=== PATIENT | male | born 1985 | race Caucasian/White ===

== ENCOUNTER 2018-06-12 11:34 | Inpatient (IN) | payer OTHER ==
[2018-06-12] MEDS ORDERED: CEFTRIAXONE 2 GM-D5W BAG 2 GM/50 ML BAG IVPB ONE (11:59)
[2018-06-12] MEDS ORDERED: VANCOMYCIN 1,000 MG in DEXTROSE 5%-WATER - 250 ML IVPB ONE (12:00)
[2018-06-12] MEDS ORDERED: DEXAMETHASONE SOD PHOSPHATE 4 MG/1 ML VIAL IVPUSH ONE (12:00)
[2018-06-12] MEDS ORDERED: VANCOMYCIN 1 GRAM (PRE-DOCKED) 1,000 MG/250 ML BAG IVPB ONE (12:03)
[2018-06-12] MEDS ORDERED: CEFTRIAXONE 2 GM/100 ML BAG IVPB ONE (12:03)
[2018-06-12] MEDS ORDERED: DEXAMETHASONE SOD PHOSPHATE 4 MG/1 ML VIAL ONE (12:03)
[2018-06-12] MEDS ORDERED: ACETAMINOPHEN 1000 MG/100 ML VIAL (NON FORMULARY) IVPB ONE ×2 (12:21→13:59)
[2018-06-12] MEDS ORDERED: SODIUM CHLORIDE 0.9% 1000 ML INFUS.BAG IV ONE (12:21)
--- NOTE | 2018-06-12 12:21 | PDOC ---
Attending Attestation - Resident Resident Name: Jeremías Swanson - ED Attending Attestation I have performed the following: I have examined & evaluated the patient, The case was reviewed & discussed with the resident, I agree w/resident's findings & plan, Exceptions are as noted - HPI HPI: 06/12/18 15:11 Agree with residents HPI - Physicial Exam PE: 06/12/18 15:13 Vitals: Triage Vital signs reviewed General Appearance: no acute distress, well nourished well developed, Head: Atraumatic, Neck: Supple;No Nucal rigidity, but C/O of pain with movement Chest Wall: Nontender Cardiac: Regular rate and rhythym, no murmurs, no rubs, no gallops, Lungs: Clear to auscultation bilateral, good air movement bilaterally, Abdomen: Soft, non distended, normal bowel sounds, non tender to palpation Extremities: Full range of motion to all extremities, no cyanosis, clubbing, or edema Skin: Warm and dry, + petechiae on left digits Neuro: AOX3; Cranial Nerves 2-12 grossly intact, Strength intact to all extremities, Sensation intact to all extremities,gait normal Psych: normal mood, normal affect - Critical Care Time Total Critical Care Time: 45 Critical Care Statement: The care of this patient involved high complexity decision making to prevent further life threatening deterioration of the patient 's condition and/or to evaluate & treat vital organ system(s) failure or risk of failure. - Medical Decision Making 06/12/18 15:13 33 years old history of Hep C, IV drug within last 24 hours presents to the ED with gram-positive cocci on outpatient blood cultures fever 3 days chills malaise headache and subjective neck stiffness Questionable petechial lesions to the digits of left hand Differential diagnosis includes bacteremia versus endocarditis versus meningitis Patient empirically covered with ceftriaxone and vancomycin head CT labs ordered Patient consented for lumbar puncture performed without any, occasions CSF with no WBC. Pt. given nicotine patch and methadone for mild withdrawal sx. Behavioral health consulted We'll admit to medicine for follow-up on cultures and further management. Heart Score/ECG Review - ECG Impressions Comment:: 06/12/18 16:32 EKG performed at 1617. Demonstrates normal sinus rhythm T-wave injured inversions in leads V1 through V3. No ST elevations. Interpreted by me.
[2018-06-12] MEDS ORDERED: ACETAMINOPHEN INJECTION 100 ML IVPB ONE ×2 (12:22→14:03)
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
[2018-06-12 12:54] LABS: BASO % 0.4 % (0-2.0); EOS % 0.4 % (0-4.5); HEMATOCRIT 31.9 % (35.4-49); HEMOGLOBIN 10.5 GM/dL (11.7-16.9); LYMPH % 4.5 % (8-40); MCH 27.3 pg (25.7-33.7); MEAN CELL VOLUME 82.9 fl (80-96); MONO % 5.4 % (3.8-10.2); NEUT % 89.3 % (42.8-82.8); PLATELET COUNT 131 K/MM3 (134-434); RBC 3.84 M/mm3 (4.00-5.60); RDW 14.9 % (11.9-15.9); WHITE BLOOD COUNT 7.3 K/mm3 (4.0-10.0)
[2018-06-12] MEDS ORDERED: ACETAMINOPHEN 325 MG TABLET (FP) PO ONE (13:02)
[2018-06-12 13:12] LABS: INR 1.29 (0.83-1.09); PROTHROMBIN TIME (PATIENT) 14.6 SEC (9.7-13.0)
[2018-06-12 13:15] LABS: ACTIVATED PTT 28.2 SECONDS (25.2-36.5)
[2018-06-12 13:21] LABS: ALBUMIN 3.2 g/dl (3.4-5.0); ALK PHOS 59 U/L (45-117); ANION GAP 4 (8-16); BILIRUBIN,TOTAL 0.6 mg/dL (0.2-1.0); BLOOD UREA NITROGEN 13 mg/dL (7-18); CALCIUM 8.7 mg/dL (8.5-10.1); CHLORIDE 101 mmol/L (98-107); CO2 28 mmol/L (21-32); CREATININE 1.2 mg/dL (0.7-1.3); GLUCOSE,RANDOM 94 mg/dL (74-106); POTASSIUM 4.9 mmol/L (3.5-5.1); SGOT/AST 17 U/L (15-37); SGPT/ALT 18 U/L (12-78); SODIUM 133 mmol/L (136-145); TOT PROT 7.8 g/dl (6.4-8.2)
[2018-06-12] MEDS ORDERED: ACETAMINOPHEN 650 MG/20.3 ML ORAL SOLUTION (CUPS) ONE (13:51)
[2018-06-12] MEDS ORDERED: MIDAZOLAM HCL 2 MG/2 ML SINGLE DOSE VIAL IVPUSH ONE (13:59)
[2018-06-12] MEDS ORDERED: MIDAZOLAM HCL 2 MG/2 ML SINGLE DOSE VIAL ONE (14:03)
[2018-06-12 14:11] LABS: URINE APPEARANCE CLEAR; URINE BILIRUBIN NEGATIVE (<2.0 mg/dL); URINE COLOR AMBER; URINE GLUCOSE (UA) NEGATIVE (NEGATIVE); URINE KETONE NEGATIVE (NEGATIVE); URINE LEUK ESTERASE TRACE (NEGATIVE); URINE NITRITE NEGATIVE (NEGATIVE); URINE UROBILINOGEN 4.0 E.U/dl mg/dL (0.2-1.0)
[2018-06-12 14:13] LABS: URINE PROTEIN 1+ (NEGATIVE)
[2018-06-12] MEDS ORDERED: LIDOCAINE HCL 2% (20ML MULTI-DOSE VIAL) NR ONE (14:34)
[2018-06-12 15:01] LABS: EPI CELLS RARE /HPF (FEW); URINE MUCUS RARE
[2018-06-12 15:16] LABS: GLUCOSE,CSF 57 mg/dL (50-80)
[2018-06-12 15:45] LABS: CSF APPEARANCE CLEAR; CSF COLOR COLORLESS; CSF WBC 2
[2018-06-12] MEDS ORDERED: SODIUM CHLORIDE 1,000 ML IV STA ×3 (16:05→23:10)
[2018-06-12] MEDS ORDERED: METHADONE HCL 10 MG TABLET PO ONE (16:08)
[2018-06-12] MEDS ORDERED: METHADONE HCL 10 MG TABLET ONE (16:26)
[2018-06-12] MEDS: NICOTINE 14 MG/24 HOURS TOPICAL PATCH TD SCH (17:05)
--- NOTE | 2018-06-12 17:42 | PN ---
Progress Note (short form) - Note Progress Note: ID consult dictated imp/reccd fever bacteremia r/o endocarditis 33 year old active injection user /hep c went to [facility] this weekend had blood cultures drawn mother contacted on Monday- he refused to go to ED today he came to [facility]inic and agreed to come to the hospital +fever +lesions on his hands +headache and neck discomfort LP done in Ed with 2 WBC,normal protein and glucose he is alert with normal mental status given steroids vancomycin and ceftriaxone +murmur ?emboli to hands bilateral groin lesions (sites of injections) no purulence, no drainage feet and eyes OK blood cultures from [facility] with Strep ID and Sensitivity pending ECHO Cardiology to see tonight f/u EKG blood cultures have been repeated vancomycin 1250 bid ceftriaxone 2 g Q24h gentamicin until blood culture results are back
--- NOTE | 2018-06-12 17:48 | PN ---
Teaching Attending Note Name of Resident: Noelle Willett ATTENDING PHYSICIAN STATEMENT I saw and evaluated the patient. I reviewed the resident's note and discussed the case with the resident. I agree with the resident's findings and plan as documented with exceptions below SUBJECTIVE: 33 yom with PMhx of IVDU (heroine and cocaine), (uses almost daily for 4 years) , H/o crack cocaine use prior for almost 15 years now, opioid dependence on methadone (gets at [facility]), anxiety, depression, recent diagnosed Hep C, was having fevers reportedly upto 103 5 days ago,with reported hallucination, not feeling right/AMS, went to [facility] ER, left ED (?d/meenakshi), was called the next day with positive blood cx. today patient came to [facility] clinic with ongoign symptoms of headache, malaise, neck pain, fevers and was sent to the Ed. patient had LP in the ED, prelim results are negative for meningitis. Currently drowsy from recent medications but answering appropriately. Headache/ neck pain better. 12 point ROs done, neg for nausea, vomiting, diarrhea, abdominal pain, chest pain, cough, sputum or urinary symptoms. Also reports red urine. Mother at bedside per patient's request. OBJECTIVE: Vital Signs Period Temp Pulse Resp BP Sys/Manning Pulse Ox Last 24 Hr 100.5 F-102.2 F 75-78 18 97-102/54-69 97-98 Intake & Output 06/09/18 06/10/18 06/11/18 06/12/18 23:59 23:59 23:59 23:59 Weight 165 lb GENERAL: Awake, alert, and fully oriented, in no acute distress. HEAD: Normal with no signs of trauma. EYES: Pupils equal, round and reactive to light, extraocular movements intact, sclera anicteric, conjunctiva clear. No lid lag. EARS, NOSE, THROAT: Ears normal, nares patent, oropharynx clear without exudates. Dry mucous membranes NECK: soft, supple, no JVD, no lymphadenopathy appreciated LUNGS: Breath sounds equal, clear to auscultation bilaterally. No wheezes, and no crackles. No accessory muscle use. HEART: S1S2 regular, systolic murmur left parasternal area, limited by tachycardia, ABDOMEN: Soft, nontender, not distended, normoactive bowel sounds, no guarding, no rebound, no masses. MUSCULOSKELETAL: Normal range of motion at all joints. No bony deformities or tenderness. No CVA tenderness. No spinal tenderness UPPER EXTREMITIES: 2+ pulses, warm, well-perfused. small petechial lesions tip of fingertips bilateral hands LOWER EXTREMITIES: 2+ pulses, warm, well-perfused. No calf tenderness. No peripheral edema. Bilateral groin needle gonzalez NEUROLOGICAL: Cranial nerves II-XII intact. Normal speech. facial symmetry, Tongue midline, EOMI, power 5/5, sensation intact to light touch PSYCHIATRIC: Cooperative. Good eye contact. Appropriate mood and affect. SKIN: Warm, dry, normal turgor, no rashes or lesions noted, normal capillary refill. Home Medications Medication Instructions Recorded Methadone [Dolophine -] 110 mg PO DAILY 06/12/18 Active Medications Heparin Sodium (Porcine) (Heparin -) 5,000 unit SQ Q8H-IV ELYSIA Vancomycin HCl 1,250 mg/ (Dextrose) 250 mls @ 166.667 mls/hr IVPB Q12H ELYSIA; Protocol Piperacillin Sod/Tazobactam (Sod 4.5 gm/ Dextrose) 100 mls @ 200 mls/hr IVPB Q8H-IV ELYSIA; Protocol Sodium Chloride (Normal Saline -) 1,000 mls @ 125 mls/hr IV ASDIR ELYSIA Nicotine (Nicoderm Patch -) 14 mg TD DAILY ELYSIA Last Admin: 06/12/18 17:05 Dose: 14 mg Laboratory Results - last 24 hr 06/12/18 06/12/18 06/12/18 12:44 12:44 12:44 WBC 7.3 RBC 3.84 L Hgb 10.5 L Hct 31.9 L MCV 82.9 MCH 27.3 MCHC 33.0 RDW 14.9 Plt Count 131 L D MPV 8.0 Absolute Neuts (auto) 6.5 Neutrophils % 89.3 H Lymphocytes % 4.5 L D Monocytes % 5.4 Eosinophils % 0.4 Basophils % 0.4 Nucleated RBC % 0 PT with INR 14.60 H INR 1.29 H PTT (Actin FS) 28.2 VBG pH POC VBG pCO2 POC VBG pO2 Mixed VBG HCO3 Sodium 133 L Potassium 4.9 Chloride 101 Carbon Dioxide 28 Anion Gap 4 L BUN 13 Creatinine 1.2 Creat Clearance w eGFR > 60 Random Glucose 94 Lactic Acid Calcium 8.7 Total Bilirubin 0.6 AST 17 ALT 18 D Alkaline Phosphatase 59 Troponin I Total Protein 7.8 Albumin 3.2 L Urine Color Urine Appearance Urine pH Ur Specific [place] Urine Protein Urine Glucose (UA) Urine Ketones Urine Blood Urine Nitrite Urine Bilirubin Urine Urobilinogen Ur Leukocyte Esterase Urine WBC (Auto) Urine RBC (Auto) Ur Epithelial Cells Urine Mucus CSF Appearance CSF Color CSF WBC CSF RBC CSF Neutrophils CSF Lymphocytes CSF Eosinophils CSF Basophils CSF Macrophages CSF Plasma Cells CSF Diff Comment CSF Comment CSF Glucose CSF Total Protein HIV 1&2 Antibody Screen HIV P24 Antigen 06/12/18 06/12/18 06/12/18 12:44 12:44 12:45 WBC RBC Hgb Hct MCV MCH MCHC RDW Plt Count MPV Absolute Neuts (auto) Neutrophils % Lymphocytes % Monocytes % Eosinophils % Basophils % Nucleated RBC % PT with INR INR PTT (Actin FS) VBG pH Cancelled POC VBG pCO2 Cancelled POC VBG pO2 Cancelled Mixed VBG HCO3 Cancelled Sodium Potassium Chloride Carbon Dioxide Anion Gap BUN Creatinine Creat Clearance w eGFR Random Glucose Lactic Acid 2.1 H Calcium Total Bilirubin AST ALT Alkaline Phosphatase Troponin I < 0.02 Total Protein Albumin Urine Color Urine Appearance Urine pH Ur Specific [place] Urine Protein Urine Glucose (UA) Urine Ketones Urine Blood Urine Nitrite Urine Bilirubin Urine Urobilinogen Ur Leukocyte Esterase Urine WBC (Auto) Urine RBC (Auto) Ur Epithelial Cells Urine Mucus CSF Appearance CSF Color CSF WBC CSF RBC CSF Neutrophils CSF Lymphocytes CSF Eosinophils CSF Basophils CSF Macrophages CSF Plasma Cells CSF Diff Comment CSF Comment CSF Glucose CSF Total Protein HIV 1&2 Antibody Screen HIV P24 Antigen 06/12/18 06/12/18 06/12/18 13:55 14:40 14:40 WBC RBC Hgb Hct MCV MCH MCHC RDW Plt Count MPV Absolute Neuts (auto) Neutrophils % Lymphocytes % Monocytes % Eosinophils % Basophils % Nucleated RBC % PT with INR INR PTT (Actin FS) VBG pH POC VBG pCO2 POC VBG pO2 Mixed VBG HCO3 Sodium Potassium Chloride Carbon Dioxide Anion Gap BUN Creatinine Creat Clearance w eGFR Random Glucose Lactic Acid Calcium Total Bilirubin AST ALT Alkaline Phosphatase Troponin I Total Protein Albumin Urine Color [place] Urine Appearance Clear Urine pH 7.0 D Ur Specific [place] 1.023 Urine Protein 1+ H Urine Glucose (UA) Negative Urine Ketones Negative Urine Blood Negative Urine Nitrite Negative Urine Bilirubin Negative Urine Urobilinogen 4.0 e.u/dl Ur Leukocyte Esterase Trace Urine WBC (Auto) 1 Urine RBC (Auto) 4 Ur Epithelial Cells Rare Urine Mucus Rare CSF Appearance Clear CSF Color Colorless CSF WBC 2 CSF RBC 0 CSF Neutrophils No Result Required. CSF Lymphocytes No Result Required. CSF Eosinophils No Result Required. CSF Basophils No Result Required. CSF Macrophages No Result Required. CSF Plasma Cells No Result Required. CSF Diff Comment No Result Required. CSF Comment No Result Required. CSF Glucose No Result Required. 57 CSF Total Protein No Result Required. 31 HIV 1&2 Antibody Screen HIV P24 Antigen 06/12/18 06/12/18 15:25 15:25 WBC RBC Hgb Hct MCV MCH MCHC RDW Plt Count MPV Absolute Neuts (auto) Neutrophils % Lymphocytes % Monocytes % Eosinophils % Basophils % Nucleated RBC % PT with INR INR PTT (Actin FS) VBG pH POC VBG pCO2 POC VBG pO2 Mixed VBG HCO3 Sodium Potassium Chloride Carbon Dioxide Anion Gap BUN Creatinine Creat Clearance w eGFR Random Glucose Lactic Acid 2.3 H* Calcium Total Bilirubin AST ALT Alkaline Phosphatase Troponin I Total Protein Albumin Urine Color Urine Appearance Urine pH Ur Specific [place] Urine Protein Urine Glucose (UA) Urine Ketones Urine Blood Urine Nitrite Urine Bilirubin Urine Urobilinogen Ur Leukocyte Esterase Urine WBC (Auto) Urine RBC (Auto) Ur Epithelial Cells Urine Mucus CSF Appearance CSF Color CSF WBC CSF RBC CSF Neutrophils CSF Lymphocytes CSF Eosinophils CSF Basophils CSF Macrophages CSF Plasma Cells CSF Diff Comment CSF Comment CSF Glucose CSF Total Protein HIV 1&2 Antibody Screen Negative HIV P24 Antigen Negative EKG NSR, biphasic T waves in V1-V2, QTc 521 CXR - no acute process CT brain - neg for acute process ASSESSMENT AND PLAN: 33 yom with PMhx of IVDU (heroine and cocaine), (uses almost daily for 4 years) , H/o crack cocaine use prior for almost 15 years now, opioid dependence on methadone (gets at [facility]), anxiety, depression, recent diagnosed Hep C, admitted with fevers, headache, malaise and recent positive blood cultures. -Strep bacteremia with sepsis, high suspicion for infective endocarditis -IVDU -Opioid dependence on methadone -Prolonged QTC -Red urine, suspect rhabdomyolysis -Anxiety -Depression Plan: BLood cx from [facility] with strep. ID consulted, case discussed with Dr. Magaña Ceftriaxone/vancomcyin and gentamycin x1 per ID. Aggressive IV hydration. Check CPK/Mg/Phos. Interval monitoring of EKG to monitor QTc. Cardiology consulted with Dr. Carranza, case discussed. Cycle troponin but low suspicion. Confirm Methadone from [facility]. Patient reports not compliant with his prior outpatient medications. ( is supposed to be on ambien 10 mg hs, Xanax 1 mg daily prn, buproprion, depakote, olanzapine), resume as tolerated. DVTPPX with lovenox Dispo pending work up above and clinical improvement. Plan discussed with patient and mother at bedside (with patient's consent) in detail and all questions answered. They express understanding and in agreement with the plan. Total admit time 65 min.
[2018-06-12] MEDS ORDERED: PIPERACILLIN/TAZOB 4.5 GM 4.5 GM in DEXTROSE 5%-WATER 100 ML IVPB SCH (18:00)
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
[2018-06-12] MEDS ORDERED: GENTAMICIN INJECTION 70 MG in SODIUM CHLORIDE 100 ML IVPB ONE (18:30)
[2018-06-12 18:35] LABS: PHOSPHOROUS 2.7 mg/dL (2.5-4.9)
[2018-06-12 18:52] LABS: MAGNESIUM 2.1 mg/dL (1.8-2.4)
[2018-06-12] MEDS: ALPRAZolam 0.25 MG TABLET PO PRN (19:15)
[2018-06-12] MEDS ORDERED: ALPRAZolam 0.25 MG TABLET ONE (19:17)
[2018-06-12] MEDS ORDERED: POLYETHYLENE GLYCOL 3350 119 GM BTL PO ONE (19:18)
[2018-06-12] MEDS: SODIUM CHLORIDE 1,000 ML IV SCH (19:20)
[2018-06-12] MEDS ORDERED: HEPARIN NA (PORCINE) 5,000 UNITS/ML 1ML VIAL SQ SCH (22:00)
[2018-06-12] MEDS ORDERED: LORazepam 1 MG TABLET PO ONE (23:00)
[2018-06-13] MEDS ORDERED: VANCOMYCIN 1,250 MG in DEXTROSE 5%-WATER - 250 ML IVPB SCH
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
[2018-06-13] MEDS: VANCOMYCIN 1,250 MG in DEXTROSE 5%-WATER - 250 ML IVPB SCH ×2 (02:34→15:07)
[2018-06-13] MEDS: GENTAMICIN INJECTION 70 MG in SODIUM CHLORIDE 100 ML IVPB SCH ×2 (05:06→11:17)
[2018-06-13] MEDS ORDERED: SODIUM CHLORIDE 1,000 ML IV STA ×2 (05:08→08:39)
[2018-06-13 06:50] LABS: BASO % 0.1 % (0-2.0); HEMATOCRIT 26.2 % (35.4-49); HEMOGLOBIN 8.7 GM/dL (11.7-16.9); LYMPH % 8.5 % (8-40); MCH 27.7 pg (25.7-33.7); MEAN PLT VOLUME 8.5 fl (7.5-11.1); MONO % 6.2 % (3.8-10.2); NEUT % 85.2 % (42.8-82.8); PLATELET COUNT 78 K/MM3 (134-434); RBC 3.12 M/mm3 (4.00-5.60); RDW 14.8 % (11.9-15.9); WHITE BLOOD COUNT 4.5 K/mm3 (4.0-10.0)
[2018-06-13] MEDS ORDERED: METHADONE HCL 10 MG TABLET ONE (07:29)
[2018-06-13] MEDS ORDERED: METHADONE HCL 40 MG DISPERSABLE TABLET ONE (07:30)
[2018-06-13 07:49] LABS: ALBUMIN 2.5 g/dl (3.4-5.0); ALK PHOS 51 U/L (45-117); ANION GAP 7 (8-16); BILIRUBIN,TOTAL 0.2 mg/dL (0.2-1.0); BLOOD UREA NITROGEN 11 mg/dL (7-18); CHLORIDE 113 mmol/L (98-107); CO2 24 mmol/L (21-32); CREATININE 0.8 mg/dL (0.7-1.3); GLUCOSE,RANDOM 122 mg/dL (74-106); POTASSIUM 4.4 mmol/L (3.5-5.1); SGOT/AST 8 U/L (15-37); SGPT/ALT 15 U/L (12-78); SODIUM 144 mmol/L (136-145); TOT PROT 6.2 g/dl (6.4-8.2)
[2018-06-13] MEDS: METHADONE 80 MG, METHADONE 30 MG PO SCH (07:52)
--- NOTE | 2018-06-13 08:04 | PN ---
Teaching Attending Note Name of Resident: Ashleigh Vinson ATTENDING PHYSICIAN STATEMENT I saw and evaluated the patient. I reviewed the resident's note and discussed the case with the resident. I agree with the resident's findings and plan as documented with exceptions below. SUBJECTIVE: Patient seen and examined. Trying to take his meds, anxious, feels overwhelmed by testing. Not further co-operating with interview OBJECTIVE: Vital Signs Period Temp Pulse Resp BP Sys/Manning Pulse Ox Last 24 Hr 95 F-102.2 F 40-78 16-20 87-121/46-74 97-100 Intake & Output 06/10/18 06/11/18 06/12/18 06/13/18 23:59 23:59 23:59 23:59 Intake Total 1450 3890 Output Total 660 750 Balance 790 3140 Weight 165 lb General: AAOx3, no acute distress, anxious and agitated, feels overwhelmed by tests and 'can you leave me alone please'. Refuses further exam. Active Medications Alprazolam (Xanax -) 1 mg PO Q24H PRN PRN Reason: ANXIETY Last Admin: 06/12/18 19:15 Dose: 1 mg Enoxaparin Sodium (Lovenox -) 40 mg SQ DAILY ELYSIA Sodium Chloride (Normal Saline -) 1,000 mls @ 125 mls/hr IV ASDIR ELYSIA Last Admin: 06/12/18 19:20 Dose: 125 mls/hr Vancomycin HCl 1,250 mg/ (Dextrose) 250 mls @ 166.667 mls/hr IVPB BID@0300, 1500 ELYSIA; Protocol Last Admin: 06/13/18 02:34 Dose: 166.667 mls/hr Ceftriaxone Sodium 2 gm/ (Dextrose) 100 mls @ 200 mls/hr IVPB DAILY ELYSIA; Protocol Gentamicin Sulfate 70 mg/ (Sodium Chloride) 101.75 mls @ 100 mls/hr IVPB Q8H- IV ELYSIA; Protocol Last Admin: 06/13/18 05:06 Dose: 100 mls/hr Methadone HCl 80 mg/ Methadone (HCl 30 mg) 110 mg PO DAILY@0600 ELYSIA Last Admin: 06/13/18 07:52 Dose: 110 mg Nicotine (Nicoderm Patch -) 14 mg TD DAILY [facility] Last Admin: 06/12/18 17:05 Dose: 14 mg Pneumococcal Polyvalent Vaccine (Pneumovax -) 0.5 ml IM .ONCE ONE Stop: 06/13/18 10:01 Microbiology 06/12/18 14:40 Cerebral Spinal Fluid - Lumbar Puncture Gram Stain - Final 06/12/18 14:40 Cerebral Spinal Fluid - Lumbar Puncture CSF Culture - Preliminary 06/12/18 12:15 Blood - Peripheral Venous Blood Culture - Preliminary Alpha Hemolytic Streptococcus 06/12/18 12:15 Blood - Peripheral Venous Blood Culture - Preliminary Alpha Hemolytic Streptococcus 06/12/18 13:55 Urine - Urine Clean Catch Urine Culture - Final NO GROWTH OBTAINED ASSESSMENT AND PLAN: 33 yom with PMhx of IVDU (heroine and cocaine), (uses almost daily for 4 years) , H/o crack cocaine use prior for almost 15 years now, opioid dependence on methadone (gets at [facility]), anxiety, depression, recent diagnosed Hep C, admitted with fevers, headache, malaise and recent positive blood cultures. -Alpha hemolytic Strep bacteremia with sepsis, high suspicion for infective endocarditis -Thrombocytopenia, suspect from sepsis -Anemia, likely dilutional+/- sepsis, no gross evidence of bleed. -Lactic acidosis, from sepsis -IVDU -Opioid dependence on methadone -Prolonged QTC, repeat 480 -Red urine, CPK normal -Anxiety -Depression Plan: BLood cx from [facility] with strep. Retrieve final report. Blood cx here noted. Follow up with ID. Ceftriaxone/vancomcyin and gentamycin per ID. Aggressive IV hydration. Monitor renal function. Repeat EKG non concerning. Follow up cardiology consult and 2D echo. ACS ruled out. Methadone confirmed with [facility]. Detox Consult with Dr. Hancock. Patient reports not compliant with his prior outpatient medications. ( is supposed to be on ambien 10 mg hs, Xanax 1 mg daily prn, buproprion, depakote, olanzapine), resume as tolerated. DVTPPX d/c Lovenox. Start SCDs. Dispo pending work up above and clinical improvement. Discussed with patient on multiple occasions about life threatening infection, need for antibiotics and close monitoring and further intervention pending work up and clinical course. patient relays full understanding of the current condition, risks of leaving including sepsis, and . Will continue to encourage compliance and follow up detox recs to address ongoing polysubstance abuse.
[2018-06-13] MEDS ORDERED: SODIUM CHLORIDE 500 ML IV STA (08:42)
[2018-06-13] MEDS ORDERED: PNEUMOCOCCAL 23 VACCINE 0.5 ML VIAL IM ONE (10:00)
[2018-06-13] MEDS ORDERED: METHADONE HCL 40 MG DISPERSABLE TABLET PO SCH (10:00)
[2018-06-13] MEDS ORDERED: ENOXAPARIN NA (PORCINE) 40 MG/0.4 ML DISP.SYRIN SQ SCH (10:00)
[2018-06-13] MEDS ORDERED: PNEUMOC 13-VAL CONJ-DIP CRM/PF 0.5 ML DISP.SYRIN IM ONE (10:00)
[2018-06-13] MEDS: ALPRAZolam 0.25 MG TABLET PO PRN (10:40)
[2018-06-13] MEDS ORDERED: ALPRAZolam 0.25 MG TABLET PO PRN ×2 (10:55)
[2018-06-13] MEDS: NICOTINE 14 MG/24 HOURS TOPICAL PATCH TD SCH (11:12)
[2018-06-13] MEDS: CEFTRIAXONE 2 GM in DEXTROSE 5%-WATER 100 ML IVPB SCH ×2 (11:23→12:51)
[2018-06-13] MEDS ORDERED: ACETAMINOPHEN 325 MG TABLET (FP) ONE (12:04)
[2018-06-13] MEDS: ACETAMINOPHEN 325 MG TABLET (FP) PO PRN (12:20)
--- NOTE | 2018-06-13 13:00 | PN ---
Progress Note (short form) - Note Progress Note: continues to have body pains requesting morphine got methadone this am awaiting echo alert +hiccups uncooperative with exam Vital Signs Period Temp Pulse Resp BP Sys/Manning Pulse Ox Last 24 Hr 95 F-104 F 40-96 16-20 87-121/45-74 98-100 no conjunctival hemorrhages cor-rrr +murmur lungs clear abd soft,nt ext left hand lesions unchanged no lesions on right hand or feet CBC, BMP 06/13/18 05:30 06/13/18 05:30 Microbiology 06/12/18 14:40 Cerebral Spinal Fluid - Lumbar Puncture Gram Stain - Final 06/12/18 14:40 Cerebral Spinal Fluid - Lumbar Puncture CSF Culture - Preliminary 06/12/18 12:15 Blood - Peripheral Venous Blood Culture - Preliminary Alpha Hemolytic Streptococcus 06/12/18 12:15 Blood - Peripheral Venous Blood Culture - Preliminary Alpha Hemolytic Streptococcus 06/12/18 13:55 Urine - Urine Clean Catch Urine Culture - Final NO GROWTH OBTAINED a/p fever bacteremia r/o endocarditis active substance use awaiting cardiology evaluation and echo results awaiting further blood culture results norah Brush- results faxed to chart- strep viridans, ?staph spp-[phone]- continue vanco/rocephin/gent while awaiting final blood culture results from [facility] spoke with micro- strep ID later today
--- NOTE | 2018-06-13 13:15 | ECHO ---
Name: ZACK MOHAMUD Exam:Adult Echocardiogram Study Date: 06/13/2018 11:45 AM Age: 33 yrs Reason For Study: R/O Endocarditis Height: 71 in Weight: 160 lb BSA: 1.9 m2 MMode/2D Measurements & Calculations IVSd: 0.68 cm Ao root diam: 2.9 cm LVIDd: 5.2 cm LA dimension: 3.8 cm LVIDs: 3.4 cm LVPWd: 0.74 cm EDV(Teich): 129.5 ml TAPSE: 2.8 cm ESV(Teich): 46.5 ml RV S Murtaza: 22.4 cm/sec Doppler Measurements & Calculations MV E max murtaza: 134.7 cm/sec TR max murtaza: 230.8 cm/sec MV A max murtaza: 72.9 cm/sec TR max P.4 mmHg MV E/A: 1.8 Med Peak E' Murtaza: 9.1 cm/sec Med E/e': 14.8 Lat Peak E' Murtaza: 16.6 cm/sec Lat E/e': 8.1 Left Ventricle The left ventricular size, thickness and function are normal. Right Ventricle The right ventricular systolic function is normal. Atria Normal left and right atrial size and function. Mitral Valve There is trivial mitral valve thickening. There is no vegetation seen on the mitral valve. There is t race mitral regurgitation. Tricuspid Valve There is no tricuspid valve vegetation. There is mild tricuspid regurgitation. Right ventricular syst olic pressure is 21.4 mmhg. Aortic Valve There is no aortic valvular vegetation. Pulmonic Valve There is no vegetation on the pulmonic valve. Great Vessels The aortic root is normal size. Pericardium/Pleura There is no pericardial effusion. Interpretation Summary Normal left and right atrial size and function. There is mild tricuspid regurgitation. Right ventricular systolic pressure is 21.4 mmhg. There is no vegetation seen on the mitral valve. There is no tricuspid valve vegetation. There is no vegetation on the pulmonic valve. There is no aortic valvular vegetation. The aortic root is normal size. There is no pericardial effusion. Raúl Carranza MD 06/13/2018 01:14 PM
[2018-06-13] MEDS ORDERED: ACETAMINOPHEN 1000 MG/100 ML VIAL (NON FORMULARY) IVPB PRN (13:31)
--- NOTE | 2018-06-13 14:03 | EKG ---
Test Reason : Blood Pressure : / mmHG Vent. Rate : 061 BPM Atrial Rate : 061 BPM P-R Int : 150 ms QRS Dur : 098 ms QT Int : 518 ms P-R-T Axes : 065 078 062 degrees QTc Int : 521 ms NORMAL SINUS RHYTHM POSSIBLE LEFT ATRIAL ENLARGEMENT T WAVE ABNORMALITY, CONSIDER ANTERIOR ISCHEMIA PROLONGED QT ABNORMAL ECG NO PREVIOUS ECGS AVAILABLE Confirmed by VICKI DE LA CRUZ MD ([id number]) on 06/13/2018 2:03:38 PM Referred By: Confirmed By:VICKI DE LA CRUZ MD
[2018-06-13] MEDS ORDERED: METHADONE HCL 10 MG TABLET PO ONE (14:11)
--- NOTE | 2018-06-13 14:16 | EKG ---
Test Reason : Blood Pressure : / mmHG Vent. Rate : 084 BPM Atrial Rate : 084 BPM P-R Int : 148 ms QRS Dur : 092 ms QT Int : 408 ms P-R-T Axes : 067 069 053 degrees QTc Int : 482 ms NORMAL SINUS RHYTHM PROLONGED QT ABNORMAL ECG WHEN COMPARED WITH ECG OF 12-JUN-2018 16:17, NO SIGNIFICANT CHANGE WAS FOUND Confirmed by VICKI DE LA CRUZ MD ([id number]) on 06/13/2018 2:16:21 PM Referred By: Zahra VILLAVICENCIO Confirmed By:VICKI DE LA CRUZ MD
[2018-06-13] MEDS: ASCORBIC ACID 250 MG TABLET (FP) PO SCH (17:07)
[2018-06-13] MEDS: SODIUM CHLORIDE 1,000 ML IV SCH (17:08)
--- NOTE | 2018-06-13 18:04 | PN ---
Physical Exam: SUBJECTIVE: Patient seen and examined this morning at bedside. Patient was very agitated and anxious, threatening to leave AMA multiple times. He then refused to be further interviewed or examined and [facility]. OBJECTIVE: Vital Signs Period Temp Pulse Resp BP Sys/Manning Pulse Ox Last 24 Hr 95 F-104 F 40-96 16-20 87-121/45-74 100-100 GENERAL: The patient is awake, alert, and fully oriented, in no acute distress. NECK: Supple, No JVD LUNGS: Breath sounds equal, clear to auscultation bilaterally, no wheezes HEART: Regular rate and rhythm, S1, S2 ABDOMEN: Soft, nontender, nondistended, normoactive bowel sounds, no guarding EXTREMITIES: No edema Refused to be further examined as it was causing him agitation and anxiety Laboratory Results - last 24 hr 06/12/18 06/12/18 06/13/18 12:44 19:51 05:30 WBC 4.5 RBC 3.12 L Hgb 8.7 L Hct 26.2 L D MCV 84.0 MCH 27.7 MCHC 33.0 RDW 14.8 Plt Count 78 L D MPV 8.5 Absolute Neuts (auto) 3.8 Neutrophils % 85.2 H Lymphocytes % 8.5 D Monocytes % 6.2 Eosinophils % 0.0 D Basophils % 0.1 Nucleated RBC % 0 Sodium Potassium Chloride Carbon Dioxide Anion Gap BUN Creatinine Creat Clearance w eGFR Random Glucose Lactic Acid Calcium Phosphorus 2.7 Magnesium 2.1 Total Bilirubin AST ALT Alkaline Phosphatase Creatine Kinase 148 Troponin I < 0.02 Total Protein Albumin 06/13/18 06/13/18 05:30 05:30 WBC RBC Hgb Hct MCV MCH MCHC RDW Plt Count MPV Absolute Neuts (auto) Neutrophils % Lymphocytes % Monocytes % Eosinophils % Basophils % Nucleated RBC % Sodium 144 Potassium 4.4 Chloride 113 H D Carbon Dioxide 24 Anion Gap 7 L BUN 11 Creatinine 0.8 Creat Clearance w eGFR > 60 Random Glucose 122 H D Lactic Acid 3.3 H* Calcium 8.0 L Phosphorus Magnesium Total Bilirubin 0.2 AST 8 L D ALT 15 Alkaline Phosphatase 51 Creatine Kinase Troponin I Total Protein 6.2 L Albumin 2.5 L Microbiology 06/12/18 12:15 Blood - Peripheral Venous Blood Culture - Preliminary Streptococcus Sanguinis 06/12/18 14:40 Cerebral Spinal Fluid - Lumbar Puncture Gram Stain - Final 06/12/18 14:40 Cerebral Spinal Fluid - Lumbar Puncture CSF Culture - Preliminary 06/12/18 12:15 Blood - Peripheral Venous Blood Culture - Preliminary Alpha Hemolytic Streptococcus 06/12/18 13:55 Urine - Urine Clean Catch Urine Culture - Final NO GROWTH OBTAINED Active Medications Acetaminophen (Tylenol -) 650 mg PO Q6H PRN PRN Reason: FEVER Last Admin: 06/13/18 12:20 Dose: 650 mg Acetaminophen (Ofirmev Injection -) 1,000 mg IVPB Q6H PRN PRN Reason: FEVER Alprazolam (Xanax -) 0.5 mg PO Q24H PRN PRN Reason: ANXIETY Ascorbic Acid (Vitamin C -) 250 mg PO DAILY [facility] Last Admin: 06/13/18 17:07 Dose: Not Given Sodium Chloride (Normal Saline -) 1,000 mls @ 125 mls/hr IV ASDIR [facility] Last Admin: 06/13/18 17:08 Dose: 125 mls/hr Vancomycin HCl 1,250 mg/ (Dextrose) 250 mls @ 166.667 mls/hr IVPB BID@0300, 1500 [facility]; Protocol Last Admin: 06/13/18 15:07 Dose: 166.667 mls/hr Ceftriaxone Sodium 2 gm/ (Dextrose) 100 mls @ 200 mls/hr IVPB DAILY [facility]; Protocol Last Admin: 06/13/18 12:51 Dose: 200 mls/hr Methadone HCl 80 mg/ Methadone (HCl 30 mg) 110 mg PO DAILY@0600 [facility] Last Admin: 06/13/18 07:52 Dose: 110 mg Nicotine (Nicoderm Patch -) 14 mg TD DAILY [facility] Last Admin: 06/13/18 11:12 Dose: 14 mg IMAGING: - CXR: No evidence of active pulmonary disease. - Head CT: No evidence of a focal intracranial lesion or hemorrhage seen. - EKG (06/12): NORMAL SINUS RHYTHM, POSSIBLE LEFT ATRIAL ENLARGEMENT, T WAVE ABNORMALITY, CONSIDER ANTERIOR ISCHEMIA, PROLONGED QT - EKG (06/13): NORMAL SINUS RHYTHM, PROLONGED QT - ECHO: No vegetation seen on Mitral Valve, Pulmonic valve, Aortic valve, Tricuspid valve. Mild TR, No Pericardial effusion. ASSESSMENT/PLAN: 33 yr old male with Polysubstance use and hep C presents with fever and +blood cx is admitted for bacteremia and r/o endocarditis. 1. Sepsis - TMax 104, HR 40-96, No WBC count - Likely due to Alpha hemolytic Strep Bacteremia - R/O ACS: Trop's <0.02 x2 - R/O Endocarditis - Lactic acid 2.3 --> 3.3 - Blood cx Preliminary: Alpha Hemolytic Streptococcus - CXR: No evidence of active pulmonary disease. - EKG (06/13): NORMAL SINUS RHYTHM, PROLONGED QT - ECHO: No vegetation seen on Mitral Valve, Pulmonic valve, Aortic valve, Tricuspid valve. - Telemetry monitoring - monitor and replete electrolytes - Cardiology (Dr. Carranza) consulted - ID (Dr. Magaña) consulted, appreciate rec's, continue vanco/rocephin/gent while awaiting final blood culture results from [facility] - Pending Blood cx report from [facility], prelim with strep - Continue Normal Saline @ 125 mls/hr IV - Continue Vancomycin 1,250 mg IVPB BID@0300,1500 - Continue Ceftriaxone 2 gm IVPB DAILY - Continue Gentamicin 70mg 2. IV PolySubstance use - last heroin use (06/11) as per Dr. Willett's note - Continue Methadone HCl 110 mg PO DAILY@0600 (Dosing confirmed by nursing) - Continue Nicoderm Patch 14 mg TD DAILY - Detox (Dr. Hancock) consulted, spoke with her over the phone who suggested Methadone 10mg one time dose for pain 3. PPx: - DVT: Encourage early ambulation 4. FEN - Normal Saline @ 125 mls/hr IV - Lytes WNL, replete as needed - Vegetrarian Diet Visit type - Emergency Visit Emergency Visit: Yes ED Registration Date: 06/12/18 Care time: The patient presented to the Emergency Department on the above date and was hospitalized for further evaluation of their emergent condition. - New Patient This patient is new to me today: Yes Date on this admission: 06/13/18 - Critical Care Critical Care patient: No
--- NOTE | 2018-06-13 18:06 | CON.CARD ---
Consult Consult Specialty:: cardiology Reason for Consultation:: IV drug abuse; + blood cultures - History of Present Illness Chief Complaint: Presently feels shaky and nauseous. History of Present Illness: 33 yr old white man with PMHx many years of "7 days a week shooting up cocaine or herion" (per mother), Hepatitis C, (HIV reportedly negative as of 04/2018), was recently noted to have postive blood cultures at [facility]; he left before treatment was started. He entered the ER now with nausea and fever. - History Source History Provided By: Patient, Family Member, Medical Record Limitations to Obtaining History: No Limitations - Past Medical History Gastrointestinal: Yes: Other (hep C) Hepatobiliary: Yes: Hepatitis C Infectious Disease: No: HIV Psych: Yes: Addictions - Alcohol/Substance Use Hx Alcohol Use: No - Smoking History Smoking history: Current some day smoker Have you smoked in the past 12 months: Yes Aproximately how many cigarettes per day: 10 - Social History Usual Living Arrangement: With Significant Other Home Medications - Allergies Allergies/Adverse Reactions: Allergies Allergy/AdvReac Type Severity Reaction Status Date / Time haloperidol [From Haldol] AdvReac Low Blood Verified 06/12/18 15:08 Pressure tramadol AdvReac Low Blood Verified 06/12/18 15:08 Pressure - Home Medications Home Medications: Ambulatory Orders Methadone [Dolophine -] 110 mg PO DAILY 06/12/18 Bupropion HCl [Bupropion HCl Sr] 150 mg PO DAILY 06/13/18 Cholecalciferol (Vitamin D3) [D3-50] 50,000 unit PO WEEKLY 06/13/18 Divalproex [Depakote -] 500 mg PO DAILY 06/13/18 Olanzapine [Olanzapine Odt] 10 mg PO HS 06/13/18 Family Disease History - Family Disease History Family Disease History: Diabetes: Father, CA: Grandparent (pat gparents dec'd older age; mat gpa dec'd esophageal ca, gma a&w), Other: Grandparent, Father, Mother (thyroid), Brother (0), Sister (2 sisters a&w), Son (0), Daughter (0) Review of Systems - Review of Systems Constitutional: reports: Chills, Diaphoresis, Fever, Weakness Eyes: reports: No Symptoms HENT: reports: No Symptoms Neck: reports: No Symptoms Respiratory: reports: Exercise Intolerance Gastrointestinal: reports: Nausea Musculoskeletal: reports: Muscle Pain, Muscle Weakness Integumentary: reports: Lesions Neurological: reports: Weakness Psychiatric: reports: Other - Risk Factors Known Risk Factors: Yes: Age, Smoking, Other (cacaine abuse) Vital Signs: Vital Signs Temperature 98.6 F 06/13/18 18:02 Pulse Rate 82 06/13/18 18:02 Respiratory Rate 20 06/13/18 18:02 Blood Pressure 100/70 06/13/18 18:02 O2 Sat by Pulse Oximetry (%) 100 06/12/18 22:00 Constitutional: Yes: Anxious Eyes: Yes: WNL HENT: Yes: WNL Neck: Yes: WNL Respiratory: Yes: Regular Gastrointestinal: Yes: Soft Renal/: No: Anuria JVD: No PMI: Non-Displaced Heart Sounds: Yes: S1, S2 Murmur: Yes: Systolic Murmur, Grade 2 Musculoskeletal: Yes: Muscle Pain, Muscle Weakness Extremities: Yes: Cool Edema: No Peripheral Pulses WNL: Yes Integumentary: Yes: Rash Psychiatric: Yes: Other - Other Data Labs, Other Data: CBC, BMP 06/13/18 05:30 06/13/18 05:30 INR, PTT INR 1.29 (0.83-1.09) H 06/12/18 12:44 Troponin, BNP 06/12/18 19:51 Troponin I < 0.02 Troponin, BNP 06/12/18 19:51 Troponin I < 0.02 Imaging - Results EKG: Image Reviewed (NSR: LAE; T wave inversions anteriorly; QT prolongation) Problem List - Problems (1) Febrile illness, acute Code(s): R50.9 - FEVER, UNSPECIFIED (2) Hepatitis C virus infection Code(s): B19.20 - UNSPECIFIED VIRAL HEPATITIS C WITHOUT HEPATIC COMA (3) Opiate dependence Code(s): F11.20 - OPIOID DEPENDENCE, UNCOMPLICATED (4) Drug-induced mood disorder Code(s): F19.94 - OTH PSYCHOACTIVE SUBSTANCE USE, UNSP W MOOD DISORDER (5) Cocaine dependence Code(s): F14.20 - COCAINE DEPENDENCE, UNCOMPLICATED (6) Blood bacterial culture positive Assessment/Plan: + blood cultures at [facility]; await identification. On empiric antibiotics per ID. ECHO for LVEF, r/o vegetations. Code(s): R78.81 - BACTEREMIA (7) Cigarette nicotine dependence Code(s): F17.210 - NICOTINE DEPENDENCE, CIGARETTES, UNCOMPLICATED
--- NOTE | 2018-06-13 19:18 | CONSULT ---
Consult Detox [facility] Reason for Current Admission/Consult: pt on methadone and is in pain - History History of Present Illness: 33 yo old male admitted for sepsis. Pt is an active IVDU and is getting methadone (OTP) from [facility]. Pt is known to me from the OTP. Pt states received 110mg of methadone- usual dose. Pt requesting additional methadone for pain: rec'd 10mg this afternoon. pt also recieved zanax this morning - Alcohol/Substance Use Hx Alcohol Use: No Hx Substance Use: Yes (heroin and cocaine and methadone 110mg/day) Hx Substance Use Treatment: Yes (OTP at [facility]- pt recently started methado) - Past Medical History Gastrointestinal: Yes: Other (hep C) Hepatobiliary: Yes: Hepatitis C Infectious Disease: Yes: Other. No: HIV Psych: Yes: Addictions COWS - Scale Resting Pulse: 1= IN 81-100 (on methadone) Sweatin= No chills or Flushing Restless Observation: 0= Sits Still Pupil Size: 1= Pupils >than Normal Bone or Joint Aches: 1= Mild Discomfort Runny Nose/ Eye Tearin= None GI Upset > 30mins: 0= None Tremor Observation: 0= None Yawning Observation: 0= None Anxiety or Irritability: 0= None Goose Flesh Skin: 0=Smooth Skin COWS Score: 3 Assessment Plan - Diagnosis (1) Opiate dependence Status: Chronic Comment: attended mmtp today. states he did use iv drugs recently. - Plan Plan: pt to continue on methadone 110mg/AM dose and 10mg at 6pm for pain control. d/w pharmacy and nursing staff. d/w pt that the combination of methadone and benzo's have respiratory side effects and that it is preferable if he does not take it- pt agreeable to d/c zanax and for valium prn pt requesting vitamins: C, D, B12- will order - Medication Detox Regimen/Protocol: Methadone
[2018-06-13] MEDS ORDERED: INSULIN (NOVOLOG) ASPART 100 UNITS/ML 10ML VIAL ONE (21:29)
[2018-06-13] MEDS ORDERED: LORazepam 2 MG/ML SDV VIAL IVPUSH ONE (21:46)
[2018-06-13] MEDS ORDERED: LORazepam 2 MG/ML SDV VIAL ONE (21:48)
[2018-06-14] MEDS: VANCOMYCIN 1,250 MG in DEXTROSE 5%-WATER - 250 ML IVPB SCH (02:53)
[2018-06-14] MEDS: diazePAM 5 MG TABLET PO PRN ×2 (04:21→16:48)
[2018-06-14] MEDS: ACETAMINOPHEN 325 MG TABLET (FP) PO PRN ×2 (04:21→18:28)
[2018-06-14] MEDS ORDERED: chlorproMAZINE HCL 25 MG/1 ML AMP IM PRN (05:13)
--- NOTE | 2018-06-14 05:14 | RAPID ---
Physical Examination Vital Signs: Vital Signs Temperature 103.1 F H 06/14/18 04:29 Pulse Rate 97 H 06/14/18 04:29 Respiratory Rate 24 06/14/18 04:29 Blood Pressure 121/62 06/14/18 04:29 O2 Sat by Pulse Oximetry (%) 100 06/12/18 22:00 Rapid response called at 5:10am. Patient had O2 saturation of 85% BP 121/62, oral temp 103. Patient was having chills and severe hiccups. Patient was placed on 2L NC, O2 sat improved to 95%. CXR, abdominal xray and EKG stat. Thorazine 25mg IM ordered. Labs: CBC, BMP 06/13/18 05:30 06/13/18 05:30
[2018-06-14] MEDS ORDERED: METHADONE HCL 10 MG TABLET ONE (05:22)
[2018-06-14] MEDS ORDERED: METHADONE HCL 40 MG DISPERSABLE TABLET ONE (05:22)
[2018-06-14] MEDS: METHADONE 80 MG, METHADONE 30 MG PO SCH (05:27)
[2018-06-14 07:14] LABS: BASO % 0.4 % (0-2.0); EOS % 1.2 % (0-4.5); HEMATOCRIT 23.7 % (35.4-49); HEMOGLOBIN 8.1 GM/dL (11.7-16.9); LYMPH % 5.2 % (8-40); MCH 27.6 pg (25.7-33.7); MEAN CELL VOLUME 81.3 fl (80-96); NEUT % 88.2 % (42.8-82.8); PLATELET COUNT 91 K/MM3 (134-434); RBC 2.92 M/mm3 (4.00-5.60); WHITE BLOOD COUNT 4.6 K/mm3 (4.0-10.0)
[2018-06-14 07:31] LABS: ALBUMIN 2.1 g/dl (3.4-5.0); ANION GAP 7 (8-16); BILIRUBIN,TOTAL 0.2 mg/dL (0.2-1.0); BLOOD UREA NITROGEN 10 mg/dL (7-18); CALCIUM 7.8 mg/dL (8.5-10.1); CHLORIDE 105 mmol/L (98-107); CO2 27 mmol/L (21-32); GLUCOSE,RANDOM 82 mg/dL (74-106); MAGNESIUM 1.3 mg/dL (1.8-2.4); POTASSIUM 3.7 mmol/L (3.5-5.1); SGOT/AST 14 U/L (15-37); SGPT/ALT 16 U/L (12-78); SODIUM 139 mmol/L (136-145); TOT PROT 5.5 g/dl (6.4-8.2)
[2018-06-14 07:37] LABS: ALK PHOS 66 U/L (45-117)
[2018-06-14 08:24] LABS: PHOSPHOROUS 0.8 mg/dL (2.5-4.9)
--- NOTE | 2018-06-14 08:25 | PN ---
Teaching Attending Note Name of Resident: Ashleigh Vinson ATTENDING PHYSICIAN STATEMENT I saw and evaluated the patient. I reviewed the resident's note and discussed the case with the resident. I agree with the resident's findings and plan as documented with exceptions below. SUBJECTIVE: Patient seen and examined. sleeping, no pain, or complaints. OBJECTIVE: Vital Signs Period Temp Pulse Resp BP Sys/Manning Pulse Ox Last 24 Hr 98.1 F-104 F 82-97 18-24 100-121/45-70 Intake & Output 06/11/18 06/12/18 06/13/18 06/14/18 23:59 23:59 23:59 23:59 Intake Total 1450 4540 1980 Output Total 660 750 Balance 790 3790 1980 Weight 165 lb 160 lb 165 lb General:lying in bed in no acute distress Chest: refuses to sit up, examined in left lateral position, few/Dependent rales , overall clear to exam CVS: S1S2 regular Abdomen: soft, NT Extremities:minimal improved finger lesions, no new worsening or edema noted Active Medications Acetaminophen (Tylenol -) 650 mg PO Q6H PRN PRN Reason: FEVER Last Admin: 06/14/18 04:21 Dose: 650 mg Acetaminophen (Ofirmev Injection -) 1,000 mg IVPB Q6H PRN PRN Reason: FEVER Ascorbic Acid (Vitamin C -) 250 mg PO DAILY [facility] Last Admin: 06/13/18 17:07 Dose: Not Given Chlorpromazine HCl (Thorazine Injection -) 25 mg IM Q6H PRN PRN Reason: NAUSEA AND/OR VOMITING Last Admin: 06/14/18 05:28 Dose: 25 mg Cholecalciferol (Vitamin D3 -) 5,000 unit PO DAILY [facility] Stop: 06/19/18 23:59 Cyanocobalamin (Vitamin B12 -) 1,000 mcg PO DAILY [facility] Diazepam (Valium -) 5 mg PO Q12H PRN PRN Reason: ANXIETY Last Admin: 06/14/18 04:21 Dose: 5 mg Sodium Chloride (Normal Saline -) 1,000 mls @ 125 mls/hr IV ASDIR [facility] Last Admin: 06/13/18 17:08 Dose: 125 mls/hr Vancomycin HCl 1,250 mg/ (Dextrose) 250 mls @ 166.667 mls/hr IVPB BID@0300, 1500 [facility]; Protocol Last Admin: 06/14/18 02:53 Dose: 166.667 mls/hr Ceftriaxone Sodium 2 gm/ (Dextrose) 100 mls @ 200 mls/hr IVPB DAILY [facility]; Protocol Last Admin: 06/13/18 12:51 Dose: 200 mls/hr Methadone HCl 80 mg/ Methadone (HCl 30 mg) 110 mg PO DAILY@0600 [facility] Last Admin: 06/14/18 05:27 Dose: 110 mg Methadone HCl (Dolophine -) 10 mg PO DAILY@1800 [facility] Nicotine (Nicoderm Patch -) 14 mg TD DAILY [facility] Last Admin: 06/13/18 11:12 Dose: 14 mg ASSESSMENT AND PLAN: 33 yom with PMhx of IVDU (heroine and cocaine), (uses almost daily for 4 years) , H/o crack cocaine use prior for almost 15 years now, opioid dependence on methadone (gets at [facility]), anxiety, depression, recent diagnosed Hep C, admitted with fevers, headache, malaise and recent positive blood cultures. -?Hypoxia this AM, repeat 95-98% on RA, r/o CHF vs ARDS -Strep bacteremia with sepsis, r/o infective endocarditis -Thrombocytopenia, suspect from sepsis -Anemia, likely dilutional+/- sepsis, no gross evidence of bleed. -Lactic acidosis, from sepsis -IVDU -Opioid dependence on methadone -Severe hypophosphatemia -Hypomagnesemia -Prolonged QTC, repeat 480 -Red urine, CPK normal -Anxiety -Depression Plan: CXR noted. Decreased IVF. Oxygenating well. BNP noted. Lasix prn. Cardiology input noted. CT Chest/A/P to address for infectious seeding/congestive changes. BLood cx from [facility] with strep. Retrieve final report. ID input appreciated. Ceftriaxone/vancomcyin per ID. OFf gentamicin. Aggressively replete Phos, Mg Refused EKG this AM, agreable to have it at '1 pm'. Will re-attempt. Monitor on telemetry. 2D echo neg for vegetation, Repeat blood cultures sent, follow up for now. Detox input appreciated, Methadone 110 mg AM, and 10 mg QPM and valium prn with cautious monitoring of hemodynamics and mental status. Patient reports not compliance with his prior outpatient medications. ( is supposed to be on ambien 10 mg hs, Xanax 1 mg daily prn, buproprion, depakote, olanzapine), resume as tolerated. DVTPPX SCDs for now given thrombocytopenia. Resume in 24 hours if platelets stable. Dispo pending work up above and clinical improvement. Discussed with patient on multiple occasions about life threatening infection, need for antibiotics and close monitoring and further intervention pending work up and clinical course. patient relays full understanding of the current condition, risks of leaving including sepsis, and . Will continue to encourage compliance and monitor for now.
[2018-06-14] MEDS ORDERED: SODIUM CHLORIDE 1,000 ML IV SCH (09:29)
[2018-06-14] MEDS ORDERED: MAGNESIUM 2GM/50ML STERILE WATER IVPB IVPB ONE (09:30)
[2018-06-14] MEDS ORDERED: SODIUM PHOSPHATE - 30 MM in DEXTROSE 5%-WATER - 500 ML IVPB ONE (09:45)
--- NOTE | 2018-06-14 09:58 | EKG ---
Test Reason : Blood Pressure : / mmHG Vent. Rate : 113 BPM Atrial Rate : 113 BPM P-R Int : 128 ms QRS Dur : 086 ms QT Int : 358 ms P-R-T Axes : 050 063 014 degrees QTc Int : 491 ms SINUS TACHYCARDIA POSSIBLE LEFT ATRIAL ENLARGEMENT BORDERLINE ECG WHEN COMPARED WITH ECG OF 13-JUN-2018 11:20, NO SIGNIFICANT CHANGE WAS FOUND Confirmed by NAHED PAT MD ([id number]) on 06/14/2018 9:58:17 AM Referred By: Confirmed By:NAHED PAT MD
[2018-06-14] MEDS: ASCORBIC ACID 250 MG TABLET (FP) PO SCH (10:00)
[2018-06-14] MEDS: NICOTINE 14 MG/24 HOURS TOPICAL PATCH TD SCH (10:00)
[2018-06-14] MEDS: CEFTRIAXONE 2 GM in DEXTROSE 5%-WATER 100 ML IVPB SCH (10:00)
[2018-06-14] MEDS: CYANOCOBALAMIN 1,000 MCG TABLET (FP) PO SCH (10:00)
[2018-06-14] MEDS: SODIUM CHLORIDE 1,000 ML IV SCH ×2 (10:00→20:45)
[2018-06-14] MEDS: CHOLECALCIFEROL (VITAMIN D3) 1,000 UNIT TABLET (FP) PO SCH (10:00)
[2018-06-14] MEDS ORDERED: PT OWN MED DRAWER 7, Y5N ONE (10:05)
[2018-06-14] MEDS ORDERED: DEXTROSE 5%-WATER 100 ML IVPB ONE (10:06)
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
--- NOTE | 2018-06-14 15:15 | PN ---
Progress Note (short form) - Note Progress Note: continues to have body pains no back pain trans thoracic echo no vegetations/no significant valvular lesions alert +hiccups refusing all meds today Vital Signs Period Temp Pulse Resp BP Sys/Manning Pulse Ox Last 24 Hr 98.6 F-103.1 F 82-97 20-24 100-121/62-70 no conjunctival hemorrhages cor-rrr lungs clear abd soft,nt ext unchanged left hand lesions the same no lesions on feet or right hand CBC, BMP 06/14/18 06:00 06/14/18 06:00 Microbiology 06/12/18 12:15 Blood - Peripheral Venous Blood Culture - Final Streptococcus Sanguis 06/12/18 14:40 Cerebral Spinal Fluid - Lumbar Puncture Gram Stain - Final 06/12/18 14:40 Cerebral Spinal Fluid - Lumbar Puncture CSF Culture - Preliminary 06/12/18 12:15 Blood - Peripheral Venous Blood Culture - Final Streptococcus Sanguis 06/12/18 13:55 Urine - Urine Clean Catch Urine Culture - Final NO GROWTH OBTAINED Current Medications Acetaminophen (Tylenol -) 650 mg PO Q6H PRN PRN Reason: FEVER Last Admin: 06/14/18 04:21 Dose: 650 mg Acetaminophen (Ofirmev Injection -) 1,000 mg IVPB Q6H PRN PRN Reason: FEVER Ascorbic Acid (Vitamin C -) 250 mg PO DAILY [facility] Last Admin: 06/13/18 17:07 Dose: Not Given Cholecalciferol (Vitamin D3 -) 5,000 unit PO DAILY [facility] Stop: 06/19/18 23:59 Cyanocobalamin (Vitamin B12 -) 1,000 mcg PO DAILY [facility] Diazepam (Valium -) 5 mg PO Q12H PRN PRN Reason: ANXIETY Last Admin: 06/14/18 04:21 Dose: 5 mg Ceftriaxone Sodium 2 gm/ (Dextrose) 100 mls @ 200 mls/hr IVPB DAILY [facility]; Protocol Last Admin: 06/13/18 12:51 Dose: 200 mls/hr Sodium Phosphate 30 mm/ (Dextrose) 510 mls @ 62.5 mls/hr IVPB ONCE ONE Stop: 06/14/18 17:54 Sodium Chloride (Normal Saline -) 1,000 mls @ 75 mls/hr IV ASDIR [facility] Methadone HCl 80 mg/ Methadone (HCl 30 mg) 110 mg PO DAILY@0600 [facility] Last Admin: 06/14/18 05:27 Dose: 110 mg Methadone HCl (Dolophine -) 10 mg PO DAILY@1800 [facility] Nicotine (Nicoderm Patch -) 14 mg TD DAILY [facility] Last Admin: 06/13/18 11:12 Dose: 14 mg a/p fever strep bacteremia r/o endocarditis active substance use repeat blood cultures pending clinically c/w endocarditis will d/w cardiology- dr rodrigez should have ct scan abd/pelvis/chest- ?abscess, ?splenic infarct with hiccups and OMA pen/gent but he is refusing everything for simplicity of care will continue ceftriaxone and add gentamicin d/c vancomycin should have psychiatry evaluation as well long conversation with patient - now agreeing to meds- nurse informed case reviewed with resident case reviewed with Dr Rodrigez
[2018-06-14] MEDS ORDERED: GENTAMICIN INJECTION 70 MG in SODIUM CHLORIDE 100 ML IVPB ONE (15:16)
--- NOTE | 2018-06-14 15:49 | EKG ---
Test Reason : Blood Pressure : / mmHG Vent. Rate : 058 BPM Atrial Rate : 058 BPM P-R Int : 156 ms QRS Dur : 102 ms QT Int : 510 ms P-R-T Axes : 057 064 032 degrees QTc Int : 500 ms SINUS BRADYCARDIA WITH MARKED SINUS ARRHYTHMIA PROLONGED QT ABNORMAL ECG WHEN COMPARED WITH ECG OF 14-JUN-2018 05:48, VENT. RATE HAS DECREASED BY 55 BPM T WAVE INVERSION NOW EVIDENT IN ANTERIOR LEADS Confirmed by NAHED PAT MD ([id number]) on 06/14/2018 3:48:49 PM Referred By: Confirmed By:NAHED PAT MD
[2018-06-14 17:29] LABS: ANION GAP 10 (8-16); BLOOD UREA NITROGEN 13 mg/dL (7-18); CALCIUM 8.2 mg/dL (8.5-10.1); CHLORIDE 105 mmol/L (98-107); CO2 27 mmol/L (21-32); GLUCOSE,RANDOM 118 mg/dL (74-106); MAGNESIUM 1.8 mg/dL (1.8-2.4); PHOSPHOROUS 3.3 mg/dL (2.5-4.9); SODIUM 142 mmol/L (136-145)
--- NOTE | 2018-06-14 17:40 | PROC ---
Central Line Insertion - Procedure Note TIME OUT performed prior to this procedure with verbal confirmation of correct patient identity, correct side, agreement of the procedure, correct patient position, availability of necessary equipment. The consent form is complete and accurate. Risk of possible infection, bleeding and pneumothorax have been discussed with the patient. Safety precautions based on patient history or medication use has been addressed. Indication: Poor Venous Access Consent on Chart: Yes Central Line: Triple Lumen Catheter Position: Trendelenburg Area prepped with Chlorhexidine solution then draped using sterile barrier protection. Anesthesia: Lidocaine 1% Technique used: Seldinger Ultrasound Guided Assistance: Yes Site: Right Internal Jugular Dark venous non-pulsatile flow noted from hub of needle. The catheter was introduced. Guide wire removed intact. Each port aspirated then flushed with sterile normal saline and capped. Line secured to skin with silk suture. Biopatch placed around base of line. Sterile occlusive dressing applied. No complications. Patient tolerated the procedure well. STAT chest xray ordered to confirm position and rule out pneumothorax Ye WELLER was present for the entire procedure
[2018-06-14] MEDS: GENTAMICIN INJECTION 70 MG in SODIUM CHLORIDE 100 ML IVPB SCH ×2 (17:53→23:45)
[2018-06-14] MEDS: METHADONE HCL 10 MG TABLET PO SCH (18:28)
[2018-06-14] MEDS ORDERED: IBUPROFEN 600 MG TABLET (FP) PO ONE (20:15)
--- NOTE | 2018-06-14 23:29 | PN ---
Progress Note, Physician Chief Complaint: Pt ambulating in hallway; says he tries to do exercise to "stay strong". Denies chest pain. History of Present Illness: 33 yr old white man with PMHx many years of "7 days a week shooting up cocaine or heroin for years" (per mother), Hepatitis C, (HIV reportedly negative as of 04/2018), was recently noted to have postive blood cultures at [facility]; he left before treatment was started. He entered the ER now with nausea and fever. - Current Medication List Current Medications: Active Medications Acetaminophen (Tylenol -) 650 mg PO Q6H PRN PRN Reason: FEVER Last Admin: 06/14/18 18:28 Dose: 650 mg Ascorbic Acid (Vitamin C -) 250 mg PO DAILY [facility] Last Admin: 06/14/18 10:00 Dose: Not Given Cholecalciferol (Vitamin D3 -) 5,000 unit PO DAILY [facility] Stop: 06/19/18 23:59 Last Admin: 06/14/18 10:00 Dose: Not Given Cyanocobalamin (Vitamin B12 -) 1,000 mcg PO DAILY [facility] Last Admin: 06/14/18 10:00 Dose: Not Given Diazepam (Valium -) 5 mg PO Q12H PRN PRN Reason: ANXIETY Last Admin: 06/14/18 16:48 Dose: 5 mg Ceftriaxone Sodium 2 gm/ (Dextrose) 100 mls @ 200 mls/hr IVPB DAILY [facility]; Protocol Last Admin: 06/14/18 10:00 Dose: Not Given Sodium Chloride (Normal Saline -) 1,000 mls @ 75 mls/hr IV ASDIR [facility] Last Admin: 06/14/18 10:00 Dose: Not Given Gentamicin Sulfate 70 mg/ (Sodium Chloride) 101.75 mls @ 100 mls/hr IVPB Q8H [facility]; Protocol Last Admin: 06/14/18 17:53 Dose: 100 mls/hr Methadone HCl 80 mg/ Methadone (HCl 30 mg) 110 mg PO DAILY@0600 [facility] Last Admin: 06/14/18 05:27 Dose: 110 mg Methadone HCl (Dolophine -) 10 mg PO DAILY@1800 [facility] Last Admin: 06/14/18 18:28 Dose: 10 mg Nicotine (Nicoderm Patch -) 14 mg TD DAILY [facility] Last Admin: 06/14/18 10:00 Dose: Not Given - Objective Vital Signs: Vital Signs Temperature 102.6 F H 06/14/18 21:16 Pulse Rate 85 06/14/18 18:00 Respiratory Rate 18 06/14/18 18:00 Blood Pressure 89/65 06/14/18 18:00 O2 Sat by Pulse Oximetry (%) 98 06/14/18 09:00 Constitutional: Yes: Calm Eyes: Yes: WNL HENT: Yes: WNL Neck: Yes: WNL Cardiovascular: Yes: Regular Rate and Rhythm, S1, S2 Respiratory: Yes: Regular Gastrointestinal: Yes: Soft ...Rectal Exam: Yes: Deferred Genitourinary: No: Anuria Musculoskeletal: Yes: WNL Extremities: Yes: WNL Edema: No Peripheral Pulses WNL: Yes Integumentary: Yes: Other (lesions on hands, miguel a groin areas (injects)) Psychiatric: Yes: Alert, Other (addiction) Labs: CBC, BMP 06/14/18 06:00 06/14/18 15:05 INR, PTT INR 1.29 (0.83-1.09) H 06/12/18 12:44 Problem List - Problems (1) Febrile illness, acute Assessment/Plan: on antibiotics, antipyretics. +Blood cultures: S. sanguis Code(s): R50.9 - FEVER, UNSPECIFIED (2) Hepatitis C virus infection Code(s): B19.20 - UNSPECIFIED VIRAL HEPATITIS C WITHOUT HEPATIC COMA (3) Opiate dependence Code(s): F11.20 - OPIOID DEPENDENCE, UNCOMPLICATED (4) Drug-induced mood disorder Code(s): F19.94 - OTH PSYCHOACTIVE SUBSTANCE USE, UNSP W MOOD DISORDER (5) Cocaine dependence Code(s): F14.20 - COCAINE DEPENDENCE, UNCOMPLICATED (6) Blood bacterial culture positive Assessment/Plan: + blood cultures: Strep sanguis. Antibiotics per ID. ECHO today for LVEF, r/o vegetations. Code(s): R78.81 - BACTEREMIA (7) Cigarette nicotine dependence Code(s): F17.210 - NICOTINE DEPENDENCE, CIGARETTES, UNCOMPLICATED
--- NOTE | 2018-06-14 23:38 | PN ---
Progress Note, Physician Chief Complaint: Pt is upset at having to stay in hospital, take so much medication. History of Present Illness: 33 yr old white man with PMHx many years of "7 days a week shooting up cocaine or heroin for years" (per mother), Hepatitis C, (HIV reportedly negative as of 04/2018), was recently noted to have positive blood cultures at [facility]; he left before treatment was started. He entered the ER now with nausea and fever. - Current Medication List Current Medications: Active Medications Acetaminophen (Tylenol -) 650 mg PO Q6H PRN PRN Reason: FEVER Last Admin: 06/14/18 18:28 Dose: 650 mg Ascorbic Acid (Vitamin C -) 250 mg PO DAILY [facility] Last Admin: 06/14/18 10:00 Dose: Not Given Cholecalciferol (Vitamin D3 -) 5,000 unit PO DAILY [facility] Stop: 06/19/18 23:59 Last Admin: 06/14/18 10:00 Dose: Not Given Cyanocobalamin (Vitamin B12 -) 1,000 mcg PO DAILY [facility] Last Admin: 06/14/18 10:00 Dose: Not Given Diazepam (Valium -) 5 mg PO Q12H PRN PRN Reason: ANXIETY Last Admin: 06/14/18 16:48 Dose: 5 mg Ceftriaxone Sodium 2 gm/ (Dextrose) 100 mls @ 200 mls/hr IVPB DAILY [facility]; Protocol Last Admin: 06/14/18 10:00 Dose: Not Given Sodium Chloride (Normal Saline -) 1,000 mls @ 75 mls/hr IV ASDIR [facility] Last Admin: 06/14/18 10:00 Dose: Not Given Gentamicin Sulfate 70 mg/ (Sodium Chloride) 101.75 mls @ 100 mls/hr IVPB Q8H [facility]; Protocol Last Admin: 06/14/18 17:53 Dose: 100 mls/hr Methadone HCl 80 mg/ Methadone (HCl 30 mg) 110 mg PO DAILY@0600 [facility] Last Admin: 06/14/18 05:27 Dose: 110 mg Methadone HCl (Dolophine -) 10 mg PO DAILY@1800 [facility] Last Admin: 06/14/18 18:28 Dose: 10 mg Nicotine (Nicoderm Patch -) 14 mg TD DAILY [facility] Last Admin: 06/14/18 10:00 Dose: Not Given - Objective Vital Signs: Vital Signs Temperature 102.6 F H 06/14/18 21:16 Pulse Rate 85 06/14/18 18:00 Respiratory Rate 18 06/14/18 18:00 Blood Pressure 89/65 06/14/18 18:00 O2 Sat by Pulse Oximetry (%) 98 06/14/18 09:00 Constitutional: Yes: Anxious Eyes: Yes: WNL HENT: Yes: WNL Neck: Yes: WNL Cardiovascular: Yes: Regular Rate and Rhythm Labs: CBC, BMP 06/14/18 06:00 06/14/18 15:05 INR, PTT INR 1.29 (0.83-1.09) H 06/12/18 12:44 Problem List - Problems (1) Febrile illness, acute Assessment/Plan: on antibiotics, antipyretics. +Blood cultures: S. sanguis Code(s): R50.9 - FEVER, UNSPECIFIED (2) Hepatitis C virus infection Code(s): B19.20 - UNSPECIFIED VIRAL HEPATITIS C WITHOUT HEPATIC COMA (3) Opiate dependence Code(s): F11.20 - OPIOID DEPENDENCE, UNCOMPLICATED (4) Drug-induced mood disorder Code(s): F19.94 - OTH PSYCHOACTIVE SUBSTANCE USE, UNSP W MOOD DISORDER (5) Cocaine dependence Assessment/Plan: Pt's mother and partner say he has been using injected cocaine and other substances almost daily for years. The chances of him stopping without a comprehensive, long-term treatment facility are low. Code(s): F14.20 - COCAINE DEPENDENCE, UNCOMPLICATED (6) Blood bacterial culture positive Assessment/Plan: + blood cultures: Strep sanguis. Antibiotics per ID. Pt with clinical evidence of endocarditis (injection hx, +bld cultures, ? digital lesions, fever). ECHO (transthoracic--TTE) 06/13/2018: normal LVEF: normal chamber sizes; trivially thickened mitral valve leaflets; trace MR; mild TR; no obvious vegetations on any valve. The negative predictive value of this TTE is high, given, among other factors, the good acoustic windows, normal anatomy, lack of vegetations or effusion, absence of prosthetic valves or PPM leads. OMA has higher sensitivity in detection of lesions, e.g. veg, abscess, and may compliment transthoracic findings. The above was discussed with the patient, who refuses to consider OMA at present. Follow clinical course, and consider repeat transthoracic ECHO (TTE) in several days if refractory to treatment; pt may also be more amenable to OMA at that stage. Code(s): R78.81 - BACTEREMIA (7) Cigarette nicotine dependence Assessment/Plan: on nicotine patch. Code(s): F17.210 - NICOTINE DEPENDENCE, CIGARETTES, UNCOMPLICATED (8) Iron (Fe) deficiency anemia Code(s): D50.9 - IRON DEFICIENCY ANEMIA, UNSPECIFIED
[2018-06-15] MEDS ORDERED: DEXTROSE 5%-WATER 100 ML IVPB ONE (02:56)
[2018-06-15] MEDS: CEFTRIAXONE 2 GM in DEXTROSE 5%-WATER 100 ML IVPB SCH (02:59)
[2018-06-15] MEDS ORDERED: METHADONE HCL 10 MG TABLET ONE (06:05)
[2018-06-15] MEDS ORDERED: METHADONE HCL 40 MG DISPERSABLE TABLET ONE (06:06)
[2018-06-15] MEDS: METHADONE 80 MG, METHADONE 30 MG PO SCH (06:34)
[2018-06-15 07:55] LABS: BASO % 0.3 % (0-2.0); EOS % 4.3 % (0-4.5); HEMATOCRIT 23.9 % (35.4-49); MCH 27.4 pg (25.7-33.7); MCHC 33.3 g/dl (32.0-35.9); MEAN CELL VOLUME 82.1 fl (80-96); MEAN PLT VOLUME 9.6 fl (7.5-11.1); NEUT % 74.4 % (42.8-82.8); PLATELET COUNT 85 K/MM3 (134-434); RBC 2.91 M/mm3 (4.00-5.60); RDW 15.3 % (11.9-15.9); WHITE BLOOD COUNT 6.6 K/mm3 (4.0-10.0)
[2018-06-15 08:12] LABS: INR 1.16 (0.83-1.09); PROTHROMBIN TIME (PATIENT) 13.1 SEC (9.7-13.0)
[2018-06-15 08:28] LABS: ANION GAP 8 (8-16); BLOOD UREA NITROGEN 9 mg/dL (7-18); CHLORIDE 106 mmol/L (98-107); CO2 30 mmol/L (21-32); CREATININE 0.8 mg/dL (0.7-1.3); GLUCOSE,RANDOM 100 mg/dL (74-106); MAGNESIUM 2.3 mg/dL (1.8-2.4); PHOSPHOROUS 4.7 mg/dL (2.5-4.9); POTASSIUM 3.6 mmol/L (3.5-5.1); SGOT/AST 13 U/L (15-37); SGPT/ALT 15 U/L (12-78); SODIUM 144 mmol/L (136-145)
[2018-06-15 08:30] LABS: ALK PHOS 44 U/L (45-117); BILIRUBIN,TOTAL 0.4 mg/dL (0.2-1.0); TOT PROT 5.7 g/dl (6.4-8.2)
[2018-06-15] MEDS ORDERED: PENICILLIN G POTASSIUM 20,000,000 (20Mm) UNITS VIAL IVPB SCH (09:30)
[2018-06-15] MEDS: GENTAMICIN INJECTION 70 MG in SODIUM CHLORIDE 100 ML IVPB SCH ×2 (10:00→16:49)
[2018-06-15] MEDS: CHOLECALCIFEROL (VITAMIN D3) 1,000 UNIT TABLET (FP) PO SCH (10:23)
[2018-06-15] MEDS: ACETAMINOPHEN 325 MG TABLET (FP) PO PRN ×2 (10:24→17:25)
[2018-06-15] MEDS: diazePAM 5 MG TABLET PO PRN ×2 (10:25→20:44)
[2018-06-15] MEDS: NICOTINE 14 MG/24 HOURS TOPICAL PATCH TD SCH (10:58)
[2018-06-15] MEDS: ASCORBIC ACID 250 MG TABLET (FP) PO SCH (10:59)
[2018-06-15] MEDS: CYANOCOBALAMIN 1,000 MCG TABLET (FP) PO SCH (10:59)
--- NOTE | 2018-06-15 12:04 | CON.PSY ---
Psychiatry Consult Chief Complaint: 33 year old male with a long history of substance abuse, on methadone admitted with Endocarditis,. Patient apparantly has been refusing care on and off. Seen for Competency to make decisons. Patient is irritable and angry. Symptoms: reports: Inability to Control Temper - Previous Psychiatric Treatment Outpatient: None Inpatient: None - Previous Substance Abuse Treatment Outpatient: More than 6 mos ago - Reason for Previous Treatment Reason for Previous Treatment: Heroin or Other Narcotics - Current Medications Current Medications: Active Medications Acetaminophen (Tylenol -) 650 mg PO Q6H PRN PRN Reason: FEVER Last Admin: 06/15/18 10:24 Dose: 650 mg Ascorbic Acid (Vitamin C -) 250 mg PO DAILY [facility] Last Admin: 06/15/18 10:59 Dose: 250 mg Cholecalciferol (Vitamin D3 -) 5,000 unit PO DAILY [facility] Stop: 06/19/18 23:59 Last Admin: 06/15/18 10:23 Dose: 5,000 unit Cyanocobalamin (Vitamin B12 -) 1,000 mcg PO DAILY [facility] Last Admin: 06/15/18 10:59 Dose: 1,000 mcg Diazepam (Valium -) 5 mg PO Q12H PRN PRN Reason: ANXIETY Last Admin: 06/15/18 10:25 Dose: 5 mg Sodium Chloride (Normal Saline -) 1,000 mls @ 75 mls/hr IV ASDIR [facility] Last Admin: 06/14/18 20:45 Dose: 75 mls/hr Gentamicin Sulfate 70 mg/ (Sodium Chloride) 101.75 mls @ 100 mls/hr IVPB Q8H [facility]; Protocol Last Admin: 06/15/18 10:00 Dose: 100 mls/hr Penicillin G Potassium 3,000, (000 unit/ Dextrose) 250 mls @ 250 mls/hr IVPB Q4H [facility] Methadone HCl 80 mg/ Methadone (HCl 30 mg) 110 mg PO DAILY@0600 [facility] Last Admin: 06/15/18 06:34 Dose: 110 mg Methadone HCl (Dolophine -) 10 mg PO DAILY@1800 [facility] Last Admin: 06/14/18 18:28 Dose: 10 mg Nicotine (Nicoderm Patch -) 14 mg TD DAILY [facility] Last Admin: 06/15/18 10:58 Dose: Not Given - Allergies Allergies: Allergies Allergy/AdvReac Type Severity Reaction Status Date / Time haloperidol [From Haldol] AdvReac Low Blood Verified 06/12/18 15:08 Pressure tramadol AdvReac Low Blood Verified 06/12/18 15:08 Pressure - Current Living Status Usual Living Arrangement: Alone - Current Mental Status Evaluation Appearance: Disheveled Attitude: Belligerent - Affect Affect: Full Range Appropriateness: Appropriate to Content - Mood Mood: Angry - Speech/Language Expressive: Coherent - Psychomotor Activity Psychomotor Activity: Hyperactive - Thought Process Thought Process: Intact - Thought Content Hallucinations: Absent Delusions: Absent - Self Perception Self Perception: No Impairment - Cognition Attention: Alert Orientation: Time Memory, Immediate Recall: Intact Memory, Short Term: 3/3 Memory, Remote with Promptin/3 - Concentration Serial Sevens Intact: Yes Simple Calculations Intact: Yes - Abstraction Proverb Interpretation: Intact Judgement: Minimally Impaired - Insight Insight: Intact - Impulse Control Impulse Control: Minimally Impaired - Suicidal Ideation Suicidal Ideation: No - Homicidal Ideation Homicidal Ideation: No Assessment/Plan 1) Patient has the mental capacity to make decisions at this time.
[2018-06-15] MEDS: PENICILLIN POTASSIUM IVPB SCH ×3 (12:09→20:24)
[2018-06-15] MEDS: WATER IVPB SCH ×3 (12:09→20:24)
[2018-06-15] MEDS: DEXTROSE 5% IVPB SCH ×3 (12:09→20:24)
[2018-06-15] MEDS: SODIUM CHLORIDE 1,000 ML IV SCH (13:01)
--- NOTE | 2018-06-15 13:52 | PN ---
Teaching Attending Note Name of Resident: Ashleigh Vinson ATTENDING PHYSICIAN STATEMENT I saw and evaluated the patient. I reviewed the resident's note and discussed the case with the resident. I agree with the resident's findings and plan as documented with exceptions below. SUBJECTIVE: Patient seen and examined. denies any pain or dyspnea. Upset but answering most questions appropriately. OBJECTIVE: Vital Signs Period Temp Pulse Resp BP Sys/Manning Pulse Ox Last 24 Hr 97.5 F-103.4 F 54-88 18-18 89-112/46-72 98 Intake & Output 06/12/18 06/13/18 06/14/18 06/15/18 23:59 23:59 23:59 23:59 Intake Total 1450 4540 2820 1200 Output Total 660 750 Balance 790 3790 2820 1200 Weight 165 lb 160 lb 165 lb General: sitting in bed in no acute distress Extremities: petechial lesions with minimal fading Active Medications Acetaminophen (Tylenol -) 650 mg PO Q6H PRN PRN Reason: FEVER Last Admin: 06/15/18 10:24 Dose: 650 mg Ascorbic Acid (Vitamin C -) 250 mg PO DAILY [facility] Last Admin: 06/15/18 10:59 Dose: 250 mg Cholecalciferol (Vitamin D3 -) 5,000 unit PO DAILY [facility] Stop: 06/19/18 23:59 Last Admin: 06/15/18 10:23 Dose: 5,000 unit Cyanocobalamin (Vitamin B12 -) 1,000 mcg PO DAILY [facility] Last Admin: 06/15/18 10:59 Dose: 1,000 mcg Diazepam (Valium -) 5 mg PO Q12H PRN PRN Reason: ANXIETY Last Admin: 06/15/18 10:25 Dose: 5 mg Sodium Chloride (Normal Saline -) 1,000 mls @ 75 mls/hr IV ASDIR [facility] Last Admin: 06/15/18 13:01 Dose: 75 mls/hr Gentamicin Sulfate 70 mg/ (Sodium Chloride) 101.75 mls @ 100 mls/hr IVPB Q8H [facility]; Protocol Last Admin: 06/15/18 10:00 Dose: 100 mls/hr Penicillin G Potassium 3,000, (000 unit/ Dextrose) 250 mls @ 250 mls/hr IVPB Q4H [facility] Last Admin: 06/15/18 12:09 Dose: 250 mls/hr Methadone HCl 80 mg/ Methadone (HCl 30 mg) 110 mg PO DAILY@0600 [facility] Last Admin: 06/15/18 06:34 Dose: 110 mg Methadone HCl (Dolophine -) 10 mg PO DAILY@1800 [facility] Last Admin: 06/14/18 18:28 Dose: 10 mg Nicotine (Nicoderm Patch -) 14 mg TD DAILY [facility] Last Admin: 06/15/18 10:58 Dose: Not Given ASSESSMENT AND PLAN: 33 yom with PMhx of IVDU (heroine and cocaine), (uses almost daily for 4 years) , H/o crack cocaine use prior for almost 15 years now, opioid dependence on methadone (gets at [facility]), anxiety, depression, recent diagnosed Hep C, admitted with fevers, headache, malaise and recent positive blood cultures. -Strep viridans bacteremia with sepsis, high suspicion for infective endocarditis -Pulmonary nodules/cavitary lesion, likely septic emboli -Thrombocytopenia, suspect from sepsis -Anemia, likely dilutional+/- sepsis, no gross evidence of bleed. -Lactic acidosis, from sepsis -IVDU -Opioid dependence on methadone -Severe hypophosphatemia -Hypomagnesemia -Prolonged QTC -Red urine, CPK normal -Anxiety -Depression Plan: Intermittent refusal of treatment, Risks have been explained on multiple occasions. psychiatry input appreciated. CT chest/A/P noted. Discussed with patient. Blood cultures from [facility] retrieved. ID input appreciated. Penicillin G/Gentamycin. OFf vancomycin. (to consider ceftriaxone for improved compliance if continues to refuse antibiotics) Replete Phos, Mg prn. 2D echo neg for vegetation, Cardiology input appreciated. Declined OMA. Defer to ID/cardiology but unlikely will oil changer unless new concerns noted. Follow up repeat blood cx. Detox input appreciated, Methadone 110 mg AM, and 10 mg QPM and valium prn with cautious monitoring of hemodynamics and mental status. Patient reports non compliance with his prior outpatient medications. ( is supposed to be on ambien 10 mg hs, Xanax 1 mg daily prn, buproprion, depakote, olanzapine), resume as tolerated. DVTPPX SCDs for now given thrombocytopenia. Resume once platelets improved. Dispo pending work up above and clinical improvement. Discussed with patient on multiple occasions about life threatening infection, need for antibiotics and close monitoring and further intervention pending work up and clinical course. patient relays full understanding of the current condition, risks of leaving including sepsis, and . Will continue to encourage compliance and monitor for now.
--- NOTE | 2018-06-15 13:59 | PN ---
Physical Exam: SUBJECTIVE: Patient seen and examined this morning at bedside. Initally he had no new complaints. Patient was not belligerent or angry as he returned from a walk. During follow up interview, patient was very angry and refused to answer questions and refused examination. He was very agitated and felt annoyed. I was called by nursing staff because he had refused all care and did not want further treatment. We have explained the risks of refusal of treatment multiple times and patient is able to comprehend and repeat them. Denies fevers, chills, chest pain, SOB, nausea, vomiting, diarrhea, constipation during our initial interview today. OBJECTIVE: Vital Signs Period Temp Pulse Resp BP Sys/Manning Pulse Ox Last 24 Hr 97.5 F-103.4 F 54-88 18-18 89-112/46-72 98 GENERAL: The patient is awake, alert, and fully oriented, in no acute distress. NECK: Supple, No JVD LUNGS: Breath sounds equal, clear to auscultation bilaterally, no wheezes HEART: Regular rate and rhythm, S1, S2 ABDOMEN: Soft, nontender, nondistended, normoactive bowel sounds, no guarding EXTREMITIES: No edema, Normal ROM of all 4 extremities, able to ambulate without difficulty Laboratory Results - last 24 hr 06/14/18 06/15/18 06/15/18 15:05 07:15 07:15 WBC 6.6 RBC 2.91 L Hgb 8.0 L Hct 23.9 L MCV 82.1 MCH 27.4 MCHC 33.3 RDW 15.3 Plt Count 85 L MPV 9.6 Absolute Neuts (auto) 4.9 Neutrophils % 74.4 Lymphocytes % 10.0 D Monocytes % 11.0 H D Eosinophils % 4.3 D Basophils % 0.3 Nucleated RBC % 0 PT with INR 13.10 H INR 1.16 H Sodium 142 Potassium 4.0 Chloride 105 Carbon Dioxide 27 Anion Gap 10 BUN 13 Creatinine 1.0 Creat Clearance w eGFR > 60 Random Glucose 118 H D Calcium 8.2 L Phosphorus 3.3 D Magnesium 1.8 D Total Bilirubin AST ALT Alkaline Phosphatase Total Protein Albumin 06/15/18 07:15 WBC RBC Hgb Hct MCV MCH MCHC RDW Plt Count MPV Absolute Neuts (auto) Neutrophils % Lymphocytes % Monocytes % Eosinophils % Basophils % Nucleated RBC % PT with INR INR Sodium 144 Potassium 3.6 Chloride 106 Carbon Dioxide 30 Anion Gap 8 BUN 9 Creatinine 0.8 Creat Clearance w eGFR > 60 Random Glucose 100 Calcium 8.0 L Phosphorus 4.7 D Magnesium 2.3 D Total Bilirubin 0.4 AST 13 L ALT 15 Alkaline Phosphatase 44 L D Total Protein 5.7 L Albumin 2.0 L Active Medications Acetaminophen (Tylenol -) 650 mg PO Q6H PRN PRN Reason: FEVER Last Admin: 06/15/18 17:25 Dose: 650 mg Ascorbic Acid (Vitamin C -) 250 mg PO DAILY [facility] Last Admin: 06/15/18 10:59 Dose: 250 mg Cholecalciferol (Vitamin D3 -) 5,000 unit PO DAILY [facility] Stop: 06/19/18 23:59 Last Admin: 06/15/18 10:23 Dose: 5,000 unit Cyanocobalamin (Vitamin B12 -) 1,000 mcg PO DAILY [facility] Last Admin: 06/15/18 10:59 Dose: 1,000 mcg Diazepam (Valium -) 5 mg PO Q12H PRN PRN Reason: ANXIETY Last Admin: 06/15/18 10:25 Dose: 5 mg Sodium Chloride (Normal Saline -) 1,000 mls @ 75 mls/hr IV ASDIR [facility] Last Admin: 06/15/18 13:01 Dose: 75 mls/hr Gentamicin Sulfate 70 mg/ (Sodium Chloride) 101.75 mls @ 100 mls/hr IVPB Q8H [facility]; Protocol Last Admin: 06/15/18 16:49 Dose: 100 mls/hr Penicillin G Potassium 3,000, (000 unit/ Dextrose) 250 mls @ 250 mls/hr IVPB Q4H [facility] Last Admin: 06/15/18 16:50 Dose: 250 mls/hr Methadone HCl 80 mg/ Methadone (HCl 30 mg) 110 mg PO DAILY@0600 [facility] Last Admin: 06/15/18 06:34 Dose: 110 mg Methadone HCl (Dolophine -) 10 mg PO DAILY@1800 [facility] Last Admin: 06/15/18 17:14 Dose: 10 mg Nicotine (Nicoderm Patch -) 14 mg TD DAILY [facility] Last Admin: 06/15/18 10:58 Dose: Not Given IMAGING: - CXR (06/12): No evidence of active pulmonary disease. - CXR (06/14): Imaging reveals a normal mediastinum with some minimal central congestive changes and some scarring with atelectasis at the left base with opaque densities which could represent foreign bodies or aspirated barium. This left base finding is unchanged from 06/12/2018. - Head CT: No evidence of a focal intracranial lesion or hemorrhage seen. - EKG (06/12): NORMAL SINUS RHYTHM, POSSIBLE LEFT ATRIAL ENLARGEMENT, T WAVE ABNORMALITY, CONSIDER ANTERIOR ISCHEMIA, PROLONGED QT - EKG (06/13): NORMAL SINUS RHYTHM, PROLONGED QT - EKG (06/14): SINUS TACHYCARDIA, POSSIBLE LEFT ATRIAL ENLARGEMENT, BORDERLINE ECG, WHEN COMPARED WITH ECG OF 13-JUN-2018 11:20, NO SIGNIFICANT CHANGE WAS FOUND - ECHO: No vegetation seen on Mitral Valve, Pulmonic valve, Aortic valve, Tricuspid valve. Mild TR, No Pericardial effusion. - CT Chest: A cavitary right lower lobe pulmonary nodule is seen. Note is also made of several bilateral noncavitary pulmonary nodules. Given the provided history these nodules may be on the basis of septic emboli. Very small right- sided and trace left-sided pleural effusions are noted. Mild nonspecific mediastinal and bilateral hilar lymphadenopathy. Several slightly prominent nonspecific right axillary lymph nodes are seen. - CT A/P: Hepatosplenomegaly. Nonspecific upper abdominal lymphadenopathy. A small amount of pericholecystic fluid accumulation is noted possibly secondary to hepatic disease. Small amount of pelvic free fluid. horseshoe kidney. ASSESSMENT/PLAN: 33 yr old male with Polysubstance use and hep C presents with fever and +blood cx is admitted for bacteremia and r/o endocarditis. 1. Sepsis - TMax 104, Afebrile this AM, HR 54-88, No WBC count - Likely due to Alpha hemolytic Strep Bacteremia - Lactic acid 2.3 --> 3.3 --> 2.1 - BNP 5627 - Blood cx Preliminary: Alpha Hemolytic Streptococcus - Repeat CXR (06/14): Minimal central congestive changes and some scarring with atelectasis at the left base with opaque densities which could represent foreign bodies or aspirated barium. This left base finding is unchanged from . - R/O Endocarditis - ECHO: No vegetation seen on Mitral Valve, Pulmonic valve, Aortic valve, Tricuspid valve. - Telemetry monitoring - Monitor and replete electrolytes - ID (Dr. Magaña) consulted, appreciate rec's, continue vanco/rocephin/gent while awaiting final blood culture results from [facility] - Blood cx report from [facility] placed in paper chart - Continue Normal Saline @ 100 mls/hr IV - Started on Gentamicin IVPB Q8H [facility] (Day 1) - Started on Penicillin G IVPB Q4H [facility] (Day 1) - Compelted 3 day course of Vancomycin 1,250 mg IVPB BID - Compelted 3 day course of Ceftriaxone 2 gm IVPB DAILY - Received 1 day of Gentamicin 70mg - CT Chest/Abdomen/Pelvis however patient initially refused "I do not want anymore radiation" - CT Chest: Cavitary RLL pulmonary nodule, Several bilateral noncavitary nodules , these nodules may be on the basis of septic emboli. 2. R/O ACS - Denies chest pain, pressure, tightness - Troponins < 0.02, < 0.02, 0.02 - EKG (06/12): NORMAL SINUS RHYTHM, POSSIBLE LEFT ATRIAL ENLARGEMENT, T WAVE ABNORMALITY, PROLONGED QT - EKG (06/13): NORMAL SINUS RHYTHM, PROLONGED QT - EKG (06/14): SINUS TACHYCARDIA, POSSIBLE LEFT ATRIAL ENLARGEMENT - Cardiology (Dr. Carranza) consulted - Refused repeat EKG on 06/14, says he would be available for it at 1pm 3. IV PolySubstance use - last heroin use (06/11) as per Dr. Willett's note - Continue Methadone HCl 110 mg PO DAILY@0600 (Dosing confirmed by nursing) - Continue Nicoderm Patch 14 mg TD DAILY - Detox (Dr. Hancock) consulted, spoke with her over the phone who suggested Methadone 10mg one time dose for pain; continue methadone 110mg/AM and 10mg at 6pm for pain control. d/c zanax and for valium prn - Psychiatry (Dr. Lomeli) Consulted, appreciate rec's, Patient has the mental capacity to make decisions at this time 4. PPx: - DVT: SCD's, Encourage early ambulation, Consider Heparin once platelet count stops dropping 5. FEN - Normal Saline @ 100 mls/hr IV - HypoMagnesamia, HypoPhosphatemia, replete as needed - Vegetrarian Diet Visit type - Emergency Visit Emergency Visit: Yes ED Registration Date: 06/12/18 Care time: The patient presented to the Emergency Department on the above date and was hospitalized for further evaluation of their emergent condition. - New Patient This patient is new to me today: No - Critical Care Critical Care patient: No
[2018-06-15] MEDS ORDERED: METOPROLOL TARTRATE 25 MG TABLET (FP) PO ONE (14:31)
--- NOTE | 2018-06-15 16:15 | PN ---
Progress Note (short form) - Note Progress Note: feels better today no fevers today trans thoracic echo no vegetations/no significant valvular lesions alert hiccups resolved Vital Signs Period Temp Pulse Resp BP Sys/Manning Pulse Ox Last 24 Hr 97.5 F-103.4 F 54-88 18-18 89-112/46-72 98 no conjunctival hemorrhage cor-rrr lungs clear abd soft,nt ext no edema left hand unchanged CBC, BMP 06/15/18 07:15 06/15/18 07:15 Microbiology 06/12/18 14:40 Cerebral Spinal Fluid - Lumbar Puncture Gram Stain - Final 06/12/18 14:40 Cerebral Spinal Fluid - Lumbar Puncture CSF Culture - Final 06/14/18 06:30 Blood - Peripheral Venous Blood Culture - Preliminary NO GROWTH OBTAINED AFTER 24 HOURS, INCUBATION TO CONTINUE FOR 4 DAYS. 06/14/18 06:00 Blood - Peripheral Venous Blood Culture - Preliminary NO GROWTH OBTAINED AFTER 24 HOURS, INCUBATION TO CONTINUE FOR 4 DAYS. 06/12/18 12:15 Blood - Peripheral Venous Blood Culture - Final Streptococcus Sanguis 06/12/18 12:15 Blood - Peripheral Venous Blood Culture - Final Streptococcus Sanguis 06/12/18 13:55 Urine - Urine Clean Catch Urine Culture - Final NO GROWTH OBTAINED Active Medications Acetaminophen (Tylenol -) 650 mg PO Q6H PRN PRN Reason: FEVER Last Admin: 06/15/18 10:24 Dose: 650 mg Ascorbic Acid (Vitamin C -) 250 mg PO DAILY [facility] Last Admin: 06/15/18 10:59 Dose: 250 mg Cholecalciferol (Vitamin D3 -) 5,000 unit PO DAILY [facility] Stop: 06/19/18 23:59 Last Admin: 06/15/18 10:23 Dose: 5,000 unit Cyanocobalamin (Vitamin B12 -) 1,000 mcg PO DAILY [facility] Last Admin: 06/15/18 10:59 Dose: 1,000 mcg Diazepam (Valium -) 5 mg PO Q12H PRN PRN Reason: ANXIETY Last Admin: 06/15/18 10:25 Dose: 5 mg Sodium Chloride (Normal Saline -) 1,000 mls @ 75 mls/hr IV ASDIR [facility] Last Admin: 06/15/18 13:01 Dose: 75 mls/hr Gentamicin Sulfate 70 mg/ (Sodium Chloride) 101.75 mls @ 100 mls/hr IVPB Q8H [facility]; Protocol Last Admin: 06/15/18 10:00 Dose: 100 mls/hr Penicillin G Potassium 3,000, (000 unit/ Dextrose) 250 mls @ 250 mls/hr IVPB Q4H [facility] Last Admin: 06/15/18 12:09 Dose: 250 mls/hr Methadone HCl 80 mg/ Methadone (HCl 30 mg) 110 mg PO DAILY@0600 [facility] Last Admin: 06/15/18 06:34 Dose: 110 mg Methadone HCl (Dolophine -) 10 mg PO DAILY@1800 [facility] Last Admin: 06/14/18 18:28 Dose: 10 mg Nicotine (Nicoderm Patch -) 14 mg TD DAILY [facility] Last Admin: 06/15/18 10:58 Dose: Not Given ct scan with multiple pulmonary nodules c/w septic emboli a/p strep endocarditis active substance use repeat blood cultures negative now with central line and iv antibiotics resumed continue pen and gent refused OMA continue antiibotics gent trough before fourth dose repeat labs and blood cultures in am
[2018-06-15] MEDS: METHADONE HCL 10 MG TABLET PO SCH ×2 (16:49→17:14)
--- NOTE | 2018-06-15 17:12 | PN ---
Progress Note, Physician Chief Complaint: Pt &Ox3; no chest pain; episodes of fatigue. History of Present Illness: 33 yr old white man with PMHx many years of "7 days a week shooting up cocaine or heroin for years" (per mother), Hepatitis C, (HIV reportedly negative as of 04/2018), was recently noted to have positive blood cultures at [facility]; he left before treatment was started. He entered the ER now with nausea and fever. - Current Medication List Current Medications: Active Medications Acetaminophen (Tylenol -) 650 mg PO Q6H PRN PRN Reason: FEVER Last Admin: 06/15/18 10:24 Dose: 650 mg Ascorbic Acid (Vitamin C -) 250 mg PO DAILY [facility] Last Admin: 06/15/18 10:59 Dose: 250 mg Cholecalciferol (Vitamin D3 -) 5,000 unit PO DAILY [facility] Stop: 06/19/18 23:59 Last Admin: 06/15/18 10:23 Dose: 5,000 unit Cyanocobalamin (Vitamin B12 -) 1,000 mcg PO DAILY [facility] Last Admin: 06/15/18 10:59 Dose: 1,000 mcg Diazepam (Valium -) 5 mg PO Q12H PRN PRN Reason: ANXIETY Last Admin: 06/15/18 10:25 Dose: 5 mg Sodium Chloride (Normal Saline -) 1,000 mls @ 75 mls/hr IV ASDIR [facility] Last Admin: 06/15/18 13:01 Dose: 75 mls/hr Gentamicin Sulfate 70 mg/ (Sodium Chloride) 101.75 mls @ 100 mls/hr IVPB Q8H [facility]; Protocol Last Admin: 06/15/18 16:49 Dose: 100 mls/hr Penicillin G Potassium 3,000, (000 unit/ Dextrose) 250 mls @ 250 mls/hr IVPB Q4H [facility] Last Admin: 06/15/18 16:50 Dose: 250 mls/hr Methadone HCl 80 mg/ Methadone (HCl 30 mg) 110 mg PO DAILY@0600 [facility] Last Admin: 06/15/18 06:34 Dose: 110 mg Methadone HCl (Dolophine -) 10 mg PO DAILY@1800 [facility] Last Admin: 06/15/18 16:49 Dose: 10 mg Nicotine (Nicoderm Patch -) 14 mg TD DAILY [facility] Last Admin: 06/15/18 10:58 Dose: Not Given - Objective Vital Signs: Vital Signs Temperature 97.5 F L 06/15/18 05:00 Pulse Rate 88 06/15/18 09:00 Respiratory Rate 18 06/15/18 09:00 Blood Pressure 112/72 06/15/18 09:00 O2 Sat by Pulse Oximetry (%) 98 06/14/18 21:00 Constitutional: Yes: Anxious Eyes: Yes: WNL HENT: Yes: WNL Neck: Yes: Other (right IJ catheter) Cardiovascular: Yes: S1, S2 Respiratory: Yes: WNL Gastrointestinal: Yes: Soft ...Rectal Exam: Yes: Deferred Genitourinary: No: Anuria Musculoskeletal: Yes: Joint Stiffness Extremities: Yes: Other (purpuric lesions on fingertips and nails) Edema: No Peripheral Pulses WNL: Yes Integumentary: Yes: Petechiae Neurological: Yes: Alert, Oriented Psychiatric: Yes: Alert, Oriented, Other (addictive personality) Labs: CBC, BMP 06/15/18 07:15 06/15/18 07:15 INR, PTT INR 1.16 (0.83-1.09) H 06/15/18 07:15 Problem List - Problems (1) Febrile illness, acute Assessment/Plan: on antibiotics per ID, antipyretics. +Blood cultures: S. sanguis Code(s): R50.9 - FEVER, UNSPECIFIED (2) Hepatitis C virus infection Code(s): B19.20 - UNSPECIFIED VIRAL HEPATITIS C WITHOUT HEPATIC COMA (3) Opiate dependence Code(s): F11.20 - OPIOID DEPENDENCE, UNCOMPLICATED (4) Drug-induced mood disorder Code(s): F19.94 - OTH PSYCHOACTIVE SUBSTANCE USE, UNSP W MOOD DISORDER (5) Cocaine dependence Assessment/Plan: Pt's mother and partner say he has been using injected cocaine and other substances almost daily for years. (He ivelisse say that he has also been drug-free at times, once for 24 months). The chances of him stopping without a comprehensive, long-term treatment facility are low. Code(s): F14.20 - COCAINE DEPENDENCE, UNCOMPLICATED (6) Blood bacterial culture positive Assessment/Plan: + blood cultures: Strep sanguis. Antibiotics per ID. Pt with clinical evidence of endocarditis (injection hx, +bld cultures, digital lesions, fever). ECHO (transthoracic--TTE) 06/13/2018: normal LVEF: normal chamber sizes; trivially thickened mitral valve leaflets; trace MR; mild TR; no obvious vegetations on any valve. The negative predictive value of this TTE is high, given, among other factors, the good acoustic windows, normal anatomy, lack of vegetations or effusion, absence of prosthetic valves or PPM leads. OMA has higher sensitivity in detection of lesions, e.g. veg, abscess, and may compliment transthoracic findings. The above was discussed with the patient, who refuses to consider OMA at present, though he says "I want to be conservative, but if I start to feel really bad I might change my mind". Follow clinical course, and consider repeat transthoracic ECHO (TTE) in several days if refractory to treatment; pt may also be more amenable to OMA at that stage. Code(s): R78.81 - BACTEREMIA (7) Cigarette nicotine dependence Assessment/Plan: on nicotine patch. Pt thinks nicotine was the cause of his hiccups in the past, and is thinking of refusing the patch now to see if it stops the present episodes of hiccups. Code(s): F17.210 - NICOTINE DEPENDENCE, CIGARETTES, UNCOMPLICATED (8) Iron (Fe) deficiency anemia Assessment/Plan: f/u Hb, stool quaiac. Code(s): D50.9 - IRON DEFICIENCY ANEMIA, UNSPECIFIED (9) Thrombocytopenia Assessment/Plan: level lowered this admission; f/u etiology (e.g. medications, systemic state). Code(s): D69.6 - THROMBOCYTOPENIA, UNSPECIFIED
[2018-06-15] MEDS ORDERED: IBUPROFEN 600 MG TABLET (FP) PO ONE (20:39)
[2018-06-16] MEDS: DEXTROSE 5% IVPB SCH ×6 (04:00→20:21)
[2018-06-16] MEDS: PENICILLIN POTASSIUM IVPB SCH ×6 (04:00→20:21)
[2018-06-16] MEDS: WATER IVPB SCH ×6 (04:00→20:21)
[2018-06-16] MEDS ORDERED: METHADONE HCL 10 MG TABLET ONE (04:11)
[2018-06-16] MEDS ORDERED: METHADONE HCL 40 MG DISPERSABLE TABLET ONE (04:11)
[2018-06-16] MEDS: METHADONE 80 MG, METHADONE 30 MG PO SCH (05:53)
[2018-06-16 07:22] LABS: HEMOGLOBIN 7.7 GM/dL (11.7-16.9); MCH 27.4 pg (25.7-33.7); MCHC 33.6 g/dl (32.0-35.9); MEAN CELL VOLUME 81.7 fl (80-96); MEAN PLT VOLUME 8.8 fl (7.5-11.1); PLATELET COUNT 80 K/MM3 (134-434); RBC 2.82 M/mm3 (4.00-5.60); RDW 15.4 % (11.9-15.9); WHITE BLOOD COUNT 7.2 K/mm3 (4.0-10.0)
[2018-06-16 07:51] LABS: ALBUMIN 2.1 g/dl (3.4-5.0); ANION GAP 7 (8-16); BLOOD UREA NITROGEN 11 mg/dL (7-18); CALCIUM 8.3 mg/dL (8.5-10.1); CHLORIDE 105 mmol/L (98-107); CO2 31 mmol/L (21-32); CREATININE 0.8 mg/dL (0.7-1.3); GLUCOSE,RANDOM 99 mg/dL (74-106); MAGNESIUM 2.3 mg/dL (1.8-2.4); PHOSPHOROUS 4.9 mg/dL (2.5-4.9); POTASSIUM 4.2 mmol/L (3.5-5.1); SGOT/AST 16 U/L (15-37); SGPT/ALT 19 U/L (12-78); SODIUM 143 mmol/L (136-145)
[2018-06-16 07:52] LABS: ALK PHOS 91 U/L (45-117); BILIRUBIN,TOTAL 0.2 mg/dL (0.2-1.0); TOT PROT 5.6 g/dl (6.4-8.2)
--- NOTE | 2018-06-16 09:26 | PN ---
Physical Exam: SUBJECTIVE: Patient seen and examined this morning at bedside. No new complaints. Having normal bowel movements. Just finished eating breakfast this morning, tolerated diet overnight. Was not visibly angry or agitated as he has been on previous encounters. He was very concerned regarding blood count and possibility of blood transfusion. Denies fevers, chills, chest pain, SOB, nausea, vomiting, diarrhea, constipation. OBJECTIVE: Vital Signs Period Temp Pulse Resp BP Sys/Manning Pulse Ox Last 24 Hr 97.0 F-103.2 F 52-220 20-22 90-116/40-84 GENERAL: The patient is awake, alert, and fully oriented, in no acute distress, comfortably lying in bed under covers. NECK: Supple, No JVD, Triple lumen catheter with overlying dressing in tact on the right, no surrounding erythema THROAT: Oropharynx clear without exudates, moist mucous membranes. LUNGS: Breath sounds equal, clear to auscultation bilaterally, no wheezes, no crackles HEART: Regular rate and rhythm, S1, S2 ABDOMEN: Soft, nontender, nondistended, normoactive bowel sounds, no guarding EXTREMITIES: 2+ pulses, No edema, Normal ROM of all 4 extremities, able to ambulate without difficulty SKIN: Petechiae noted on b/l hands, more prominent on the left hand finger tips Laboratory Results - last 24 hr 06/15/18 06/16/18 06/16/18 15:05 05:50 05:50 WBC 7.2 RBC 2.82 L Hgb 7.7 L Hct 23.0 L MCV 81.7 MCH 27.4 MCHC 33.6 RDW 15.4 Plt Count 80 L MPV 8.8 Sodium 143 Potassium 4.2 Chloride 105 Carbon Dioxide 31 Anion Gap 7 L BUN 11 Creatinine 0.8 Creat Clearance w eGFR > 60 POC Glucometer 116 Random Glucose 99 Calcium 8.3 L Phosphorus Magnesium Total Bilirubin 0.2 AST 16 D ALT 19 D Alkaline Phosphatase 91 D C-Reactive Protein Total Protein 5.6 L Albumin 2.1 L 06/16/18 05:50 WBC RBC Hgb Hct MCV MCH MCHC RDW Plt Count MPV Sodium Potassium Chloride Carbon Dioxide Anion Gap BUN Creatinine Creat Clearance w eGFR POC Glucometer Random Glucose Calcium Phosphorus 4.9 Magnesium 2.3 Total Bilirubin AST ALT Alkaline Phosphatase C-Reactive Protein 20.5 H Total Protein Albumin Microbiology 06/14/18 06:30 Blood - Peripheral Venous Blood Culture - Preliminary NO GROWTH OBTAINED AFTER 48 HOURS, INCUBATION TO CONTINUE FOR 3 DAYS. 06/14/18 06:00 Blood - Peripheral Venous Blood Culture - Preliminary NO GROWTH OBTAINED AFTER 48 HOURS, INCUBATION TO CONTINUE FOR 3 DAYS. 06/12/18 14:40 Cerebral Spinal Fluid - Lumbar Puncture Gram Stain - Final 06/12/18 14:40 Cerebral Spinal Fluid - Lumbar Puncture CSF Culture - Final 06/12/18 12:15 Blood - Peripheral Venous Blood Culture - Final Streptococcus Sanguis 06/12/18 12:15 Blood - Peripheral Venous Blood Culture - Final Streptococcus Sanguis 06/12/18 13:55 Urine - Urine Clean Catch Urine Culture - Final NO GROWTH OBTAINED Active Medications Acetaminophen (Tylenol -) 650 mg PO Q6H PRN PRN Reason: FEVER Last Admin: 06/15/18 17:25 Dose: 650 mg Ascorbic Acid (Vitamin C -) 250 mg PO DAILY [facility] Last Admin: 06/15/18 10:59 Dose: 250 mg Cholecalciferol (Vitamin D3 -) 5,000 unit PO DAILY [facility] Stop: 06/19/18 23:59 Last Admin: 06/15/18 10:23 Dose: 5,000 unit Cyanocobalamin (Vitamin B12 -) 1,000 mcg PO DAILY [facility] Last Admin: 06/15/18 10:59 Dose: 1,000 mcg Diazepam (Valium -) 5 mg PO Q12H PRN PRN Reason: ANXIETY Last Admin: 06/15/18 20:44 Dose: 5 mg Sodium Chloride (Normal Saline -) 1,000 mls @ 75 mls/hr IV ASDIR [facility] Last Admin: 06/15/18 13:01 Dose: 75 mls/hr Gentamicin Sulfate 70 mg/ (Sodium Chloride) 101.75 mls @ 100 mls/hr IVPB Q8H [facility]; Protocol Last Admin: 06/16/18 00:00 Dose: 100 mls/hr Penicillin G Potassium 3,000, (000 unit/ Dextrose) 250 mls @ 250 mls/hr IVPB Q4H [facility] Last Admin: 06/16/18 04:00 Dose: 250 mls/hr Methadone HCl 80 mg/ Methadone (HCl 30 mg) 110 mg PO DAILY@0600 [facility] Last Admin: 06/16/18 05:53 Dose: 110 mg Methadone HCl (Dolophine -) 10 mg PO DAILY@1800 [facility] Last Admin: 06/15/18 17:14 Dose: 10 mg Nicotine (Nicoderm Patch -) 14 mg TD DAILY [facility] Last Admin: 06/15/18 10:58 Dose: Not Given IMAGING: - CXR (06/12): No evidence of active pulmonary disease. - CXR (06/14): Imaging reveals a normal mediastinum with some minimal central congestive changes and some scarring with atelectasis at the left base with opaque densities which could represent foreign bodies or aspirated barium. This left base finding is unchanged from 06/12/2018. - Head CT: No evidence of a focal intracranial lesion or hemorrhage seen. - EKG (06/12): NORMAL SINUS RHYTHM, POSSIBLE LEFT ATRIAL ENLARGEMENT, T WAVE ABNORMALITY, CONSIDER ANTERIOR ISCHEMIA, PROLONGED QT - EKG (06/13): NORMAL SINUS RHYTHM, PROLONGED QT - EKG (06/14): SINUS TACHYCARDIA, POSSIBLE LEFT ATRIAL ENLARGEMENT, BORDERLINE ECG, WHEN COMPARED WITH ECG OF 13-JUN-2018 11:20, NO SIGNIFICANT CHANGE WAS FOUND - ECHO: No vegetation seen on Mitral Valve, Pulmonic valve, Aortic valve, Tricuspid valve. Mild TR, No Pericardial effusion. - CT Chest: A cavitary right lower lobe pulmonary nodule is seen. Note is also made of several bilateral noncavitary pulmonary nodules. Given the provided history these nodules may be on the basis of septic emboli. Very small right- sided and trace left-sided pleural effusions are noted. Mild nonspecific mediastinal and bilateral hilar lymphadenopathy. Several slightly prominent nonspecific right axillary lymph nodes are seen. - CT A/P: Hepatosplenomegaly. Nonspecific upper abdominal lymphadenopathy. A small amount of pericholecystic fluid accumulation is noted possibly secondary to hepatic disease. Small amount of pelvic free fluid. horseshoe kidney. ASSESSMENT/PLAN: 33 yr old male with Polysubstance use and hep C presents with fever and +blood cx is admitted for bacteremia and r/o endocarditis. 1. Sepsis - TMax 104, Afebrile this AM, HR 54-88, No WBC count - Likely due to Alpha hemolytic Strep Bacteremia - Lactic acid 2.3 --> 3.3 --> 2.1 - BNP 5627 - Blood cx Preliminary: Alpha Hemolytic Streptococcus - Repeat CXR (06/14): Minimal central congestive changes and some scarring with atelectasis at the left base with opaque densities which could represent foreign bodies or aspirated barium. This left base finding is unchanged from . - R/O Endocarditis - ECHO: No vegetation seen on Mitral Valve, Pulmonic valve, Aortic valve, Tricuspid valve. - Telemetry monitoring - Monitor and replete electrolytes - ID (Dr. Magaña) consulted, appreciate rec's, continue vanco/rocephin/gent while awaiting final blood culture results from [facility] - Blood cx report from [facility] placed in paper chart - Continue Normal Saline @ 100 mls/hr IV - Started on Gentamicin IVPB Q8H [facility] (Day 2) - Started on Penicillin G IVPB Q4H [facility] (Day 2) - Compelted 3 day course of Vancomycin 1,250 mg IVPB BID - Compelted 3 day course of Ceftriaxone 2 gm IVPB DAILY - Received 1 day of Gentamicin 70mg - CT Chest/Abdomen/Pelvis however patient initially refused "I do not want anymore radiation" - CT Chest: Cavitary RLL pulmonary nodule, Several bilateral noncavitary nodules , these nodules may be on the basis of septic emboli. 2. R/O ACS - Denies chest pain, pressure, tightness - Troponins < 0.02, < 0.02, 0.02 - EKG (06/12): NORMAL SINUS RHYTHM, POSSIBLE LEFT ATRIAL ENLARGEMENT, T WAVE ABNORMALITY, PROLONGED QT - EKG (06/13): NORMAL SINUS RHYTHM, PROLONGED QT - EKG (06/14): SINUS TACHYCARDIA, POSSIBLE LEFT ATRIAL ENLARGEMENT - Cardiology (Dr. Carranza) consulted - Refused repeat EKG on 06/14, says he would be available for it at 1pm 3. IV PolySubstance use - last heroin use (06/11) as per Dr. Willett's note - Continue Methadone HCl 110 mg PO DAILY@0600 (Dosing confirmed by nursing) - Continue Nicoderm Patch 14 mg TD DAILY - Detox (Dr. Hancock) consulted, spoke with her over the phone who suggested Methadone 10mg one time dose for pain; continue methadone 110mg/AM and 10mg at 6pm for pain control. d/c zanax and for valium prn - Psychiatry (Dr. Lomeli) Consulted, appreciate rec's, Patient has the mental capacity to make decisions at this time 4. Anemia - Hgb 7.7, Hct 23.0 - Likely multifactorial, dilutional, sepsis and multiple blood draws - Denies hemoptysis, hematemesis, hematochezia, hematuria - Iron studies pending - Discussed possibility of transfusion, patient hesitant 5. PPx: - DVT: SCD's, Encourage early ambulation, Consider Heparin once platelet count stops dropping 6. FEN - Normal Saline @ 100 mls/hr IV - HypoMagnesamia, HypoPhosphatemia, replete as needed - Vegetrarian Diet Visit type - Emergency Visit Emergency Visit: Yes ED Registration Date: 06/12/18 Care time: The patient presented to the Emergency Department on the above date and was hospitalized for further evaluation of their emergent condition. - New Patient This patient is new to me today: No - Critical Care Critical Care patient: No
[2018-06-16] MEDS ORDERED: PT OWN MED DRAWER 7, Y5N ONE (09:29)
[2018-06-16] MEDS: CYANOCOBALAMIN 1,000 MCG TABLET (FP) PO SCH ×2 (09:34→14:44)
[2018-06-16] MEDS: ASCORBIC ACID 250 MG TABLET (FP) PO SCH ×2 (09:34→14:44)
[2018-06-16] MEDS: GENTAMICIN INJECTION 70 MG in SODIUM CHLORIDE 100 ML IVPB SCH ×3 (09:34→17:03)
[2018-06-16] MEDS: NICOTINE 14 MG/24 HOURS TOPICAL PATCH TD SCH ×2 (09:34→14:44)
[2018-06-16] MEDS: CHOLECALCIFEROL (VITAMIN D3) 1,000 UNIT TABLET (FP) PO SCH ×2 (09:35→14:43)
[2018-06-16] MEDS: diazePAM 5 MG TABLET PO PRN ×2 (09:42→20:22)
[2018-06-16] MEDS: ACETAMINOPHEN 325 MG TABLET (FP) PO PRN (11:16)
[2018-06-16] MEDS ORDERED: MAG HYDROX/AL HYDROX/SIMETH 30 ML UNIT-DOSE CUP PO PRN (11:50)
--- NOTE | 2018-06-16 12:07 | PN ---
Progress Note, Physician Chief Complaint: Cardiology f/u with Dr. Carranza History of Present Illness: Febrile, previously declined OMA, but now willing, repeat cultures drawn. - Current Medication List Current Medications: Active Medications Acetaminophen (Tylenol -) 650 mg PO Q6H PRN PRN Reason: FEVER Last Admin: 06/16/18 11:16 Dose: 650 mg Al Hydroxide/Mg Hydroxide (Mylanta Oral Suspension -) 30 ml PO Q6H PRN PRN Reason: DYSPEPSIA Ascorbic Acid (Vitamin C -) 250 mg PO DAILY [facility] Last Admin: 06/15/18 10:59 Dose: 250 mg Cholecalciferol (Vitamin D3 -) 5,000 unit PO DAILY [facility] Stop: 06/19/18 23:59 Last Admin: 06/15/18 10:23 Dose: 5,000 unit Cyanocobalamin (Vitamin B12 -) 1,000 mcg PO DAILY [facility] Last Admin: 06/15/18 10:59 Dose: 1,000 mcg Diazepam (Valium -) 5 mg PO Q12H PRN PRN Reason: ANXIETY Last Admin: 06/16/18 09:42 Dose: 5 mg Sodium Chloride (Normal Saline -) 1,000 mls @ 75 mls/hr IV ASDIR [facility] Last Admin: 06/15/18 13:01 Dose: 75 mls/hr Gentamicin Sulfate 70 mg/ (Sodium Chloride) 101.75 mls @ 100 mls/hr IVPB Q8H [facility]; Protocol Last Admin: 06/16/18 09:34 Dose: 100 mls/hr Penicillin G Potassium 3,000, (000 unit/ Dextrose) 250 mls @ 250 mls/hr IVPB Q4H [facility] Last Admin: 06/16/18 09:16 Dose: 250 mls/hr Methadone HCl 80 mg/ Methadone (HCl 30 mg) 110 mg PO DAILY@0600 [facility] Last Admin: 06/16/18 05:53 Dose: 110 mg Methadone HCl (Dolophine -) 10 mg PO DAILY@1800 [facility] Last Admin: 06/15/18 17:14 Dose: 10 mg Nicotine (Nicoderm Patch -) 14 mg TD DAILY [facility] Last Admin: 06/15/18 10:58 Dose: Not Given - Objective Vital Signs: Vital Signs Temperature 102.7 F H 06/16/18 11:17 Pulse Rate 101 H 06/16/18 11:17 Respiratory Rate 20 06/16/18 11:17 Blood Pressure 114/60 06/16/18 11:17 O2 Sat by Pulse Oximetry (%) 98 06/16/18 09:00 Constitutional: Yes: No Distress, Calm Neck: Yes: Supple Cardiovascular: Yes: Regular Rate and Rhythm Respiratory: Yes: Regular, Diminished Gastrointestinal: Yes: Normal Bowel Sounds, Soft Edema: No Labs: CBC, BMP 06/16/18 05:50 06/16/18 05:50 INR, PTT INR 1.16 (0.83-1.09) H 06/15/18 07:15 Assessment/Plan - Problems (1) Febrile illness, acute Assessment/Plan: on antibiotics per ID, antipyretics. +Blood cultures: S. sanguis Code(s): R50.9 - FEVER, UNSPECIFIED (2) Hepatitis C virus infection Code(s): B19.20 - UNSPECIFIED VIRAL HEPATITIS C WITHOUT HEPATIC COMA (3) Opiate dependence Code(s): F11.20 - OPIOID DEPENDENCE, UNCOMPLICATED (4) Drug-induced mood disorder Code(s): F19.94 - OTH PSYCHOACTIVE SUBSTANCE USE, UNSP W MOOD DISORDER (5) Cocaine dependence Assessment/Plan: Pt's mother and partner say he has been using injected cocaine and other substances almost daily for years. (He ivelisse say that he has also been drug-free at times, once for 24 months). The chances of him stopping without a comprehensive, long-term treatment facility are low. Code(s): F14.20 - COCAINE DEPENDENCE, UNCOMPLICATED (6) Blood bacterial culture positive Assessment/Plan: + blood cultures: Strep sanguis. Penicillin and gentamicin per ID. Pt with clinical evidence of endocarditis (injection hx, +bld cultures, digital lesions, fever, septic emboli). ECHO (transthoracic--TTE) 06/13/2018: normal LVEF: normal chamber sizes; trivially thickened mitral valve leaflets; trace MR; mild TR; no obvious vegetations on any valve. The negative predictive value of this TTE is high, given, among other factors, the good acoustic windows, normal anatomy, lack of vegetations or effusion, absence of prosthetic valves or PPM leads. OMA has higher sensitivity in detection of lesions, e.g. veg, abscess, and may compliment transthoracic findings. Patient now agreeable to OMA consideration Follow clinical course, and consider repeat transthoracic ECHO (TTE) in several days if refractory to treatment; pt may also be more amenable to OMA at that stage. Code(s): R78.81 - BACTEREMIA (7) Cigarette nicotine dependence Assessment/Plan: on nicotine patch. Pt thinks nicotine was the cause of his hiccups in the past, and is thinking of refusing the patch now to see if it stops the present episodes of hiccups. Code(s): F17.210 - NICOTINE DEPENDENCE, CIGARETTES, UNCOMPLICATED (8) Iron (Fe) deficiency anemia Assessment/Plan: f/u Hb, stool quaiac. Code(s): D50.9 - IRON DEFICIENCY ANEMIA, UNSPECIFIED (9) Thrombocytopenia Assessment/Plan: level lowered this admission; f/u etiology (e.g. medications, systemic state). Code(s): D69.6 - THROMBOCYTOPENIA, UNSPECIFIED
--- NOTE | 2018-06-16 12:08 | PN ---
Teaching Attending Note Name of Resident: Ashleigh Vinson ATTENDING PHYSICIAN STATEMENT I saw and evaluated the patient. I reviewed the resident's note and discussed the case with the resident. I agree with the resident's findings and plan as documented with exceptions below. SUBJECTIVE: Patient seen and examined, no chest pain,dyspnea or abdominal pain. Wondering if "dying". no SI/HI currently. NO dark or bloody stools. OBJECTIVE: Vital Signs Period Temp Pulse Resp BP Sys/Manning Pulse Ox Last 24 Hr 97.0 F-103.2 F 52-220 20-22 90-116/40-84 98 Intake & Output 06/13/18 06/14/18 06/15/18 06/16/18 23:59 23:59 23:59 23:59 Intake Total 4540 2820 1510 1475 Output Total 750 Balance 3790 2820 1510 1475 Weight 160 lb 165 lb General lying in bed in no acute distress Chest; CTAB, no rales or wheezing Abdomen:Soft, nT, nD Extremities; petechial lesions at tip of fingertips, no edema Active Medications Acetaminophen (Tylenol -) 650 mg PO Q6H PRN PRN Reason: FEVER Last Admin: 06/16/18 11:16 Dose: 650 mg Al Hydroxide/Mg Hydroxide (Mylanta Oral Suspension -) 30 ml PO Q6H PRN PRN Reason: DYSPEPSIA Ascorbic Acid (Vitamin C -) 250 mg PO DAILY [facility] Last Admin: 06/15/18 10:59 Dose: 250 mg Cholecalciferol (Vitamin D3 -) 5,000 unit PO DAILY [facility] Stop: 06/19/18 23:59 Last Admin: 06/15/18 10:23 Dose: 5,000 unit Cyanocobalamin (Vitamin B12 -) 1,000 mcg PO DAILY [facility] Last Admin: 06/15/18 10:59 Dose: 1,000 mcg Diazepam (Valium -) 5 mg PO Q12H PRN PRN Reason: ANXIETY Last Admin: 06/16/18 09:42 Dose: 5 mg Sodium Chloride (Normal Saline -) 1,000 mls @ 75 mls/hr IV ASDIR [facility] Last Admin: 06/15/18 13:01 Dose: 75 mls/hr Gentamicin Sulfate 70 mg/ (Sodium Chloride) 101.75 mls @ 100 mls/hr IVPB Q8H [facility]; Protocol Last Admin: 06/16/18 09:34 Dose: 100 mls/hr Penicillin G Potassium 3,000, (000 unit/ Dextrose) 250 mls @ 250 mls/hr IVPB Q4H [facility] Last Admin: 06/16/18 09:16 Dose: 250 mls/hr Methadone HCl 80 mg/ Methadone (HCl 30 mg) 110 mg PO DAILY@0600 [facility] Last Admin: 06/16/18 05:53 Dose: 110 mg Methadone HCl (Dolophine -) 10 mg PO DAILY@1800 [facility] Last Admin: 06/15/18 17:14 Dose: 10 mg Nicotine (Nicoderm Patch -) 14 mg TD DAILY [facility] Last Admin: 06/15/18 10:58 Dose: Not Given Laboratory Results - last 24 hr 06/15/18 06/16/18 06/16/18 15:05 05:50 05:50 WBC 7.2 RBC 2.82 L Hgb 7.7 L Hct 23.0 L MCV 81.7 MCH 27.4 MCHC 33.6 RDW 15.4 Plt Count 80 L MPV 8.8 ESR Sodium 143 Potassium 4.2 Chloride 105 Carbon Dioxide 31 Anion Gap 7 L BUN 11 Creatinine 0.8 Creat Clearance w eGFR > 60 POC Glucometer 116 Random Glucose 99 Calcium 8.3 L Phosphorus Magnesium Total Bilirubin 0.2 AST 16 D ALT 19 D Alkaline Phosphatase 91 D C-Reactive Protein Total Protein 5.6 L Albumin 2.1 L 06/16/18 06/16/18 05:50 05:50 WBC RBC Hgb Hct MCV MCH MCHC RDW Plt Count MPV ESR 114 H Sodium Potassium Chloride Carbon Dioxide Anion Gap BUN Creatinine Creat Clearance w eGFR POC Glucometer Random Glucose Calcium Phosphorus 4.9 Magnesium 2.3 Total Bilirubin AST ALT Alkaline Phosphatase C-Reactive Protein 20.5 H Total Protein Albumin Microbiology 06/14/18 06:30 Blood - Peripheral Venous Blood Culture - Preliminary NO GROWTH OBTAINED AFTER 48 HOURS, INCUBATION TO CONTINUE FOR 3 DAYS. 06/14/18 06:00 Blood - Peripheral Venous Blood Culture - Preliminary NO GROWTH OBTAINED AFTER 48 HOURS, INCUBATION TO CONTINUE FOR 3 DAYS. 06/12/18 14:40 Cerebral Spinal Fluid - Lumbar Puncture Gram Stain - Final 06/12/18 14:40 Cerebral Spinal Fluid - Lumbar Puncture CSF Culture - Final 06/12/18 12:15 Blood - Peripheral Venous Blood Culture - Final Streptococcus Sanguis 06/12/18 12:15 Blood - Peripheral Venous Blood Culture - Final Streptococcus Sanguis 06/12/18 13:55 Urine - Urine Clean Catch Urine Culture - Final NO GROWTH OBTAINED ASSESSMENT AND PLAN: 33 yom with PMhx of IVDU (heroine and cocaine), (uses almost daily for 4 years) , H/o crack cocaine use prior for almost 15 years now, opioid dependence on methadone (gets at [facility]), anxiety, depression, recent diagnosed Hep C, admitted with fevers, headache, malaise and recent positive blood cultures. -Strep viridans bacteremia with sepsis, high suspicion for infective endocarditis -Pulmonary nodules/cavitary lesion, likely septic emboli -Thrombocytopenia, suspect from sepsis -Anemia, likely dilutional+/- sepsis and multiple blood draws, no gross evidence of bleed. -Lactic acidosis, from sepsis -IVDU -Opioid dependence on methadone -Severe hypophosphatemia -Hypomagnesemia -Prolonged QTC -Red urine, CPK normal -Anxiety -Depression Plan: Intermittent refusal of treatment, Risks have been explained on multiple occasions. psychiatry input appreciated. CT chest/A/P noted. Discussed with patient. Blood cultures from [facility] retrieved. ID input appreciated. Penicillin G/Gentamycin. OFf vancomycin. (to consider ceftriaxone for improved compliance if continues to refuse antibiotics) Replete Phos, Mg prn. 2D echo neg for vegetation, Cardiology input appreciated. Declined OMA. Defer to ID/cardiology but unlikely will exchange teller unless new concerns noted. Follow up repeat blood cx. Detox input appreciated, Methadone 110 mg AM, and 10 mg QPM and valium prn with cautious monitoring of hemodynamics and mental status. Patient reports non compliance with his prior outpatient medications. ( is supposed to be on ambien 10 mg hs, Xanax 1 mg daily prn, buproprion, depakote, olanzapine), resume as tolerated. Check iron panel/FOBT. Patient hesitant to transfusion, monitor h/h for now and readdress based on clinical course. DVTPPX SCDs for now given thrombocytopenia. Resume once platelets improved. Dispo pending work up above and clinical improvement. Discussed with patient on multiple occasions about life threatening infection, need for antibiotics and close monitoring and further intervention pending work up and clinical course. patient relays full understanding of the current condition, risks of leaving including sepsis, and . Will continue to encourage compliance and monitor for now.
[2018-06-16] MEDS ORDERED: IBUPROFEN 400 MG TABLET (FP) PO ONE (16:50)
[2018-06-16] MEDS: METHADONE HCL 10 MG TABLET PO SCH (17:25)
[2018-06-17] MEDS ORDERED: METHADONE HCL 40 MG DISPERSABLE TABLET ONE (05:15)
[2018-06-17] MEDS ORDERED: METHADONE HCL 10 MG TABLET ONE (05:15)
[2018-06-17] MEDS: DEXTROSE 5% IVPB SCH ×6 (05:23→20:54)
[2018-06-17] MEDS: WATER IVPB SCH ×6 (05:23→20:54)
[2018-06-17] MEDS: PENICILLIN POTASSIUM IVPB SCH ×6 (05:23→20:54)
[2018-06-17] MEDS ORDERED: IBUPROFEN 400 MG TABLET (FP) PO ONE (05:32)
[2018-06-17] MEDS: METHADONE 80 MG, METHADONE 30 MG PO SCH (05:44)
--- NOTE | 2018-06-17 06:17 | HOSP ---
Subjective - Review of Symptoms Events since last encounter: Was paged by nurse vickey patient had a temp of 103. Nursing requested motrin 400mg as this has worked previously. A few minutes after giving Motrin and his morning dose Methadone, I was paged again as the patient had been panicking and having hiccups. As I began to evaluate the patient, He became agitated and annoyed. He refused to answer questions, started to shout and yell, used profanity, became verbally abusive, and refused examination and treatment. Patient shouted I get out and leave him alone. Physical Examination Vital Signs: Vital Signs Temperature 103.0 F H 06/17/18 05:23 Pulse Rate 92 H 06/17/18 05:23 Respiratory Rate 20 06/17/18 05:23 Blood Pressure 111/60 06/17/18 05:23 O2 Sat by Pulse Oximetry (%) 96 06/16/18 20:35 Labs: CBC, BMP 06/16/18 05:50 06/16/18 05:50 Visit type - Emergency Visit Emergency Visit: Yes ED Registration Date: 06/12/18 Care time: The patient presented to the Emergency Department on the above date and was hospitalized for further evaluation of their emergent condition. - New Patient This patient is new to me today: No - Critical Care Critical Care patient: No
--- NOTE | 2018-06-17 08:15 | PN ---
Physical Exam: SUBJECTIVE: Patient seen and examined, hiccups. Still with fevers, reports dyspnea from hiccups, asking for 'steroids'. no nausea, vomiting, abdominal pain , dark or blood stools. OBJECTIVE: Vital Signs Period Temp Pulse Resp BP Sys/Manning Pulse Ox Last 24 Hr 99.1 F-103.0 F 75-101 20-22 96-114/42-67 96-98 GENERAL: sitting in bed in no acute distress, noted with hiccups Chest: good air entry bilaterally, no rales or wheezing Abdomen:Soft, NT, ND, positive bowel sounds Extremities: no edema, petechial lesions noted CVS;S1S2 regular, tachycardic Laboratory Results - last 24 hr 06/16/18 06/16/18 05:50 12:25 ESR 114 H Gentamicin Trough 2.0 Active Medications Generic Name Dose Route Start Last Admin Trade Name Freq PRN Reason Stop Dose Admin Acetaminophen 650 mg 06/13/18 12:36 06/16/18 11:16 Tylenol - PO 650 mg Q6H PRN Administration FEVER Al Hydroxide/Mg Hydroxide 30 ml 06/16/18 11:50 06/16/18 12:18 Mylanta Oral Suspension - PO 30 ml Q6H PRN Administration DYSPEPSIA Ascorbic Acid 250 mg 06/13/18 14:15 06/16/18 14:44 Vitamin C - PO 250 mg DAILY ELYSIA Administration Cholecalciferol 5,000 unit 06/14/18 10:00 06/16/18 14:43 Vitamin D3 - PO 06/19/18 23:59 5,000 unit DAILY ELYSIA Administration Cyanocobalamin 1,000 mcg 06/14/18 10:00 06/16/18 14:44 Vitamin B12 - PO 1,000 mcg DAILY ELYSIA Administration Diazepam 5 mg 06/13/18 19:26 06/16/18 20:22 Valium - PO 5 mg Q12H PRN Administration ANXIETY Sodium Chloride 1,000 mls @ 75 mls/hr 06/14/18 12:34 06/15/18 13:01 Normal Saline - IV 75 mls/hr ASDIR ELYSIA Administration Gentamicin Sulfate 70 mg/ 101.75 mls @ 100 mls/hr 06/14/18 16:00 06/17/18 00: 00 Sodium Chloride IVPB 100 mls/hr Q8H ELYSIA Administration Protocol Penicillin G Potassium 3,000, 250 mls @ 250 mls/hr 06/15/18 12:00 06/17/18 05 :23 000 unit/ Dextrose IVPB 250 mls/hr Q4H ELYSIA Administration Methadone HCl 80 mg/ Methadone 110 mg 06/13/18 07:30 06/17/18 05:44 HCl 30 mg PO 110 mg DAILY@0600 ELYSIA Administration Methadone HCl 10 mg 06/14/18 18:00 06/16/18 17:25 Dolophine - PO 10 mg DAILY@1800 ELYSIA Administration Nicotine 14 mg 06/12/18 16:15 06/16/18 14:44 Nicoderm Patch - TD Not Given DAILY [facility] Laboratory Results - last 24 hr 06/17/18 06/17/18 07:00 07:00 WBC 8.8 RBC 2.75 L Hgb 7.4 L Hct 22.4 L MCV 81.4 MCH 27.1 MCHC 33.3 RDW 15.9 Plt Count 112 L D MPV 9.0 Absolute Neuts (auto) 7.7 Neutrophils % 86.7 H Lymphocytes % 4.7 L D Monocytes % 7.6 Eosinophils % 0.8 D Basophils % 0.2 Nucleated RBC % 0 Ferritin 75.6 ASSESSMENT/PLAN: 33 yom with PMhx of IVDU (heroine and cocaine), (uses almost daily for 4 years) , H/o crack cocaine use prior for almost 15 years now, opioid dependence on methadone (gets at [facility]), anxiety, depression, recent diagnosed Hep C, admitted with fevers, headache, malaise and recent positive blood cultures. -Strep viridans bacteremia with sepsis, high suspicion for infective endocarditis -Pulmonary nodules/cavitary lesion, likely septic emboli -Thrombocytopenia, suspect from sepsis -Anemia, likely dilutional+/- sepsis and multiple blood draws, no gross evidence of bleed. -Lactic acidosis, from sepsis -IVDU -Opioid dependence on methadone -Severe hypophosphatemia -Hypomagnesemia -Prolonged QTC -Red urine, CPK normal -Anxiety -Depression -Hiccups Plan: Intermittent refusal of treatment, Risks have been explained on multiple occasions. psychiatry input appreciated. Persistent fevers with repeat blood cx from 06/14 positive from [facility]. Discussed with Dr. Acosta, follow up recs. Penicillin G/Gentamycin. OFf vancomycin. CT chest/A/P noted. Discussed with patient. Start nebs prn. Monitor respiratory status. Blood cultures from [facility] retrieved. Replete Phos, Mg prn. Monitor QTc (intermittently refuses EKG) 2D echo neg for vegetation, Cardiology input appreciated. Patient and mother agree to OMA, discuss with cardiology. Start baclofen for ongoing hiccups. Taper valium, to avoid increased sedation. Detox input appreciated, Methadone 110 mg AM, and 10 mg QPM and valium prn with cautious monitoring of hemodynamics and mental status. Patient reports non compliance with his prior outpatient medications. ( is supposed to be on ambien 10 mg hs, Xanax 1 mg daily prn, buproprion, depakote, olanzapine), resume as tolerated. Follow up iron panel/FOBT. Patient still hesitant to transfusion, monitor h/h for now and readdress based on clinical course. DVTPPX SCDs for now given thrombocytopenia. Resume in 24 hours if platelets continue to improve. Dispo pending work up above and clinical improvement. Discussed with patient on multiple occasions about life threatening infection, need for antibiotics and close monitoring and further intervention pending work up and clinical course. patient relays full understanding of the current condition, risks of leaving including sepsis, and . Will continue to encourage compliance and monitor for now Plan discussed with patient and mother at bedside in detail, all questions answered. Patient and mother relay understanding and in agreement with the plan. Visit type - Emergency Visit Emergency Visit: Yes ED Registration Date: 06/12/18 Care time: The patient presented to the Emergency Department on the above date and was hospitalized for further evaluation of their emergent condition. - New Patient This patient is new to me today: No - Critical Care Critical Care patient: No - Discharge Referral Referred to [facility] No
[2018-06-17] MEDS ORDERED: PT OWN MED DRAWER 7, Y5N ONE (08:42)
[2018-06-17] MEDS: GENTAMICIN INJECTION 70 MG in SODIUM CHLORIDE 100 ML IVPB SCH ×4 (08:51→23:13)
[2018-06-17] MEDS: NICOTINE 14 MG/24 HOURS TOPICAL PATCH TD SCH (09:30)
[2018-06-17] MEDS: CYANOCOBALAMIN 1,000 MCG TABLET (FP) PO SCH (09:30)
[2018-06-17] MEDS: ASCORBIC ACID 250 MG TABLET (FP) PO SCH (09:30)
[2018-06-17] MEDS: CHOLECALCIFEROL (VITAMIN D3) 1,000 UNIT TABLET (FP) PO SCH (09:30)
[2018-06-17 09:33] LABS: BASO % 0.2 % (0-2.0); EOS % 0.8 % (0-4.5); HEMATOCRIT 22.4 % (35.4-49); HEMOGLOBIN 7.4 GM/dL (11.7-16.9); LYMPH % 4.7 % (8-40); MCH 27.1 pg (25.7-33.7); MCHC 33.3 g/dl (32.0-35.9); MEAN CELL VOLUME 81.4 fl (80-96); MONO % 7.6 % (3.8-10.2); NEUT % 86.7 % (42.8-82.8); PLATELET COUNT 112 K/MM3 (134-434); RBC 2.75 M/mm3 (4.00-5.60); RDW 15.9 % (11.9-15.9); WHITE BLOOD COUNT 8.8 K/mm3 (4.0-10.0)
[2018-06-17] MEDS ORDERED: diazePAM 5 MG TABLET PO PRN (14:06)
--- NOTE | 2018-06-17 14:07 | PN ---
Progress Note, Physician Chief Complaint: Cardiology f/u with Dr. Carranza History of Present Illness: Febrile earlier this AM, previously declined OMA, but now willing, repeat cultures drawn and pending. Persistent hiccups. - Current Medication List Current Medications: Active Medications Acetaminophen (Tylenol -) 650 mg PO Q6H PRN PRN Reason: FEVER Last Admin: 06/16/18 11:16 Dose: 650 mg Al Hydroxide/Mg Hydroxide (Mylanta Oral Suspension -) 30 ml PO Q6H PRN PRN Reason: DYSPEPSIA Last Admin: 06/16/18 12:18 Dose: 30 ml Albuterol Sulfate (Ventolin 0.083% Nebulizer Soln -) 1 amp NEB Q4H PRN PRN Reason: SHORT OF BREATH/WHEEZING Ascorbic Acid (Vitamin C -) 250 mg PO DAILY [facility] Last Admin: 06/17/18 09:30 Dose: 250 mg Baclofen (Lioresal -) 5 mg PO TID ELYSIA Cholecalciferol (Vitamin D3 -) 5,000 unit PO DAILY [facility] Stop: 06/19/18 23:59 Last Admin: 06/17/18 09:30 Dose: 5,000 unit Cyanocobalamin (Vitamin B12 -) 1,000 mcg PO DAILY [facility] Last Admin: 06/17/18 09:30 Dose: 1,000 mcg Diazepam (Valium -) 2 mg PO Q12H PRN PRN Reason: ANXIETY Sodium Chloride (Normal Saline -) 1,000 mls @ 75 mls/hr IV ASDIR [facility] Last Admin: 06/15/18 13:01 Dose: 75 mls/hr Gentamicin Sulfate 70 mg/ (Sodium Chloride) 101.75 mls @ 100 mls/hr IVPB Q8H [facility]; Protocol Last Admin: 06/17/18 08:51 Dose: 100 mls/hr Penicillin G Potassium 3,000, (000 unit/ Dextrose) 250 mls @ 250 mls/hr IVPB Q4H [facility] Last Admin: 06/17/18 12:11 Dose: 250 mls/hr Methadone HCl 80 mg/ Methadone (HCl 30 mg) 110 mg PO DAILY@0600 [facility] Last Admin: 06/17/18 05:44 Dose: 110 mg Methadone HCl (Dolophine -) 10 mg PO DAILY@1800 [facility] Last Admin: 06/16/18 17:25 Dose: 10 mg Nicotine (Nicoderm Patch -) 14 mg TD DAILY ELYSIA Last Admin: 06/17/18 09:30 Dose: Not Given - Objective Vital Signs: Vital Signs Temperature 100.1 F H 06/17/18 07:52 Pulse Rate 92 H 06/17/18 07:52 Respiratory Rate 22 06/17/18 07:57 Blood Pressure 109/58 06/17/18 07:52 O2 Sat by Pulse Oximetry (%) 96 06/17/18 07:57 Constitutional: Yes: No Distress, Calm, Thin HENT: Yes: Other (RIJ catheter) Neck: Yes: Supple Cardiovascular: Yes: Regular Rate and Rhythm Respiratory: Yes: Regular, Diminished Gastrointestinal: Yes: Normal Bowel Sounds, Soft Edema: No Labs: CBC, BMP 06/17/18 07:00 06/16/18 05:50 INR, PTT INR 1.16 (0.83-1.09) H 06/15/18 07:15 Assessment/Plan - Problems (1) Febrile illness, acute Assessment/Plan: on antibiotics per ID, antipyretics. +Blood cultures: S. sanguis Code(s): R50.9 - FEVER, UNSPECIFIED (2) Hepatitis C virus infection Code(s): B19.20 - UNSPECIFIED VIRAL HEPATITIS C WITHOUT HEPATIC COMA (3) Opiate dependence Code(s): F11.20 - OPIOID DEPENDENCE, UNCOMPLICATED on methadone (4) Drug-induced mood disorder Code(s): F19.94 - OTH PSYCHOACTIVE SUBSTANCE USE, UNSP W MOOD DISORDER (5) Cocaine dependence Assessment/Plan: Pt's mother and partner say he has been using injected cocaine and other substances almost daily for years. (He ivelisse say that he has also been drug-free at times, once for 24 months). The chances of him stopping without a comprehensive, long-term treatment facility are low. Code(s): F14.20 - COCAINE DEPENDENCE, UNCOMPLICATED (6) Blood bacterial culture positive Assessment/Plan: + blood cultures: Strep sanguis. Penicillin and gentamicin per ID. Pt with clinical evidence of endocarditis (injection hx, +bld cultures, digital lesions, fever, septic emboli). ECHO (transthoracic--TTE) 06/13/2018: normal LVEF: normal chamber sizes; trivially thickened mitral valve leaflets; trace MR; mild TR; no obvious vegetations on any valve. The negative predictive value of this TTE is high, given, among other factors, the good acoustic windows, normal anatomy, lack of vegetations or effusion, absence of prosthetic valves or PPM leads. OMA has higher sensitivity in detection of lesions, e.g. veg, abscess, and may compliment transthoracic findings. Patient now agreeable to OMA to be scheduled during weekday Follow clinical course, and consider repeat transthoracic ECHO (TTE) in several days if refractory to treatment; pt may also be more amenable to OMA at that stage. Code(s): R78.81 - BACTEREMIA (7) Cigarette nicotine dependence Assessment/Plan: on nicotine patch. Pt thinks nicotine was the cause of his hiccups in the past, and is thinking of refusing the patch now to see if it stops the present episodes of hiccups. Code(s): F17.210 - NICOTINE DEPENDENCE, CIGARETTES, UNCOMPLICATED (8) Iron (Fe) deficiency anemia Assessment/Plan: f/u Hb, stool quaiac. Code(s): D50.9 - IRON DEFICIENCY ANEMIA, UNSPECIFIED (9) Thrombocytopenia Assessment/Plan: level lowered this admission; f/u etiology (e.g. medications, systemic state). Code(s): D69.6 - THROMBOCYTOPENIA, UNSPECIFIED
[2018-06-17] MEDS: BACLOFEN 10 MG TABLET (FP) PO SCH ×2 (14:19→22:24)
[2018-06-17] MEDS: SODIUM CHLORIDE 1,000 ML IV SCH (14:24)
[2018-06-17] MEDS: ALBUTEROL SO4 0.083% IH SOL 2.5 MG/3 ML VIAL.NEB. NEB PRN (14:36)
--- NOTE | 2018-06-17 14:42 | PN ---
Progress Note, Physician History of Present Illness: Pt awake but somnolent in bed Requesting nebulizer treatment Remains febrile BC (06/14) + - Current Medication List Current Medications: Active Medications Acetaminophen (Tylenol -) 650 mg PO Q6H PRN PRN Reason: FEVER Last Admin: 06/16/18 11:16 Dose: 650 mg Al Hydroxide/Mg Hydroxide (Mylanta Oral Suspension -) 30 ml PO Q6H PRN PRN Reason: DYSPEPSIA Last Admin: 06/16/18 12:18 Dose: 30 ml Albuterol Sulfate (Ventolin 0.083% Nebulizer Soln -) 1 amp NEB Q4H PRN PRN Reason: SHORT OF BREATH/WHEEZING Last Admin: 06/17/18 14:36 Dose: 1 amp Ascorbic Acid (Vitamin C -) 250 mg PO DAILY [facility] Last Admin: 06/17/18 09:30 Dose: 250 mg Baclofen (Lioresal -) 5 mg PO TID [facility] Last Admin: 06/17/18 14:19 Dose: 5 mg Cholecalciferol (Vitamin D3 -) 5,000 unit PO DAILY [facility] Stop: 06/19/18 23:59 Last Admin: 06/17/18 09:30 Dose: 5,000 unit Cyanocobalamin (Vitamin B12 -) 1,000 mcg PO DAILY [facility] Last Admin: 06/17/18 09:30 Dose: 1,000 mcg Diazepam (Valium -) 2 mg PO Q12H PRN PRN Reason: ANXIETY Sodium Chloride (Normal Saline -) 1,000 mls @ 75 mls/hr IV ASDIR [facility] Last Admin: 06/17/18 14:24 Dose: 75 mls/hr Gentamicin Sulfate 70 mg/ (Sodium Chloride) 101.75 mls @ 100 mls/hr IVPB Q8H [facility]; Protocol Last Admin: 06/17/18 08:51 Dose: 100 mls/hr Penicillin G Potassium 3,000, (000 unit/ Dextrose) 250 mls @ 250 mls/hr IVPB Q4H [facility] Last Admin: 06/17/18 12:11 Dose: 250 mls/hr Methadone HCl 80 mg/ Methadone (HCl 30 mg) 110 mg PO DAILY@0600 [facility] Last Admin: 06/17/18 05:44 Dose: 110 mg Methadone HCl (Dolophine -) 10 mg PO DAILY@1800 [facility] Last Admin: 06/16/18 17:25 Dose: 10 mg Nicotine (Nicoderm Patch -) 14 mg TD DAILY ELYSIA Last Admin: 06/17/18 09:30 Dose: Not Given - Objective Vital Signs: Vital Signs Temperature 100.1 F H 06/17/18 07:52 Pulse Rate 92 H 06/17/18 07:52 Respiratory Rate 22 06/17/18 07:57 Blood Pressure 109/58 06/17/18 07:52 O2 Sat by Pulse Oximetry (%) 96 06/17/18 07:57 Constitutional: Yes: No Distress Cardiovascular: Yes: Regular Rate and Rhythm, S1, S2 Respiratory: Yes: Rhonchi Gastrointestinal: Yes: Normal Bowel Sounds, Soft Edema: No Labs: CBC, BMP 06/17/18 07:00 06/16/18 05:50 INR, PTT INR 1.16 (0.83-1.09) H 06/15/18 07:15 Assessment/Plan Endocarditis Remains febrile with + repeat BC Agree with OMA to R/O vegetation, myocardial abscess Continue PCN/ gentamicin
[2018-06-17] MEDS: ACETAMINOPHEN 325 MG TABLET (FP) PO PRN (16:06)
[2018-06-17] MEDS ORDERED: KETOROLAC TROMETHAMINE 15 MG/ML VIAL IVPUSH ONE (17:15)
[2018-06-17] MEDS: METHADONE HCL 10 MG TABLET PO SCH (17:49)
[2018-06-18] MEDS: WATER IVPB SCH ×6 (00:35→20:30)
[2018-06-18] MEDS: PENICILLIN POTASSIUM IVPB SCH ×6 (00:35→20:30)
[2018-06-18] MEDS: DEXTROSE 5% IVPB SCH ×6 (00:35→20:30)
[2018-06-18] MEDS: BACLOFEN 10 MG TABLET (FP) PO SCH ×4 (05:49→22:33)
[2018-06-18 06:06] LABS: SERUM IRON SATURATION 2 % (15-55); TOTAL IRON BINDING CAPACITY 243 ug/dL (250-450); UIBC 238 ug/dL (111-343)
--- NOTE | 2018-06-18 07:48 | PN ---
Teaching Attending Note Name of Resident: Ashleigh Vinson ATTENDING PHYSICIAN STATEMENT I saw and evaluated the patient. I reviewed the resident's note and discussed the case with the resident. I agree with the resident's findings and plan as documented with exceptions below. SUBJECTIVE: Patient seen and examined. dark green vomitus, intermittent hiccups but better. Still with fevers. Mother wondering about spine imaging. When asked the patient, states has some lower back pain on the sides for 'while'. no recent worsening or leg weakness/tingling/numbness noted. Breathing better. OBJECTIVE: Vital Signs Period Temp Pulse Resp BP Sys/Manning Pulse Ox Last 24 Hr 97.8 F-103.1 F 64-98 18-22 93-109/40-58 96-96 Genera; sitting in bed in no acute distress Neck: Right TLC in place Chest: CTAB, no rales or wheezing Abdomen:Soft, non tender, non distended, positive bowel sounds Extremities: improved petechial lesions, no pedal edema Musculoskeletal: no spinal point tenderness, lumbar paraspinal areas of ? minimal tenderness (chronic per patient), LE power 5/5 Active Medications Acetaminophen (Tylenol -) 650 mg PO Q6H PRN PRN Reason: FEVER Last Admin: 06/17/18 16:06 Dose: 650 mg Al Hydroxide/Mg Hydroxide (Mylanta Oral Suspension -) 30 ml PO Q6H PRN PRN Reason: DYSPEPSIA Last Admin: 06/16/18 12:18 Dose: 30 ml Albuterol Sulfate (Ventolin 0.083% Nebulizer Soln -) 1 amp NEB Q4H PRN PRN Reason: SHORT OF BREATH/WHEEZING Last Admin: 06/17/18 14:36 Dose: 1 amp Ascorbic Acid (Vitamin C -) 250 mg PO DAILY [facility]IA Last Admin: 06/17/18 09:30 Dose: 250 mg Baclofen (Lioresal -) 5 mg PO TID ELYSIA Last Admin: 06/18/18 05:49 Dose: Not Given Cholecalciferol (Vitamin D3 -) 5,000 unit PO DAILY [facility] Stop: 06/19/18 23:59 Last Admin: 06/17/18 09:30 Dose: 5,000 unit Cyanocobalamin (Vitamin B12 -) 1,000 mcg PO DAILY [facility] Last Admin: 06/17/18 09:30 Dose: 1,000 mcg Diazepam (Valium -) 2 mg PO Q12H PRN PRN Reason: ANXIETY Last Admin: 06/17/18 17:49 Dose: 2 mg Sodium Chloride (Normal Saline -) 1,000 mls @ 75 mls/hr IV ASDIR [facility] Last Admin: 06/17/18 14:24 Dose: 75 mls/hr Gentamicin Sulfate 70 mg/ (Sodium Chloride) 101.75 mls @ 100 mls/hr IVPB Q8H [facility]; Protocol Last Admin: 06/17/18 23:13 Dose: 100 mls/hr Penicillin G Potassium 3,000, (000 unit/ Dextrose) 250 mls @ 250 mls/hr IVPB Q4H [facility] Last Admin: 06/18/18 04:57 Dose: 250 mls/hr Methadone HCl 80 mg/ Methadone (HCl 30 mg) 110 mg PO DAILY@0600 [facility] Last Admin: 06/17/18 05:44 Dose: 110 mg Methadone HCl (Dolophine -) 10 mg PO DAILY@1800 [facility] Last Admin: 06/17/18 17:49 Dose: 10 mg Nicotine (Nicoderm Patch -) 14 mg TD DAILY [facility] Last Admin: 06/17/18 09:30 Dose: Not Given ASSESSMENT AND PLAN: 33 yom with PMhx of IVDU (heroine and cocaine), (uses almost daily for 4 years) , H/o crack cocaine use prior for almost 15 years now, opioid dependence on methadone (gets at [facility]), anxiety, depression, recent diagnosed Hep C, admitted with fevers, headache, malaise and recent positive blood cultures. -Strep viridans bacteremia with sepsis, high suspicion for infective endocarditis -Pulmonary nodules/cavitary lesion, likely septic emboli -Thrombocytopenia, suspect from sepsis -Anemia, from acute blood loss from katia doyle tear and associated sepsis/ hemodilution/blood draws -Hiccups, ?heroine withdrawal, CT a/p neg for splenic abscess/infarct -Lactic acidosis, from sepsis -IVDU -Opioid dependence on methadone -Severe hypophosphatemia -Hypomagnesemia -Prolonged QTC -Red urine, CPK normal -Anxiety -Depression -Hiccups Plan: s/p 1 unit PRBC with inappropriate response. Transfuse 1 more unit PRBC. GI consulted with MARQUITA Lam today noted. Start protonix BID and sucralfate QID. Hold thiorazine given QTC 500, repeat EKG. Continue baclofen for hiccups for now. Fever control. Persistent fevers with repeat blood cx from 06/14 positive from [facility]. Discussed with Dr. Magaña. Penicillin G/Gentamycin. Off vancomycin. 2D echo technically good study, neg for vegetation. Plan for OMA in AM, NPO after midnight. Cardiology Dr. Carranza input noted. CT chest/A/P noted. Blood cultures from [facility] retrieved (10/31 staph epidermidis as discussed with ID , no indication to treat), Current blood cx with Strep viridans. Replete Phos, Mg prn. Monitor QTc (intermittently refuses EKG) Baclofen for ongoing hiccups. Tapered valium, to avoid increased sedation. Hiccups seems to be related to fevers. Detox input appreciated, Methadone 110 mg AM, and 10 mg QPM and valium prn with cautious monitoring of hemodynamics and mental status. Patient and mother interested in methadone taper, will address with detox. Patient reports non compliance with his prior outpatient medications. ( is supposed to be on ambien 10 mg hs, Xanax 1 mg daily prn, buproprion, depakote, olanzapine), resume as tolerated. Intermittent refusal of treatment, Risks have been explained on multiple occasions. Psychiatry input appreciated. DVTPPX SCDs for now given thrombocytopenia. Resume once platelets stabilize and acute bleed concerns resolved. Dispo pending work up above and clinical improvement. Discussed with patient on multiple occasions about life threatening infection, need for antibiotics and close monitoring and further intervention pending work up and clinical course. patient relays full understanding of the current condition, risks of leaving including sepsis, and . Will continue to encourage compliance and monitor for now Plan discussed with patient and mother at bedside in detail, all questions answered. Patient and mother relay understanding and in agreement with the plan.
[2018-06-18] MEDS ORDERED: DOCUSATE SODIUM 100 MG CAPSULE (FP) PO PRN (07:49)
[2018-06-18 07:53] LABS: BASO % 0.3 % (0-2.0); HEMATOCRIT 22.7 % (35.4-49); HEMOGLOBIN 7.7 GM/dL (11.7-16.9); LYMPH % 11.4 % (8-40); MCH 27.7 pg (25.7-33.7); MCHC 33.9 g/dl (32.0-35.9); MEAN CELL VOLUME 81.5 fl (80-96); MEAN PLT VOLUME 8.5 fl (7.5-11.1); MONO % 12.5 % (3.8-10.2); NEUT % 72.8 % (42.8-82.8); PLATELET COUNT 95 K/MM3 (134-434); RBC 2.78 M/mm3 (4.00-5.60); RDW 15.6 % (11.9-15.9)
[2018-06-18] MEDS: GENTAMICIN INJECTION 70 MG in SODIUM CHLORIDE 100 ML IVPB SCH ×3 (07:56→23:10)
[2018-06-18 08:05] LABS: ALBUMIN 1.9 g/dl (3.4-5.0); ALK PHOS 138 U/L (45-117); ANION GAP 4 (8-16); BILIRUBIN,TOTAL 0.3 mg/dL (0.2-1.0); BLOOD UREA NITROGEN 13 mg/dL (7-18); CALCIUM 7.8 mg/dL (8.5-10.1); CHLORIDE 106 mmol/L (98-107); CO2 29 mmol/L (21-32); CREATININE 0.9 mg/dL (0.7-1.3); GLUCOSE,RANDOM 108 mg/dL (74-106); MAGNESIUM 2.3 mg/dL (1.8-2.4); PHOSPHOROUS 4.2 mg/dL (2.5-4.9); POTASSIUM 4.2 mmol/L (3.5-5.1); SGOT/AST 14 U/L (15-37); SGPT/ALT 20 U/L (12-78); SODIUM 139 mmol/L (136-145); TOT PROT 5.7 g/dl (6.4-8.2)
[2018-06-18] MEDS ORDERED: METHADONE HCL 10 MG TABLET ONE (08:05)
[2018-06-18] MEDS ORDERED: METHADONE HCL 40 MG DISPERSABLE TABLET ONE (08:06)
[2018-06-18 08:08] LABS: INR 1.17 (0.83-1.09); PROTHROMBIN TIME (PATIENT) 13.2 SEC (9.7-13.0)
--- NOTE | 2018-06-18 08:30 | PN ---
Progress Note, Physician Chief Complaint: Pt &Ox3; has shaking chills; scared that the fever has come back. History of Present Illness: 33 yr old white man with PMHx many years of "7 days a week shooting up cocaine or heroin for years" (per mother), Hepatitis C, (HIV reportedly negative as of 04/2018), was recently noted to have positive blood cultures at [facility]; he left before treatment was started. He entered the ER now with nausea and fever. - Current Medication List Current Medications: Active Medications Acetaminophen (Tylenol -) 650 mg PO Q6H PRN PRN Reason: FEVER Last Admin: 06/17/18 16:06 Dose: 650 mg Al Hydroxide/Mg Hydroxide (Mylanta Oral Suspension -) 30 ml PO Q6H PRN PRN Reason: DYSPEPSIA Last Admin: 06/16/18 12:18 Dose: 30 ml Albuterol Sulfate (Ventolin 0.083% Nebulizer Soln -) 1 amp NEB Q4H PRN PRN Reason: SHORT OF BREATH/WHEEZING Last Admin: 06/17/18 14:36 Dose: 1 amp Ascorbic Acid (Vitamin C -) 250 mg PO DAILY [facility] Last Admin: 06/17/18 09:30 Dose: 250 mg Baclofen (Lioresal -) 5 mg PO TID [facility] Last Admin: 06/18/18 05:49 Dose: Not Given Cholecalciferol (Vitamin D3 -) 5,000 unit PO DAILY [facility] Stop: 06/19/18 23:59 Last Admin: 06/17/18 09:30 Dose: 5,000 unit Cyanocobalamin (Vitamin B12 -) 1,000 mcg PO DAILY [facility] Last Admin: 06/17/18 09:30 Dose: 1,000 mcg Diazepam (Valium -) 2 mg PO Q12H PRN PRN Reason: ANXIETY Last Admin: 06/17/18 17:49 Dose: 2 mg Docusate Sodium (Colace -) 100 mg PO BID PRN PRN Reason: CONSTIPATION Ferrous Sulfate (Feosol -) 325 mg PO DAILY [facility] Sodium Chloride (Normal Saline -) 1,000 mls @ 75 mls/hr IV ASDIR [facility] Last Admin: 06/17/18 14:24 Dose: 75 mls/hr Gentamicin Sulfate 70 mg/ (Sodium Chloride) 101.75 mls @ 100 mls/hr IVPB Q8H [facility]; Protocol Last Admin: 06/18/18 07:56 Dose: 100 mls/hr Penicillin G Potassium 3,000, (000 unit/ Dextrose) 250 mls @ 250 mls/hr IVPB Q4H [facility] Last Admin: 06/18/18 07:56 Dose: 250 mls/hr Methadone HCl 80 mg/ Methadone (HCl 30 mg) 110 mg PO DAILY@0600 [facility] Last Admin: 06/17/18 05:44 Dose: 110 mg Methadone HCl (Dolophine -) 10 mg PO DAILY@1800 [facility] Last Admin: 06/17/18 17:49 Dose: 10 mg Nicotine (Nicoderm Patch -) 14 mg TD DAILY [facility] Last Admin: 06/17/18 09:30 Dose: Not Given - Objective Vital Signs: Vital Signs Temperature 98.1 F 06/18/18 07:38 Pulse Rate 87 06/18/18 07:38 Respiratory Rate 18 06/18/18 07:40 Blood Pressure 100/54 06/18/18 07:38 O2 Sat by Pulse Oximetry (%) 96 06/18/18 07:40 Constitutional: Yes: Anxious, Mild Distress Eyes: Yes: WNL HENT: Yes: WNL Neck: Yes: WNL Cardiovascular: Yes: Murmur (2/6 systolic murmum, RSB-->axilla), S1, S2 Respiratory: Yes: Regular Gastrointestinal: Yes: Soft ...Rectal Exam: Yes: Deferred Genitourinary: No: Anuria Musculoskeletal: Yes: WNL Extremities: Yes: Cool Edema: No Peripheral Pulses WNL: No Integumentary: Yes: Petechiae, Other Neurological: Yes: WNL Psychiatric: Yes: Other Labs: CBC, BMP 06/18/18 05:45 06/18/18 05:45 INR, PTT INR 1.17 (0.83-1.09) H 06/18/18 05:45 Abnormal Lab Results 06/17/18 06/17/18 06/17/18 07:00 07:00 23:10 RBC 2.75 L Hgb 7.4 L Hct 22.4 L Plt Count 112 L D Neutrophils % 86.7 H Lymphocytes % 4.7 L D Monocytes % PT with INR INR Anion Gap Random Glucose Calcium Iron 5 L TIBC 243 L Iron Saturation 2 L AST Alkaline Phosphatase Total Protein Albumin Crossmatch See Detail 06/18/18 06/18/18 06/18/18 05:45 05:45 05:45 RBC 2.78 L Hgb 7.7 L Hct 22.7 L Plt Count 95 L Neutrophils % Lymphocytes % Monocytes % 12.5 H PT with INR 13.20 H INR 1.17 H Anion Gap 4 L Random Glucose 108 H Calcium 7.8 L Iron TIBC Iron Saturation AST 14 L Alkaline Phosphatase 138 H D Total Protein 5.7 L Albumin 1.9 L Crossmatch Problem List - Problems (1) Febrile illness, acute Assessment/Plan: on antibiotics per ID, antipyretics. +Blood cultures: S. sanguis Remains intemittently febrile. Pt agrees to undergo OMA; scheduled for tomorrow (Dr. Jackson will do the procedure). Code(s): R50.9 - FEVER, UNSPECIFIED (2) Hepatitis C virus infection Code(s): B19.20 - UNSPECIFIED VIRAL HEPATITIS C WITHOUT HEPATIC COMA (3) Opiate dependence Code(s): F11.20 - OPIOID DEPENDENCE, UNCOMPLICATED (4) Drug-induced mood disorder Code(s): F19.94 - OTH PSYCHOACTIVE SUBSTANCE USE, UNSP W MOOD DISORDER (5) Cocaine dependence Assessment/Plan: Pt's mother and partner say he has been using injected cocaine and other substances almost daily for years. (He ivelisse say that he has also been drug-free at times, once for 24 months). The chances of him stopping without a comprehensive, long-term treatment facility are low. Code(s): F14.20 - COCAINE DEPENDENCE, UNCOMPLICATED (6) Blood bacterial culture positive Assessment/Plan: + blood cultures: Strep sanguis. Antibiotics per ID. Pt with clinical evidence of endocarditis (injection hx, +bld cultures, digital lesions, fever). ECHO (transthoracic--TTE) 06/13/2018: normal LVEF: normal chamber sizes; trivially thickened mitral valve leaflets; trace MR; mild TR; no obvious vegetations on any valve. Pt for OMA in am. Code(s): R78.81 - BACTEREMIA (7) Cigarette nicotine dependence Assessment/Plan: on nicotine patch. Pt thinks nicotine was the cause of his hiccups in the past, and is thinking of refusing the patch now to see if it stops the present episodes of hiccups. Code(s): F17.210 - NICOTINE DEPENDENCE, CIGARETTES, UNCOMPLICATED (8) Iron (Fe) deficiency anemia Assessment/Plan: f/u Hb, stool quaiac. Code(s): D50.9 - IRON DEFICIENCY ANEMIA, UNSPECIFIED (9) Thrombocytopenia Assessment/Plan: level lowered this admission; f/u etiology (e.g. medications, systemic state). Code(s): D69.6 - THROMBOCYTOPENIA, UNSPECIFIED (10) Hypoalbuminemia Code(s): E88.09 - OTH DISORDERS OF PLASMA-PROTEIN METABOLISM, NEC
[2018-06-18] MEDS: CHOLECALCIFEROL (VITAMIN D3) 1,000 UNIT TABLET (FP) PO SCH (09:34)
[2018-06-18] MEDS: ASCORBIC ACID 250 MG TABLET (FP) PO SCH (09:35)
[2018-06-18] MEDS: METHADONE 80 MG, METHADONE 30 MG PO SCH ×2 (09:35→11:40)
[2018-06-18] MEDS: CYANOCOBALAMIN 1,000 MCG TABLET (FP) PO SCH (09:35)
[2018-06-18] MEDS: NICOTINE 14 MG/24 HOURS TOPICAL PATCH TD SCH (09:36)
[2018-06-18] MEDS: FERROUS SO4 325 MG TABLET (FP) PO SCH (09:38)
[2018-06-18] MEDS: SODIUM CHLORIDE 1,000 ML IV SCH (11:58)
--- NOTE | 2018-06-18 13:36 | PN ---
Progress Note (short form) - Note Progress Note: intermittent fevers persist trans thoracic echo no vegetations/no significant valvular lesions alert hiccups resolved Vital Signs Period Temp Pulse Resp BP Sys/Manning Pulse Ox Last 24 Hr 97.8 F-103.1 F 64-98 -18 93-108/40-55 96-96 cor-rrr lungs clear abd soft,nt ext no edema left hand unchanged no conjunctival hemorrages, no other skin lesions CBC, BMP 06/18/18 05:45 06/18/18 05:45 Microbiology 06/16/18 05:45 Blood - Peripheral Venous Blood Culture - Preliminary NO GROWTH OBTAINED AFTER 48 HOURS, INCUBATION TO CONTINUE FOR 3 DAYS. 06/16/18 06:10 Blood - Peripheral Venous Blood Culture - Preliminary NO GROWTH OBTAINED AFTER 48 HOURS, INCUBATION TO CONTINUE FOR 3 DAYS. 06/14/18 06:30 Blood - Peripheral Venous Blood Culture - Preliminary NO GROWTH OBTAINED AFTER 96 HOURS, INCUBATION TO CONTINUE FOR 1 DAYS. 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
--- NOTE | 2018-06-18 13:43 | PROC ---
Endoscopy Procedure Endoscopy procedure completed. Please see scanned procedure report.
[2018-06-18] MEDS ORDERED: PROPOFOL 20 ML ONE ×2 (14:12)
--- NOTE | 2018-06-18 15:49 | PN ---
Progress Note (short form) - Note Progress Note: Superficial-appearing Sandy-Roy tears with stigmata of recent bleeding were found at the [facility]. Mild duodenitis was also found abd biopsied. Recommend: Protonic PO BID. Liquid carafate 1 gm po QID Thorazine 25 mg po qid for hiccups. Soft Diet
--- NOTE | 2018-06-18 16:02 | PROC ---
Endoscopy Procedure Endoscopy procedure completed. Please see scanned procedure report.
[2018-06-18] MEDS: SUCRALFATE 1 GM/10 ML UNIT DOSE CUPS PO SCH ×3 (17:15→22:54)
[2018-06-18] MEDS: METHADONE HCL 10 MG TABLET PO SCH (17:15)
--- NOTE | 2018-06-18 18:56 | PN ---
Physical Exam: SUBJECTIVE: Patient seen and examined this morning at bedside. Complained of chills. He became very agitated during my interview and refused to answer my questions. Refused to be evaluated. OBJECTIVE: Vital Signs Period Temp Pulse Resp BP Sys/Manning Pulse Ox Last 24 Hr 97.8 F-102.7 F 62-98 18-183 82-125/30-77 94-99 GENERAL: The patient is awake, alert, lying in bed under covers, very agitated and refused to be evaluated. Laboratory Results - last 24 hr 06/17/18 06/17/18 06/17/18 07:00 23:00 23:10 WBC RBC Hgb Hct MCV MCH MCHC RDW Plt Count MPV Absolute Neuts (auto) Neutrophils % Lymphocytes % Monocytes % Eosinophils % Basophils % Nucleated RBC % PT with INR INR Sodium Potassium Chloride Carbon Dioxide Anion Gap BUN Creatinine Creat Clearance w eGFR Random Glucose Calcium Phosphorus Magnesium Iron 5 L TIBC 243 L Iron Saturation 2 L Total Bilirubin AST ALT Alkaline Phosphatase Total Protein Albumin Gastric Occult Blood Gentamicin Trough Blood Type A POSITIVE A POSITIVE Antibody Screen Negative Crossmatch See Detail 06/18/18 06/18/18 06/18/18 05:45 05:45 05:45 WBC 8.0 RBC 2.78 L Hgb 7.7 L Hct 22.7 L MCV 81.5 MCH 27.7 MCHC 33.9 RDW 15.6 Plt Count 95 L MPV 8.5 Absolute Neuts (auto) 5.8 Neutrophils % 72.8 Lymphocytes % 11.4 D Monocytes % 12.5 H Eosinophils % 3.0 D Basophils % 0.3 Nucleated RBC % 0 PT with INR 13.20 H INR 1.17 H Sodium 139 Potassium 4.2 Chloride 106 Carbon Dioxide 29 Anion Gap 4 L BUN 13 Creatinine 0.9 Creat Clearance w eGFR > 60 Random Glucose 108 H Calcium 7.8 L Phosphorus 4.2 Magnesium 2.3 Iron TIBC Iron Saturation Total Bilirubin 0.3 AST 14 L ALT 20 Alkaline Phosphatase 138 H D Total Protein 5.7 L Albumin 1.9 L Gastric Occult Blood Gentamicin Trough Blood Type Antibody Screen Crossmatch Microbiology 06/16/18 05:45 Blood - Peripheral Venous Blood Culture - Preliminary NO GROWTH OBTAINED AFTER 48 HOURS, INCUBATION TO CONTINUE FOR 3 DAYS. 06/16/18 06:10 Blood - Peripheral Venous Blood Culture - Preliminary NO GROWTH OBTAINED AFTER 48 HOURS, INCUBATION TO CONTINUE FOR 3 DAYS. 06/14/18 06:30 Blood - Peripheral Venous Blood Culture - Preliminary NO GROWTH OBTAINED AFTER 96 HOURS, INCUBATION TO CONTINUE FOR 1 DAYS. 06/14/18 06:00 Blood - Peripheral Venous Blood Culture - Preliminary Pending Organism 06/12/18 14:40 Cerebral Spinal Fluid - Lumbar Puncture Gram Stain - Final 06/12/18 14:40 Cerebral Spinal Fluid - Lumbar Puncture CSF Culture - Final 06/12/18 12:15 Blood - Peripheral Venous Blood Culture - Final Streptococcus Sanguis 06/12/18 12:15 Blood - Peripheral Venous Blood Culture - Final Streptococcus Sanguis 06/12/18 13:55 Urine - Urine Clean Catch Urine Culture - Final NO GROWTH OBTAINED Active Medications Acetaminophen (Tylenol -) 650 mg PO Q6H PRN PRN Reason: FEVER Last Admin: 06/17/18 16:06 Dose: 650 mg Al Hydroxide/Mg Hydroxide (Mylanta Oral Suspension -) 30 ml PO Q6H PRN PRN Reason: DYSPEPSIA Last Admin: 06/16/18 12:18 Dose: 30 ml Albuterol Sulfate (Ventolin 0.083% Nebulizer Soln -) 1 amp NEB Q4H PRN PRN Reason: SHORT OF BREATH/WHEEZING Last Admin: 06/17/18 14:36 Dose: 1 amp Ascorbic Acid (Vitamin C -) 250 mg PO DAILY [facility] Last Admin: 06/18/18 09:35 Dose: 250 mg Baclofen (Lioresal -) 5 mg PO TID [facility] Last Admin: 06/18/18 17:15 Dose: 5 mg Cholecalciferol (Vitamin D3 -) 5,000 unit PO DAILY [facility] Stop: 06/19/18 23:59 Last Admin: 06/18/18 09:34 Dose: 5,000 unit Cyanocobalamin (Vitamin B12 -) 1,000 mcg PO DAILY [facility] Last Admin: 06/18/18 09:35 Dose: 1,000 mcg Diazepam (Valium -) 2 mg PO Q12H PRN PRN Reason: ANXIETY Last Admin: 06/17/18 17:49 Dose: 2 mg Docusate Sodium (Colace -) 100 mg PO BID PRN PRN Reason: CONSTIPATION Ferrous Sulfate (Feosol -) 325 mg PO DAILY [facility] Last Admin: 06/18/18 09:38 Dose: 325 mg Sodium Chloride (Normal Saline -) 1,000 mls @ 75 mls/hr IV ASDIR [facility] Last Admin: 06/18/18 11:58 Dose: 75 mls/hr Gentamicin Sulfate 70 mg/ (Sodium Chloride) 101.75 mls @ 100 mls/hr IVPB Q8H [facility]; Protocol Last Admin: 06/18/18 16:16 Dose: 100 mls/hr Penicillin G Potassium 3,000, (000 unit/ Dextrose) 250 mls @ 250 mls/hr IVPB Q4H [facility] Last Admin: 06/18/18 16:20 Dose: 250 mls/hr Methadone HCl 80 mg/ Methadone (HCl 30 mg) 110 mg PO DAILY@0600 [facility] Last Admin: 06/18/18 11:40 Dose: 110 mg Methadone HCl (Dolophine -) 10 mg PO DAILY@1800 [facility] Last Admin: 06/18/18 17:15 Dose: 10 mg Nicotine (Nicoderm Patch -) 14 mg TD DAILY [facility] Last Admin: 06/18/18 09:36 Dose: Not Given Pantoprazole Sodium (Protonix -) 40 mg PO BID [facility] Sucralfate (Carafate Oral Suspension -) 1 gm PO QID [facility] Last Admin: 06/18/18 17:15 Dose: 1 gm IMAGING: - CXR (06/12): No evidence of active pulmonary disease. - CXR (06/14): Imaging reveals a normal mediastinum with some minimal central congestive changes and some scarring with atelectasis at the left base with opaque densities which could represent foreign bodies or aspirated barium. This left base finding is unchanged from 06/12/2018. - Head CT: No evidence of a focal intracranial lesion or hemorrhage seen. - EKG (06/12): NORMAL SINUS RHYTHM, POSSIBLE LEFT ATRIAL ENLARGEMENT, T WAVE ABNORMALITY, CONSIDER ANTERIOR ISCHEMIA, PROLONGED QT - EKG (06/13): NORMAL SINUS RHYTHM, PROLONGED QT - EKG (06/14): SINUS TACHYCARDIA, POSSIBLE LEFT ATRIAL ENLARGEMENT, BORDERLINE ECG, WHEN COMPARED WITH ECG OF 13-JUN-2018 11:20, NO SIGNIFICANT CHANGE WAS FOUND - ECHO: No vegetation seen on Mitral Valve, Pulmonic valve, Aortic valve, Tricuspid valve. Mild TR, No Pericardial effusion. - CT Chest: A cavitary right lower lobe pulmonary nodule is seen. Note is also made of several bilateral noncavitary pulmonary nodules. Given the provided history these nodules may be on the basis of septic emboli. Very small right- sided and trace left-sided pleural effusions are noted. Mild nonspecific mediastinal and bilateral hilar lymphadenopathy. Several slightly prominent nonspecific right axillary lymph nodes are seen. - CT A/P: Hepatosplenomegaly. Nonspecific upper abdominal lymphadenopathy. A small amount of pericholecystic fluid accumulation is noted possibly secondary to hepatic disease. Small amount of pelvic free fluid. horseshoe kidney. ASSESSMENT/PLAN: 33 yr old male with Polysubstance use and hep C presents with fever and +blood cx is admitted for bacteremia and r/o endocarditis. 1. Sepsis - TMax 104, Afebrile this AM, HR 62-98, No WBC count - Likely due to Alpha hemolytic Strep Bacteremia - Lactic acid 2.3 --> 3.3 --> 2.1 - BNP 5627 - Blood cx Preliminary: Alpha Hemolytic Streptococcus - Repeat CXR (06/14): Minimal central congestive changes and some scarring with atelectasis at the left base with opaque densities which could represent foreign bodies or aspirated barium. This left base finding is unchanged from . - R/O Endocarditis - ECHO: No vegetation seen on Mitral Valve, Pulmonic valve, Aortic valve, Tricuspid valve. - Telemetry monitoring - Monitor and replete electrolytes - ID (Dr. Magaña) consulted, appreciate rec's, continue penicillin and gent - Blood cx report from [facility] placed in paper chart - Continue Normal Saline @ 75 mls/hr IV - Continue Gentamicin IVPB Q8H [facility] (Day 4) - Continue Penicillin G IVPB Q4H [facility] (Day 4) - Completed 3 day course of Vancomycin 1,250 mg IVPB BID - Completed 3 day course of Ceftriaxone 2 gm IVPB DAILY - Received 1 day of Gentamicin 70mg initially - CT Chest/Abdomen/Pelvis however patient initially refused "I do not want anymore radiation" - CT Chest: Cavitary RLL pulmonary nodule, Several bilateral noncavitary nodules , these nodules may be on the basis of septic emboli. 2. R/O ACS - Denies chest pain, pressure, tightness - Troponins < 0.02, < 0.02, 0.02 - EKG (06/12): NORMAL SINUS RHYTHM, POSSIBLE LEFT ATRIAL ENLARGEMENT, T WAVE ABNORMALITY, PROLONGED QT - EKG (06/13): NORMAL SINUS RHYTHM, PROLONGED QT - EKG (06/14): SINUS TACHYCARDIA, POSSIBLE LEFT ATRIAL ENLARGEMENT - Cardiology (Dr. Carranza) consulted - Refused repeat EKG on 06/14, says he would be available for it at 1pm - OMA in AM, NPO after midnight 3. IV PolySubstance use - last heroin use (06/11) as per Dr. Willett's note - Continue Methadone HCl 110 mg PO DAILY@0600 (Dosing confirmed by nursing) - Continue Nicoderm Patch 14 mg TD DAILY - Detox (Dr. Hancock) consulted, spoke with her over the phone who suggested Methadone 10mg one time dose for pain; continue methadone 110mg/AM and 10mg at 6pm for pain control. d/c zanax and for valium prn - Psychiatry (Dr. Lomeli) Consulted, appreciate rec's, Patient has the mental capacity to make decisions at this time 4. Anemia - Hgb 7.7, Hct 23.0 - Likely multifactorial, dilutional, sepsis and multiple blood draws - Denies hemoptysis, hematemesis, hematochezia, hematuria - Iron studies pending - Discussed possibility of transfusion, patient hesitant - S/P 2 Unit pRBCs transfused - GI (Dr. Hoang) Consulted, Appreciate EGD, Superficial-appearing Sandy-Roy tears found at the [facility], Mild duodenitis, abd biopsied, Protonic PO BID, Liquid carafate 1 gm po QID, Thorazine 25 mg po qid for hiccups, Soft Diet 5. PPx: - DVT: SCD's, Encourage early ambulation, Consider Heparin once platelet count stops dropping 6. FEN - Normal Saline @ 75 mls/hr IV - HypoMagnesamia, HypoPhosphatemia, replete as needed - Vegetrarian Diet Visit type - Emergency Visit Emergency Visit: Yes ED Registration Date: 06/12/18 Care time: The patient presented to the Emergency Department on the above date and was hospitalized for further evaluation of their emergent condition. - New Patient This patient is new to me today: No - Critical Care Critical Care patient: No
--- NOTE | 2018-06-18 20:17 | CON.ORTH ---
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: well apppearing male in NAD LUE - multiple healed wounds about the posterior elbow FROM elbow wrist hand and finger clawing of ulnar 2 digits decreased sensation ulnar 2 digits fds fdp ed intact weak ab/adduction NVID A/p: L ulnar nerve lesion -advised pt no need for urgent intervention -advised injury may be permanent at this point -recommend consultation with nerve reconstruction surgeon at tertiary care center when discharged - History Source History Provided By: Patient, Family Member, Medical Record - Past Medical History Gastrointestinal: Yes: Other (hep C) Hepatobiliary: Yes: Hepatitis C Infectious Disease: No: HIV Psych: Yes: Addictions - Alcohol/Substance Use Hx Alcohol Use: No - Smoking History Smoking history: Current some day smoker Have you smoked in the past 12 months: Yes Aproximately how many cigarettes per day: 10 - Social History Usual Living Arrangement: Alone Home Medications - Allergies Allergies/Adverse Reactions: Allergies Allergy/AdvReac Type Severity Reaction Status Date / Time haloperidol [From Haldol] AdvReac Low Blood Verified 06/12/18 15:08 Pressure tramadol AdvReac Low Blood Verified 06/12/18 15:08 Pressure - Home Medications Home Medications: Ambulatory Orders Methadone [Dolophine -] 110 mg PO DAILY 06/12/18 Bupropion HCl [Bupropion HCl Sr] 150 mg PO DAILY 06/13/18 Cholecalciferol (Vitamin D3) [D3-50] 50,000 unit PO WEEKLY 06/13/18 Divalproex [Depakote -] 500 mg PO DAILY 06/13/18 Olanzapine [Olanzapine Odt] 10 mg PO HS 06/13/18 Family Disease History - Family Disease History Family Disease History: Diabetes: Father, CA: Grandparent (pat gparents dec'd older age; mat gpa dec'd esophageal ca, gma a&w), Other: Grandparent, Father, Mother (thyroid), Brother (0), Sister (2 sisters a&w), Son (0), Daughter (0) Physical Exam for Ortho Vital Signs: Vital Signs Temperature 97.8 F 06/18/18 15:56 Pulse Rate 73 06/18/18 15:56 Respiratory Rate 20 06/18/18 15:56 Blood Pressure 100/43 06/18/18 15:56 O2 Sat by Pulse Oximetry (%) 94 L 06/18/18 15:56 Labs: CBC, BMP 06/18/18 05:45 06/18/18 05:45 INR, PTT INR 1.17 (0.83-1.09) H 06/18/18 05:45
[2018-06-18] MEDS: ACETAMINOPHEN 325 MG TABLET (FP) PO PRN (20:30)
[2018-06-18] MEDS: PANTOPRAZOLE 40 MG TABLET (FP) PO SCH ×2 (22:00→22:54)
[2018-06-18] MEDS ORDERED: PT OWN MED DRAWER 7, Y5N ONE (23:09)
[2018-06-18] MEDS ORDERED: ENOXAPARIN NA (PORCINE) 80 MG/0.8 ML DISP.SYRIN SQ SCH (23:45)
[2018-06-19] MEDS: PENICILLIN POTASSIUM IVPB SCH ×5 (00:42→15:21)
[2018-06-19] MEDS: WATER IVPB SCH ×5 (00:42→15:21)
[2018-06-19] MEDS: DEXTROSE 5% IVPB SCH ×5 (00:42→15:21)
[2018-06-19] MEDS: BACLOFEN 10 MG TABLET (FP) PO SCH ×3 (06:11→22:19)
[2018-06-19 06:43] LABS: BASO % 0.3 % (0-2.0); EOS % 0.9 % (0-4.5); HEMATOCRIT 25.5 % (35.4-49); HEMOGLOBIN 8.7 GM/dL (11.7-16.9); LYMPH % 7.4 % (8-40); MCH 27.3 pg (25.7-33.7); MCHC 34.1 g/dl (32.0-35.9); MEAN CELL VOLUME 80.1 fl (80-96); MEAN PLT VOLUME 8.1 fl (7.5-11.1); MONO % 6.5 % (3.8-10.2); NEUT % 84.9 % (42.8-82.8); PLATELET COUNT 107 K/MM3 (134-434); RBC 3.18 M/mm3 (4.00-5.60); RDW 15.6 % (11.9-15.9); WHITE BLOOD COUNT 10.7 K/mm3 (4.0-10.0)
[2018-06-19 07:24] LABS: ALBUMIN 1.9 g/dl (3.4-5.0); ANION GAP 10 (8-16); BLOOD UREA NITROGEN 10 mg/dL (7-18); CALCIUM 7.7 mg/dL (8.5-10.1); CHLORIDE 104 mmol/L (98-107); CO2 24 mmol/L (21-32); CREATININE 0.9 mg/dL (0.7-1.3); GLUCOSE,RANDOM 72 mg/dL (74-106); MAGNESIUM 2.2 mg/dL (1.8-2.4); PHOSPHOROUS 3.2 mg/dL (2.5-4.9); POTASSIUM 4.1 mmol/L (3.5-5.1); SGOT/AST 17 U/L (15-37); SGPT/ALT 17 U/L (12-78); SODIUM 138 mmol/L (136-145)
[2018-06-19 07:26] LABS: ALK PHOS 152 U/L (45-117); BILIRUBIN,TOTAL 0.7 mg/dL (0.2-1.0); TOT PROT 5.9 g/dl (6.4-8.2)
[2018-06-19] MEDS ORDERED: PT OWN MED DRAWER 7, Y5N ONE ×2 (08:26→13:29)
[2018-06-19 08:27] LABS: INR 1.36 (0.83-1.09); PROTHROMBIN TIME (PATIENT) 15.4 SEC (9.7-13.0)
[2018-06-19] MEDS: GENTAMICIN INJECTION 70 MG in SODIUM CHLORIDE 100 ML IVPB SCH ×2 (09:33→15:21)
[2018-06-19] MEDS: SUCRALFATE 1 GM/10 ML UNIT DOSE CUPS PO SCH ×5 (10:55→22:19)
[2018-06-19] MEDS: FERROUS SO4 325 MG TABLET (FP) PO SCH (10:55)
[2018-06-19] MEDS: NICOTINE 14 MG/24 HOURS TOPICAL PATCH TD SCH (10:55)
[2018-06-19] MEDS: PANTOPRAZOLE 40 MG TABLET (FP) PO SCH ×2 (10:55→22:19)
[2018-06-19] MEDS: ASCORBIC ACID 250 MG TABLET (FP) PO SCH (10:56)
[2018-06-19] MEDS: CYANOCOBALAMIN 1,000 MCG TABLET (FP) PO SCH (10:56)
[2018-06-19] MEDS: CHOLECALCIFEROL (VITAMIN D3) 1,000 UNIT TABLET (FP) PO SCH (10:56)
[2018-06-19] MEDS: SODIUM CHLORIDE 1,000 ML IV SCH (13:33)
[2018-06-19] MEDS: METHADONE 80 MG, METHADONE 30 MG PO SCH (13:43)
[2018-06-19] MEDS: diazePAM 2 MG TABLET PO PRN (16:07)
--- NOTE | 2018-06-19 17:09 | PN ---
Progress Note (short form) - Note Progress Note: intermittent fevers persist trans thoracic echo no vegetations/no significant valvular lesions alert hiccups again today egd yesterday katia doyle tear- OMA on hold duplex- LLE DVT intermittently refusing meds and care including vitals Vital Signs Period Temp Pulse Resp BP Sys/Manning Pulse Ox Last 24 Hr 99.8 F-103.1 F 85-90 17-19 105-119/52-73 96 +hiccups cor-rrr lungs decreased bs at bases abd soft,nt ext unchanged CBC, BMP 06/19/18 06:00 06/19/18 06:00 Microbiology 06/14/18 06:00 Blood - Peripheral Venous Blood Culture - Preliminary Anaerobic Cocci 06/18/18 09:05 Blood - Central Line Blood Culture - Preliminary NO GROWTH OBTAINED AFTER 24 HOURS, INCUBATION TO CONTINUE FOR 4 DAYS. 06/18/18 09:00 Blood - Central Line Blood Culture - Preliminary NO GROWTH OBTAINED AFTER 24 HOURS, INCUBATION TO CONTINUE FOR 4 DAYS. 06/16/18 05:45 Blood - Peripheral Venous Blood Culture - Preliminary NO GROWTH OBTAINED AFTER 72 HOURS, INCUBATION TO CONTINUE FOR 2 DAYS. 06/16/18 06:10 Blood - Peripheral Venous Blood Culture - Preliminary NO GROWTH OBTAINED AFTER 72 HOURS, INCUBATION TO CONTINUE FOR 2 DAYS. 06/14/18 06:30 Blood - Peripheral Venous Blood Culture - Final NO GROWTH AFTER 5 DAYS INCUBATION 06/12/18 14:40 Cerebral Spinal Fluid - Lumbar Puncture Gram Stain - Final 06/12/18 14:40 Cerebral Spinal Fluid - Lumbar Puncture CSF Culture - Final 06/12/18 12:15 Blood - Peripheral Venous Blood Culture - Final Streptococcus Sanguis 06/12/18 12:15 Blood - Peripheral Venous Blood Culture - Final Streptococcus Sanguis 06/12/18 13:55 Urine - Urine Clean Catch Urine Culture - Final NO GROWTH OBTAINED ct scan with multiple pulmonary nodules c/w septic emboli a/p strep endocarditis-blood cultures 06/16, 06/18 are negative active substance use Hep C for imaging of back- denied back pain on Monday, now with lumbar back pain yesterday, none today DVT -a/c when able to strt, may be contributing to fevers, ?infected clot OMA on hold repeat cxray today if +infiltrate broaden antibiotics to zosyn/gent d/w primary service
[2018-06-19] MEDS ORDERED: CEFTRIAXONE 2 GM in DEXTROSE 5%-WATER 100 ML IVPB SCH (17:15)
[2018-06-19] MEDS ORDERED: DEXTROSE 5%-WATER 100 ML IVPB ONE (17:23)
[2018-06-19] MEDS: ACETAMINOPHEN 1000 MG/100 ML VIAL (NON FORMULARY) IVPB PRN (17:28)
[2018-06-19] MEDS: METOCLOPRAMIDE HCL INJECTION 10 MG/2 ML VIAL IVPUSH PRN (18:00)
--- NOTE | 2018-06-19 18:04 | PN ---
Physical Exam: SUBJECTIVE: Patient seen and examined this morning at bedside. Complained of chills. He became very agitated during my interview and refused to answer my questions. Refused to be evaluated. Found to have sandy doyle tear on EGD. not a OMA candidate. Had a fever this morning 102, refused tylenol. found with LLE DVT OBJECTIVE: Vital Signs Period Temp Pulse Resp BP Sys/Manning Pulse Ox Last 24 Hr 99.8 F-103.1 F 85-90 17-19 105-119/52-73 96 GENERAL: The patient is awake, alert, lying in bed under covers, very agitated and refused to be evaluated. Laboratory Results - last 24 hr 06/17/18 06/19/18 06/19/18 07:00 06:00 06:00 WBC 10.7 H RBC 3.18 L Hgb 8.7 L Hct 25.5 L MCV 80.1 MCH 27.3 MCHC 34.1 RDW 15.6 Plt Count 107 L MPV 8.1 Absolute Neuts (auto) 9.1 H Neutrophils % 84.9 H Lymphocytes % 7.4 L D Monocytes % 6.5 Eosinophils % 0.9 Basophils % 0.3 Nucleated RBC % 0 PT with INR 15.40 H INR 1.36 H Sodium Potassium Chloride Carbon Dioxide Anion Gap BUN Creatinine Creat Clearance w eGFR Random Glucose Calcium Phosphorus Magnesium Transferrin 201 Total Bilirubin AST ALT Alkaline Phosphatase Total Protein Albumin Stool Occult Blood 06/19/18 06/19/18 06/19/18 06:00 13:25 17:00 WBC RBC Hgb Hct MCV MCH MCHC RDW Plt Count MPV Absolute Neuts (auto) Neutrophils % Lymphocytes % Monocytes % Eosinophils % Basophils % Nucleated RBC % PT with INR INR Sodium 138 Potassium 4.1 Chloride 104 Carbon Dioxide 24 Anion Gap 10 BUN 10 Creatinine 0.9 Creat Clearance w eGFR > 60 Random Glucose 72 L D Calcium 7.7 L Phosphorus 3.2 D Magnesium 2.2 Transferrin Total Bilirubin 0.7 AST 17 D ALT 17 Alkaline Phosphatase 152 H D Total Protein 5.9 L Albumin 1.9 L Stool Occult Blood Cancelled Negative Active Medications Generic Name Dose Route Start Last Admin Trade Name Freq PRN Reason Stop Dose Admin Acetaminophen 650 mg 06/13/18 12:36 06/18/18 20:30 Tylenol - PO 650 mg Q6H PRN Administration FEVER Acetaminophen 1,000 mg 06/19/18 17:05 08/21/18 17:28 Ofirmev Injection - IVPB 1,000 mg Q6H PRN Administration FEVER Al Hydroxide/Mg Hydroxide 30 ml 06/16/18 11:50 06/16/18 12:18 Mylanta Oral Suspension - PO 30 ml Q6H PRN Administration DYSPEPSIA Albuterol Sulfate 1 amp 06/17/18 13:41 06/17/18 14:36 Ventolin 0.083% Nebulizer Soln - NEB 1 amp Q4H PRN Administration SHORT OF BREATH/WHEEZING Ascorbic Acid 250 mg 06/13/18 14:15 06/19/18 10:56 Vitamin C - PO Not Given DAILY ELYSIA Baclofen 5 mg 06/17/18 14:15 06/19/18 13:43 Lioresal - PO Not Given TID ELYSIA Cholecalciferol 5,000 unit 06/14/18 10:00 06/19/18 10:56 Vitamin D3 - PO 06/19/18 23:59 Not Given DAILY [facility] Cyanocobalamin 1,000 mcg 06/14/18 10:00 06/19/18 10:56 Vitamin B12 - PO Not Given DAILY [facility] Diazepam 2 mg 06/19/18 16:04 06/19/18 16:07 Valium - PO 2 mg Q12H PRN Administration ANXIETY Docusate Sodium 100 mg 06/18/18 07:49 Colace - PO BID PRN CONSTIPATION Ferrous Sulfate 325 mg 06/18/18 10:00 06/19/18 10:55 Feosol - PO Not Given DAILY [facility] Sodium Chloride 1,000 mls @ 75 mls/hr 06/14/18 12:34 06/19/18 13:33 Normal Saline - IV 75 mls/hr ASDIR ELYSIA Administration Gentamicin Sulfate 70 mg/ 101.75 mls @ 100 mls/hr 06/14/18 16:00 06/19/18 15: 21 Sodium Chloride IVPB 100 mls/hr Q8H ELYSIA Administration Protocol Ceftriaxone Sodium 2 gm/ 100 mls @ 200 mls/hr 06/19/18 17:15 06/19/18 17:29 Dextrose IVPB 200 mls/hr DAILY ELYSIA Administration Protocol Methadone HCl 80 mg/ Methadone 110 mg 06/13/18 07:30 06/19/18 13:43 HCl 30 mg PO Not Given DAILY@0600 ELYSIA Methadone HCl 10 mg 06/14/18 18:00 06/18/18 17:15 Dolophine - PO 10 mg DAILY@1800 [facility] Administration Metoclopramide HCl 10 mg 06/19/18 17:13 Reglan Injection - IVPUSH Q6H PRN NAUSEA AND/OR VOMITING Nicotine 14 mg 06/12/18 16:15 06/19/18 10:55 Nicoderm Patch - TD Not Given DAILY [facility] Pantoprazole Sodium 40 mg 06/18/18 22:00 06/19/18 10:55 Protonix - PO Not Given BID [facility] Sucralfate 1 gm 06/18/18 18:00 06/19/18 17:28 Carafate Oral Suspension - PO 1 gm QID ELYSIA Administration Microbiology 06/14/18 06:00 Blood - Peripheral Venous Blood Culture - Preliminary Anaerobic Cocci 06/18/18 09:05 Blood - Central Line Blood Culture - Preliminary NO GROWTH OBTAINED AFTER 24 HOURS, INCUBATION TO CONTINUE FOR 4 DAYS. 06/18/18 09:00 Blood - Central Line Blood Culture - Preliminary NO GROWTH OBTAINED AFTER 24 HOURS, INCUBATION TO CONTINUE FOR 4 DAYS. 06/16/18 05:45 Blood - Peripheral Venous Blood Culture - Preliminary NO GROWTH OBTAINED AFTER 72 HOURS, INCUBATION TO CONTINUE FOR 2 DAYS. 06/16/18 06:10 Blood - Peripheral Venous Blood Culture - Preliminary NO GROWTH OBTAINED AFTER 72 HOURS, INCUBATION TO CONTINUE FOR 2 DAYS. 06/14/18 06:30 Blood - Peripheral Venous Blood Culture - Final NO GROWTH AFTER 5 DAYS INCUBATION 06/12/18 14:40 Cerebral Spinal Fluid - Lumbar Puncture Gram Stain - Final 06/12/18 14:40 Cerebral Spinal Fluid - Lumbar Puncture CSF Culture - Final 06/12/18 12:15 Blood - Peripheral Venous Blood Culture - Final Streptococcus Sanguis 06/12/18 12:15 Blood - Peripheral Venous Blood Culture - Final Streptococcus Sanguis 06/12/18 13:55 Urine - Urine Clean Catch Urine Culture - Final NO GROWTH OBTAINED IMAGING: - CXR (06/12): No evidence of active pulmonary disease. - CXR (06/14): Imaging reveals a normal mediastinum with some minimal central congestive changes and some scarring with atelectasis at the left base with opaque densities which could represent foreign bodies or aspirated barium. This left base finding is unchanged from 06/12/2018. - Head CT: No evidence of a focal intracranial lesion or hemorrhage seen. - EKG (06/12): NORMAL SINUS RHYTHM, POSSIBLE LEFT ATRIAL ENLARGEMENT, T WAVE ABNORMALITY, CONSIDER ANTERIOR ISCHEMIA, PROLONGED QT - EKG (06/13): NORMAL SINUS RHYTHM, PROLONGED QT - EKG (06/14): SINUS TACHYCARDIA, POSSIBLE LEFT ATRIAL ENLARGEMENT, BORDERLINE ECG, WHEN COMPARED WITH ECG OF 13-JUN-2018 11:20, NO SIGNIFICANT CHANGE WAS FOUND - ECHO: No vegetation seen on Mitral Valve, Pulmonic valve, Aortic valve, Tricuspid valve. Mild TR, No Pericardial effusion. - CT Chest: A cavitary right lower lobe pulmonary nodule is seen. Note is also made of several bilateral noncavitary pulmonary nodules. Given the provided history these nodules may be on the basis of septic emboli. Very small right- sided and trace left-sided pleural effusions are noted. Mild nonspecific mediastinal and bilateral hilar lymphadenopathy. Several slightly prominent nonspecific right axillary lymph nodes are seen. - CT A/P: Hepatosplenomegaly. Nonspecific upper abdominal lymphadenopathy. A small amount of pericholecystic fluid accumulation is noted possibly secondary to hepatic disease. Small amount of pelvic free fluid. horseshoe kidney. 06/18 - Findings consistent with deep venous thromboses in the left lower extremity involving the common femoral vein and greater saphenous vein as well as superficial venous thromboses in the right lower extremity involving the greater saphenous vein. 3.2 x 0.6 cm Junior's cyst in the left popliteal fossa. ASSESSMENT/PLAN: 33 yr old male with Polysubstance use and hep C presents with fever and +blood cx is admitted for bacteremia and r/o endocarditis. 1. Sepsis - TMax 104, 102 this AM, HR 62-98, WBC count 10.7 - Likely due to Alpha hemolytic Strep Bacteremia - Lactic acid 2.3 --> 3.3 --> 2.1 - BNP 5627 - Blood cx Preliminary: Alpha Hemolytic Streptococcus -strep endocarditis-blood cultures 06/16, 06/18 are negative - Repeat CXR (06/14): Minimal central congestive changes and some scarring with atelectasis at the left base with opaque densities which could represent foreign bodies or aspirated barium. This left base finding is unchanged from . -rpt CXR 06/19 - R/O Endocarditis - ECHO: No vegetation seen on Mitral Valve, Pulmonic valve, Aortic valve, Tricuspid valve. -rpt TTE 06/19 - Telemetry monitoring - Monitor and replete electrolytes - ID (Dr. Magaña) consulted, appreciate rec's, continue penicillin and gent - Blood cx report from Kareem placed in paper chart - Continue Normal Saline @ 75 mls/hr IV - Continue Gentamicin IVPB Q8H ELYSIA (Day 5) -start rocephin 2g (06/19) - d/c Penicillin G IVPB Q4H ELYSIA (Day 4) - Completed 3 day course of Vancomycin 1,250 mg IVPB BID - Completed 3 day course of Ceftriaxone 2 gm IVPB DAILY - Received 1 day of Gentamicin 70mg initially - CT Chest/Abdomen/Pelvis however patient initially refused "I do not want anymore radiation" - CT Chest: Cavitary RLL pulmonary nodule, Several bilateral noncavitary nodules , these nodules may be on the basis of septic emboli. -Duplex 06/18 - LLE DVT, s/p Lovenox 80mg SQ x1 2. R/O ACS - Denies chest pain, pressure, tightness - Troponins neg x3 - EKG (06/12): NORMAL SINUS RHYTHM, POSSIBLE LEFT ATRIAL ENLARGEMENT, T WAVE ABNORMALITY, PROLONGED QT - EKG (06/13): NORMAL SINUS RHYTHM, PROLONGED QT - EKG (06/14): SINUS TACHYCARDIA, POSSIBLE LEFT ATRIAL ENLARGEMENT - Cardiology (Dr. Carranza) consulted - Refused repeat EKG on 06/14, says he would be available for it at 1pm - Found to have sandy doyle tear on EGD 06/18. not a OMA candidate. 3. IV PolySubstance use - last heroin use (06/11) as per Dr. Willett's note - Continue Methadone HCl 110 mg PO DAILY@0600 (Dosing confirmed by nursing) - Continue Nicoderm Patch 14 mg TD DAILY - Detox (Dr. Hancock) consulted, spoke with her over the phone who suggested Methadone 10mg one time dose for pain; continue methadone 110mg/AM and 10mg at 6pm for pain control. d/c zanax and for valium prn - Psychiatry (Dr. Lomeli) Consulted, appreciate rec's, Patient has the mental capacity to make decisions at this time 4. Anemia - Hgb 8.7 - Likely multifactorial, dilutional, sepsis and multiple blood draws - Denies hemoptysis, hematemesis, hematochezia, hematuria - Iron studies pending - Discussed possibility of transfusion, patient hesitant - S/P 2 Unit pRBCs transfused - GI (Dr. 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 - New Patient This patient is new to me today: Yes Date on this admission: 06/19/18 - Critical Care Critical Care patient: No
--- NOTE | 2018-06-19 19:03 | PN ---
Teaching Attending Note Name of Resident: Porfirio Vasquez ATTENDING PHYSICIAN STATEMENT I saw and evaluated the patient. I reviewed the resident's note and discussed the case with the resident. I agree with the resident's findings and plan as documented. SUBJECTIVE:c/o persistent hiccuping that causing vomiting yellow material. no food, coffee grounds or bright red blood. states he feels like he cant breathe due to the hiccups. states nothing else is an issue at the moment and wants to focus on his hiccups states he does not have back pain OBJECTIVE: Last Vital Signs Temp Pulse Resp BP Pulse Ox 100.3 F H 85 17 105/56 96 06/19/18 13:46 06/19/18 06:00 06/19/18 13:46 06/19/18 06:00 06/18/18 21:00 general distress due to persistent hiccuping and retching CV tachycardic Lungs decreased at bases, no wheezing abdomen soft NT/ND ASSESSMENT AND PLAN: 33 yo M with PMhx of IVDU (heroine and cocaine), (uses almost daily for 4 years) , H/o crack cocaine use prior for almost 15 years now, opioid dependence on methadone (gets at [facility]), anxiety, depression, recent diagnosed Hep C, admitted with fevers, headache, malaise and recent positive blood cultures. 1. sepsis due to strep viridans bacteremia- continues to have persistent fevers. Tm 103.1. high liklihood for endocarditis with presence of septic emboli. not seen on TTE and unable to do OMA due to katia doyle tear. will request repeat TTE to further delineate for vegetations. repeat BCx are now clear. spoke with ID 2. Intractable hiccups- possible due to opiate withdrawal. no abscess seen along diaphragm. Head CT negative for lesions. likely exacerbated by EGD yesterday. check CXR. unable to give thorazine due to prolonged QTc. will give reglan to help with nausea so that patient can tolerate po. encourage baclofen or can try viscous lidocaine which has been shown to help. will d/w GI and detox specialist if there are any other alternatives. 3. LLE DVT- at site where he injects. would hold heparin ggt at this time as he is still actively vomiting and concern may cause katia doyle to bleed. will repeat CBC and monitor closely. spoke with mother about pros/cons about holding anticoagulation. may also be responsible for intermittent fevers. 4. Fever- Tm 103. can be from DVT vs developing aspiration PNA vs bacteremia. obtain CXR to evaluate. ID switched PCN to ceftriaxone. consider starting zosyn if CXR +. 5. Hemetemsis- due to katia doyle tear seen on EGD on 06/18. cont carafate, PPI. soft diet as tolerated. no more episodes of hemetemsis 6. Thrombocytpenia- due to sepsis. no more bleeding. no indication for transfusion 7. Anemia- multi-factorial. including iron def anemia and blood loss anemia. s/ p 2 units PRBC this hospital stay. repeat CBC now. would benefit from venofer. will hold at present time due to multiple issues currently being addressed. 8. Pulmonary nodules/cavitary lesion, likely septic emboli 9. prolonged Qtc- last EKG shows improvement to 500. will repeat now to see if continues to improve. close monitoring 10. IVDU- on methadone. dose confirmed. on valium. will d/w him about rehab placement and abstinence 11. spoke with mother present at bedside in detail. all questions answered.
[2018-06-19 20:04] LABS: HEMATOCRIT 27.8 % (35.4-49); HEMOGLOBIN 9.5 GM/dL (11.7-16.9); MCH 27.4 pg (25.7-33.7); MCHC 34.1 g/dl (32.0-35.9); MEAN CELL VOLUME 80.2 fl (80-96); PLATELET COUNT 86 K/MM3 (134-434); RBC 3.47 M/mm3 (4.00-5.60); RDW 15.7 % (11.9-15.9); WHITE BLOOD COUNT 11.5 K/mm3 (4.0-10.0)
[2018-06-20] MEDS: GENTAMICIN INJECTION 70 MG in SODIUM CHLORIDE 100 ML IVPB SCH ×4 (00:17→23:26)
[2018-06-20] MEDS: METHADONE 80 MG, METHADONE 30 MG PO SCH (05:26)
[2018-06-20] MEDS: BACLOFEN 10 MG TABLET (FP) PO SCH ×3 (05:26→21:25)
[2018-06-20 09:52] LABS: HEMATOCRIT 28.3 % (35.4-49); HEMOGLOBIN 9.5 GM/dL (11.7-16.9); MCH 27.5 pg (25.7-33.7); MCHC 33.7 g/dl (32.0-35.9); MEAN CELL VOLUME 81.5 fl (80-96); MEAN PLT VOLUME 8.1 fl (7.5-11.1); PLATELET COUNT 82 K/MM3 (134-434); RBC 3.47 M/mm3 (4.00-5.60); RDW 16.3 % (11.9-15.9); WHITE BLOOD COUNT 9.3 K/mm3 (4.0-10.0)
[2018-06-20] MEDS: METHADONE HCL 10 MG TABLET PO SCH ×3 (09:53→20:38)
[2018-06-20] MEDS ORDERED: PENICILLIN G POTASSIUM 20,000,000 (20Mm) UNITS VIAL IVPB SCH (10:00)
[2018-06-20] MEDS ORDERED: LORazepam 2 MG/ML SDV VIAL IVPUSH ONE (10:05)
[2018-06-20] MEDS: CYANOCOBALAMIN 1,000 MCG TABLET (FP) PO SCH (10:12)
[2018-06-20] MEDS: FERROUS SO4 325 MG TABLET (FP) PO SCH (10:12)
[2018-06-20] MEDS: PANTOPRAZOLE 40 MG TABLET (FP) PO SCH ×2 (10:12→21:25)
[2018-06-20] MEDS: ASCORBIC ACID 250 MG TABLET (FP) PO SCH (10:12)
[2018-06-20] MEDS: SUCRALFATE 1 GM/10 ML UNIT DOSE CUPS PO SCH ×4 (10:12→21:25)
[2018-06-20] MEDS: NICOTINE 14 MG/24 HOURS TOPICAL PATCH TD SCH (10:12)
[2018-06-20 10:13] LABS: INR 1.34 (0.83-1.09); PROTHROMBIN TIME (PATIENT) 15.1 SEC (9.7-13.0)
[2018-06-20 10:16] LABS: CHLORIDE 102 mmol/L (98-107); POTASSIUM 4.3 mmol/L (3.5-5.1); SODIUM 137 mmol/L (136-145)
[2018-06-20 10:25] LABS: ALBUMIN 1.9 g/dl (3.4-5.0); ALK PHOS 141 U/L (45-117); ANION GAP 9 MMOL/L (8-16); BILIRUBIN,TOTAL 0.3 mg/dL (0.2-1.0); BLOOD UREA NITROGEN 14 mg/dL (7-18); CALCIUM 7.8 mg/dL (8.5-10.1); CO2 26 mmol/L (21-32); CREATININE 0.9 mg/dL (0.7-1.3); GLUCOSE,RANDOM 71 mg/dL (74-106); MAGNESIUM 2.4 mg/dL (1.8-2.4); PHOSPHOROUS 3.6 mg/dL (2.5-4.9); SGOT/AST 11 U/L (15-37); SGPT/ALT 17 U/L (12-78); TOT PROT 6.3 g/dl (6.4-8.2)
[2018-06-20] MEDS: WATER IVPB SCH ×4 (10:28→21:38)
[2018-06-20] MEDS: DEXTROSE 5% IVPB SCH ×4 (10:28→21:38)
[2018-06-20] MEDS: PENICILLIN POTASSIUM IVPB SCH ×4 (10:28→21:38)
--- NOTE | 2018-06-20 11:06 | PN ---
Progress Note (short form) - Note Progress Note: afebrile overnight reports he got some sleep hiccupping again vomited clear blood tinged fluid this am no back pain Vital Signs Period Temp Pulse Resp BP Sys/Manning Pulse Ox Last 24 Hr 98.7 F-103.6 F 68-93 17-20 98-104/49-71 96 cor-rrr lungs clear abd soft,nt ext unchanged, no edema CBC, BMP 06/20/18 09:22 06/20/18 09:22 Microbiology 06/18/18 09:05 Blood - Central Line Blood Culture - Preliminary NO GROWTH OBTAINED AFTER 48 HOURS, INCUBATION TO CONTINUE FOR 3 DAYS. 06/18/18 09:00 Blood - Central Line Blood Culture - Preliminary NO GROWTH OBTAINED AFTER 48 HOURS, INCUBATION TO CONTINUE FOR 3 DAYS. 06/16/18 05:45 Blood - Peripheral Venous Blood Culture - Preliminary NO GROWTH OBTAINED AFTER 96 HOURS, INCUBATION TO CONTINUE FOR 1 DAYS. 06/16/18 06:10 Blood - Peripheral Venous Blood Culture - Preliminary NO GROWTH OBTAINED AFTER 96 HOURS, INCUBATION TO CONTINUE FOR 1 DAYS. 06/14/18 06:00 Blood - Peripheral Venous Blood Culture - Preliminary Anaerobic Cocci 06/14/18 06:30 Blood - Peripheral Venous Blood Culture - Final NO GROWTH AFTER 5 DAYS INCUBATION 06/12/18 14:40 Cerebral Spinal Fluid - Lumbar Puncture Gram Stain - Final 06/12/18 14:40 Cerebral Spinal Fluid - Lumbar Puncture CSF Culture - Final 06/12/18 12:15 Blood - Peripheral Venous Blood Culture - Final Streptococcus Sanguis 06/12/18 12:15 Blood - Peripheral Venous Blood Culture - Final Streptococcus Sanguis 06/12/18 13:55 Urine - Urine Clean Catch Urine Culture - Final NO GROWTH OBTAINED cxray- nodular opacity right lung base ct scan with multiple pulmonary nodules c/w septic emboli a/p strep endocarditis-blood cultures 06/16, 06/18 are negative active substance use Hep C mallorweiss tear hiccups substance use for imaging of back- denied back pain on Monday, now with lumbar back pain yesterday, none today DVT -to strt a/c when able, infected clot may be contributing to fevers OMA on hold repeat blood culture if he has fevers again pen and gent to continue
--- NOTE | 2018-06-20 13:10 | PN ---
Teaching Attending Note Name of Resident: Porfirio Vasquez ATTENDING PHYSICIAN STATEMENT I saw and evaluated the patient. I reviewed the resident's note and discussed the case with the resident. I agree with the resident's findings and plan as documented. SUBJECTIVE: just had 1 episode of vomiting wiht brown material. hiccups seem to have improved.denies fever, chills, N/V/C/D, piloerection. refusing to take oral medications because of fear he may become nauseated and vomit OBJECTIVE: Last Vital Signs Temp Pulse Resp BP Pulse Ox 98.7 F 68 18 98/49 96 06/20/18 10:32 06/19/18 22:00 06/19/18 22:00 06/19/18 22:00 06/19/18 21:00 general distress due to persistent hiccuping and retching CV tachycardia Lungs decreased at bases, no wheezing abdomen soft NT/ND ASSESSMENT AND PLAN: 33 yo M with PMhx of IVDU (heroine and cocaine), (uses almost daily for 4 years) , H/o crack cocaine use prior for almost 15 years now, opioid dependence on methadone (gets at [facility]), anxiety, depression, recent diagnosed Hep C, admitted with fevers, headache, malaise and recent positive blood cultures. 1. sepsis due to strep viridans bacteremia- continues to have persistent fevers. Tm 103.6. concern for endocarditis with septic emboli. not seen on TTE and unable to do OMA due to katia doyle tear. repeat TTE to further delineate for vegetations. repeat BCx are now clear. on PCN/gent will cassidy require custodial abx. ID on board 2. Intractable hiccups-much improved today. none noted during my assessment. did not receive any medications for hiccups (baclofen or thorazine). and self resolved. will monitor. repeat EKG showing Qtc 490. will d/w cardio if safe to give thorazine now with frequent monitoring of Qtc with daily EKG 3. LLE DVT- at site where he injects. Hgb has remained stable and vomited has improved significantly. will start hep ggt and monitor hgb closely. explained risks of being on anticoagulant to the patient with katia doyle tear. encouraged pt to notify RN every time he vomits so he can be monitored for bleeding 4. Fever- Tm 103.6. can be from DVT vs bacteremia. CXR negative for aspiration. abx switched back to PCN and gent. 5. Hemetemsis- due to katia doyle tear seen on EGD on 06/18. cont carafate, PPI. soft diet as tolerated. no more episodes of hemetemsis 6. Thrombocytpenia- due to sepsis. no more bleeding. no indication for transfusion 7. Anemia- multi-factorial. including iron def anemia and blood loss anemia. s/ p 2 units PRBC this hospital stay. will monitor CBC closely. would benefit from venofer. will hold at present time due to multiple issues currently being addressed. 8. Pulmonary nodules/cavitary lesion, likely septic emboli 9. prolonged Qtc- remains prolonged. will need close monitoring as on multiple agents to worsen. Daily EKG. tele monitoring. 10. IVDU- on methadone. dose confirmed. however refusing all oral medication. requested detox specialist to come and re-evaluate. pt is interested in tapering off methadone. furthers recs per detox 11. will likely require SNF placement for custodial abx as pt is not a candidate to go home due to IVDA in the past. explained this to patient and communicated [facility] SW about placement needs
[2018-06-20] MEDS: SODIUM CHLORIDE 1,000 ML IV SCH (13:22)
[2018-06-20] MEDS ORDERED: HEPARIN NA (PORCINE) 5,000 UNITS/ML 1ML VIAL IVPUSH PRN (14:15)
[2018-06-20] MEDS: METOCLOPRAMIDE HCL INJECTION 10 MG/2 ML VIAL IVPUSH PRN (14:19)
[2018-06-20] MEDS: ACETAMINOPHEN 1000 MG/100 ML VIAL (NON FORMULARY) IVPB PRN (15:47)
[2018-06-20] MEDS: HEPARIN - 25,000 UNIT in SODIUM CHLORIDE 495 ML IV SCH (15:47)
[2018-06-20 16:24] VITALS: BMI 22.1
--- NOTE | 2018-06-20 16:37 | PATH ---
Surgical Pathology Report Patient Name: ZACK MOHAMUD [facility]. Rec. #: [id number] /Age/Gender: 1985 (Age: 33) / M Account: [id number] Location: 4 W TELEMETRY U Taken: 06/18/2018 Received: 06/19/2018 Reported: 06/20/2018 Physicians: Darion Chisholm M.D. Specimen(s) Received A: BX 2ND PORTION DUODENUM B: BX ANTRUM Clinical History Hiccups Postoperative diagnosis: Esophagitis, Sandy Roy tear Final Diagnosis A. DUODENUM, BIOPSY: DUODENAL MUCOSA WITH NO PATHOLOGIC FINDINGS. B. ANTRUM, BIOPSY: MILD CHRONIC GASTRITIS. IMMUNOSTAIN IS NEGATIVE FOR H. PYLORI ORGANISMS. Electronically Signed Lolita Sosa M.D. Gross Description A. Received in formalin, labeled "biopsy duodenum" are 2 sampson, irregular portions of soft tissue averaging 0.3 cm. in greatest dimension. The specimens are submitted in toto in one cassette. B. Received in formalin, labeled "biopsy antrum" are 3 sampson, irregular portions of soft tissue ranging from 0.3-0.6 cm. in greatest dimension. The specimens are submitted in toto in one cassette. 06/19/2018 saudi06/19/2018
--- NOTE | 2018-06-20 17:17 | PN ---
Physical Exam: SUBJECTIVE: Patient seen and examined this morning at bedside. Complained of hiccups. He became very agitated during my interview. Refused to be evaluated. Found to have katia doyle tear on EGD. not a OMA candidate. Had a fever 103.6 last night. found with LLE DVT. refusing echo OBJECTIVE: Vital Signs Period Temp Pulse Resp BP Sys/Manning Pulse Ox Last 24 Hr 98.7 F-103.0 F 68-99 18 98-116/49-60 96 GENERAL: The patient is awake, alert, lying in bed under covers, very agitated and refused to be evaluated. Laboratory Results - last 24 hr 06/19/18 06/19/18 06/19/18 17:00 17:45 19:30 WBC 11.5 H RBC 3.47 L Hgb 9.5 L Hct 27.8 L MCV 80.2 MCH 27.4 MCHC 34.1 RDW 15.7 Plt Count 86 L MPV 8.0 PT with INR INR Sodium Potassium Chloride Carbon Dioxide Anion Gap BUN Creatinine Creat Clearance w eGFR Random Glucose Calcium Phosphorus Magnesium Total Bilirubin AST ALT Alkaline Phosphatase Total Protein Albumin Gastric Occult Blood Negative Stool Occult Blood Negative Gentamicin Trough 06/20/18 06/20/1818 09:22 09:22 09:22 WBC RBC Hgb Hct MCV MCH MCHC RDW Plt Count MPV PT with INR 15.10 H INR 1.34 H Sodium 137 Potassium 4.3 Chloride 102 Carbon Dioxide 26 Anion Gap 9 BUN 14 Creatinine 0.9 Creat Clearance w eGFR > 60 Random Glucose 71 L Calcium 7.8 L Phosphorus 3.6 Magnesium 2.4 Total Bilirubin 0.3 AST 11 L D ALT 17 Alkaline Phosphatase 141 H D Total Protein 6.3 L Albumin 1.9 L Gastric Occult Blood Stool Occult Blood Gentamicin Trough 0.7 D 06/20/18 09:22 WBC 9.3 RBC 3.47 L Hgb 9.5 L Hct 28.3 L MCV 81.5 MCH 27.5 MCHC 33.7 RDW 16.3 H Plt Count 82 L MPV 8.1 PT with INR INR Sodium Potassium Chloride Carbon Dioxide Anion Gap BUN Creatinine Creat Clearance w eGFR Random Glucose Calcium Phosphorus Magnesium Total Bilirubin AST ALT Alkaline Phosphatase Total Protein Albumin Gastric Occult Blood Stool Occult Blood Gentamicin Trough Active Medications Generic Name Dose Route Start Last Admin Trade Name Freq PRN Reason Stop Dose Admin Acetaminophen 650 mg 06/13/18 12:36 06/18/18 20:30 Tylenol - PO 650 mg Q6H PRN Administration FEVER Acetaminophen 1,000 mg 06/19/18 17:05 06/20/18 15:47 Ofirmev Injection - IVPB 1,000 mg Q6H PRN Administration FEVER Al Hydroxide/Mg Hydroxide 30 ml 06/16/18 11:50 06/16/18 12:18 Mylanta Oral Suspension - PO 30 ml Q6H PRN Administration DYSPEPSIA Albuterol Sulfate 1 amp 06/17/18 13:41 06/17/18 14:36 Ventolin 0.083% Nebulizer Soln - NEB 1 amp Q4H PRN Administration SHORT OF BREATH/WHEEZING Ascorbic Acid 250 mg 06/13/18 14:15 06/20/18 10:12 Vitamin C - PO Not Given DAILY [facility] Baclofen 5 mg 06/17/18 14:15 06/20/18 13:22 Lioresal - PO Not Given TID [facility] Cyanocobalamin 1,000 mcg 06/14/18 10:00 06/20/18 10:12 Vitamin B12 - PO Not Given DAILY [facility] Diazepam 2 mg 06/19/18 16:04 06/19/18 16:07 Valium - PO 2 mg Q12H PRN Administration ANXIETY Docusate Sodium 100 mg 06/18/18 07:49 Colace - PO BID PRN CONSTIPATION Ferrous Sulfate 325 mg 06/18/18 10:00 06/20/18 10:12 Feosol - PO Not Given DAILY [facility] Heparin Sodium (Porcine) 1,000 unit 06/20/18 14:15 Heparin - IVPUSH PRN PRN Heparin Heparin Sodium (Porcine) 5,000 unit 06/20/18 14:15 Heparin - IVPUSH PRN PRN Heparin Sodium Chloride 1,000 mls @ 75 mls/hr 06/14/18 12:34 06/20/18 13:22 Normal Saline - IV 75 mls/hr ASDIR ELYSIA Administration Gentamicin Sulfate 70 mg/ 101.75 mls @ 100 mls/hr 06/14/18 16:00 06/20/18 16: 10 Sodium Chloride IVPB 100 mls/hr Q8H ELYSIA Administration Protocol Penicillin G Potassium 3,000, 250 mls @ 125 mls/hr 06/20/18 10:00 06/20/18 14 :25 000 unit/ Dextrose IVPB 125 mls/hr Q4H-IV ELYSIA Administration Heparin Sodium (Porcine) 25, 500 mls @ 20 mls/hr 06/20/18 14:15 06/20/18 15: 47 000 unit/ Sodium Chloride IV 1,000 unit/hr TITR ELYSIA 20 mls/hr Administration Protocol 1,000 UNIT/HR Methadone HCl 80 mg/ Methadone 110 mg 06/13/18 07:30 06/20/18 05:26 HCl 30 mg PO Not Given DAILY@0600 [facility] Methadone HCl 10 mg 06/14/18 18:00 06/20/18 09:53 Dolophine - PO Not Given DAILY@1800 [facility] Metoclopramide HCl 10 mg 06/19/18 17:13 06/20/18 14:19 Reglan Injection - IVPUSH 10 mg Q6H PRN Administration NAUSEA AND/OR VOMITING Nicotine 14 mg 06/12/18 16:15 06/20/18 10:12 Nicoderm Patch - TD Not Given DAILY [facility] Pantoprazole Sodium 40 mg 06/18/18 22:00 06/20/18 10:12 Protonix - PO Not Given BID [facility] Sucralfate 1 gm 06/18/18 18:00 06/20/18 13:22 Carafate Oral Suspension - PO Not Given QID [facility] IMAGING: - CXR (06/12): No evidence of active pulmonary disease. - CXR (06/14): Imaging reveals a normal mediastinum with some minimal central congestive changes and some scarring with atelectasis at the left base with opaque densities which could represent foreign bodies or aspirated barium. This left base finding is unchanged from 06/12/2018. - Head CT: No evidence of a focal intracranial lesion or hemorrhage seen. - EKG (06/12): NORMAL SINUS RHYTHM, POSSIBLE LEFT ATRIAL ENLARGEMENT, T WAVE ABNORMALITY, CONSIDER ANTERIOR ISCHEMIA, PROLONGED QT - EKG (06/13): NORMAL SINUS RHYTHM, PROLONGED QT - EKG (06/14): SINUS TACHYCARDIA, POSSIBLE LEFT ATRIAL ENLARGEMENT, BORDERLINE ECG, WHEN COMPARED WITH ECG OF 13-JUN-2018 11:20, NO SIGNIFICANT CHANGE WAS FOUND - ECHO: No vegetation seen on Mitral Valve, Pulmonic valve, Aortic valve, Tricuspid valve. Mild TR, No Pericardial effusion. - CT Chest: A cavitary right lower lobe pulmonary nodule is seen. Note is also made of several bilateral noncavitary pulmonary nodules. Given the provided history these nodules may be on the basis of septic emboli. Very small right- sided and trace left-sided pleural effusions are noted. Mild nonspecific mediastinal and bilateral hilar lymphadenopathy. Several slightly prominent nonspecific right axillary lymph nodes are seen. - CT A/P: Hepatosplenomegaly. Nonspecific upper abdominal lymphadenopathy. A small amount of pericholecystic fluid accumulation is noted possibly secondary to hepatic disease. Small amount of pelvic free fluid. horseshoe kidney. 06/18 - Findings consistent with deep venous thromboses in the left lower extremity involving the common femoral vein and greater saphenous vein as well as superficial venous thromboses in the right lower extremity involving the greater saphenous vein. 3.2 x 0.6 cm Junior's cyst in the left popliteal fossa. ASSESSMENT/PLAN: 33 yr old male with Polysubstance use and hep C presents with fever and +blood cx is admitted for bacteremia and r/o endocarditis. 1. Sepsis - TMax 104, 102 this AM, HR 62-98, WBC count 10.7 - Likely due to Alpha hemolytic Strep Bacteremia - Lactic acid 2.3 --> 3.3 --> 2.1 - BNP 5627 - Blood cx Preliminary: Alpha Hemolytic Streptococcus -strep endocarditis-blood cultures 06/16, 06/18 are negative - Repeat CXR (06/14): Minimal central congestive changes and some scarring with atelectasis at the left base with opaque densities which could represent foreign bodies or aspirated barium. This left base finding is unchanged from . -CXR 06/19 - negative for aspiration - R/O Endocarditis - ECHO: No vegetation seen on Mitral Valve, Pulmonic valve, Aortic valve, Tricuspid valve. -pt refused TTE 06/20 - Telemetry monitoring - Monitor and replete electrolytes - ID (Dr. Magaña) consulted, appreciate rec's, continue penicillin and gent - Blood cx report from [facility] placed in paper chart - Continue Normal Saline @ 75 mls/hr IV - Continue Gentamicin IVPB Q8H ELYSIA (Day 6) -d/c rocephin 2g (06/19) -resume pen and gent- one blood culture with anaerobic strep-unable to ID - resume Penicillin G IVPB Q4H ELYSIA (Day 5/6) - Completed 3 day course of Vancomycin 1,250 mg IVPB BID - Completed 3 day course of Ceftriaxone 2 gm IVPB DAILY - Received 1 day of Gentamicin 70mg initially - CT Chest/Abdomen/Pelvis however patient initially refused "I do not want anymore radiation" - CT Chest: Cavitary RLL pulmonary nodule, Several bilateral noncavitary nodules , these nodules may be on the basis of septic emboli. -Duplex 06/18 - LLE DVT, s/p Lovenox 80mg SQ x1 2. R/O ACS - Denies chest pain, pressure, tightness - Troponins neg x3 - EKG (06/12): NORMAL SINUS RHYTHM, POSSIBLE LEFT ATRIAL ENLARGEMENT, T WAVE ABNORMALITY, PROLONGED QT - EKG (06/13): NORMAL SINUS RHYTHM, PROLONGED QT - EKG (06/14): SINUS TACHYCARDIA, POSSIBLE LEFT ATRIAL ENLARGEMENT - Cardiology (Dr. Carranza) consulted - Refused repeat EKG on 06/14, says he would be available for it at 1pm - Found to have katia doyle tear on EGD 06/18. not a OMA candidate. 3. IV PolySubstance use - refusing methadone, gave ativan x1 today to alleviate withdrawal sxs - last heroin use (06/11) as per Dr. Willett's note - Continue Methadone HCl 110 mg PO DAILY@0600 (Dosing confirmed by nursing) - Continue Nicoderm Patch 14 mg TD DAILY - Detox (Dr. Hancock) consulted, spoke with her over the phone who suggested Methadone 10mg one time dose for pain; continue methadone 110mg/AM and 10mg at 6pm for pain control. d/c zanax and for valium prn - Psychiatry (Dr. Lomeli) Consulted, appreciate rec's, Patient has the mental capacity to make decisions at this time #Intractable hiccups- much improved today -did not receive today any medications for hiccups (baclofen or thorazine). and self resolved. will monitor. -repeat EKG showing Qtc 490. -cardio recs seroquel, less side effects than thorazine -frequent monitoring of Qtc with daily EKG and tele #Anemia - Hgb 9.5 - Likely multifactorial, dilutional, sepsis and multiple blood draws - Denies hemoptysis, hematemesis, hematochezia, hematuria - Iron studies pending - Discussed possibility of transfusion, patient hesitant - S/P 2 Unit pRBCs transfused - GI (Dr. Hoang) Consulted, Appreciate EGD, Superficial-appearing Katia-Doyle tears found at the GEJ, Mild duodenitis, abd biopsied, Protonic PO BID, Liquid carafate 1 gm po QID, Soft Diet #LUE weakness/numbness -had a laceration to the L elbow last year -notes that symptoms have been static since -clawing of ulnar 2 digits -ortho consult, no need for urgent intervention, nerve reconstruction surgeon at tertiary care center when discharged # PPx: - DVT: SCD's, Encourage early ambulation -Duplex 06/18 - LLE DVT, s/p Lovenox 80mg SQ x1 06/19 -will start hep ggt and monitor hgb closely. #FEN - Normal Saline @ 75 mls/hr IV - HypoMagnesamia, HypoPhosphatemia, replete as needed - Vegetrarian Diet Visit type - Emergency Visit Emergency Visit: Yes ED Registration Date: 06/12/18 Care time: The patient presented to the Emergency Department on the above date and was hospitalized for further evaluation of their emergent condition. - New Patient This patient is new to me today: Yes Date on this admission: 06/20/18 - Critical Care Critical Care patient: No
--- NOTE | 2018-06-20 18:35 | CONSULT ---
Consult Detox [facility] Reason for Current Admission/Consult: pt not taking methadone dose - History History of Present Illness: pt states he does not want the methadone b/c he has a lot of nausea and does not want to take anything by mouth. Pt states he is not in withdrawal from heroin. Pt is being treated for sepsis with pulmonary involvement, new DVT - Alcohol/Substance Use Hx Alcohol Use: No - Past Medical History Gastrointestinal: Yes: Other (hep C) Hepatobiliary: Yes: Hepatitis C Infectious Disease: No: HIV Psych: Yes: Addictions COWS - Scale Resting Pulse: 1= IA 81-100 (on methadone) Sweatin= No chills or Flushing Restless Observation: 0= Sits Still Pupil Size: 1= Pupils >than Normal Bone or Joint Aches: 1= Mild Discomfort Runny Nose/ Eye Tearin= None GI Upset > 30mins: 0= None Tremor Observation: 0= None Yawning Observation: 0= None Anxiety or Irritability: 0= None Goose Flesh Skin: 0=Smooth Skin COWS Score: 3 Assessment Plan - Diagnosis (1) Opiate dependence Status: Chronic Comment: attended mmtp today. states he did use iv drugs recently. - Plan Plan: d/w pt at length about methadone and whether he would like to continue. Pt states he is not in withdrawal at the present moment. Considering that he has used opioids and at high doses for a long period of time- there is good chance that he may go into withdrawal. Together we decided to decrease methadone dose to 50mg- and hold if lethargic/sleeping and may pt refuse. Can titrate up to usual dose (110mg) when needed. Also discontinued evening dose of methadone for now. This lower dose will also help lower QTc interval. Please call me [phone] if I can be of further assistance.
--- NOTE | 2018-06-20 20:20 | EKG ---
Test Reason : Blood Pressure : / mmHG Vent. Rate : 078 BPM Atrial Rate : 078 BPM P-R Int : 152 ms QRS Dur : 098 ms QT Int : 434 ms P-R-T Axes : 061 061 020 degrees QTc Int : 494 ms NORMAL SINUS RHYTHM POSSIBLE LEFT ATRIAL ENLARGEMENT PROLONGED QT ABNORMAL ECG WHEN COMPARED WITH ECG OF 14-JUN-2018 12:48, NO SIGNIFICANT CHANGE WAS FOUND Confirmed by VICKI DE LA CRUZ MD ([id number]) on 06/20/2018 8:19:43 PM Referred By: Confirmed By:VICKI DE LA CRUZ MD
[2018-06-20] MEDS: ALBUTEROL SO4 0.083% IH SOL 2.5 MG/3 ML VIAL.NEB. NEB PRN (21:38)
[2018-06-21] MEDS: PENICILLIN POTASSIUM IVPB SCH ×4 (02:03→14:39)
[2018-06-21] MEDS: WATER IVPB SCH ×4 (02:03→14:39)
[2018-06-21] MEDS: DEXTROSE 5% IVPB SCH ×4 (02:03→14:39)
[2018-06-21] MEDS: BACLOFEN 10 MG TABLET (FP) PO SCH ×3 (05:56→22:00)
[2018-06-21] MEDS: METHADONE HCL 10 MG TABLET PO SCH ×2 (07:01→18:48)
--- NOTE | 2018-06-21 07:28 | PN ---
Physical Exam: SUBJECTIVE: Pt seen and examined at bedside. Complaining of hiccups. He became very agitated during my interview. Found to have katia doyle tear on EGD. not a OMA candidate. Had a fever 100.3 last night. found with LLE DVT. refusing echo. refusing methadone and PO bec afraid of vomiting. OBJECTIVE: Vital Signs Period Temp Pulse Resp BP Sys/Manning Pulse Ox Last 24 Hr 98.7 F-103.0 F 60-99 -18 94-116/48-60 99 GENERAL: The patient is awake, alert, lying in bed under covers, very agitated CV: RRR diastolic murmur S1 S2 pulm: CTAB abd: soft NTND +BS Laboratory Results - last 24 hr 06/17/18 06/20/18 06/20/18 23:10 09:22 09:22 WBC RBC Hgb Hct MCV MCH MCHC RDW Plt Count MPV PT with INR 15.10 H INR 1.34 H Sodium Potassium Chloride Carbon Dioxide Anion Gap BUN Creatinine Creat Clearance w eGFR Random Glucose Calcium Phosphorus Magnesium Total Bilirubin AST ALT Alkaline Phosphatase Total Protein Albumin Gentamicin Trough 0.7 D Blood Type A POSITIVE Antibody Screen Negative Crossmatch See Detail 06/20/18 06/20/18 09:22 09:22 WBC 9.3 RBC 3.47 L Hgb 9.5 L Hct 28.3 L MCV 81.5 MCH 27.5 MCHC 33.7 RDW 16.3 H Plt Count 82 L MPV 8.1 PT with INR INR Sodium 137 Potassium 4.3 Chloride 102 Carbon Dioxide 26 Anion Gap 9 BUN 14 Creatinine 0.9 Creat Clearance w eGFR > 60 Random Glucose 71 L Calcium 7.8 L Phosphorus 3.6 Magnesium 2.4 Total Bilirubin 0.3 AST 11 L D ALT 17 Alkaline Phosphatase 141 H D Total Protein 6.3 L Albumin 1.9 L Gentamicin Trough Blood Type Antibody Screen Crossmatch Active Medications Generic Name Dose Route Start Last Admin Trade Name Freq PRN Reason Stop Dose Admin Acetaminophen 650 mg 06/13/18 12:36 06/18/18 20:30 Tylenol - PO 650 mg Q6H PRN Administration FEVER Acetaminophen 1,000 mg 06/19/18 17:05 06/20/18 15:47 Ofirmev Injection - IVPB 1,000 mg Q6H PRN Administration FEVER Al Hydroxide/Mg Hydroxide 30 ml 06/16/18 11:50 06/16/18 12:18 Mylanta Oral Suspension - PO 30 ml Q6H PRN Administration DYSPEPSIA Albuterol Sulfate 1 amp 06/17/18 13:41 06/20/18 21:38 Ventolin 0.083% Nebulizer Soln - NEB 1 amp Q4H PRN Administration SHORT OF BREATH/WHEEZING Ascorbic Acid 250 mg 06/13/18 14:15 06/20/18 10:12 Vitamin C - PO Not Given DAILY [facility] Baclofen 5 mg 06/17/18 14:15 06/21/18 05:56 Lioresal - PO Not Given TID ELYSIA Cyanocobalamin 1,000 mcg 06/14/18 10:00 06/20/18 10:12 Vitamin B12 - PO Not Given DAILY [facility] Diazepam 2 mg 06/19/18 16:04 06/19/18 16:07 Valium - PO 2 mg Q12H PRN Administration ANXIETY Docusate Sodium 100 mg 06/18/18 07:49 Colace - PO BID PRN CONSTIPATION Ferrous Sulfate 325 mg 06/18/18 10:00 06/20/18 10:12 Feosol - PO Not Given DAILY ELYSIA Heparin Sodium (Porcine) 1,000 unit 06/20/18 14:15 Heparin - IVPUSH PRN PRN Heparin Heparin Sodium (Porcine) 5,000 unit 06/20/18 14:15 Heparin - IVPUSH PRN PRN Heparin Sodium Chloride 1,000 mls @ 75 mls/hr 06/14/18 12:34 06/20/18 13:22 Normal Saline - IV 75 mls/hr ASDIR ELYSIA Administration Gentamicin Sulfate 70 mg/ 101.75 mls @ 100 mls/hr 06/14/18 16:00 06/20/18 23: 26 Sodium Chloride IVPB 100 mls/hr Q8H ELYSIA Administration Protocol Penicillin G Potassium 3,000, 250 mls @ 125 mls/hr 06/20/18 10:00 06/21/18 05 :56 000 unit/ Dextrose IVPB 125 mls/hr Q4H-IV ELYSIA Administration Heparin Sodium (Porcine) 25, 500 mls @ 20 mls/hr 06/20/18 14:15 06/20/18 15: 47 000 unit/ Sodium Chloride IV 1,000 unit/hr TITR ELYSIA 20 mls/hr Administration Protocol 1,000 UNIT/HR Methadone HCl 50 mg 06/21/18 06:00 06/21/18 07:01 Dolophine - PO 06/26/18 23:59 Not Given DAILY@0600 [facility] Methadone HCl 10 mg 06/20/18 20:15 06/20/18 20:38 Dolophine - PO 10 mg DAILY@1800 ELYSIA Administration Metoclopramide HCl 10 mg 06/19/18 17:13 06/20/18 14:19 Reglan Injection - IVPUSH 10 mg Q6H PRN Administration NAUSEA AND/OR VOMITING Nicotine 14 mg 06/12/18 16:15 06/20/18 10:12 Nicoderm Patch - TD Not Given DAILY [facility] Pantoprazole Sodium 40 mg 06/18/18 22:00 06/20/18 21:25 Protonix - PO Not Given BID [facility] Sucralfate 1 gm 06/18/18 18:00 06/20/18 21:25 Carafate Oral Suspension - PO Not Given QID [facility] IMAGING: - CXR (06/12): No evidence of active pulmonary disease. - CXR (06/14): Imaging reveals a normal mediastinum with some minimal central congestive changes and some scarring with atelectasis at the left base with opaque densities which could represent foreign bodies or aspirated barium. This left base finding is unchanged from 06/12/2018. - Head CT: No evidence of a focal intracranial lesion or hemorrhage seen. - EKG (06/12): NORMAL SINUS RHYTHM, POSSIBLE LEFT ATRIAL ENLARGEMENT, T WAVE ABNORMALITY, CONSIDER ANTERIOR ISCHEMIA, PROLONGED QT - EKG (06/13): NORMAL SINUS RHYTHM, PROLONGED QT - EKG (06/14): SINUS TACHYCARDIA, POSSIBLE LEFT ATRIAL ENLARGEMENT, BORDERLINE ECG, WHEN COMPARED WITH ECG OF 13-JUN-2018 11:20, NO SIGNIFICANT CHANGE WAS FOUND - ECHO: No vegetation seen on Mitral Valve, Pulmonic valve, Aortic valve, Tricuspid valve. Mild TR, No Pericardial effusion. - CT Chest: A cavitary right lower lobe pulmonary nodule is seen. Note is also made of several bilateral noncavitary pulmonary nodules. Given the provided history these nodules may be on the basis of septic emboli. Very small right- sided and trace left-sided pleural effusions are noted. Mild nonspecific mediastinal and bilateral hilar lymphadenopathy. Several slightly prominent nonspecific right axillary lymph nodes are seen. - CT A/P: Hepatosplenomegaly. Nonspecific upper abdominal lymphadenopathy. A small amount of pericholecystic fluid accumulation is noted possibly secondary to hepatic disease. Small amount of pelvic free fluid. horseshoe kidney. 06/18 - Findings consistent with deep venous thromboses in the left lower extremity involving the common femoral vein and greater saphenous vein as well as superficial venous thromboses in the right lower extremity involving the greater saphenous vein. 3.2 x 0.6 cm Junior's cyst in the left popliteal fossa. ASSESSMENT/PLAN: 33 yr old male with Polysubstance use and hep C presents with fever and +blood cx is admitted for bacteremia and r/o endocarditis. 1. Sepsis 2/2 strep viridans bacteremia - treat for endocarditis with septic emboli - TMax 104, 100.3 this AM, HR 62-98, WBC count improving. fewer fevers - Lactic acid 2.3 --> 3.3 --> 2.1 - BNP 5627 - Blood cx Preliminary: Alpha Hemolytic Streptococcus -strep endocarditis-blood cultures 06/16, 06/18 are negative - Repeat CXR (06/14): Minimal central congestive changes and some scarring with atelectasis at the left base with opaque densities which could represent foreign bodies or aspirated barium. This left base finding is unchanged from . -CXR 06/19 - negative for aspiration - R/O Endocarditis - ECHO: No vegetation seen on Mitral Valve, Pulmonic valve, Aortic valve, Tricuspid valve. -pt refused TTE 06/20 - Telemetry monitoring - Monitor and replete electrolytes - ID (Dr. Magaña) consulted, appreciate rec's, continue penicillin and gent - Blood cx report from [facility] placed in paper chart - Continue Normal Saline @ 75 mls/hr IV - Continue Gentamicin IVPB Q8H ELYSIA (Day 7) -d/c rocephin 2g (06/19) -resume pen and gent- one blood culture with anaerobic strep-unable to ID - resume Penicillin G IVPB Q4H ELYSIA (Day 6/7) - Completed 3 day course of Vancomycin 1,250 mg IVPB BID - Completed 3 day course of Ceftriaxone 2 gm IVPB DAILY - Received 1 day of Gentamicin 70mg initially - CT Chest/Abdomen/Pelvis however patient initially refused "I do not want anymore radiation" - CT Chest: Cavitary RLL pulmonary nodule, Several bilateral noncavitary nodules , these nodules may be on the basis of septic emboli. -Duplex 06/18 - LLE DVT, s/p Lovenox 80mg SQ x1 -will require 4weeks of IV antibiotics and PICC 2. R/O ACS - Denies chest pain, pressure, tightness - Troponins neg x3 - EKG (06/12): NORMAL SINUS RHYTHM, POSSIBLE LEFT ATRIAL ENLARGEMENT, T WAVE ABNORMALITY, PROLONGED QT - EKG (06/13): NORMAL SINUS RHYTHM, PROLONGED QT - EKG (06/14): SINUS TACHYCARDIA, POSSIBLE LEFT ATRIAL ENLARGEMENT - Cardiology (Dr. Carranza) consulted - Refused repeat EKG on 06/14, says he would be available for it at 1pm - Found to have katia doyle tear on EGD 06/18. not a OMA candidate. 3. IV PolySubstance use - refusing methadone, gave ativan x1 today to alleviate withdrawal sxs - last heroin use (06/11) as per Dr. Willett's note - Continue Methadone HCl 110 mg PO DAILY@0600 (Dosing confirmed by nursing) - Continue Nicoderm Patch 14 mg TD DAILY - Detox (Dr. Hancock [phone]) consulted, spoke with her over the phone who suggested Methadone 10mg one time dose for pain; continue methadone 110mg/AM and 10mg at 6pm for pain control. d/c zanax and for valium prn - Psychiatry (Dr. Lomeli) Consulted, appreciate rec's, Patient has the mental capacity to make decisions at this time - 06/21/18 per Detox, decrease methadone dose to 50mg and hold if lethargic/ sleeping Can titrate up to usual dose (110mg) when needed. #Intractable hiccups- much improved today -did not receive today any medications for hiccups (baclofen or thorazine). and self resolved. will monitor. -repeat EKG showing Qtc 490. -cardio recs seroquel, less side effects than thorazine -frequent monitoring of Qtc with daily EKG and tele -pt is refusing to wear monitoring and evaluation advisor. #Anemia - Hgb 9.5 - Likely multifactorial, dilutional, sepsis and multiple blood draws, hematemesis, - Denies hemoptysis, hematochezia, hematuria - Iron studies - deficient --venofer first dose today. - Discussed possibility of transfusion, patient hesitant - S/P 2 Unit pRBCs transfused - GI (Dr. Hoang) Consulted, Appreciate EGD, Superficial-appearing Katia-Doyle tears found at the GEJ, Mild duodenitis, abd biopsied, Protonic PO BID, Liquid carafate 1 gm po QID, Soft Diet #LUE weakness/numbness -had a laceration to the L elbow last year -notes that symptoms have been static since -clawing of ulnar 2 digits -ortho consult, no need for urgent intervention, nerve reconstruction surgeon at tertiary care center when discharged # PPx: - DVT: SCD's, Encourage early ambulation -Duplex 06/18 - LLE DVT, s/p Lovenox 80mg SQ x1 06/19 -hep ggt and monitor hgb closely. -will switch to NOAC prior to discharge. 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 mother expresses understanding Visit type - Emergency Visit Emergency Visit: Yes ED Registration Date: 06/12/18 Care time: The patient presented to the Emergency Department on the above date and was hospitalized for further evaluation of their emergent condition. - New Patient This patient is new to me today: Yes Date on this admission: 06/21/18 - Critical Care Critical Care patient: No
[2018-06-21] MEDS ORDERED: PT OWN MED DRAWER 7, Y5N ONE (08:16)
[2018-06-21] MEDS: GENTAMICIN INJECTION 70 MG in SODIUM CHLORIDE 100 ML IVPB SCH ×2 (09:31→17:02)
[2018-06-21] MEDS: FERROUS SO4 325 MG TABLET (FP) PO SCH (09:32)
[2018-06-21] MEDS: SUCRALFATE 1 GM/10 ML UNIT DOSE CUPS PO SCH ×4 (09:32→23:00)
[2018-06-21] MEDS: PANTOPRAZOLE 40 MG TABLET (FP) PO SCH (09:32)
[2018-06-21] MEDS: ASCORBIC ACID 250 MG TABLET (FP) PO SCH (09:33)
[2018-06-21] MEDS: CYANOCOBALAMIN 1,000 MCG TABLET (FP) PO SCH (09:33)
[2018-06-21] MEDS: diazePAM 2 MG TABLET PO PRN (09:34)
[2018-06-21] MEDS: METOCLOPRAMIDE HCL INJECTION 10 MG/2 ML VIAL IVPUSH PRN (09:34)
[2018-06-21] MEDS: NICOTINE 14 MG/24 HOURS TOPICAL PATCH TD SCH (10:07)
[2018-06-21] MEDS: ACETAMINOPHEN 1000 MG/100 ML VIAL (NON FORMULARY) IVPB PRN ×2 (11:37→20:46)
[2018-06-21] MEDS ORDERED: PANTOPRAZOLE SODIUM 40 MG VIAL IVPUSH SCH (12:15)
[2018-06-21] MEDS ORDERED: IRON SUCROSE INJECTION 200 MG in SODIUM CHLORIDE 90 ML IVPB ONE (13:00)
[2018-06-21] MEDS: SODIUM CHLORIDE 1,000 ML IV SCH (13:04)
--- NOTE | 2018-06-21 13:32 | PN ---
Teaching Attending Note Name of Resident: Porfirio Vasquez ATTENDING PHYSICIAN STATEMENT I saw and evaluated the patient. I reviewed the resident's note and discussed the case with the resident. I agree with the resident's findings and plan as documented. SUBJECTIVE:c/o nausea, had another episode of vomiting last night with brown material (mother showed picture). does not want to drink or taking anything by mouth for fear of nausea. denies Cp, SOB, fever, chills, N/V/C/D OBJECTIVE: Last Vital Signs Temp Pulse Resp BP Pulse Ox 103.3 F H 105 H 20 100/44 99 06/21/18 11:58 06/21/18 11:58 06/21/18 11:58 06/21/18 11:58 06/21/18 07:57 general sleeping in bed. does not want to be disturbed ASSESSMENT AND PLAN: 33 yo M with PMhx of IVDU (heroine and cocaine), (uses almost daily for 4 years) , H/o crack cocaine use prior for almost 15 years now, opioid dependence on methadone (gets at [facility]), anxiety, depression, recent diagnosed Hep C, admitted with fevers, headache, malaise and recent positive blood cultures. 1. sepsis due to strep viridans bacteremia- continues to have persistent fevers. Tm 103. however less frequent fevers. will treat for endocarditis with septic emboli. not seen on TTE and unable to do OMA due to katia doyle tear. repeat BCx are now clear. on PCN/gent will require 4weeks of IV antibiotics and PICC. ID on board 2. Intractable hiccups-mother reports he is still having hiccups although improved. they are causing his emesis. will start seroquel as per cardio which will interact with Qtc less often. will start will need daily EKG to monitor. pt is refusing to wear compliance monitor. 3. LLE DVT- at site where he injects. awaiting todays labs. on heparin ggt. will switch to NOAC prior to discharge. 4. Fever- Tm 103. can be from DVT vs bacteremia. CXR negative for aspiration. cont current treatment 5. Hemetemsis- due to katia doyle tear seen on EGD on 06/18. cont carafate, PPI. soft diet as tolerated. no more episodes of hemetemsis 6. Thrombocytpenia- due to sepsis. no more bleeding. no indication for transfusion 7. Anemia- multi-factorial. including iron def anemia and blood loss anemia. s/ p 2 units PRBC this hospital stay. will monitor CBC closely. will given venofer first dose today. 8. Pulmonary nodules/cavitary lesion, likely septic emboli 9. prolonged Qtc- remains prolonged but improved. will need close monitoring as on multiple agents to worsen. Daily EKG. tele monitoring. 10. IVDU- started to detox on methadone. started on 50mg however pt is refusing to take it. had 10mg last night but has not had any for 48H prior. encourage that he should take medication as most of his symptoms could be withdrawal. make valium standing. would benefit from inpatient rehab. unclear if pt is interested or just his mother pushing fo rit. 11. will likely require SNF placement for [facility] as pt is not a candidate to go home due to IVDA in the past. mother expresses understanding
[2018-06-21 14:11] LABS: HEMATOCRIT 23.2 % (35.4-49); HEMOGLOBIN 7.9 GM/dL (11.7-16.9); MCH 27.1 pg (25.7-33.7); MCHC 33.9 g/dl (32.0-35.9); MEAN PLT VOLUME 8.1 fl (7.5-11.1); PLATELET COUNT 65 K/MM3 (134-434); RDW 16.2 % (11.9-15.9); WHITE BLOOD COUNT 11.8 K/mm3 (4.0-10.0)
--- NOTE | 2018-06-21 14:42 | PN ---
Progress Note (short form) - Note Progress Note: less hiccups ate today agreed to TTE today, refused yesterday blood cultures now with prevotella! refused labs this am done later today Vital Signs Period Temp Pulse Resp BP Sys/Manning Pulse Ox Last 24 Hr 98.9 F-103.3 F 60-105 18-20 94-116/44-60 99-99 limited exam cor-rrr llungs clear refused abdominalexam legs no edema CBC, BMP 06/21/18 13:59 06/20/18 09:22 Microbiology 06/14/18 06:00 Blood - Peripheral Venous Blood Culture - Final Prevotella (Shannen) Intermedia 06/18/18 09:05 Blood - Central Line Blood Culture - Preliminary NO GROWTH OBTAINED AFTER 72 HOURS, INCUBATION TO CONTINUE FOR 2 DAYS. 06/18/18 09:00 Blood - Central Line Blood Culture - Preliminary NO GROWTH OBTAINED AFTER 72 HOURS, INCUBATION TO CONTINUE FOR 2 DAYS. 06/16/18 06:10 Blood - Peripheral Venous Blood Culture - Preliminary Pending Organism 06/16/18 05:45 Blood - Peripheral Venous Blood Culture - Final NO GROWTH AFTER 5 DAYS INCUBATION 06/14/18 06:30 Blood - Peripheral Venous Blood Culture - Final NO GROWTH AFTER 5 DAYS INCUBATION 06/12/18 14:40 Cerebral Spinal Fluid - Lumbar Puncture Gram Stain - Final 06/12/18 14:40 Cerebral Spinal Fluid - Lumbar Puncture CSF Culture - Final 06/12/18 12:15 Blood - Peripheral Venous Blood Culture - Final Streptococcus Sanguis 06/12/18 12:15 Blood - Peripheral Venous Blood Culture - Final Streptococcus Sanguis 06/12/18 13:55 Urine - Urine Clean Catch Urine Culture - Final NO GROWTH OBTAINED cxray- nodular opacity right lung base ct scan with multiple pulmonary nodules c/w septic emboli a/p polymicrobial bacteremai endocarditis- need repeat blood cultures active substance use Hep C malloryweiss tear hiccups substance use no back pain DVT now on a/c- OMA on hold broaden to zosyn and gentamicin continue IVF refusing blood cultures today agreeable to am repeat TTE today would image femoral arteries r/o mycotic aneurysm- repeat esr/crp d/w Dr Nguyen
[2018-06-21] MEDS: diazePAM 2 MG TABLET PO SCH ×2 (14:46→22:00)
[2018-06-21] MEDS ORDERED: AMPICILLIN NA/SULBACTAM NA 3 GM in SODIUM CHLORIDE 100 ML IVPB SCH (15:00)
[2018-06-21] MEDS: HEPARIN - 25,000 UNIT in SODIUM CHLORIDE 495 ML IV SCH (15:07)
[2018-06-21] MEDS ORDERED: PIPERACILLIN/TAZOBACTAM 4.5 GM VIAL IVPB ONE (16:43)
[2018-06-21] MEDS ORDERED: DEXTROSE 5%-WATER 100 ML IVPB ONE (16:43)
[2018-06-21] MEDS: PIPERACILLIN/TAZOB 4.5 GM 4.5 GM in DEXTROSE 5%-WATER 100 ML IVPB SCH ×2 (16:44→17:02)
[2018-06-21] MEDS: METOCLOPRAMIDE HCL INJECTION 10 MG/2 ML VIAL IVPUSH SCH ×2 (17:02→22:00)
--- NOTE | 2018-06-21 17:08 | ECHO ---
Name: ZACK MOHAMUD Exam:Adult Echocardiogram Study Date: 06/21/2018 10:03 AM Age: 33 yrs Reason For Study: R/O Endocarditis Height: 71 in Weight: 159 lb BSA: 1.9 m2 MMode/2D Measurements & Calculations IVSd: 0.76 cm Ao root diam: 3.3 cm LVIDd: 5.5 cm LA dimension: 3.9 cm LVIDs: 3.3 cm ACS: 2.2 cm LVPWd: 0.76 cm IVSs: 1.2 cm LVPWs: 1.5 cm EDV(Teich): 145.8 ml ESV(Teich): 45.0 ml Doppler Measurements & Calculations MV E max murtaza: 118.0 cm/sec Ao V2 max: 177.8 cm/sec MV A max murtaza: 80.0 cm/sec Ao max P.6 mmHg MV E/A: 1.5 Ao V2 mean: 125.2 cm/sec Ao mean P.4 mmHg Ao V2 VTI: 33.5 cm TR max murtaza: 248.4 cm/sec Med Peak E' Murtaza: 9.8 cm/sec TR max P.7 mmHg Med E/e': 12.1 Lat Peak E' Murtaza: 9.5 cm/sec Lat E/e': 12.4 Procedure A complete two-dimensional transthoracic echocardiogram was performed (2D, M-mode, Doppler and color flow Doppler). The patient was in normal sinus rhythm during the exam. Left Ventricle The left ventricular size, thickness and function are normal. Right Ventricle The right ventricle is normal in size and function. Atria Normal left and right atrial size and function. Mitral Valve The mitral valve leaflets appear normal. There is no evidence of stenosis, fluttering, or prolapse. T here is no vegetation seen on the mitral valve. Redundant elongated chordae are noted. Tricuspid Valve The tricuspid valve is normal. There is no tricuspid valve vegetation. There is trace tricuspid regur gitation. Right ventricular systolic pressure is elevated at 30-35 mmhg. Aortic Valve The aortic valve is normal in structure and function. The aortic valve is trileaflet. There is no aor tic valvular vegetation. Pulmonic Valve The pulmonic valve is not well visualized. Great Vessels The aortic root is normal size. Normal IVC size and contractility. Pericardium/Pleura There is no pericardial effusion. There is no pleural effusion. Interpretation Summary The left ventricular size, thickness and function are normal The right ventricle is normal in size and function. There is no vegetation seen on the mitral valve. There is no tricuspid valve vegetation. There is no aortic valvular vegetation. MD Marianne Santos 06/21/2018 05:07 PM
[2018-06-21 17:43] LABS: BASO % 0.1 % (0-2.0); EOS % 0.1 % (0-4.5); HEMATOCRIT 25.4 % (35.4-49); HEMOGLOBIN 8.6 GM/dL (11.7-16.9); LYMPH % 4.5 % (8-40); MCH 27.1 pg (25.7-33.7); MCHC 33.6 g/dl (32.0-35.9); MEAN CELL VOLUME 80.6 fl (80-96); MEAN PLT VOLUME 8.6 fl (7.5-11.1); MONO % 5.9 % (3.8-10.2); NEUT % 89.4 % (42.8-82.8); PLATELET COUNT 74 K/MM3 (134-434); RBC 3.15 M/mm3 (4.00-5.60); RDW 16.3 % (11.9-15.9); WHITE BLOOD COUNT 15.5 K/mm3 (4.0-10.0)
[2018-06-21] MEDS ORDERED: LORazepam 2 MG/ML SDV VIAL IVPUSH ONE (20:09)
[2018-06-21] MEDS: PANTOPRAZOLE SODIUM 40 MG VIAL IVPUSH SCH (23:00)
[2018-06-22] MEDS: GENTAMICIN INJECTION 70 MG in SODIUM CHLORIDE 100 ML IVPB SCH ×3 (00:20→16:07)
[2018-06-22] MEDS: SODIUM CHLORIDE 1,000 ML IV SCH ×3 (00:21→13:45)
[2018-06-22] MEDS: PIPERACILLIN/TAZOB 4.5 GM 4.5 GM in DEXTROSE 5%-WATER 100 ML IVPB SCH ×3 (02:40→17:37)
[2018-06-22] MEDS: METOCLOPRAMIDE HCL INJECTION 10 MG/2 ML VIAL IVPUSH SCH ×4 (04:00→21:40)
[2018-06-22] MEDS: BACLOFEN 10 MG TABLET (FP) PO SCH ×3 (06:14→21:39)
[2018-06-22] MEDS: METHADONE HCL 10 MG TABLET PO SCH ×3 (06:14→17:39)
[2018-06-22 06:25] LABS: HEMATOCRIT 22.4 % (35.4-49); HEMOGLOBIN 7.5 GM/dL (11.7-16.9); MCHC 33.5 g/dl (32.0-35.9); MEAN CELL VOLUME 80.8 fl (80-96); MEAN PLT VOLUME 8.5 fl (7.5-11.1); PLATELET COUNT 67 K/MM3 (134-434); RBC 2.78 M/mm3 (4.00-5.60); RDW 15.9 % (11.9-15.9); WHITE BLOOD COUNT 10.5 K/mm3 (4.0-10.0)
[2018-06-22 06:53] LABS: ALBUMIN 1.8 g/dl (3.4-5.0); ANION GAP 10 MMOL/L (8-16); BLOOD UREA NITROGEN 11 mg/dL (7-18); CALCIUM 7.5 mg/dL (8.5-10.1); CHLORIDE 105 mmol/L (98-107); CO2 23 mmol/L (21-32); CREATININE 0.9 mg/dL (0.7-1.3); GLUCOSE,RANDOM 68 mg/dL (74-106); MAGNESIUM 2.2 mg/dL (1.8-2.4); PHOSPHOROUS 3.2 mg/dL (2.5-4.9); POTASSIUM 3.8 mmol/L (3.5-5.1); SGOT/AST 10 U/L (15-37); SGPT/ALT 12 U/L (12-78); SODIUM 138 mmol/L (136-145)
[2018-06-22 06:55] LABS: ALK PHOS 106 U/L (45-117); BILIRUBIN,TOTAL 0.5 mg/dL (0.2-1.0); TOT PROT 6.1 g/dl (6.4-8.2)
--- NOTE | 2018-06-22 07:19 | PN ---
Physical Exam: SUBJECTIVE: Pt seen and examined at bedside. Complaining of hiccups and central line site. No fevers overnight. refusing methadone bec afraid of vomiting. vomited AM meds but tolerated milk at breakfast OBJECTIVE: Vital Signs Period Temp Pulse Resp BP Sys/Manning Pulse Ox Last 24 Hr 98.2 F-103.3 F 89-105 18-20 99-117/44-76 98-99 GENERAL: The patient is awake, alert, lying in bed under covers. no erythema at central line site CV: RRR diastolic murmur S1 S2 pulm: CTAB abd: soft NTND +BS Laboratory Results - last 24 hr 06/17/18 06/21/18 06/21/18 23:10 13:59 13:59 WBC 11.8 H RBC 2.90 L Hgb 7.9 L Hct 23.2 L D MCV 80.0 MCH 27.1 MCHC 33.9 RDW 16.2 H Plt Count 65 L D MPV 8.1 Absolute Neuts (auto) Neutrophils % Lymphocytes % Monocytes % Eosinophils % Basophils % Nucleated RBC % PTT (Actin FS) 36.1 Sodium Potassium Chloride Carbon Dioxide Anion Gap BUN Creatinine Creat Clearance w eGFR Random Glucose Calcium Phosphorus Magnesium Total Bilirubin AST ALT Alkaline Phosphatase C-Reactive Protein Total Protein Albumin Blood Type A POSITIVE Antibody Screen Negative Crossmatch See Detail 06/21/18 06/21/18 06/22/18 16:15 22:15 05:18 WBC 15.5 H 10.5 H RBC 3.15 L 2.78 L Hgb 8.6 L 7.5 L Hct 25.4 L 22.4 L MCV 80.6 80.8 MCH 27.1 27.0 MCHC 33.6 33.5 RDW 16.3 H 15.9 Plt Count 74 L 67 L MPV 8.6 8.5 Absolute Neuts (auto) 13.9 H Neutrophils % 89.4 H Lymphocytes % 4.5 L D Monocytes % 5.9 Eosinophils % 0.1 D Basophils % 0.1 Nucleated RBC % 0 PTT (Actin FS) 65.0 H Sodium Potassium Chloride Carbon Dioxide Anion Gap BUN Creatinine Creat Clearance w eGFR Random Glucose Calcium Phosphorus Magnesium Total Bilirubin AST ALT Alkaline Phosphatase C-Reactive Protein Total Protein Albumin Blood Type Antibody Screen Crossmatch 06/22/18 06/22/18 05:18 05:18 WBC RBC Hgb Hct MCV MCH MCHC RDW Plt Count MPV Absolute Neuts (auto) Neutrophils % Lymphocytes % Monocytes % Eosinophils % Basophils % Nucleated RBC % PTT (Actin FS) 39.3 H Sodium 138 Potassium 3.8 Chloride 105 Carbon Dioxide 23 Anion Gap 10 BUN 11 Creatinine 0.9 Creat Clearance w eGFR > 60 Random Glucose 68 L Calcium 7.5 L Phosphorus 3.2 Magnesium 2.2 Total Bilirubin 0.5 AST 10 L ALT 12 D Alkaline Phosphatase 106 D C-Reactive Protein 12.1 H Total Protein 6.1 L Albumin 1.8 L Blood Type Antibody Screen Crossmatch Active Medications Generic Name Dose Route Start Last Admin Trade Name Freq PRN Reason Stop Dose Admin Acetaminophen 650 mg 06/13/18 12:36 06/18/18 20:30 Tylenol - PO 650 mg Q6H PRN Administration FEVER Al Hydroxide/Mg Hydroxide 30 ml 06/16/18 11:50 06/16/18 12:18 Mylanta Oral Suspension - PO 30 ml Q6H PRN Administration DYSPEPSIA Albuterol Sulfate 1 amp 06/17/18 13:41 06/20/18 21:38 Ventolin 0.083% Nebulizer Soln - NEB 1 amp Q4H PRN Administration SHORT OF BREATH/WHEEZING Ascorbic Acid 250 mg 06/13/18 14:15 06/21/18 09:33 Vitamin C - PO Not Given DAILY ELYSIA Baclofen 5 mg 06/17/18 14:15 06/22/18 06:14 Lioresal - PO 5 mg TID ELYSIA Administration Cyanocobalamin 1,000 mcg 06/14/18 10:00 06/21/18 09:33 Vitamin B12 - PO Not Given DAILY ELYSIA Diazepam 2 mg 06/21/18 13:30 06/21/18 22:00 Valium - PO 2 mg BID ELYSIA Administration Docusate Sodium 100 mg 06/18/18 07:49 Colace - PO BID PRN CONSTIPATION Ferrous Sulfate 325 mg 06/18/18 10:00 06/21/18 09:32 Feosol - PO Not Given DAILY ELYSIA Heparin Sodium (Porcine) 1,000 unit 06/20/18 14:15 Heparin - IVPUSH PRN PRN Heparin Heparin Sodium (Porcine) 5,000 unit 06/20/18 14:15 Heparin - IVPUSH PRN PRN Heparin Sodium Chloride 1,000 mls @ 75 mls/hr 06/14/18 12:34 06/22/18 00:21 Normal Saline - IV 75 mls/hr ASDIR ELYSIA Administration Gentamicin Sulfate 70 mg/ 101.75 mls @ 100 mls/hr 06/14/18 16:00 06/22/18 00: 20 Sodium Chloride IVPB 100 mls/hr Q8H ELYSIA Administration Protocol Heparin Sodium (Porcine) 25, 500 mls @ 20 mls/hr 06/20/18 14:15 06/21/18 15: 07 000 unit/ Sodium Chloride IV 1,150 unit/hr TITR ELYSIA 23 mls/hr Administration Protocol 1,000 UNIT/HR Piperacillin Sod/Tazobactam 100 mls @ 200 mls/hr 06/21/18 15:00 06/22/18 02: 40 Sod 4.5 gm/ Dextrose IVPB 200 mls/hr Q8H-IV ELYSIA Administration Protocol Methadone HCl 50 mg 06/21/18 06:00 06/22/18 07:04 Dolophine - PO 06/26/18 23:59 Not Given DAILY@0600 ELYSIA Methadone HCl 10 mg 06/20/18 20:15 06/21/18 18:48 Dolophine - PO 10 mg DAILY@1800 ELYSIA Administration Metoclopramide HCl 10 mg 06/21/18 17:00 06/22/18 04:00 Reglan Injection - IVPUSH 10 mg Q6H-IV ELYSIA Administration Nicotine 14 mg 06/12/18 16:15 06/21/18 10:07 Nicoderm Patch - TD Not Given DAILY ELYSIA Pantoprazole Sodium 40 mg 06/21/18 22:00 06/21/18 23:00 Protonix Iv IVPUSH 40 mg BID ELYSIA Administration Sucralfate 1 gm 06/18/18 18:00 06/21/18 23:00 Carafate Oral Suspension - PO 1 gm QID ELYSIA Administration IMAGING: - CXR (06/12): No evidence of active pulmonary disease. - CXR (06/14): Imaging reveals a normal mediastinum with some minimal central congestive changes and some scarring with atelectasis at the left base with opaque densities which could represent foreign bodies or aspirated barium. This left base finding is unchanged from 06/12/2018. - Head CT: No evidence of a focal intracranial lesion or hemorrhage seen. - EKG (06/12): NORMAL SINUS RHYTHM, POSSIBLE LEFT ATRIAL ENLARGEMENT, T WAVE ABNORMALITY, CONSIDER ANTERIOR ISCHEMIA, PROLONGED QT - EKG (06/13): NORMAL SINUS RHYTHM, PROLONGED QT - EKG (06/14): SINUS TACHYCARDIA, POSSIBLE LEFT ATRIAL ENLARGEMENT, BORDERLINE ECG, WHEN COMPARED WITH ECG OF 13-JUN-2018 11:20, NO SIGNIFICANT CHANGE WAS FOUND - ECHO: No vegetation seen on Mitral Valve, Pulmonic valve, Aortic valve, Tricuspid valve. Mild TR, No Pericardial effusion. - CT Chest: A cavitary right lower lobe pulmonary nodule is seen. Note is also made of several bilateral noncavitary pulmonary nodules. Given the provided history these nodules may be on the basis of septic emboli. Very small right- sided and trace left-sided pleural effusions are noted. Mild nonspecific mediastinal and bilateral hilar lymphadenopathy. Several slightly prominent nonspecific right axillary lymph nodes are seen. - CT A/P: Hepatosplenomegaly. Nonspecific upper abdominal lymphadenopathy. A small amount of pericholecystic fluid accumulation is noted possibly secondary to hepatic disease. Small amount of pelvic free fluid. horseshoe kidney. 06/18 - Findings consistent with deep venous thromboses in the left lower extremity involving the common femoral vein and greater saphenous vein as well as superficial venous thromboses in the right lower extremity involving the greater saphenous vein. 3.2 x 0.6 cm Junior's cyst in the left popliteal fossa. ASSESSMENT/PLAN: 33 yr old male with Polysubstance use and hep C presents with fever and +blood cx is admitted for bacteremia and r/o endocarditis. 1. Sepsis 2/2 strep viridans bacteremia - treat for endocarditis with septic emboli - TMax 104, fever yesterday, no fevers overnight, HR 80-90 - Lactic acid 2.3 --> 3.3 --> 2.1 - BNP 5627 - Blood cx report from [facility] placed in paper chart - Blood cx Preliminary: Alpha Hemolytic Streptococcus -one blood culture with anaerobic strep-unable to ID -strep endocarditis-blood cultures 06/16, 06/18 are negative -f/u bcx 06/21 and 06/22 -bcx 06/14 - prevotella - suggestive that he may be licking the needle prior to injecting - Repeat CXR (06/14): Minimal central congestive changes and some scarring with atelectasis at the left base with opaque densities which could represent foreign bodies or aspirated barium. This left base finding is unchanged from . -CXR 06/19 - negative for aspiration -R/O Endocarditis -ECHO: No vegetation seen on Mitral Valve, Pulmonic valve, Aortic valve, Tricuspid valve. -rpt echo 06/21 - no vegetations seen - Telemetry monitoring - ID (Dr. Magaña) consulted - Continue Normal Saline @ 75 mls/hr IV - Continue Gentamicin IVPB Q8H ELYSIA (Day 8) -start zosyn 06/21 -d/c rocephin 2g (06/19) - dc Penicillin G IVPB Q4H ELYSIA (Day 6) 06/21 - Completed 3 day course of Vancomycin 1,250 mg IVPB BID - Completed 3 day course of Ceftriaxone 2 gm IVPB DAILY - Received 1 day of Gentamicin 70mg initially - CT Chest/Abdomen/Pelvis however patient initially refused "I do not want anymore radiation" - CT Chest: Cavitary RLL pulmonary nodule, Several bilateral noncavitary nodules , these nodules may be on the basis of septic emboli. -Duplex 06/18 - LLE DVT, s/p Lovenox 80mg SQ x1 -will require 4weeks of IV antibiotics and PICC -f/u rpt CRP/ESR 06/21 - f/u image femoral arteries r/o mycotic aneurysm 2. R/O ACS - Denies chest pain, pressure, tightness - Troponins neg x3 - EKG (06/12): NORMAL SINUS RHYTHM, POSSIBLE LEFT ATRIAL ENLARGEMENT, T WAVE ABNORMALITY, PROLONGED QT - EKG (06/13): NORMAL SINUS RHYTHM, PROLONGED QT - EKG (06/14): SINUS TACHYCARDIA, POSSIBLE LEFT ATRIAL ENLARGEMENT - Cardiology (Dr. Carranza) consulted - Found to have katia doyle tear on EGD 06/18. not a OMA candidate. 3. IV PolySubstance use - refusing methadone, gave ativan x1 today to alleviate withdrawal sxs - last heroin use (06/11) as per Dr. Willett's note - Continue Methadone HCl 110 mg PO DAILY@0600 (Dosing confirmed by nursing) - Continue Nicoderm Patch 14 mg TD DAILY - Detox (Dr. Hancock [phone]) consulted, spoke with her over the phone who suggested Methadone 10mg one time dose for pain; continue methadone 110mg/AM and 10mg at 6pm for pain control. d/c zanax and for valium prn - Psychiatry (Dr. Lomeli) Consulted, appreciate rec's, Patient has the mental capacity to make decisions at this time - 06/21/18 per Detox, decrease methadone dose to 50mg and hold if lethargic/ sleeping Can titrate up to usual dose (110mg) when needed. #Intractable hiccups- persists but somewhat improved today -will give reglan for hiccups -2 episodes of emesis in past 24H which is improvement -repeat EKG showing Qtc 490. -frequent monitoring of Qtc with daily EKG and tele -pt is refusing to wear cardiac monitor technician. #Anemia - Hgb 7.5, downtrending. will monitor for bleed and consider another transfusion - Likely multifactorial, dilutional, sepsis and multiple blood draws, hematemesis, - Denies hemoptysis, hematochezia, hematuria - Iron studies - deficient -venofer x1 06/21 -FOBT -will give another dose of venofer today, f/u CBC at 12pm to determine need for transfusion - Discussed possibility of transfusion, patient hesitant - S/P 2 Unit pRBCs transfused - GI (Dr. Hoang) Consulted, Appreciate EGD, Superficial-appearing Katia-Doyle tears found at the GEJ, Mild duodenitis, abd biopsied, Protonic IV BID, Liquid carafate 1 gm po QID, Soft Diet #Thrombocytpenia- due to sepsis. protonix may contribute -no obvious bleeding. -no indication for transfusion at this time #LUE weakness/numbness -had a laceration to the L elbow last year -notes that symptoms have been static since -clawing of ulnar 2 digits -ortho consult, no need for urgent intervention, nerve reconstruction surgeon at tertiary care center when discharged # PPx: - DVT: SCD's, Encourage early ambulation -Duplex 06/18 - LLE DVT, s/p Lovenox 80mg SQ x1 06/19 -hep ggt and monitor hgb closely. -will switch to NOAC prior to discharge. #FEN - Normal Saline @ 75 mls/hr IV - HypoMagnesamia, HypoPhosphatemia, replete as needed - Vegetrarian Diet -will try liquid diet and see if pt is amenable #Dispo -require SNF placement for long-term abx as pt is not a candidate to go home due to IVDA in the past. mother expresses understanding Visit type - Emergency Visit Emergency Visit: Yes ED Registration Date: 06/12/18 Care time: The patient presented to the Emergency Department on the above date and was hospitalized for further evaluation of their emergent condition. - New Patient This patient is new to me today: Yes Date on this admission: 06/22/18 - Critical Care Critical Care patient: No
[2018-06-22] MEDS: HEPARIN NA (PORCINE) 5,000 UNITS/ML 1ML VIAL IVPUSH PRN ×2 (07:29→22:19)
[2018-06-22] MEDS ORDERED: IRON SUCROSE INJECTION 300 MG in SODIUM CHLORIDE 235 ML IVPB ONE (07:58)
[2018-06-22] MEDS ORDERED: PIPERACILLIN/TAZOBACTAM 4.5 GM VIAL IVPB ONE ×2 (08:15→16:04)
[2018-06-22] MEDS ORDERED: DEXTROSE 5%-WATER 100 ML IVPB ONE ×2 (08:16→16:04)
[2018-06-22] MEDS: PANTOPRAZOLE SODIUM 40 MG VIAL IVPUSH SCH ×2 (09:32→21:41)
[2018-06-22] MEDS: SUCRALFATE 1 GM/10 ML UNIT DOSE CUPS PO SCH ×4 (09:35→21:40)
[2018-06-22] MEDS: ASCORBIC ACID 250 MG TABLET (FP) PO SCH (09:35)
[2018-06-22] MEDS: CYANOCOBALAMIN 1,000 MCG TABLET (FP) PO SCH (09:35)
[2018-06-22] MEDS: FERROUS SO4 325 MG TABLET (FP) PO SCH (09:35)
[2018-06-22] MEDS: diazePAM 2 MG TABLET PO SCH ×2 (09:35→21:40)
[2018-06-22] MEDS: NICOTINE 14 MG/24 HOURS TOPICAL PATCH TD SCH (11:11)
--- NOTE | 2018-06-22 11:31 | PN ---
Teaching Attending Note Name of Resident: Porfirio Vasquez ATTENDING PHYSICIAN STATEMENT I saw and evaluated the patient. I reviewed the resident's note and discussed the case with the resident. I agree with the resident's findings and plan as documented. SUBJECTIVE:conitnues to have hiccups. vomited his AM meds. however was able to drink some milk earlier this AM. refuses to answer other ROS questions OBJECTIVE: Last Vital Signs Temp Pulse Resp BP Pulse Ox 98.9 F 92 H 20 100/52 98 06/22/18 07:44 06/22/18 07:44 06/22/18 07:50 06/22/18 07:44 06/22/18 07:50 general uncomfortable in appearance. noticed to be hiccuping. does not want to be bothered ASSESSMENT AND PLAN: 33 yo M with PMhx of IVDU (heroine and cocaine), (uses almost daily for 4 years) , H/o crack cocaine use prior for almost 15 years now, opioid dependence on methadone (gets at [facility]), anxiety, depression, recent diagnosed Hep C, admitted with fevers, headache, malaise and recent positive blood cultures. 1. sepsis due to strep viridans bacteremia- continues to have persistent fevers. Tm 103.3 spikes once a day. BCx now showing provetella suggestive that he may be licking the needle prior to injecting. will obtain CT of the legs to evalute for mycotic aneursym. abx switched to Zosyn and Gent. 2. Intractable hiccups-persists. documentation that some improvement with reglan. 2 episodes of vomiting in the past 24H which is improvement. will continue to monitor. nothing seen on the diaphragm or intra-abdominal abscess on CT iwth contrast on 06/14 3. LLE DVT- at site where he injects. on heparin ggt. will switch to NOAC once more stable. 4. Fever- Tm 103.3 can be from DVT vs bacteremia. CT pending as above 5. Hemetemsis- due to katia doyle tear seen on EGD on 06/18. emesis is negative for blood per RN. cont carafate, PPI. soft diet as tolerated. 6. Thrombocytpenia- due to sepsis. no more bleeding. no indication for transfusion 7. Anemia- multi-factorial. including iron def anemia and blood loss anemia. s/ p 2 units PRBC this hospital stay. Hgb slightly trending down. no signs of bleeding. will repeat CBC today. give venofer dose #2. 8. Pulmonary nodules/cavitary lesion, likely septic emboli 9. prolonged Qtc- remains prolonged but improved. will need close monitoring as on multiple agents to worsen. Daily EKG. tele monitoring. 10. IVDU- agreeable to methadone 10mg at night but refuses AM doses. exaplained may help with his symptoms but seems to not listen to explanation. 11. will likely require SNF placement for shelter abx as pt is not a candidate to go home due to IVDA in the past.
[2018-06-22] MEDS ORDERED: LORazepam 2 MG/ML SDV VIAL IVPUSH ONE (13:15)
--- NOTE | 2018-06-22 15:55 | PN ---
Progress Note (short form) - Note Progress Note: Vascular Surgery Pt seen and examined. Left common femoral vein DVT Left leg examined. Pt has minimal swelling and pain. Pt on IV heparin. Can convert to coumadin for three months. Merrill Clark DO
[2018-06-22] MEDS ORDERED: PT OWN MED DRAWER 7, Y5N ONE (16:05)
[2018-06-22] MEDS ORDERED: METHADONE HCL 10 MG TABLET PO ONE (16:15)
[2018-06-22 16:25] LABS: HEMATOCRIT 24.4 % (35.4-49); HEMOGLOBIN 8.1 GM/dL (11.7-16.9); MCH 27.2 pg (25.7-33.7); MCHC 33.3 g/dl (32.0-35.9); MEAN CELL VOLUME 81.7 fl (80-96); MEAN PLT VOLUME 8.8 fl (7.5-11.1); PLATELET COUNT 92 K/MM3 (134-434); RBC 2.98 M/mm3 (4.00-5.60); RDW 16.5 % (11.9-15.9); WHITE BLOOD COUNT 10.9 K/mm3 (4.0-10.0)
--- NOTE | 2018-06-22 17:25 | PN ---
Progress Note (short form) - Note Progress Note: less hiccups ate today ambulating in the hallway repeat echo- no valvular lesions noted Vital Signs Period Temp Pulse Resp BP Sys/Manning Pulse Ox Last 24 Hr 98.9 F 92 20-20 100/52 98-98 cor-rrr lungs decreased bs at bases abd soft,nt ext no edema central line no erythema CBC, BMP 06/22/18 15:30 06/22/18 05:18 Microbiology 06/18/18 09:05 Blood - Central Line Blood Culture - Preliminary Pending Organism 06/18/18 09:00 Blood - Central Line Blood Culture - Preliminary NO GROWTH OBTAINED AFTER 96 HOURS, INCUBATION TO CONTINUE FOR 1 DAYS. 06/16/18 06:10 Blood - Peripheral Venous Blood Culture - Preliminary Pending Organism 06/14/18 06:00 Blood - Peripheral Venous Blood Culture - Final Prevotella (Shannen) Intermedia 06/16/18 05:45 Blood - Peripheral Venous Blood Culture - Final NO GROWTH AFTER 5 DAYS INCUBATION 06/14/18 06:30 Blood - Peripheral Venous Blood Culture - Final NO GROWTH AFTER 5 DAYS INCUBATION 06/12/18 14:40 Cerebral Spinal Fluid - Lumbar Puncture Gram Stain - Final 06/12/18 14:40 Cerebral Spinal Fluid - Lumbar Puncture CSF Culture - Final 06/12/18 12:15 Blood - Peripheral Venous Blood Culture - Final Streptococcus Sanguis 06/12/18 12:15 Blood - Peripheral Venous Blood Culture - Final Streptococcus Sanguis 06/12/18 13:55 Urine - Urine Clean Catch Urine Culture - Final NO GROWTH OBTAINED cxray- nodular opacity right lung base ct scan with multiple pulmonary nodules c/w septic emboli CTA today reviewed with Dr Rodriguez- no evidence of mycotic aneurysm, no subdiaphragmatic collections, no bowel perforation DVT noted , multiple pulmonary septic emboli noted, ?splenic hypodense area c/w infarct? a/p polymicrobial bacteremia-strep with anaerobes! endocarditis- repeat blood cultures sent consider changing central line if other access can be placed active substance use Hep C malloryweiss tear hiccups substance use no back pain DVT now on a/c- continue IVF continue zosyn, add flagyl, d/c gentamicin day #10 d/w dr Chan d/w Dr Rodrigez
[2018-06-22] MEDS: HEPARIN - 25,000 UNIT in SODIUM CHLORIDE 495 ML IV SCH (17:38)
--- NOTE | 2018-06-22 18:41 | HOSP ---
Physical Examination Vital Signs: Vital Signs Temperature 98.9 F 06/22/18 07:44 Pulse Rate 92 H 06/22/18 07:44 Respiratory Rate 20 06/22/18 07:50 Blood Pressure 100/52 06/22/18 07:44 O2 Sat by Pulse Oximetry (%) 98 06/22/18 07:50 Labs: CBC, BMP 06/22/18 15:30 06/22/18 05:18 Hospitalist Encounter Assessment: central line and sutures removed w/o complication. Pressure was applied to the site. No bleeding Visit type - Emergency Visit Emergency Visit: Yes ED Registration Date: 06/12/18 Care time: The patient presented to the Emergency Department on the above date and was hospitalized for further evaluation of their emergent condition. - New Patient This patient is new to me today: Yes Date on this admission: 06/22/18 - Critical Care Critical Care patient: No
[2018-06-22] MEDS: LORazepam 2 MG/ML SDV VIAL IVPUSH PRN (21:36)
[2018-06-22] MEDS ORDERED: ACETAMINOPHEN 1000 MG/100 ML VIAL (NON FORMULARY) IVPB ONE (22:15)
[2018-06-23] MEDS ORDERED: DEXTROSE 5%-WATER 100 ML IVPB ONE ×3 (01:54→17:42)
[2018-06-23] MEDS ORDERED: PIPERACILLIN/TAZOBACTAM 4.5 GM VIAL IVPB ONE ×4 (01:54→17:41)
[2018-06-23] MEDS: PIPERACILLIN/TAZOB 4.5 GM 4.5 GM in DEXTROSE 5%-WATER 100 ML IVPB SCH ×3 (02:15→18:04)
[2018-06-23] MEDS: METOCLOPRAMIDE HCL INJECTION 10 MG/2 ML VIAL IVPUSH SCH ×4 (02:51→21:55)
[2018-06-23] MEDS: LORazepam 2 MG/ML SDV VIAL IVPUSH PRN ×3 (02:51→18:56)
[2018-06-23] MEDS: METHADONE HCL 10 MG TABLET PO SCH ×3 (06:53→19:03)
[2018-06-23] MEDS: BACLOFEN 10 MG TABLET (FP) PO SCH ×3 (06:54→22:04)
[2018-06-23] MEDS: NICOTINE 14 MG/24 HOURS TOPICAL PATCH TD SCH (09:23)
[2018-06-23] MEDS: diazePAM 2 MG TABLET PO SCH (09:24)
[2018-06-23] MEDS: SUCRALFATE 1 GM/10 ML UNIT DOSE CUPS PO SCH ×4 (09:24→22:05)
[2018-06-23] MEDS: PANTOPRAZOLE SODIUM 40 MG VIAL IVPUSH SCH ×2 (09:25→22:05)
[2018-06-23] MEDS: CYANOCOBALAMIN 1,000 MCG TABLET (FP) PO SCH (09:25)
[2018-06-23] MEDS: ASCORBIC ACID 250 MG TABLET (FP) PO SCH (09:25)
[2018-06-23] MEDS: FERROUS SO4 325 MG TABLET (FP) PO SCH (09:25)
[2018-06-23] MEDS ORDERED: LACTOBACILLUS ACIDOPHILUS 1 TABLET PO SCH (10:00)
[2018-06-23] MEDS ORDERED: VANCOMYCIN 1,000 MG in DEXTROSE 5%-WATER - 250 ML IVPB SCH (10:00)
[2018-06-23] MEDS ORDERED: PT OWN MED DRAWER 7, Y5N ONE ×2 (10:42→22:01)
--- NOTE | 2018-06-23 11:08 | PN ---
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 pther than that has been feeling better. tolerating diet. vomited 1x overnight. hiccuping improved. denies CP, SOB, fever , chills, N/V/C/D Current Medications Generic Name Dose Route Start Last Admin Trade Name Freq PRN Reason Stop Dose Admin Acetaminophen 650 mg 06/13/18 12:36 06/18/18 20:30 Tylenol - PO 650 mg Q6H PRN Administration FEVER Al Hydroxide/Mg Hydroxide 30 ml 06/16/18 11:50 06/16/18 12:18 Mylanta Oral Suspension - PO 30 ml Q6H PRN Administration DYSPEPSIA Albuterol Sulfate 1 amp 06/17/18 13:41 06/20/18 21:38 Ventolin 0.083% Nebulizer Soln - NEB 1 amp Q4H PRN Administration SHORT OF BREATH/WHEEZING Ascorbic Acid 250 mg 06/13/18 14:15 06/23/18 09:25 Vitamin C - PO 250 mg DAILY ELYSIA Administration Baclofen 5 mg 06/17/18 14:15 06/23/18 06:54 Lioresal - PO 5 mg TID ELYSIA Administration Cyanocobalamin 1,000 mcg 06/14/18 10:00 06/23/18 09:25 Vitamin B12 - PO 1,000 mcg DAILY ELYSIA Administration Diazepam 2 mg 06/21/18 13:30 06/23/18 09:24 Valium - PO 2 mg BID ELYSIA Administration Docusate Sodium 100 mg 06/18/18 07:49 Colace - PO BID PRN CONSTIPATION Ferrous Sulfate 325 mg 06/18/18 10:00 06/23/18 09:25 Feosol - PO 325 mg DAILY ELYSIA Administration Heparin Sodium (Porcine) 1,000 unit 06/20/18 14:15 Heparin - IVPUSH PRN PRN Heparin Heparin Sodium (Porcine) 5,000 unit 06/20/18 14:15 06/22/18 22:19 Heparin - IVPUSH 5,000 unit PRN PRN Administration Heparin Sodium Chloride 1,000 mls @ 75 mls/hr 06/14/18 12:34 06/22/18 13:45 Normal Saline - IV Not Given ASDIR ELYSIA Heparin Sodium (Porcine) 25, 500 mls @ 20 mls/hr 06/20/18 14:15 06/22/18 22: 24 000 unit/ Sodium Chloride IV 1,550 unit/hr TITR ELYSIA 31 mls/hr Titration Protocol 1,000 UNIT/HR Piperacillin Sod/Tazobactam 100 mls @ 200 mls/hr 06/21/18 15:00 06/23/18 09: 25 Sod 4.5 gm/ Dextrose IVPB 200 mls/hr Q8H-IV ELYSIA Administration Protocol Metronidazole 500 mg in 100 mls @ 100 mls/hr 06/22/18 18:00 06/23/18 09:25 Flagyl 500mg Premixed Ivpb - IVPB 100 mls/hr Q8H-IV ELYSIA Administration Vancomycin HCl 1,000 mg/ 250 mls @ 166.667 mls/hr 06/23/18 09:30 Dextrose IVPB Q12H ELYSIA Protocol Lactobacillus Acidophilus 1 tab 06/23/18 10:00 06/23/18 09:25 Bacid - PO 1 tab DAILY ELYSIA Administration Lorazepam 2 mg 06/22/18 14:38 06/23/18 10:57 Ativan Injection - IVPUSH 2 mg Q8H PRN Administration ANXIETY Methadone HCl 10 mg 06/20/18 20:15 06/22/18 17:39 Dolophine - PO 10 mg DAILY@1800 ELYSIA Administration Methadone HCl 20 mg 06/23/18 06:00 06/23/18 06:53 Dolophine - PO 20 mg DAILY@0600 ELYSIA Administration Metoclopramide HCl 10 mg 06/21/18 17:00 06/23/18 09:24 Reglan Injection - IVPUSH 10 mg Q6H-IV ELYSIA Administration Nicotine 14 mg 06/12/18 16:15 06/23/18 09:23 Nicoderm Patch - TD Not Given DAILY ELYSIA Pantoprazole Sodium 40 mg 06/21/18 22:00 06/23/18 09:25 Protonix Iv IVPUSH 40 mg BID ELYSIA Administration Sucralfate 1 gm 06/18/18 18:00 06/23/18 09:24 Carafate Oral Suspension - PO 1 gm QID ELYSIA Administration Last Vital Signs Temp Pulse Resp BP Pulse Ox 99.3 F 84 20 112/67 98 06/23/18 06:00 06/23/18 06:00 06/23/18 06:00 06/23/18 06:00 06/22/18 21:00 general NAD does not want to be examined ASSESSMENT AND PLAN: 33 yo M with PMhx of IVDU (heroine and cocaine), (uses almost daily for 4 years) , H/o crack cocaine use prior for almost 15 years now, opioid dependence on methadone (gets at [facility]), anxiety, depression, recent diagnosed Hep C, admitted with fevers, headache, malaise and recent positive blood cultures. 1. sepsis due to strep viridans bacteremia- continues to have persistent fevers. Tm 100.4 BCx are now starting to grow in the anaerobic bottles and last BCX with +GPC however likely contaminate. agreeable to allowing a different person draw his blood at this time. CT negative for other source of infection. MRI of the spine is negative as well. abx switched to Flagyl/zosyn and will give dose of vanco after repeat Cx obtained. 2. Intractable hiccups-posisble due to withdrawal vs spleenic infarct. appears to have improved. during my 30min coversation did not hiccup once. will cont with reglan at this time. 3. LLE DVT- at site where he injects. on heparin ggt. will switch to NOAC once more stable. 4. Fever- Tm 100.4 can be from DVT vs bacteremia. overall improved. 5. Hemetemsis- due to katia doyle tear seen on EGD on 06/18. 1 episode of emesis overnight negative for blood. tolerating liquid diet. will advance to soft diet. cont carafate, PPI. 6. Thrombocytpenia- due to sepsis. awaiting todays labs. no indication for transfusion 7. Anemia- multi-factorial. including iron def anemia and blood loss anemia. s/ p 2 units PRBC this hospital stay. awaiting repeat labs from today. received venofer x2. 8. Pulmonary nodules/cavitary lesion, likely septic emboli 9. prolonged Qtc- remains prolonged but improved. will need close monitoring as on multiple agents to worsen. Daily EKG. tele monitoring. 10. IVDU-taking methadone 20mg AM and 10mg HS. will cont with this regimen. valium and ativan prn. 11. will likely require SNF placement for intermediate abx as pt is not a candidate to go home due to IVDA in the past. Visit type - Emergency Visit Emergency Visit: Yes ED Registration Date: 06/12/18 Care time: The patient presented to the Emergency Department on the above date and was hospitalized for further evaluation of their emergent condition. - New Patient This patient is new to me today: No - Critical Care Critical Care patient: No - Discharge Referral Referred to [facility] Med P.C[facility] No
[2018-06-23 11:28] LABS: BASO % 0.3 % (0-2.0); LYMPH % 6.2 % (8-40); MCH 27.2 pg (25.7-33.7); MCHC 33.4 g/dl (32.0-35.9); MEAN CELL VOLUME 81.4 fl (80-96); MEAN PLT VOLUME 8.6 fl (7.5-11.1); MONO % 7.7 % (3.8-10.2); NEUT % 84.8 % (42.8-82.8); PLATELET COUNT 123 K/MM3 (134-434); RBC 2.95 M/mm3 (4.00-5.60); RDW 16.5 % (11.9-15.9); WHITE BLOOD COUNT 9.7 K/mm3 (4.0-10.0)
[2018-06-23 11:57] LABS: ANION GAP 9 MMOL/L (8-16); BLOOD UREA NITROGEN 7 mg/dL (7-18); CALCIUM 8.2 mg/dL (8.5-10.1); CHLORIDE 107 mmol/L (98-107); CO2 23 mmol/L (21-32); GLUCOSE,RANDOM 87 mg/dL (74-106); POTASSIUM 4.2 mmol/L (3.5-5.1); SODIUM 139 mmol/L (136-145)
[2018-06-23] MEDS: VANCOMYCIN 1,000 MG in DEXTROSE 5%-WATER - 250 ML IVPB SCH ×2 (12:11→22:03)
[2018-06-23] MEDS ORDERED: diazePAM 2 MG TABLET PO ONE (14:08)
--- NOTE | 2018-06-23 14:20 | PN ---
Progress Note (short form) - Note Progress Note: central line removed last night refused labs this am, later agreed repeat peripheral blood cultures obtained no hiccups noted low grade temp overnight Vital Signs Period Temp Pulse Resp BP Sys/Manning Pulse Ox Last 24 Hr 99.3 F-100.4 F 84-85 18-20 109-112/62-67 98 cor-rrr lungs clear abd soft,nt ext no edema llumbar mri- no epidural abscess, no osteo CBC, BMP 06/23/18 11:16 06/23/18 11:16 Microbiology 06/16/18 06:10 Blood - Peripheral Venous Blood Culture - Preliminary Pending Organism 06/18/18 09:05 Blood - Central Line Blood Culture - Preliminary Pending Organism 06/18/18 09:00 Blood - Central Line Blood Culture - Final NO GROWTH AFTER 5 DAYS INCUBATION 06/22/18 05:18 Blood - Central Line Blood Culture - Preliminary Pending Organism 06/22/18 05:22 Blood - Central Line Blood Culture - Preliminary NO GROWTH OBTAINED AFTER 24 HOURS, INCUBATION TO CONTINUE FOR 4 DAYS. 06/21/18 16:15 Blood - Peripheral Venous Blood Culture - Preliminary NO GROWTH OBTAINED AFTER 24 HOURS, INCUBATION TO CONTINUE FOR 4 DAYS. 06/21/18 16:15 Blood - Peripheral Venous Blood Culture - Preliminary NO GROWTH OBTAINED AFTER 24 HOURS, INCUBATION TO CONTINUE FOR 4 DAYS. 06/14/18 06:00 Blood - Peripheral Venous Blood Culture - Final Prevotella (Shannen) Intermedia 06/16/18 05:45 Blood - Peripheral Venous Blood Culture - Final NO GROWTH AFTER 5 DAYS INCUBATION 06/14/18 06:30 Blood - Peripheral Venous Blood Culture - Final NO GROWTH AFTER 5 DAYS INCUBATION 06/12/18 14:40 Cerebral Spinal Fluid - Lumbar Puncture Gram Stain - Final 06/12/18 14:40 Cerebral Spinal Fluid - Lumbar Puncture CSF Culture - Final 06/12/18 12:15 Blood - Peripheral Venous Blood Culture - Final Streptococcus Sanguis 06/12/18 12:15 Blood - Peripheral Venous Blood Culture - Final Streptococcus Sanguis 06/12/18 13:55 Urine - Urine Clean Catch Urine Culture - Final NO GROWTH OBTAINED cxray- nodular opacity right lung base ct scan with multiple pulmonary nodules c/w septic emboli CTA reviewed with Dr Rodriguez- no evidence of mycotic aneurysm, no subdiaphragmatic collections, no bowel perforation DVT noted , multiple pulmonary septic emboli noted, ?splenic hypodense area c/w infarct? a/p polymicrobial bacteremia-strep and anaerobes endocarditis- repeat blood cultures sent today isolate from central line may be contaminant-gpc clusters peripheral cultures sent today active substance use Hep C malloryweiss tear hiccups-improved substance use no back pain-mri- no osteo DVT now on a/c- continue IVF continue zosyn, add flagyl, vancomycin added d/w patient d/w mother at bedside d/w hospitalist
[2018-06-23] MEDS: SODIUM CHLORIDE 1,000 ML IV SCH (18:02)
[2018-06-23] MEDS: HEPARIN - 25,000 UNIT in SODIUM CHLORIDE 495 ML IV SCH (18:03)
[2018-06-23] MEDS: ACETAMINOPHEN 325 MG TABLET (FP) PO PRN (19:03)
[2018-06-23] MEDS ORDERED: ACETAMINOPHEN 1000 MG/100 ML VIAL (NON FORMULARY) IVPB ONE (19:30)
[2018-06-23] MEDS ORDERED: diazePAM 5 MG TABLET PO SCH (22:00)
[2018-06-23] MEDS: HEPARIN NA (PORCINE) 5,000 UNITS/ML 1ML VIAL IVPUSH PRN (22:23)
[2018-06-24 01:06] VITALS: BP 101/63; PULSE 94; TEMP 99.5
[2018-06-24] MEDS ORDERED: PIPERACILLIN/TAZOBACTAM 4.5 GM VIAL IVPB ONE (02:51)
[2018-06-24] MEDS ORDERED: DEXTROSE 5%-WATER 100 ML IVPB ONE (02:51)
[2018-06-24] MEDS: METOCLOPRAMIDE HCL INJECTION 10 MG/2 ML VIAL IVPUSH SCH (03:02)
[2018-06-24] MEDS: LORazepam 2 MG/ML SDV VIAL IVPUSH PRN (03:02)
[2018-06-24] MEDS: PIPERACILLIN/TAZOB 4.5 GM 4.5 GM in DEXTROSE 5%-WATER 100 ML IVPB SCH (04:00)
[2018-06-24] MEDS: METHADONE HCL 10 MG TABLET PO SCH (05:54)
[2018-06-24] MEDS: BACLOFEN 10 MG TABLET (FP) PO SCH (05:54)
--- NOTE | 2018-06-24 07:05 | HOSP ---
Addendum entered and electronically signed by Noelle Willett, RESIDENT 07:26: Eliquis prescription sent to pharmacy for treatment of DVT. unable to reach patient to tell the patient about this new change. only number in the chart belongs to the patient's mother, who the patient did not want called. 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 Original Note: Subjective - Review of Symptoms Events since last encounter: Pt was seen aggressive and demanding to leave the hospital AMA. Condition 10 was called. Upon encounter, pt was found squeezing his IV meds trying to finish his IV heparin in order to leave the hospital. Pt was yelling and extremely agitated at the nursing staff all night. Nurse had taken away the remainder of the IV meds from the patient to prevent further attempts at improperly self- administrating medications. I tried to converse with patient in a calm tone, however pt continued to yell saying "no one listens to me, I know how to take blood from my veins, I shoot up everyday. Just give me the papers right now, I don't want anything anymore." Also offered to patient if he wanted anyone in his family to be contacted but pt refused any sort of contact with anyone and specifically said "I do not want ANY of my family or friends knowing anything." I explained to patient that if he signs out AMA, he will develop sepsis, heart attack, worsening of bacteremia, loss of limb, stroke, worsening GI bleed, PE and possibly . Pt was made aware and stated understanding of the risks of leaving without completing antibiotic treatment and receiving anticoagulation for his DVT. Attempts by myself, nurse catalogue and special products manager, nursing, and security staff were to no avail. Pt continued to demand to sign out AMA. Due to pt's guarded prognosis, he was given a prescription for 1 week with Doxycycline and Augmentin with follow up at [facility] in 1 week. Pt understands this is not the recommended course of treatment, however, in pt's best interest , antibiotics have been provided. Unfortunately, pt is not stable enough for transition to Noac from heparin drip. No ideal alternative is available for him at this time. This was all explained to the patient. He continued to demand to leave. He was escorted out by security. <Lili Shahid - Last Filed: 06/24/18 06:37> - Review of Symptoms Events since last encounter: [facility] to adjust prescriptions sent for a 30 day supply. Pharmacist also stated pt has not called or arrived to machine operator picker prescriptions at this time <Jenny Hopson - Last Filed: 06/24/18 11:26> Physical Examination Vital Signs: Vital Signs Temperature 99.5 F 06/23/18 22:00 Pulse Rate 94 H 06/23/18 22:00 Respiratory Rate 18 06/23/18 22:00 Blood Pressure 101/63 06/23/18 22:00 O2 Sat by Pulse Oximetry (%) 97 06/23/18 21:00 Refused physical exam. Labs: CBC, BMP 06/23/18 11:16 06/23/18 11:16 <Lili Shahid - Last Filed: 06/24/18 06:37> Vital Signs: Vital Signs Temperature 99.5 F 06/23/18 22:00 Pulse Rate 94 H 06/23/18 22:00 Respiratory Rate 18 06/23/18 22:00 Blood Pressure 101/63 06/23/18 22:00 O2 Sat by Pulse Oximetry (%) 97 06/23/18 21:00 Labs: CBC, BMP 06/23/18 11:16 06/23/18 11:16 <Jenny Hopson - Last Filed: 06/24/18 11:26> Visit type - Emergency Visit Emergency Visit: No - New Patient This patient is new to me today: No - Critical Care Critical Care patient: No <Lili Shahid - Last Filed: 06/24/18 06:37>
--- NOTE | 2018-06-24 13:55 | DS ---
Physical Exam: Patient left AMA SUBJECTIVE: OBJECTIVE: Vital Signs Period Temp Pulse Resp BP Sys/Manning Pulse Ox Last 24 Hr 99.5 F-100.5 F 94 18 101/63 97 PHYSICAL EXAM No exam done. Pt left AMA LABS Laboratory Results - last 24 hr 06/23/18 19:05 PTT (Actin FS) 39.8 H HOSPITAL COURSE: Date of Admission:06/12/18 Date of Discharge: 06/24/18 Pt is a 33 y/o M with PMH sig for active IVDA who presented to ED from [facility] with fevers and pos blood culture from a recent (06/10) hospitalization at [facility]. Team at this facility was able to get records from [facility] and found that he had Strep and possibly Staph bacteremia there. 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 Numerous cultures were drawn during his stay; 06/12 Strep sanguis 06/14 Prevotella intermedia 06/18 Pending 06/22 Coag neg Staph CSF culture was neg. Pt initially had no leukocytosis, but WBCs went up on 06/19 and peaked at 15.5 on 06/21. Pt had 2 transthroacic echos, neither of which identified any vegetations. Possibility of OMA was discussed with Cardiology, however, before procedure could be attempted, pt had an episode of coffee ground emesis and a drop in hemoglobin. GI was called to evaluate and did and EGD, which revealed a Sandy Roy tear, precluding OMA. IV abx regimen changed throughout his stay depending on response and culture results. He was given Vanc, Flagyl, Zosyn, Gentamycin, and Pen G. Pt had vascular studies done, which revealed a Left femoral DVT. He was treated with Heparin ggt. During his stay, pt had recurrent, intermittent, intractable hiccups. This was the most distressing symptom for the patient. Many medications were attempted including Baclofen and Thorazine with modest results. During his hospital stay, the patient decided he wanted to detox himself off methadone and stopped taking his medication. It was explained to the patient that tapering doses would help prevent withdrawal. Detox specialist was called and agreed with the patient to a tapering plan. However, the next day, pt refused medications again. Due to his poor IV access, pt required a R IJ central line to receive his IV Abx. Throughout the patient's stay, he was extremely difficult. Security had to be called several times as he would have outbursts regularly. He would often refuse medications and refuse to give history or be examined without explanation. Despite considerable efforts by many members of several medical teams as well as nursing staff and security to try and help this patient, he was repeatedly verbally abusive and uncooperative. On a few occasions, he was responsive to talking and would calm down. In general, he was difficult and uncooperative. In summary, during his stay, pt was being treated for IE with IV Abx, for DVT with Heparin ggt, for GIB with IV protonix, and opiod withdrawal with methadone taper. Minutes to complete discharge: 45 Discharge Summary Reason For Visit: OPIOD DEPENDENCE; SEPSIS; ACUTE FEBRILE ILLNESS Condition: Guarded - Instructions Diet, Activity, Other Instructions: You are leaving the hospital without completing the recommended course of treatment for your condition. You have been given a 1 week course of antibiotics, you understand this is not the best course of treatment for your condition. You will need to follow-up in the [facility] clinic for follow-up regarding your infection and evaluation of your DVT. Unfortunately you are still being treating with IV medication for the DVT and have not been stable enough for transition to tablet blood thinners, however you declined to stay for further treatment. You stated understanding of the risks of leaving given your multiple medical problems. Referrals: [facility] [place] [Provider Group] Disposition: AGAINST MEDICAL ADVICE - Home Medications Comprehensive Discharge Medication List: Ambulatory Orders Methadone [Dolophine -] 110 mg PO DAILY 06/12/18 Bupropion HCl [Bupropion HCl Sr] 150 mg PO DAILY 06/13/18 Cholecalciferol (Vitamin D3) [D3-50] 50,000 unit PO WEEKLY 06/13/18 Divalproex [Depakote -] 500 mg PO DAILY 06/13/18 Olanzapine [Olanzapine Odt] 10 mg PO HS 06/13/18 Amoxicillin/Potassium Clav [Augmentin 875-125 Tablet] 1 each PO BID #14 tablet 06/24/18 Apixaban [Eliquis -] 5 mg PO DAILY #31 tablet 06/24/18 Doxycycline Hyclate 100 mg PO BID #14 capsule 06/24/18 This patient is new to me today: No Emergency Visit: Yes ED Registration Date: 06/12/18 Care time: The patient presented to the Emergency Department on the above date and was hospitalized for further evaluation of their emergent condition. Critical Care patient: No - Discharge Referral Referred to [facility] No
== END 2018-06-24 06:56 | disposition left against medical advice (07) | DRG 720 ==
LOC: JER 11:34 → JERBED 16:14 → J4W 21:28
PROVIDERS: ADMIT Hospitalist; ATTEND Internal Medicine
PROC: 009U3ZZ Drainage of Spinal Canal, Percutaneous Approach (ICD-10-PCS; principal; 2018-06-12)
PROC: HZ2ZZZZ Detoxification Services for Substance Abuse Treatment (ICD-10-PCS; 2018-06-13)
PROC: 05HM33Z Insertion of Infusion Device into Right Internal Jugular Vein, Percutaneous Approach (ICD-10-PCS; 2018-06-14)
PROC: 0DD68ZX Extraction of Stomach, Via Natural or Artificial Opening Endoscopic, Diagnostic (ICD-10-PCS; 2018-06-18)
PROC: 30233N1 Transfusion of Nonautologous Red Blood Cells into Peripheral Vein, Percutaneous Approach (ICD-10-PCS; 2018-06-18)
DX: A40.9 Streptococcal sepsis, unspecified (principal); I76 Septic arterial embolism; F11.20 Opioid dependence, uncomplicated; I82.412 Acute embolism and thrombosis of left femoral vein; D69.6 Thrombocytopenia, unspecified; K22.6 Gastro-esophageal laceration-hemorrhage syndrome; F41.8 Other specified anxiety disorders; B19.20 Unspecified viral hepatitis C without hepatic coma; R51 Headache; I33.0 Acute and subacute infective endocarditis; R53.81 Other malaise; I45.81 Long QT syndrome; E87.2 Acidosis; E86.0 Dehydration; R16.1 Splenomegaly, not elsewhere classified; R31.9 Hematuria, unspecified; D64.9 Anemia, unspecified; K59.00 Constipation, unspecified; F17.210 Nicotine dependence, cigarettes, uncomplicated; K76.0 Fatty (change of) liver, not elsewhere classified; F19.94 Other psychoactive substance use, unspecified with psychoactive substance-induced mood disorder; F14.20 Cocaine dependence, uncomplicated; E83.39 Other disorders of phosphorus metabolism; E83.42 Hypomagnesemia; R06.6 Hiccough; R91.1 Solitary pulmonary nodule; E88.09 Other disorders of plasma-protein metabolism, not elsewhere classified; K92.0 Hematemesis; K29.80 Duodenitis without bleeding; R50.9 Fever, unspecified
CPT/HCPCS: 36415; 36430; 70450-TC; 71045-TC-FY; 71260-TC; 72148-TC; 74018-TC-FY; 74177-TC; 75635-TC; 80048; 80053; 81003; 81015; 82271; 82272; 82550; 82728; 82945; 82962; 83540; 83550; 83605; 83735; 83880; 84100; 84157; 84466; 84484; 85025; 85027; 85610; 85651; 85730; 86140; 86850; 86900; 86901; 86922; 87040; 87070; 87076; 87086; 87186; 87205; 87389; 88305-TC; 93005; 93010; 93306-TC; 93970-TC; 94640; 99285-25; J0131; J0475; J1644; J1756; J7030; P9038; P9058

== ENCOUNTER 2018-08-12 09:39 | Emergency (ER) | payer OTHER ==
[2018-08-12 09:48] VITALS: BMI 21.6
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
[2018-08-12] MEDS ORDERED: PANTOPRAZOLE SODIUM 40 MG VIAL IVPUSH ONE (10:20)
[2018-08-12] MEDS ORDERED: SODIUM CHLORIDE 1,000 ML IV SCH ×2 (10:30)
[2018-08-12] MEDS ORDERED: PANTOPRAZOLE SODIUM 40 MG VIAL ONE (10:37)
[2018-08-12] MEDS ORDERED: LORazepam 1 MG TABLET PO ONE (10:42)
[2018-08-12] MEDS ORDERED: FAMOTIDINE 20 MG/50 ML IVPB 20 MG/50 ML MG IVPB ONE ×2 (10:42→11:04)
[2018-08-12 10:54] LABS: BASO % 0.2 % (0-2.0); EOS % 0.4 % (0-4.5); HEMATOCRIT 32.3 % (35.4-49); HEMOGLOBIN 10.8 GM/dL (11.7-16.9); LYMPH % 19.5 % (8-40); MCH 28.5 pg (25.7-33.7); MCHC 33.3 g/dl (32.0-35.9); MEAN CELL VOLUME 85.5 fl (80-96); MEAN PLT VOLUME 6.1 fl (7.5-11.1); MONO % 9.4 % (3.8-10.2); NEUT % 70.5 % (42.8-82.8); PLATELET COUNT 103 K/MM3 (134-434); RBC 3.78 M/mm3 (4.00-5.60); RDW 18.2 % (11.9-15.9); WHITE BLOOD COUNT 6.3 K/mm3 (4.0-10.0)
[2018-08-12] MEDS ORDERED: LORazepam 0.5 MG TABLET ONE (11:04)
[2018-08-12 11:09] LABS: INR 1.05 (0.83-1.09); PROTHROMBIN TIME (PATIENT) 12.4 SEC (9.7-13.0)
[2018-08-12 11:11] LABS: ACTIVATED PTT 28.8 SECONDS (25.2-36.5)
--- NOTE | 2018-08-12 11:29 | PDOC ---
Attending Attestation - Resident Resident Name: Alda Garay - ED Attending Attestation I have performed the following: I have examined & evaluated the patient, The case was reviewed & discussed with the resident, I agree w/resident's findings & plan, Exceptions are as noted - HPI HPI: 08/12/18 11:28 33-year-old male with prior history of polysubstance abuse, hepatitis C, bacteremia, endocarditis, septic lung emboli, DVT, Sandy-Roy tear presents with 2 days of lower abdominal pain. The patient has had a complicated history in the last 2 months where he was admitted to both [facility] and [facility] for endocarditis. The patient felt endocarditis with septic lung emboli and was treated with the PICC line with IV antibiotics and eventually discharged with oral antibiotics. The patient was placed on eliquis, which all of it was discontinued by last week. The patient reported feeling recently well but 2 days ago, the patient was noted to develop lower abdominal pain and dark tarry stools with discoloration of the urine. Denies fevers, nausea, vomiting. The patient denies any current anticoagulant use. Patient denies chest pain or shortness of breath. - Physicial Exam PE: 08/12/18 11:29 GENERAL: Awake, alert, and fully oriented, in no acute distress HEAD: No signs of trauma EYES: EOMI, sclera anicteric, conjunctiva clear ENT: Auricles normal inspection, hearing grossly normal, nares patent, Moist mucosa NECK: Normal ROM, supple LUNGS: Breath sounds equal, clear to auscultation bilaterally. No wheezes, and no crackles HEART: Regular rate and rhythm, normal S1 and S2. + soft systolic murmur ABDOMEN: Soft, No guarding, no rebound. No masses. TTP RLQ, suprapubic, LLQ abdomen. EXTREMITIES: Normal range of motion, no edema. No clubbing or cyanosis. No cords, erythema, or tenderness NEUROLOGICAL: Cranial nerves II through XII grossly intact. Normal speech, normal gait SKIN: Warm, Dry, normal turgor, no rashes or lesions noted. - Medical Decision Making 08/12/18 11:32 Vital Signs Temp Pulse Resp BP Pulse Ox 98.9 F 92 H 18 142/90 99 08/12/18 09:41 08/12/18 09:41 08/12/18 09:41 08/12/18 09:41 08/12/18 09:41 Patient's findings are concerning for potential upper GI bleed. Obtain a stool culture. Could this be secondary to gastritis or GERD secondary to his prolonged course of issues? However, we'll need to investigate other causes such as mesenteric ischemia, colitis. Discoloration of urine and stool could potentially be significant hyperbilirubinemia. Patient will require CAT scan preferably CTA of the abdomen pelvis. We'll give Protonix. Labs, urinalysis and reassess. 08/12/18 13:18 CBC, BMP 08/12/18 10:40 08/12/18 10:40 CMP Sodium 139 mmol/L (136-145) 08/12/18 10:40 Potassium 4.2 mmol/L (3.5-5.1) 08/12/18 10:40 Chloride 105 mmol/L (98-107) 08/12/18 10:40 Carbon Dioxide 29 mmol/L (21-32) 08/12/18 10:40 Anion Gap 5 MMOL/L (8-16) L 08/12/18 10:40 BUN 16 mg/dL (7-18) 08/12/18 10:40 Creatinine 1.0 mg/dL (0.55-1.3) 08/12/18 10:40 Creat Clearance w eGFR > 60 (>60) 08/12/18 10:40 Random Glucose 71 mg/dL (74-106) L 08/12/18 10:40 Lactic Acid 2.0 mmol/L (0.4-2.0) 08/12/18 10:40 Calcium 9.2 mg/dL (8.5-10.1) 08/12/18 10:40 Total Bilirubin 0.4 mg/dL (0.2-1) 08/12/18 10:40 AST 22 U/L (15-37) 08/12/18 10:40 ALT 40 U/L (13-61) 08/12/18 10:40 Alkaline Phosphatase 57 U/L (45-117) 08/12/18 10:40 Total Protein 7.8 g/dl (6.4-8.2) 08/12/18 10:40 Albumin 3.7 g/dl (3.4-5.0) 08/12/18 10:40 Lipase 70 U/L (73-393) L 08/12/18 10:40 Urine Test Results Urine Color Colorless 08/12/18 10:58 Urine Appearance Clear 08/12/18 10:58 Urine pH 7.0 (5.0-8.0) 08/12/18 10:58 Ur Specific [place] 1.005 (1.010-1.035) L 08/12/18 10:58 Urine Protein Negative (NEGATIVE) 08/12/18 10:58 Urine Glucose (UA) Negative (NEGATIVE) 08/12/18 10:58 Urine Ketones Negative (NEGATIVE) 08/12/18 10:58 Urine Blood 1+ (NEGATIVE) H 08/12/18 10:58 Urine Nitrite Negative (NEGATIVE) 08/12/18 10:58 Urine Bilirubin Negative (<2.0 mg/dL) 08/12/18 10:58 Ur Leukocyte Esterase Negative (NEGATIVE) 08/12/18 10:58 CT scan demonstrates no acute findings. Improving septic emboli. Stool occult negative. It Is unclear what the etiology of the patient's lower abdominal pain and dark stools or. However, at this time, the CAT scan and the blood work demonstrates no acute finds. Stool occult is negative. I had asked about if patient's been taking iron supplements or Pepto-Bismol, which patient denies. Patient reports feeling better here in the ER. Will likely prescribe the patient Protonix upon discharge and have referral to GI doctor. The patient feels well without acute complaints, the patient can be discharged for outpatient follow-up. Heart Score/ECG Review #1 ECG reviewed & interpreted by me at: 11:00 08/12/18 11:33 NSR 67, no std/jerome, QTC 560 msec, normal axis, normal intervals, QTC 560 msec ( prolonged QTc, likely 2/2 methadone)
[2018-08-12 11:33] LABS: ALBUMIN 3.7 g/dl (3.4-5.0); ALK PHOS 57 U/L (45-117); ANION GAP 5 MMOL/L (8-16); BILIRUBIN,TOTAL 0.4 mg/dL (0.2-1); BLOOD UREA NITROGEN 16 mg/dL (7-18); CALCIUM 9.2 mg/dL (8.5-10.1); CHLORIDE 105 mmol/L (98-107); CO2 29 mmol/L (21-32); GLUCOSE,RANDOM 71 mg/dL (74-106); POTASSIUM 4.2 mmol/L (3.5-5.1); SGOT/AST 22 U/L (15-37); SGPT/ALT 40 U/L (13-61); SODIUM 139 mmol/L (136-145); TOT PROT 7.8 g/dl (6.4-8.2)
[2018-08-12 12:51] LABS: URINE APPEARANCE CLEAR; URINE BILIRUBIN NEGATIVE (<2.0 mg/dL); URINE COLOR COLORLESS; URINE GLUCOSE (UA) NEGATIVE (NEGATIVE); URINE KETONE NEGATIVE (NEGATIVE); URINE LEUK ESTERASE NEGATIVE (NEGATIVE); URINE NITRITE NEGATIVE (NEGATIVE); URINE PROTEIN NEGATIVE (NEGATIVE); URINE UROBILINOGEN NEGATIVE mg/dL (0.2-1.0)
[2018-08-12 13:26] LABS: PHENCYCLIDINE,URINE NEGATIVE ng/ml (CUTOFF=25); URINE AMPHETAMINES NEGATIVE ng/ml (CUTOFF=500); URINE BARBITURATES NEGATIVE ng/ml (CUTOFF=200); URINE BENZODIAZEPINES NEGATIVE ng/ml (CUTOFF=200)
[2018-08-12 13:32] VITALS: BP 121/70; PULSE 67; TEMP 98.4
[2018-08-12 13:50] LABS: COCAINE, UR POSITIVE ng/ml (CUTOFF=300)
[2018-08-12 13:51] LABS: METHADONE, UR POSITIVE ng/ml (CUTOFF=300); OPIATES, URI POSITIVE ng/ml (CUTOFF=300)
--- NOTE | 2018-08-13 10:30 | EKG ---
Test Reason : Blood Pressure : / mmHG Vent. Rate : 067 BPM Atrial Rate : 067 BPM P-R Int : 166 ms QRS Dur : 108 ms QT Int : 530 ms P-R-T Axes : 064 081 062 degrees QTc Int : 560 ms NORMAL SINUS RHYTHM PROLONGED QT ABNORMAL ECG WHEN COMPARED WITH ECG OF 19-JUN-2018 18:41, T WAVE INVERSION NO LONGER EVIDENT IN INFERIOR LEADS Confirmed by MARILYN BRAXTON MD ([id number]) on 08/13/2018 10:29:45 AM Referred By: Confirmed By:MARILYN BRAXTON MD
== END 2018-08-12 14:01 | disposition home or self-care (01) ==
LOC: JER 09:39
PROC: 3E0337Z Introduction of Electrolytic and Water Balance Substance into Peripheral Vein, Percutaneous Approach (ICD-10-PCS; principal; 2018-08-12)
PROC: 3E033GC Introduction of Other Therapeutic Substance into Peripheral Vein, Percutaneous Approach (ICD-10-PCS; 2018-08-12)
PROC: 3E033GC Introduction of Other Therapeutic Substance into Peripheral Vein, Percutaneous Approach (ICD-10-PCS; 2018-08-12)
DX: R10.9 Unspecified abdominal pain (principal)
CPT/HCPCS: 36415; 74174-TC; 80053; 80307; 81003; 81015; 82272; 83605; 83690; 85025; 85610; 85730; 86850; 86900; 86901; 87040; 93005; 93010; 99285-25; J7030

== ENCOUNTER 2018-08-18 09:38 | Emergency (ER) | payer OTHER ==
[2018-08-18 09:43] VITALS: BP 113/65; PULSE 72; TEMP 99.2; BMI 21.6
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
[2018-08-18] MEDS ORDERED: KETOROLAC TROMETHAMINE 30 MG/1 ML VIAL IVPUSH ONE (10:37)
[2018-08-18] MEDS ORDERED: ONDANSETRON 4 MG/2 ML VIAL IVPB ONE (10:38)
[2018-08-18] MEDS ORDERED: ONDANSETRON 4 MG/2 ML VIAL ONE (10:52)
[2018-08-18] MEDS ORDERED: KETOROLAC TROMETHAMINE 30 MG/1 ML VIAL ONE (10:52)
[2018-08-18 10:57] LABS: BASO % 0.6 % (0-2.0); EOS % 2.6 % (0-4.5); HEMATOCRIT 36.8 % (35.4-49); HEMOGLOBIN 12.2 GM/dL (11.7-16.9); LYMPH % 19.4 % (8-40); MCH 28.6 pg (25.7-33.7); MCHC 33.1 g/dl (32.0-35.9); MEAN CELL VOLUME 86.4 fl (80-96); NEUT % 72.4 % (42.8-82.8); PLATELET COUNT 145 K/MM3 (134-434); RBC 4.26 M/mm3 (4.00-5.60); RDW 17.8 % (11.9-15.9); WHITE BLOOD COUNT 4.4 K/mm3 (4.0-10.0)
[2018-08-18] MEDS ORDERED: SODIUM CHLORIDE 1,000 ML IV STA (10:57)
--- NOTE | 2018-08-18 11:17 | PDOC ---
Attending Attestation - Resident Resident Name: Ever Kevin - ED Attending Attestation I have performed the following: I have examined & evaluated the patient, The case was reviewed & discussed with the resident, I agree w/resident's findings & plan, Exceptions are as noted - HPI HPI: 08/18/18 11:13 The patient it a 33 year old male with a significant past medical history of polysubstance abuse, hepatitis C, endocarditis, septic lung emboli, DVT, and katia- doyle tear who reports to the ED with left sided flank pain for about 8 days. the patient reports associated nausea with his flank pain. Denies F/C. Denies diarrhea/constipation. Denies CP/SOB. Denies abdominal pain. The patient states that he was seen at [facility] in [facility] 8 days ago and was told he had a L sided kidney stone. He states that the pain has been persistent. Denies dysuria. Endorses some hematuria. - Physicial Exam PE: 08/18/18 11:14 "GENERAL: Awake, alert, and fully oriented, in no acute distress. HEAD: No signs of trauma EYES: PERRLA, EOMI, sclera anicteric, conjunctiva clear ENT: Auricles normal inspection, hearing grossly normal, nares patent, oropharynx clear without exudates. Moist mucosa NECK: Nontender, no stepoffs, Normal ROM, supple, no lymphadenopathy, JVD, or masses LUNGS: Breath sounds equal, clear to auscultation bilaterally. No wheezes, and no crackles HEART: Regular rate and rhythm, normal S1 and S2, no murmurs, rubs or gallops ABDOMEN: Soft, nontender, normoactive bowel sounds. No guarding, no rebound. No masses BACK: + L CVAT EXTREMITIES: Normal range of motion, no edema. No clubbing or cyanosis. No cords, erythema, or tenderness NEUROLOGICAL: Cranial nerves II through XII intact. 5/5 strength and sensation in all extremities, Normal speech, normal gait, normal cerebellar function SKIN: Warm, Dry, normal turgor, no rashes or lesions noted. - Medical Decision Making 08/18/18 11:15 33 M with L flank pain x [address] had [address] scan with L kidney stone at [facility]. However,chart review shows pt was seen her 6 days ago for abdominal pain. Had CTA that was negative. No stone noted. However, will evaluate for obstructing stone given pt's symptoms. - Labs, UA - CT non-con - IVF, pain control 08/18/18 12:48 CT negative UA with few RBCs, 1 WBC, + LE. Low suspicion for kidney stone. Given pt's flank pain and negative CT, will tx for UTI/pyelo. Pt had CTA last week at onset of symptoms that was negative, do not suspect any serious intraabdominal pathology or vascular emergency. Will DC with keflex for UTI. Pt to f/u with PMD within 1 week Pt is well appearing, with normal vitals. Clinically stable for DC at this time. I discussed the physical exam findings, ancillary test results and final diagnoses with the patient. I answered all of the patient's questions. The patient was satisfied with the care received and felt comfortable with the discharge plan and treatment plan. The patient agrees to follow up with the primary care physician within 24-72 hours.
[2018-08-18 11:34] LABS: PHENCYCLIDINE,URINE NEGATIVE ng/ml (CUTOFF=25); URINE AMPHETAMINES NEGATIVE ng/ml (CUTOFF=500); URINE BARBITURATES NEGATIVE ng/ml (CUTOFF=200); URINE BENZODIAZEPINES NEGATIVE ng/ml (CUTOFF=200)
[2018-08-18 11:39] LABS: ALBUMIN 3.9 g/dl (3.4-5.0); ALK PHOS 60 U/L (45-117); ANION GAP 4 MMOL/L (8-16); BILIRUBIN,TOTAL 0.2 mg/dL (0.2-1); BLOOD UREA NITROGEN 13 mg/dL (7-18); CALCIUM 9.3 mg/dL (8.5-10.1); CHLORIDE 106 mmol/L (98-107); CO2 29 mmol/L (21-32); CREATININE 1.1 mg/dL (0.55-1.3); GLUCOSE,RANDOM 96 mg/dL (74-106); POTASSIUM 4.4 mmol/L (3.5-5.1); SGOT/AST 21 U/L (15-37); SGPT/ALT 32 U/L (13-61); SODIUM 138 mmol/L (136-145); TOT PROT 8.4 g/dl (6.4-8.2)
[2018-08-18 11:44] LABS: COCAINE, UR POSITIVE ng/ml (CUTOFF=300); METHADONE, UR POSITIVE ng/ml (CUTOFF=300); OPIATES, URI POSITIVE ng/ml (CUTOFF=300)
[2018-08-18 11:57] LABS: URINE APPEARANCE CLEAR; URINE BILIRUBIN NEGATIVE (<2.0 mg/dL); URINE COLOR YELLOW; URINE GLUCOSE (UA) NEGATIVE (NEGATIVE); URINE KETONE NEGATIVE (NEGATIVE); URINE LEUK ESTERASE TRACE (NEGATIVE); URINE NITRITE NEGATIVE (NEGATIVE); URINE PROTEIN NEGATIVE (NEGATIVE); URINE UROBILINOGEN NEGATIVE mg/dL (0.2-1.0)
[2018-08-18 12:02] LABS: URINE MUCUS RARE
== END 2018-08-18 13:02 | disposition home or self-care (01) ==
LOC: JER 09:38
PROC: 3E0337Z Introduction of Electrolytic and Water Balance Substance into Peripheral Vein, Percutaneous Approach (ICD-10-PCS; principal; 2018-08-18)
PROC: 3E033GC Introduction of Other Therapeutic Substance into Peripheral Vein, Percutaneous Approach (ICD-10-PCS; 2018-08-18)
PROC: 3E0333Z Introduction of Anti-inflammatory into Peripheral Vein, Percutaneous Approach (ICD-10-PCS; 2018-08-18)
DX: N39.0 Urinary tract infection, site not specified (principal); Z87.442 Personal history of urinary calculi; B18.2 Chronic viral hepatitis C; F17.210 Nicotine dependence, cigarettes, uncomplicated; F11.20 Opioid dependence, uncomplicated; F14.20 Cocaine dependence, uncomplicated; F12.20 Cannabis dependence, uncomplicated; Z86.69 Personal history of other diseases of the nervous system and sense organs; Z86.718 Personal history of other venous thrombosis and embolism
CPT/HCPCS: 36415; 74176; 80053; 80307; 81003; 81015; 85025; 87086; 96361; 96365; 96374; 99282-25; J7030

== ENCOUNTER 2019-04-20 09:14 | Inpatient (IN) | payer OTHER ==
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
--- NOTE | 2019-04-20 11:37 | PDOC ---
*Physical Exam - Vital Signs Last Vital Signs Temp Pulse Resp BP Pulse Ox 98.4 F 54 L 18 105/53 L 100 04/20/19 09:19 04/20/19 09:19 04/20/19 09:19 04/20/19 09:19 04/20/19 09:19 - Physical Exam Respiratory/Chest: positive: Lungs Clear, Normal Breath Sounds. negative: Chest Tender Cardiovascular: positive: Regular Rhythm, Regular Rate, S1, S2. negative: Diastolic Murmur, Systolic Murmur Gastrointestinal/Abdominal: positive: Flat, Soft. negative: Tender, Tenderness Integumentary: positive: Other (Maculopapular rash on R flank, blanching, nonpustular; b/l anterior neck rashes ) ED Treatment Course - LABORATORY CBC & Chemistry Diagram: 04/20/19 11:58 04/20/19 11:52 Medical Decision Making - Medical Decision Making 04/20/19 11:31 Pt upgraded from FT by NITHIN Lemus. 33M who presents for abdominal rash and foot pain, found to have a R IJ thrombosis. Pt admits to IVDA "speedballs" within the last 24 hours in his b/l IJ. IV access established. Will draw labs and give 1 dose of vanc for infectious concern. 04/20/19 13:43 Labs WNL. Will microblog for admission. *DC/Admit/Observation/Transfer Diagnosis at time of Disposition: Internal jugular (IJ) vein thromboembolism, acute - Referrals - Patient Instructions - Post Discharge Activity
[2019-04-20] MEDS ORDERED: HEPARIN NA (PORCINE) 5,000 UNITS/ML 1ML VIAL IVPUSH ONE (11:38)
[2019-04-20] MEDS ORDERED: HEPARIN NA (PORCINE) 5,000 UNITS/ML 1ML VIAL IVPUSH PRN ×2 (11:43)
[2019-04-20] MEDS ORDERED: HEPARIN INFUSION - 25,000 UNITS/500 ML INFUS.BAG IVPB SCH (11:45)
[2019-04-20] MEDS ORDERED: VANCOMYCIN 1,000 MG in DEXTROSE 5%-WATER - 250 ML IVPB ONE (11:48)
[2019-04-20] MEDS ORDERED: HEPARIN INFUSION - 0 UNITS/0 ML INFUS.BAG IVPB ONE (12:00)
[2019-04-20] MEDS ORDERED: VANCOMYCIN 1 GRAM (PRE-DOCKED) 1,000 MG/250 ML BAG IVPB ONE (12:07)
[2019-04-20] MEDS ORDERED: ENOXAPARIN NA (PORCINE) 80 MG/0.8 ML DISP.SYRIN SQ ONE ×2 (12:08→12:12)
[2019-04-20 12:27] LABS: BASO % 0.5 % (0-2.0); EOS % 2.8 % (0-4.5); HEMATOCRIT 38.6 % (35.4-49); HEMOGLOBIN 12.7 GM/dL (11.7-16.9); LYMPH % 24.1 % (8-40); MCH 28.4 pg (25.7-33.7); MCHC 32.9 g/dl (32.0-35.9); MEAN CELL VOLUME 86.4 fl (80-96); MEAN PLT VOLUME 7.5 fl (7.5-11.1); MONO % 7.1 % (3.8-10.2); NEUT % 65.5 % (42.8-82.8); PLATELET COUNT 200 K/MM3 (134-434); RBC 4.47 M/mm3 (4.00-5.60); RDW 15.7 % (11.9-15.9); WHITE BLOOD COUNT 6.7 K/mm3 (4.0-10.0)
[2019-04-20 12:42] LABS: INR 0.97 (0.83-1.09); PROTHROMBIN TIME (PATIENT) 11.4 SEC (9.7-13.0)
[2019-04-20 12:45] LABS: ACTIVATED PTT 31.7 SECONDS (25.2-36.5)
[2019-04-20 12:49] LABS: ALBUMIN 4.4 g/dl (3.4-5.0); BILIRUBIN,TOTAL 0.4 mg/dL (0.2-1); BLOOD UREA NITROGEN 14.6 mg/dL (7-18); CALCIUM 9.9 mg/dL (8.5-10.1); CREATININE 1.2 mg/dL (0.55-1.3); POTASSIUM 4.4 mmol/L (3.5-5.1)
--- NOTE | 2019-04-20 15:06 | HP ---
CHIEF COMPLAINT: rash, R plantar numbness, b/l neck pain x 2-3 weeks PCP: none HISTORY OF PRESENT ILLNESS: 33 y/o M with PMH IVDA (heroin, speedballs), on methadone, Hep C, endocarditis ( 2018; strep and anarobes), septic lung emboli, L fem DVT and RLE superficial thromboses (was on hep gtt > coumadin 3 mo, noncompliant), katia doyle tear, hx R IJ line 2018 (d/t poor venous access), who presents to the ED c/o abdominal rash, R plantar numbness, and b/l neck pain over the past 2-3 weeks. As per pt, he noticed the abdominal rash 2-3 weeks ago. Is mostly located on his R flank, and causes "itching spells". Appears faded and maculopapular. Denies any recent ointment application, detergent use, or drug injection to area. During this time, he also endorses numbness at the base of his R foot which he is concerned is a "Holm's neuroma." He also c/o b/l neck pain over the past 2-3 weeks, which worsened over the last day. States that he has had erythema and induration on both sides of his neck. He last injected heroin and speedballs (heroin/cocaine/morphine) to these areas yesterday. Unable to quantify how much. Denies CROWDER, fever, chills, SOB, chest pain or pressure or changes in urinary or bowel function. Of note, when pt was found in 2018 to have L fem DVT, RLE superficial thromboses , and transitioned from hep gtt to coumadin for 3 mo, pt was noncompliant w/ coumadin. Lives independently, "rents" his home. Would not describe further. Receives methadone from [facility]. ER course was notable for: (1) vanc 1g (2) lovenox 80mg x 1 (3) was not given hep bolus Recent Travel: denies PAST MEDICAL HISTORY: as above PAST SURGICAL HISTORY: denies Social History: lives independently. does not work and is not in school Smokin-5 cigs/ day. does not know for how many years Alcohol: denies Drugs: heroin - injects, speedballs - injects Family History: denies Allergies haloperidol [From Haldol] Allergy (Verified 04/20/19 11:30) Low Blood Pressure DYSTONIA tramadol Allergy (Verified 04/20/19 11:30) Low Blood Pressure seizure HOME MEDICATIONS: Home Medications Medication Instructions Recorded NK [No Known Home Medication] 04/20/19 states he is on methadone 90mg is from [facility]. Need to verify REVIEW OF SYSTEMS CONSTITUTIONAL: Absent: fever, chills, diaphoresis, generalized weakness, malaise, loss of appetite, weight change HEENT: Absent: rhinorrhea, nasal congestion, throat pain, throat swelling, difficulty swallowing, mouth swelling, ear pain, eye pain, visual changes CARDIOVASCULAR: Absent: chest pain, syncope, palpitations, irregular heart rate, lightheadedness , peripheral edema RESPIRATORY: Absent: cough, shortness of breath, dyspnea with exertion, orthopnea, wheezing, stridor, hemoptysis GASTROINTESTINAL: Absent: abdominal pain, abdominal distension, nausea, vomiting, diarrhea, constipation, melena, hematochezia GENITOURINARY: Absent: dysuria, frequency, urgency, hesitancy, hematuria, flank pain, genital pain MUSCULOSKELETAL: Absent: myalgia, arthralgia, joint swelling, back pain, neck pain SKIN: Absent: rash, itching, pallor HEMATOLOGIC/IMMUNOLOGIC: Absent: easy bleeding, easy bruising, lymphadenopathy, frequent infections ENDOCRINE: Absent: unexplained weight gain, unexplained weight loss, heat intolerance, cold intolerance NEUROLOGIC: +R sole numbness Absent: headache, focal weakness or paresthesias, dizziness, unsteady gait, seizure, mental status changes, bladder or bowel incontinence PSYCHIATRIC: Absent: anxiety, depression, suicidal or homicidal ideation, hallucinations. PHYSICAL EXAMINATION Vital Signs - 24 hr 04/20/19 09:19 Temperature 98.4 F Pulse Rate 54 L Respiratory 18 Rate Blood Pressure 105/53 L O2 Sat by Pulse 100 Oximetry (%) GENERAL: AAO x3. pacing in room HEAD: Normal with no signs of trauma. EYES: Pupils equal, round and reactive to light, extraocular movements intact, sclera anicteric, conjunctiva clear EARS, NOSE, THROAT: Ears normal, nares patent, oropharynx clear without exudates. Moist mucous membranes. NECK: Normal range of motion, supple. +mild induration b/l neck . mild erythema LUNGS: Breath sounds equal, clear to auscultation bilaterally. No wheezes, and no crackles. No accessory muscle use. HEART: Regular rate and rhythm, normal S1 and S2 without murmur, rub or gallop. ABDOMEN: Soft, nontender, not distended, normoactive bowel sounds, no guarding. +maculopapular rash - R abdomen LOWER EXTREMITIES: 2+ pt pulses. No peripheral edema. NEUROLOGICAL: Cranial nerves II-XII intact.Normal gait. PSYCHIATRIC: Distant Laboratory Tests 04/20/19 04/20/19 04/20/19 11:52 11:52 11:58 WBC 6.7 Hgb 12.7 Hct 38.6 Plt Count 200 Sodium 141 Potassium 4.4 Chloride 103 Carbon Dioxide 29 BUN 14.6 Creatinine 1.2 Random Glucose 66 L Total Protein 9.0 H HIV 1&2 Antibody Screen Negative HIV P24 Antigen Negative EKG: requested, pending Head / neck US: +R IJ v thrombosis, L vein patent foot XR: result pending ASSESSMENT/PLAN: 33 y/o M with PMH IVDA (heroin, speedballs), on methadone, Hep C, endocarditis ( 2018; strep and anarobes), septic lung emboli, L fem DVT and RLE superficial thromboses (was on hep gtt > coumadin 3 mo, noncompliant), katia doyle tear, hx R IJ line 2018 (d/t poor venous access), who presents to the ED c/o abdominal rash, R sole numbness, and b/l neck pain over the past 2-3 weeks. Pt found to have +R IJ v thrombosis. #R IJ v thrombosis likely 2/2 IVDA -s/p lovenox 80mg x 1 in ED -c/w lovenox 80mg BID. will likely need a/c for 3 mo as per vascular -does not appear infected at this time. will not cont abx -vasc consult: Dr. Clark #Abdominal rash -possible 2/2 drug reaction, ?may be infectious 2/2 hepatitis, contact derm -has hx of hep C. HIV (-) -f/u hep serologies -apply hydrocortisone cream BID #R foot numbness -denies IVDA to area or trauma -f/u b12, folate, RPR -f/u foot XR -podiatry consult: Dr. Pantoja #hx substance abuse -f/u EKG. once qtc determined can start on methadone -need to confirm dose. states on 90 mg qd receives from [facility] #F/E/N no IVF at this time continue to follow lytes reg diet #PPX on lovenox #Dispo admit to med-surg Visit type - Emergency Visit Emergency Visit: Yes ED Registration Date: 04/20/19 Care time: The patient presented to the Emergency Department on the above date and was hospitalized for further evaluation of their emergent condition. - New Patient This patient is new to me today: Yes Date on this admission: 04/20/19 - Critical Care Critical Care patient: No
--- NOTE | 2019-04-20 15:09 | PN ---
Progress Note (short form) - Note Progress Note: VAscular Surgery US reviewed. Pt with right IJ thrombosis from cocaine abuse and injection into neck. Pt needs 3 months of AC for the IJ thrombus. Can follow in the office as outpt. Merrill Clark DO
[2019-04-20] MEDS ORDERED: HYDROCORTISONE 0.5% TOPICAL CREAM 30 GM TUBE TP PRN (15:46)
--- NOTE | 2019-04-20 15:57 | PN ---
Teaching Attending Note Name of Resident: Meredith Nice ATTENDING PHYSICIAN STATEMENT I saw and evaluated the patient. I reviewed the resident's note and discussed the case with the resident. I agree with the resident's findings and plan as documented. SUBJECTIVE: This is a 33 year old man with a history of IVDA (heroin and speedball, on Methadone maintenance), hepatitis C, endocarditis, septic emboli to lung, LLE DVT, RLE superficial venous thrombosis, Sandy Roy tear who comes to the ED complaining of a rash on his abdomen x 2 weeks, pain and numbness of the plantar surface of his right foot, bilateral neck pain. He has noted redness of both sides of his neck. He injects into his neck. OBJECTIVE: Vital Signs Period Temp Pulse Resp BP Sys/Manning Pulse Ox Last 24 Hr 98.4 F-98.4 F 51-54 18-18 105-112/53-66 100-100 HEENT: Track gonzalez with induration on both sides of neck HEART: S1S2, RRR LUNGS: Clear ABDOMEN: Soft, non-tender, non-distended, normal BS EXTREMITIES: No edema SKIN: Resolving brown and pink maculopapular rash on right side of abdomen Laboratory Tests 04/20/19 04/20/19 04/20/19 11:52 11:52 11:52 WBC RBC Hgb Hct MCV MCH MCHC RDW Plt Count MPV Absolute Neuts (auto) Neutrophils % Lymphocytes % Monocytes % Eosinophils % Basophils % Nucleated RBC % PT with INR 11.40 INR 0.97 PTT (Actin FS) 31.7 Sodium 141 Potassium 4.4 Chloride 103 Carbon Dioxide 29 Anion Gap 8 BUN 14.6 Creatinine 1.2 Est GFR (CKD-EPI)AfAm 90.26 Est GFR (CKD-EPI)NonAf 77.87 Random Glucose 66 L Calcium 9.9 Total Bilirubin 0.4 AST 24 ALT 47 Alkaline Phosphatase 74 Total Protein 9.0 H Albumin 4.4 HIV 1&2 Antibody Screen Negative HIV P24 Antigen Negative 04/20/19 11:58 WBC 6.7 RBC 4.47 Hgb 12.7 Hct 38.6 MCV 86.4 MCH 28.4 MCHC 32.9 RDW 15.7 Plt Count 200 MPV 7.5 Absolute Neuts (auto) 4.4 Neutrophils % 65.5 Lymphocytes % 24.1 D Monocytes % 7.1 Eosinophils % 2.8 Basophils % 0.5 Nucleated RBC % 0 PT with INR INR PTT (Actin FS) Sodium Potassium Chloride Carbon Dioxide Anion Gap BUN Creatinine Est GFR (CKD-EPI)AfAm Est GFR (CKD-EPI)NonAf Random Glucose Calcium Total Bilirubin AST ALT Alkaline Phosphatase Total Protein Albumin HIV 1&2 Antibody Screen HIV P24 Antigen Home Medications Medication Instructions Recorded NK [No Known Home Medication] 04/20/19 ASSESSMENT AND PLAN: This is a 33 year old man with a history of IVDA, hepatitis C, endocarditis, septic emboli to lung, LLE DVT, RLE superficial venous thrombosis, Sandy Roy tear who presented to the ED with a rash on his abdomen, pain and numbness of the plantar surface of his right foot, bilateral neck pain. 1. Right IJ thrombosis - Lovenox, Vancomycin given in ED - Continue Lovenox - No evidence of infection - will not continue antibiotics - Vascular surgery input appreciated - will need anticoagulation x 3 months 2. Right foot pain and numbness - X-rays done in ED - Podiatry evaluation 3. Abdominal skin rash - Resolving - Topical steroid 4. History of LLE DVT 5. Hepatitis C 6. History of endocarditis 7. Substance abuse - On Methadone for opioid abuse
[2019-04-20 16:44] VITALS: BMI 22.1
[2019-04-20] MEDS ORDERED: ACETAMINOPHEN 325 MG TABLET (FP) PO ONE (18:08)
[2019-04-20] MEDS: ENOXAPARIN NA (PORCINE) 80 MG/0.8 ML DISP.SYRIN SQ SCH (21:23)
[2019-04-20] MEDS ORDERED: ENOXAPARIN NA (PORCINE) 80 MG/0.8 ML DISP.SYRIN SQ SCH (23:59)
[2019-04-21] MEDS ORDERED: PSEUDOEPHEDRINE HCL 30 MG TABLET PO ONE ×2 (02:35→12:39)
[2019-04-21] MEDS: NICOTINE 14 MG/24 HOURS TOPICAL PATCH TD SCH (09:28)
[2019-04-21] MEDS: ENOXAPARIN NA (PORCINE) 80 MG/0.8 ML DISP.SYRIN SQ SCH ×2 (09:28→23:58)
[2019-04-21] MEDS ORDERED: METHADONE HCL 10 MG TABLET PO SCH (11:45)
[2019-04-21] MEDS ORDERED: diphenhydrAMINE HCL 25 MG CAPSULE (FP) PO ONE (12:37)
[2019-04-21] MEDS ORDERED: METHADONE HCL 10 MG TABLET ONE (12:49)
[2019-04-21] MEDS ORDERED: METHADONE HCL 40 MG DISPERSABLE TABLET ONE (12:49)
[2019-04-21] MEDS: METHADONE 80 MG, METHADONE 10 MG PO SCH (12:54)
[2019-04-21 14:38] VITALS: BP 115/77; PULSE 64; TEMP 98.1
--- NOTE | 2019-04-21 17:11 | PN ---
Progress Note, Physician Chief Complaint: right foot pain History of Present Illness: patient agitated overnight, demanding sudafed, yelling at staff. Refusing EKG, demanding methadone be given. Patient is disrespectful, calling me names, threatening to leave AMA. Mother is bedside. Complaining of itchiness, restlessness, right foot pain that has been there for over a month. - Current Medication List Current Medications: Active Medications Enoxaparin Sodium (Lovenox -) 80 mg SQ BID [facility] Last Admin: 04/21/19 09:28 Dose: 80 mg Hydrocortisone (Hytone 0.5% Cream -) 1 applic TP BID PRN PRN Reason: FOR ITCHING Methadone HCl 80 mg/ Methadone (HCl 10 mg) 90 mg PO DAILY@0600 [facility] Last Admin: 04/21/19 12:54 Dose: 90 mg Nicotine (Nicoderm Patch -) 14 mg TD DAILY [facility] Last Admin: 04/21/19 09:28 Dose: Not Given - Objective Vital Signs: Vital Signs Temperature 98.1 F 04/21/19 14:31 Pulse Rate 64 04/21/19 14:31 Respiratory Rate 18 04/21/19 14:31 Blood Pressure 115/77 04/21/19 14:31 O2 Sat by Pulse Oximetry (%) 98 04/21/19 09:00 Constitutional: Yes: Anxious, Other (angry, walking around halls) Cardiovascular: Yes: WNL, Regular Rate and Rhythm Respiratory: Yes: WNL, Regular, CTA Bilaterally Gastrointestinal: Yes: WNL, Normal Bowel Sounds, Soft, Other (dermatitis rash on right side of abdomen) Musculoskeletal: Yes: WNL. No: Joint Stiffness, Joint Swelling, Muscle Pain Extremities: Yes: WNL. No: Erythema Edema: No ...Motor Strength: WNL Psychiatric: Yes: Agitated Labs: CBC, BMP 04/20/19 11:58 04/20/19 11:52 INR, PTT INR 0.97 (0.83-1.09) 04/20/19 11:52 Problem List - Problems (1) Internal jugular (IJ) vein thromboembolism, acute Code(s): I82.C19 - ACUTE EMBOLISM AND THROMBOSIS OF UNSP INTERNAL JUGULAR VEIN Qualifiers: Laterality: right Qualified Code(s): I82.C11 - Acute embolism and thrombosis of right internal jugular vein (2) Cigarette nicotine dependence Code(s): F17.210 - NICOTINE DEPENDENCE, CIGARETTES, UNCOMPLICATED (3) Drug-induced mood disorder Code(s): F19.94 - OTH PSYCHOACTIVE SUBSTANCE USE, UNSP W MOOD DISORDER (4) Cannabis dependence Code(s): F12.20 - CANNABIS DEPENDENCE, UNCOMPLICATED (5) Cocaine dependence Code(s): F14.20 - COCAINE DEPENDENCE, UNCOMPLICATED (6) Hepatitis C virus infection Code(s): B19.20 - UNSPECIFIED VIRAL HEPATITIS C WITHOUT HEPATIC COMA (7) Opiate dependence Code(s): F11.20 - OPIOID DEPENDENCE, UNCOMPLICATED Assessment/Plan 33 year old man with a history of IVDA, hepatitis C, endocarditis, septic emboli to lung, LLE DVT, RLE superficial venous thrombosis, Sandy Roy tear who presented to the ED with a rash on his abdomen, pain and numbness of the plantar surface of his right foot, bilateral neck pain. 1. Right IJ thrombosis due to IVDA -on lovenox -will need 3 months of AC -social media director consulted, need to see which oral AC covered with insurance and patient needs to be set up with clinic 2. Right foot pain and numbness -xray pending read -workup outpatient 3. Abdominal skin rash -resolving with topical steroid 4. History of LLE DVT, unclear follow-up 5. Hx Hepatitis C and endocarditis 6. Substance abuse -resume methadone 90 mg, was confirmed -refusing EKG until he gets his methadone, understands risks of cardiac arrythmias patient is aggressive and tempermental, wants benadryl and sudafed given around the clock for itchiness and congestion, one time doses given
[2019-04-22] MEDS ORDERED: METHADONE HCL 10 MG TABLET ONE ×2 (05:30→09:26)
[2019-04-22] MEDS ORDERED: METHADONE HCL 40 MG DISPERSABLE TABLET ONE ×2 (05:31→09:27)
[2019-04-22] MEDS: METHADONE 80 MG, METHADONE 10 MG PO SCH ×2 (07:36→09:39)
[2019-04-22] MEDS: NICOTINE 14 MG/24 HOURS TOPICAL PATCH TD SCH (09:40)
[2019-04-22] MEDS: ENOXAPARIN NA (PORCINE) 80 MG/0.8 ML DISP.SYRIN SQ SCH (09:40)
--- NOTE | 2019-04-22 10:37 | EKG ---
Test Reason : Blood Pressure : / mmHG Vent. Rate : 048 BPM Atrial Rate : 048 BPM P-R Int : 152 ms QRS Dur : 100 ms QT Int : 476 ms P-R-T Axes : 053 088 054 degrees QTc Int : 425 ms SINUS BRADYCARDIA OTHERWISE NORMAL ECG WHEN COMPARED WITH ECG OF 22-AUG-2018 10:35, VENT. RATE HAS DECREASED BY 23 BPM Confirmed by MARILYN BRAXTON MD ([id number]) on 04/22/2019 10:37:16 AM Referred By: Kuldip GRESHAM Confirmed By:MARILYN BRAXTON MD
--- NOTE | 2019-04-22 11:36 | DS ---
Physical Exam: SUBJECTIVE: Patient seen and examined at bedside. No acute events overnight. OBJECTIVE: Vital Signs Period Temp Pulse Resp BP Sys/Manning Pulse Ox Last 24 Hr 98.1 F 64 18 115/77 PHYSICAL EXAM GENERAL: AAO x3. pacing in room HEAD: Normal with no signs of trauma. EYES: Pupils equal, round and reactive to light, extraocular movements intact, sclera anicteric, conjunctiva clear EARS, NOSE, THROAT: Ears normal, nares patent, oropharynx clear without exudates. Moist mucous membranes. NECK: Normal range of motion, supple. +mild induration b/l neck . mild erythema LUNGS: Breath sounds equal, clear to auscultation bilaterally. No wheezes, and no crackles. No accessory muscle use. HEART: Regular rate and rhythm, normal S1 and S2 without murmur, rub or gallop. ABDOMEN: Soft, nontender, not distended, normoactive bowel sounds, no guarding. +maculopapular rash - R abdomen LOWER EXTREMITIES: 2+ pt pulses. No peripheral edema. NEUROLOGICAL: Cranial nerves II-XII intact.Normal gait. PSYCHIATRIC: Distant LABS Laboratory Results - last 24 hr 04/20/19 17:05 RPR Titer Nonreactive HOSPITAL COURSE: Date of Admission:04/20/19 IMAGING: * Foot xray: Degenerative changes w/ minimal bunion formation by 1st MTP joint. * Head/Neck U/S: Neg for abscess. RIJ vein thrombosis. LIJ vein patent. 33 y/o M with PMH IVDA (heroin, speedballs), on Methadone, Hep C, endocarditis ( 2018; strep and anarobes), septic lung emboli, L fem DVT and RLE superficial thromboses (was on hep gtt > coumadin 3 mo, noncompliant), Sandy Roy tear, hx R IJ line 2018 (d/t poor venous access), who presents to the ED c/o abdominal rash, R sole numbness, and b/l neck pain over the past 2-3 weeks. Pt was found to have +R IJ v thrombosis on head/neck ultrasound. Pt was seen by vascular surgeon and started on Lovenox for AC. His symptoms improved and was recommended to cont taking AC for 3 months. Additionally, pt complained of R foot pain. An xray of the R foot was done that showed degenerative changes w/ minimal bunion formation by 1st MTP joint. He was also found to have a pruritic rash on his abdomen after which he was given Hydrocortisone cream that improved his symptoms. Pt was discharged home and instructed to take Eliquis for 3 months , and to vascular surgeon as an outpatient. He was also advised to follow up with his PCP for further evaluation of his R foot pain as well as instructed to perform foot exercises for the pain. Date of Discharge: 04/22/19 Minutes to complete discharge: 35 Discharge Summary Reason For Visit: ACUTE EMBOLISM & THROMBOSIS OF INTERNAL JUGULAR VE Current Active Problems Internal jugular (IJ) vein thromboembolism, acute (Acute) Condition: Good - Instructions Diet, Activity, Other Instructions: You were seen in the hospital for complaints of right sided neck pain. Imaging studies were done that showed a blood clot in your right internal jugular vein. You were seen by the vascular surgeon and treated with anticoagulation medication via injection. You are being discharged home with instructions to continue this medication for 3 months. Additionally, you complained of foot pain. An x-ray was done of your foot that did not show any fractures, dislocations or other concerning signs of acute infection/pathology. MEDICATIONS We have made the following changes to your medications: Please START taking Eliquis 10 mg twice a day for 7 days. Then, START taking Eliquis 5 mg twice a day for 11 more weeks. Please START using Hydrocortisone cream for your rash. RECOMMENDATIONS It is STRONGLY advised that you discontinue using IV drugs as this can increase your risk of more blood clots, infections, and even . FOLLOW UP Please follow up with your primary care physician within 1 week. If you do not have a physician, you may make an appointment at [facility] with Dr. Camp or Dr. Shahid. You may be evaluated for your foot pain as an outpatient. Please follow up with your vascular surgeon, Dr. Calrk, within 1 week. Referrals: [facility] [Provider Group] - 1 Week Perry Nieto MD [Staff Physician] - 1 Week Lili Shahid RES [Resident] - [place] RES [Resident] - Merrill Clark DO [Staff Physician] - 1 Week Disposition: HOME - Home Medications Comprehensive Discharge Medication List: Ambulatory Orders Apixaban [Eliquis] 5 mg PO BID #42 tablet 04/22/19 Apixaban [Eliquis] 10 mg PO BID #28 tablet 04/22/19 This patient is new to me today: Yes Date on this admission: 04/22/19 Emergency Visit: Yes ED Registration Date: 04/20/19 Care time: The patient presented to the Emergency Department on the above date and was hospitalized for further evaluation of their emergent condition. Critical Care patient: No - Discharge Referral Referred to [facility] Yes Physician Referral: Merrill Clark DO ([facility])
--- NOTE | 2019-04-22 12:20 | PN ---
Teaching Attending Note Name of Resident: Lili Shahid ATTENDING PHYSICIAN STATEMENT I saw and evaluated the patient. I reviewed the resident's note and discussed the case with the resident. I agree with the resident's findings and plan as documented. SUBJECTIVE:c/o R foot pain, worse in the morning. starts in ball of foot and radiates to back of foot. unable to say if improves with walking or gets worse. seems inconsistent as it is worse some weeks and better others. denies CP,SOB, fever, chills, n/V/C/d OBJECTIVE: Last Vital Signs Temp Pulse Resp BP Pulse Ox 98.1 F 64 18 115/77 98 04/21/19 14:31 04/21/19 14:31 04/21/19 14:31 04/21/19 14:31 04/21/19 09:00 General NAD refused physical exam except for the feet Extremities pulses 2+ B/L no signs of track gonzalez on the feet or interdigit spacing. no tender spots but notes decreased sensation on the ball of R foot. good dorsi/plantar flexion. ASSESSMENT AND PLAN: 33 year old man with a history of IVDA, hepatitis C, endocarditis, septic emboli to lung, LLE DVT, RLE superficial venous thrombosis, Sandy Roy tear who presented to the ED with a rash on his abdomen, pain and numbness of the plantar surface of his right foot, bilateral neck pain. 1. Right IJ thrombosis- seen by vascular with no intervention at this time. on full dose lovenox. will switch to eliquis and educated on risks of bleeding. pt has been on medicaition in the past. advised 2 tabs BID x7D then 1 tab BID. will need to have repeat u/s in 3 months to evaluate for resolutin of clot 2. R foot pain- nothing seen on XR. perhaps has plantar fascitis? as worse in the AM. reluctant to answer more questions regarding pain. XR negative for any acute fracture. discussed stretching exercises to be done in the AM. advised caution using NSAIDS with anticoagulation. recommend to continue with exercises and if no improvement to f/u with PMD for further testing 3. Abdominal rash- not visualized but patient states its better and no longer pruritic 4. hx of LLE DVT 5. Hepatitis C 6. History of endocarditis 7. Substance abuse- On Methadone for opioid abuse 8. IVDA- discusses risks and consequences surrounding illicit drug use. pt states he has resources in the community and has desire to stop using at this time 9. d/c home on [employer]. Spoke with mother over the phone and discussed plan of care. pt agreeable to following up in resident clinic.
[2019-04-25 02:09] LABS: HEP B CORE AB, TOT Negative (Negative)
== END 2019-04-22 13:05 | disposition home or self-care (01) | DRG 197 ==
LOC: JER 09:14 → JERBED 13:42 → J7W 16:22
PROVIDERS: ADMIT Internal Medicine; ATTEND Internal Medicine
DX: I82.C11 Acute embolism and thrombosis of right internal jugular vein (principal); F11.20 Opioid dependence, uncomplicated; F17.210 Nicotine dependence, cigarettes, uncomplicated; F12.10 Cannabis abuse, uncomplicated; F14.10 Cocaine abuse, uncomplicated; B19.20 Unspecified viral hepatitis C without hepatic coma; Z86.718 Personal history of other venous thrombosis and embolism; Z91.14 Patient's other noncompliance with medication regimen
CPT/HCPCS: 36415; 73630-TC-RT-FY; 76536-TC; 80053; 82607; 82746; 85025; 85610; 85730; 86593; 86704; 86706; 86707; 87040; 87389; 93005; 93010; 99283-25

== ENCOUNTER 2019-09-01 11:09 | Emergency (ER) | payer OTHER ==
[2019-09-01 11:14] VITALS: BP 127/83; PULSE 73; TEMP 98; BMI 22.3
[2019-09-01] MEDS ORDERED: ACETAMINOPHEN 325 MG TABLET (FP) PO ONE (11:29)
[2019-09-01] MEDS ORDERED: ACETAMINOPHEN 325 MG TABLET (FP) ONE (11:48)
[2019-09-01 11:59] LABS: BASO % 0.4 % (0-2.0); EOS % 3.3 % (0-4.5); HEMATOCRIT 27.6 % (35.4-49); HEMOGLOBIN 9.4 GM/dL (11.7-16.9); LYMPH % 14.2 % (8-40); MCH 27.9 pg (25.7-33.7); MCHC 34.2 g/dl (32.0-35.9); MEAN CELL VOLUME 81.7 fl (80-96); MEAN PLT VOLUME 6.9 fl (7.5-11.1); MONO % 9.1 % (3.8-10.2); PLATELET COUNT 205 K/MM3 (134-434); RBC 3.37 M/mm3 (4.00-5.60); RDW 15.4 % (11.9-15.9); WHITE BLOOD COUNT 5.1 K/mm3 (4.0-10.0)
[2019-09-01 12:11] LABS: INR 1.23 (0.83-1.09); PROTHROMBIN TIME (PATIENT) 14.6 SEC (9.7-13.0)
[2019-09-01 12:23] LABS: ALBUMIN 3.6 g/dl (3.4-5.0); BILIRUBIN,TOTAL 0.4 mg/dL (0.2-1); BLOOD UREA NITROGEN 13.3 mg/dL (7-18); CALCIUM 8.6 mg/dL (8.5-10.1); POTASSIUM 4.3 mmol/L (3.5-5.1)
[2019-09-01] MEDS ORDERED: PSEUDOEPHEDRINE HCL 30 MG TABLET PO ONE (12:46)
--- NOTE | 2019-09-01 13:54 | PDOC ---
History of Present Illness - General Chief Complaint: Abscess Boil Stated Complaint: NECK INFECTION Time Seen by Provider: 09/01/19 11:20 History Source: Patient, Family Exam Limitations: No Limitations Past History - Travel Traveled outside of the country in the last 30 days: No Close contact w/someone who was outside of country & ill: No - Past Medical History Allergies/Adverse Reactions: Allergies Allergy/AdvReac Type Severity Reaction Status Date / Time haloperidol [From Haldol] Allergy Low Blood Verified 09/01/19 11:13 Pressure tramadol Allergy Low Blood Verified 09/01/19 11:13 Pressure Home Medications: Ambulatory Orders Methadone [Dolophine -] 100 mg PO DAILY 04/22/19 Acetaminophen [Tylenol] 650 mg PO Q4H #30 tablet 09/01/19 Clindamycin [Cleocin -] 300 mg PO TID #21 capsule 09/01/19 Mupirocin Ointment [Bactroban 2% Ointment -] 1 applic TP TID #1 tube 09/01/19 Anemia: No Asthma: No Cancer: No Cardiac Disorders: No CVA: No COPD: No CHF: No Dementia: No Diabetes: No GI Disorders: No Disorders: No HTN: No Hypercholesterolemia: No Kidney Stones: No Liver Disease: No Seizures: Yes (last episode 2013 r/t tramadol) Thyroid Disease: No - Surgical History Abdominal Surgery: No Appendectomy: No Cardiac Surgery: No Cholecystectomy: No Lung Surgery: No Neurologic Surgery: No Orthopedic Surgery: No - Reproductive History Testicular Surgery: No - Immunization History Immunization Up to Date: Yes - Psycho Social/Smoking Cessation Hx Smoking History: Current every day smoker Have you smoked in the past 12 months: No Number of Cigarettes Smoked Daily: 5 Information on smoking cessation initiated: No 'Breaking Loose' booklet given: 04/20/19 Hx Alcohol Use: No Drug/Substance Use Hx: Yes (heroin) Substance Use Type: Cocaine, Heroin, Marijuana Hx Substance Use Treatment: Yes Review of Systems - Review of Systems Able to Perform ROS?: Yes Comments:: 09/01/19 14:31 CONSTITUTIONAL: Absent: fever, chills, diaphoresis, generalized weakness, malaise, loss of appetite HEENT: Absent: rhinorrhea, nasal congestion, throat pain, throat swelling, difficulty swallowing, mouth swelling, ear pain, eye pain, visual Changes CARDIOVASCULAR: Absent: chest pain, loss of consciousness, palpitations, irregular heart rate, peripheral edema RESPIRATORY: Absent: cough, shortness of breath, dyspnea with exertion, orthopnea, wheezing, stridor, hemoptysis GASTROINTESTINAL: Absent: abdominal pain, abdominal distension, nausea, vomiting, diarrhea, constipation, melena, hematochezia GENITOURINARY: Absent: dysuria, frequency, urgency, hesitancy, hematuria, flank pain, genital pain MUSCULOSKELETAL: Absent: myalgia, arthralgia, joint swelling SKIN: Present: redness and swelling to R neck Absent: rash, itching, pallor HEMATOLOGIC/IMMUNOLOGIC: Absent: easy bleeding, easy bruising, lymphadenopathy, frequent infections ENDOCRINE: Absent: unexplained weight gain, unexplained weight loss, heat intolerance, cold intolerance NEUROLOGIC: Absent: headache, focal weakness or paresthesias, dizziness, unsteady gait, seizure, mental status changes, bladder or bowel incontinence PSYCHIATRIC: Absent: anxiety, depression, suicidal or homicidal ideation, hallucinations. Is the patient limited Estonian proficient: No *Physical Exam - Vital Signs Last Vital Signs Temp Pulse Resp BP Pulse Ox 98 F 73 18 127/83 99 09/01/19 11:11 09/01/19 11:11 09/01/19 11:11 09/01/19 11:11 09/01/19 11:11 - Physical Exam Comments: 09/01/19 15:36 GENERAL: Well developed, well nourished. Awake and alert. No acute distress. HEENT: Normocephalic, atraumatic. PERRLA, EOMI. No conjunctival pallor. Sclera are non- icteric. Moist mucous membranes. Oropharynx is clear. NECK: Supple. Full ROM. No JVD. Carotid pulses 2+ and symmetric, without bruits. No thyromegaly. No lymphadenopathy. CARDIOVASCULAR: Regular rate and rhythm. No murmurs, rubs, or gallops. Distal pulses are 2+ and symmetric. PULMONARY: No evidence of respiratory distress. Lungs clear to auscultation bilaterally. No wheezing, rales or rhonchi. ABDOMINAL: Soft. Non-tender. Non-distended. No rebound or guarding. No organomegaly. Normoactive bowel sounds. MUSCULOSKELETAL Normal range of motion at all joints. No bony deformities or tenderness. No CVA tenderness. EXTREMITIES: No cyanosis. No clubbing. No edema. No calf tenderness. SKIN: Swelling noted to the R lateral neck with associated track gonzalez. Warm and dry. Normal capillary refill. No rashes. No jaundice. NEUROLOGICAL: Alert, awake, appropriate. Cranial nerves 2-12 intact. No deficits to light touch and temperature in face, upper extremities and lower extremities. No motor deficits in the in face, upper extremities and lower extremities. Normoreflexic in the upper and lower extremities. Normal speech. Toes are down- going bilaterally. Gait is normal without ataxia. PSYCHIATRIC: Cooperative. Good eye contact. Appropriate mood and affect. ED Treatment Course - LABORATORY CBC & Chemistry Diagram: 09/01/19 11:45 09/01/19 11:45 - ADDITIONAL ORDERS Additional order review: Laboratory Results 09/01/19 09/01/19 11:45 11:45 PT with INR 14.60 H INR 1.23 H Sodium 138 Potassium 4.3 Chloride 107 Carbon Dioxide 25 Anion Gap 6 L BUN 13.3 Creatinine 1.0 Est GFR (CKD-EPI)AfAm 111.73 Est GFR (CKD-EPI)NonAf 96.40 Random Glucose 115 H Calcium 8.6 Total Bilirubin 0.4 AST 38 H ALT 37 Alkaline Phosphatase 55 Total Protein 7.0 Albumin 3.6 09/01/19 11:45 RBC 3.37 L MCV 81.7 MCHC 34.2 RDW 15.4 MPV 6.9 L Neutrophils % 73.0 Lymphocytes % 14.2 D Monocytes % 9.1 Eosinophils % 3.3 Basophils % 0.4 - RADIOLOGY Radiology Studies Ordered: Category Date Time Status SOFT TISSUE NECK AND HEAD US [US] Stat Ultrasound 09/01/19 11:28 Completed - Medications Given in the ED: ED Medications Discontinued Medications Generic Name Dose Route Start Last Admin Trade Name Freq PRN Reason Stop Dose Admin Acetaminophen 650 mg 09/01/19 11:29 09/01/19 11:51 Tylenol - PO 09/01/19 11:30 650 mg ONCE ONE Administration Pseudoephedrine HCl 30 mg 09/01/19 12:46 09/01/19 13:38 Sudafed - PO 09/01/19 12:47 30 mg ONCE ONE Administration Medical Decision Making - Medical Decision Making 09/01/19 15:44 The patient is a 34-year-old male with past medical history of IV drug abuse, clot in the right IJ due to drug use, presents to the ER today for pain to his right neck. He states he shot up into his right neck yesterday with cocaine and heroin. He states that he has noticed his neck gotten red and swollen after the injection. He states that his symptoms got better overnight but it is still painful so he came to the ER for evaluation. He is not currently taking Plavix for the right IJ clot as he was told to stop by the specialist this week. A/P: Abscess On exam patient with a firm tender area to the right lateral neck. Does not feel like a lymph node Patient sent for ultrasound. Complex abscess noted with multiple pockets. Unable to drain it today in the ER as it is not fluctuant or ready to be drained. Lab work is grossly unremarkable Given the complexity of the abscess with IV drug abuse, recommend that the patient come in for IV antibiotics and surgical drainage. Patient does not want to stay in the hospital and would like to try outpatient treatment first. Discussed with the patient that given the complexity of the abscess it is unlikely that outpatient antibiotics will clear it. Patient agrees to sign out AMA. The patient is clinically sober, free from distracting injury, appears to have intact insight and judgment and reason and in my opinion has the capacity to make decisions. The patient presents with a R neck abscess d/t IVDU. I have explained that I am concerned that the abscess is complex and may not respond to IV abx. They have verbalized an understanding of my concerns. I have told the patient that while their blood work was normal, there is still an abscess that needs treatment.. I have discussed the need for IV abx and surgical consult. I have told the patient that if they leave, they could get much worse, could become critically ill, and could possibly become disabled or . I have asked them to stay in the hospital for the IV abx and surgical consult. I have discussed these concerns with the patient's mother who is at the bedside and is unable to convince them to stay for further evaluation. The patient is not willing to undergo an admission. He is unwilling to stay overnight for monitoring. He is refusing any further care and is leaving against medical advice. I am unable to convince the patient to stay, I have asked them to return as soon as possible to complete their evaluation. I have sent out patient antibiotics to try and treat the infection and surgical consultation. I have answered all of their questions. Discharge - Discharge Information Problems reviewed: Yes Clinical Impression/Diagnosis: Left against medical advice, Abscess Condition: Stable Disposition: HOME - Admission No - Additional Discharge Information Prescriptions: Acetaminophen [Tylenol] 650 mg PO Q4H #30 tablet Clindamycin [Cleocin -] 300 mg PO TID #21 capsule Mupirocin Ointment [Bactroban 2% Ointment -] 1 applic TP TID #1 tube - Follow up/Referral Referrals: Perry Nieto MD [Primary Care Provider] - Lawrence Umana MD [Staff Physician] - Gilberto Hancock MD [Staff Physician] - - Patient Discharge Instructions Patient Printed Discharge Instructions: DI for Skin Abscess Additional Instructions: You have an abscess in your neck, which appeared complex on the ultrasound You are leaving AGAINST MEDICAL ADVICE as we wanted to admit you for IV antibiotics and surgical consult Take the Clindamycin every 8 hours for one week with food Apply warm compresses to the area 4-5 time a day. Follow up with Dr. Umana tomorrow for further evaluation and management of your symptoms Do not shoot up in the area of your right neck. Return to the ER for fever, increased pain, swelling to the site, difficulty swallowing or if you have any changes in your symptoms - Post Discharge Activity
== END 2019-09-01 14:45 | disposition left against medical advice (07) ==
LOC: JER 11:09
DX: L02.11 Cutaneous abscess of neck (principal); F11.10 Opioid abuse, uncomplicated; F14.10 Cocaine abuse, uncomplicated; Z88.8 Allergy status to other drugs, medicaments and biological substances
CPT/HCPCS: 36415; 76536-TC; 80053; 85025; 85610; 99283-25

== ENCOUNTER 2019-09-07 09:13 | Emergency (ER) | payer OTHER ==
[2019-09-07 09:23] VITALS: BP 104/55; PULSE 74; TEMP 98.5; BMI 22.3
[2019-09-07] MEDS ORDERED: SULFAMETHOXAZOLE/TRIMETHOPRIM 800MG/160MG D.S. TABLET PO ONE (12:08)
--- NOTE | 2019-09-07 12:12 | PDOC ---
Documentation entered by Dionicio Cohen SCRIBE, acting as scribe for Rebecca Valentine MD. Rebecca Valentine MD: This documentation has been prepared by the Vicki munoz Xhesika, SCRIBE, under my direction and personally reviewed by me in its entirety. I confirm that the documentation accurately reflects all work, treatment, procedures, and medical decision making performed by me. Attending Attestation - Resident Resident Name: JuniorReyesdomonique - ED Attending Attestation I have performed the following: I have examined & evaluated the patient, The case was reviewed & discussed with the resident, I agree w/resident's findings & plan, Exceptions are as noted - HPI HPI: 09/07/19 11:16 The patient is a 34 year old male with a significant past medical history of polysubstance abuse, hepatitis C, endocarditis, septic lung emboli, DVT, and katia- doyle tear who presents to the ED with L anterior dorman abscess. Patient notes he is an active cocaine injector and injects in his L ankle. Patient notes his ankle was puffy, erythematous and edematous, so he popped the abscess with a needle with clear reddish fluid drainage from the abscess. Patient notes he also injects in his neck, had a neck abscess and was recently placed on antibiotics. Pt is ambulatory. Allergies: Haldol, Tramadol Social history: Everyday smoker. polysubstance abuse (active cocaine usage) PCP: Perry Saenz - Physicial Exam PE: 09/07/19 11:19 GENERAL: The patient is in no acute distress. ENT: Moist mucous membranes. NECK: Normal range of motion, supple, no abscesses palpated LUNGS: Breath sounds equal, clear to auscultation bilaterally. No wheezes, and no crackles. HEART: Regular rate and rhythm, normal S1 and S2 without murmur, rub or gallop. ABDOMEN: Soft, nontender, normoactive bowel sounds. No guarding, no rebound. EXTREMITIES: RLE, medial region just superior to the medial malleolus multiple needle gonzalez noted, fluctuance noted, no expressible purulence, tenderr to palpation, no erythema NEUROLOGICAL: Cranial nerves II through XII grossly intact. Normal speech. No focal neurological deficits. MUSCULOSKELETAL: No swelling of the ankle joint, no limitations in range of motion SKIN: no erythema, no drainage, multiple needle gonzalez noted 09/07/19 12:05 - Medical Decision Making 09/07/19 12:10 Bedside ultrasound performed of the local area of induration. There is no focal abscess seen X-ray performed No foreign body seen We will discharge patient on antibiotics Patient to follow-up with primary care physician Monitor for systemic signs of illness Return to the ER for any other concerns or complain Clinical impression: subcutaneous infection secondary to injection of drugs
--- NOTE | 2019-09-07 12:15 | PDOC ---
History of Present Illness - General Chief Complaint: Abscess Boil Stated Complaint: ABSCESS/LF ANKLE/THROAT Time Seen by Provider: 09/07/19 09:54 History Source: Patient Exam Limitations: No Limitations - History of Present Illness Initial Comments: 09/07/19 12:08 Patient is a 34F with history of IVDA, endocarditis, HCV here today with pain to his left ankle that started yesterday. Patient has been actively injecting in the area. Patient endorses cocaine use. Endorses area of swelling and redness that improved after he poked the area with a needle. Patient reports serosanguinous fluid released. Patient was seen 8 days ago for neck pain concerning for neck abscess, patient left ama on clindamycin. Patient reports resolution of symptoms. Denies fevers, chills, nausea, vomiting. Denies chest pain, shortness of breath, abdominal pain. Reports pain improved after drainage. Reports no pain with walking. Past History - Past Medical History Allergies/Adverse Reactions: Allergies Allergy/AdvReac Type Severity Reaction Status Date / Time haloperidol [From Haldol] Allergy Low Blood Verified 09/07/19 09:18 Pressure tramadol Allergy Low Blood Verified 09/07/19 09:18 Pressure Home Medications: Ambulatory Orders Methadone [Dolophine -] 100 mg PO DAILY 04/22/19 Acetaminophen [Tylenol] 650 mg PO Q4H #30 tablet 09/01/19 Clindamycin [Cleocin -] 300 mg PO TID #21 capsule 09/01/19 Mupirocin Ointment [Bactroban 2% Ointment -] 1 applic TP TID #1 tube 09/01/19 Sulfamethoxazole/Trimethoprim [Bactrim Ds -] 1 tab PO BID #14 tablet 09/07/19 Anemia: No Asthma: No Cancer: No Cardiac Disorders: No CVA: No COPD: No CHF: No Dementia: No Diabetes: No GI Disorders: No Disorders: No HTN: No Hypercholesterolemia: No Kidney Stones: No Liver Disease: No Seizures: Yes (last episode 2013 r/t tramadol) Thyroid Disease: No - Surgical History Abdominal Surgery: No Appendectomy: No Cardiac Surgery: No Cholecystectomy: No Lung Surgery: No Neurologic Surgery: No Orthopedic Surgery: No - Reproductive History Testicular Surgery: No - Immunization History Immunization Up to Date: Yes - Psycho Social/Smoking Cessation Hx Smoking History: Current every day smoker Have you smoked in the past 12 months: No Number of Cigarettes Smoked Daily: 5 Information on smoking cessation initiated: Yes 'Breaking Loose' booklet given: 04/20/19 Hx Alcohol Use: No Drug/Substance Use Hx: Yes Substance Use Type: Cocaine, Heroin, Marijuana Hx Substance Use Treatment: Yes Review of Systems - Review of Systems Able to Perform ROS?: Yes Comments:: 09/07/19 12:12 GENERAL/CONSTITUTIONAL: No fever or chills. No weakness. HEAD, EYES, EARS, NOSE AND THROAT: No change in vision. No sore throat. CARDIOVASCULAR: No chest pain or shortness of breath RESPIRATORY: No cough, wheezing, or hemoptysis. GASTROINTESTINAL: No nausea, vomiting, diarrhea or constipation. GENITOURINARY: No dysuria, frequency, or change in urination. MUSCULOSKELETAL: +L ankle pain. No neck or back pain. SKIN: No rash NEUROLOGIC: No headache, vertigo, loss of consciousness, or change in strength/ sensation. ENDOCRINE: No increased thirst. No abnormal weight change ALLERGIC/IMMUNOLOGIC: No hives or skin allergy. *Physical Exam - Vital Signs Last Vital Signs Temp Pulse Resp BP Pulse Ox 98.5 F 74 18 104/55 L 100 09/07/19 09:18 09/07/19 09:18 09/07/19 09:18 09/07/19 09:18 09/07/19 09:18 - Physical Exam Comments: 09/07/19 12:12 GENERAL: Awake, alert, and fully oriented, in no acute distress HEAD: No signs of trauma, normocephalic, atraumatic EYES: PERRLA, EOMI, sclera anicteric, conjunctiva clear ENT: Auricles normal inspection, hearing grossly normal, nares patent, oropharynx clear without exudates. Moist mucosa NECK: Normal ROM, supple, track gonzalez along IJ, no masses or tenderness LUNGS: No distress, speaks full sentences, clear to auscultation bilaterally HEART: Regular rate and rhythm, normal S1 and S2, no murmurs, rubs or gallops, peripheral pulses normal and equal bilaterally. ABDOMEN: Soft, nontender, normoactive bowel sounds. No guarding, no rebound. No masses EXTREMITIES: Normal inspection, Normal range of motion, no edema. No clubbing or cyanosis. NEUROLOGICAL: Cranial nerves II through XII grossly intact. Normal speech, normal gait, no focal sensorimotor deficits L ANKLE: Area of tenderness with track gonzalez, no bony tenderness, no surrounding erythema. Pulses, sensation and motor function intact. SKIN: Warm, Dry, normal turgor, no rashes or lesions noted. ED Treatment Course - RADIOLOGY Radiology Studies Ordered: Category Date Time Status ANKLE-LEFT [RAD] Stat Radiology 09/07/19 11:15 Taken Medical Decision Making - Medical Decision Making 09/07/19 12:15 Patient is 34M with history of IVDA, endocarditis, IJ occlusion here today with abscess in L leg. Vitals normal and stable. No signs of septic joint, spreading infection. Ultrasound shows small fluid collection with cobblestoning. Collection not large enough to drain. X-ray shows no fracture. Given return precautions, discharged on bactrim. Discharge - Discharge Information Problems reviewed: Yes Clinical Impression/Diagnosis: Abscess Condition: Good - Admission No - Additional Discharge Information Prescriptions: Sulfamethoxazole/Trimethoprim [Bactrim Ds -] 1 tab PO BID #14 tablet - Follow up/Referral Referrals: Perry Nieto MD [Primary Care Provider] - - Patient Discharge Instructions Patient Printed Discharge Instructions: DI for Skin Abscess Additional Instructions: Please follow up with your surgeon as planned regarding your neck. Please follow up with the primary care physician below in the next week. Please take your antibiotics as directed. Please return to the ED immediately if you notice spreading redness, increasing pain, or fever. - Post Discharge Activity
[2019-09-07] MEDS ORDERED: SULFAMETHOXAZOLE/TRIMETHOPRIM 800MG/160MG D.S. TABLET ONE (12:23)
== END 2019-09-07 12:43 | disposition home or self-care (01) ==
LOC: JERFT 09:13 → JER 09:13
PROC: BH48ZZZ Ultrasonography of Lower Extremity (ICD-10-PCS; principal; 2019-09-07)
DX: L08.89 Other specified local infections of the skin and subcutaneous tissue (principal); L02.416 Cutaneous abscess of left lower limb; G40.509 Epileptic seizures related to external causes, not intractable, without status epilepticus; F14.10 Cocaine abuse, uncomplicated; B18.2 Chronic viral hepatitis C; Z86.73 Personal history of transient ischemic attack (TIA), and cerebral infarction without residual deficits; Z86.718 Personal history of other venous thrombosis and embolism; Z86.711 Personal history of pulmonary embolism; F17.210 Nicotine dependence, cigarettes, uncomplicated; Z88.8 Allergy status to other drugs, medicaments and biological substances
CPT/HCPCS: 73610-TC-LT-FY; 76882-TC-LT-FY; 99281-25

== ENCOUNTER 2019-10-12 13:20 | Inpatient (IN) | payer OTHER ==
[2019-10-12 15:17] LABS: BASO % 0.3 % (0-2.0); EOS % 1.2 % (0-4.5); HEMATOCRIT 29.3 % (35.4-49); HEMOGLOBIN 9.2 GM/dL (11.7-16.9); MCH 25.3 pg (25.7-33.7); MCHC 31.5 g/dl (32.0-35.9); MEAN CELL VOLUME 80.2 fl (80-96); MEAN PLT VOLUME 6.9 fl (7.5-11.1); MONO % 6.8 % (3.8-10.2); NEUT % 80.7 % (42.8-82.8); PLATELET COUNT 265 K/MM3 (134-434); RBC 3.66 M/mm3 (4.00-5.60); RDW 15.7 % (11.9-15.9); WHITE BLOOD COUNT 10.4 K/mm3 (4.0-10.0)
[2019-10-12 15:48] LABS: ALBUMIN 3.3 g/dl (3.4-5.0); BILIRUBIN,TOTAL 0.3 mg/dL (0.2-1); BLOOD UREA NITROGEN 8.1 mg/dL (7-18); CALCIUM 8.9 mg/dL (8.5-10.1); CREATININE 1.2 mg/dL (0.55-1.3); MAGNESIUM 2.2 mg/dL (1.8-2.4); PHOSPHOROUS 3.6 mg/dL (2.5-4.9); POTASSIUM 4.1 mmol/L (3.5-5.1); TOT PROT 7.2 g/dl (6.4-8.2)
[2019-10-12 15:53] LABS: EPI CELLS 0.7 /HPF (0-5/HPF); HYALINE CASTS 0 /lpf (0-8); PH,URINE 6.5 (5.0-8.0); URINE APPEARANCE CLEAR; URINE BACTERIA 0.3 /hpf (NEGATIVE); URINE BILIRUBIN NEGATIVE (NEGATIVE); URINE COLOR YELLOW; URINE GLUCOSE (UA) NEGATIVE (NEGATIVE); URINE KETONE NEGATIVE (NEGATIVE); URINE LEUK ESTERASE NEGATIVE (NEGATIVE); URINE NITRITE NEGATIVE (NEGATIVE); URINE PROTEIN NEGATIVE (NEGATIVE); URINE RBC 342 /hpf (0-4); URINE WBC 1 /hpf (0-5)
[2019-10-12 15:54] LABS: INR 1.36 (0.83-1.09); PROTHROMBIN TIME (PATIENT) 16.1 SEC (9.7-13.0)
--- NOTE | 2019-10-12 15:54 | PDOC ---
History of Present Illness - General Chief Complaint: Pain, Acute Stated Complaint: PAIN Time Seen by Provider: 10/12/19 14:17 History Source: Patient Exam Limitations: No Limitations - History of Present Illness Initial Comments: 10/12/19 15:49 34 yo M w/ a h/o Hep C, LE DVT, katia doyle tear, septic embolus, endocarditis , IVDA (heroin and cocaine), on methadone comes in c/o L sided neck pain and swelling since yesterday after shooting up. (+)chills, no fever. Also c/o LLE swelling, redness and pain for the past 3 days. He had something similar 3 weeks ago, was placed on antibiotics but it did not help much. Denies recent trauma/fall. C/o (+)intermittent diffuse lower abdominal pain for the past 10 days associated with alternating constipation and bloody diarrhea. He admits having abdominal pain intermittently for the past 6 months but it has never been this bad No vomiting, no chest pain, no SOB. 10/12/19 15:55 10/12/19 16:02 Past History - Past Medical History Allergies/Adverse Reactions: Allergies Allergy/AdvReac Type Severity Reaction Status Date / Time haloperidol [From Haldol] Allergy Low Blood Verified 10/12/19 13:29 Pressure tramadol Allergy Low Blood Verified 10/12/19 13:29 Pressure Home Medications: Ambulatory Orders Methadone [Dolophine -] 100 mg PO DAILY 04/22/19 Acetaminophen [Tylenol] 650 mg PO Q4H #30 tablet 09/01/19 Clindamycin [Cleocin -] 300 mg PO TID #21 capsule 09/01/19 Mupirocin Ointment [Bactroban 2% Ointment -] 1 applic TP TID #1 tube 09/01/19 Ibuprofen 600 mg PO TID #20 tablet 09/07/19 Sulfamethoxazole/Trimethoprim [Bactrim Ds -] 1 tab PO BID #14 tablet 09/07/19 Anemia: No Asthma: No Cancer: No Cardiac Disorders: No CVA: No COPD: No CHF: No Dementia: No Diabetes: No GI Disorders: No Disorders: No HTN: No Hypercholesterolemia: No Kidney Stones: No Liver Disease: No Seizures: Yes (last episode 2013 r/t tramadol) Thyroid Disease: No - Surgical History Abdominal Surgery: No Appendectomy: No Cardiac Surgery: No Cholecystectomy: No Lung Surgery: No Neurologic Surgery: No Orthopedic Surgery: No - Reproductive History Testicular Surgery: No - Immunization History Immunization Up to Date: Yes - Psycho Social/Smoking Cessation Hx Smoking History: Never smoked Have you smoked in the past 12 months: No Number of Cigarettes Smoked Daily: 5 'Breaking Loose' booklet given: 04/20/19 Hx Alcohol Use: Yes Drug/Substance Use Hx: Yes (cocaine/heroin) Substance Use Type: Cocaine, Heroin, Marijuana Hx Substance Use Treatment: Yes Review of Systems - Review of Systems Able to Perform ROS?: Yes Constitutional: Yes: Chills. No: Fever, Malaise, Night Sweats HEENTM: No: Eye Pain, Recent change in vision, Throat Pain Respiratory: No: Cough, Shortness of Breath Cardiac (ROS): No: Chest Pain, Palpitations, Chest Tightness ABD/GI: Yes: Constipated, Diarrhea, Nausea, Abdominal cramping. No: Vomiting : No: Dysuria, Hematuria Musculoskeletal: No: Back Pain Integumentary: No: Rash Neurological: No: Headache, Numbness, Dizziness Psychiatric: No: Change in Appetite Endocrine: No: Unexplained Weight Loss *Physical Exam - Vital Signs Last Vital Signs Temp Pulse Resp BP Pulse Ox 98.3 F 82 18 103/64 97 10/12/19 13:27 10/12/19 13:27 10/12/19 13:27 10/12/19 13:27 10/12/19 13:27 - Physical Exam General Appearance: Yes: Nourished. No: Apparent Distress HEENT: positive: VINAYAK, Normal Voice. negative: Pale Conjunctivae, Scleral Icterus (R), Scleral Icterus (L) Neck: positive: Supple, Other (L sided slightly tender soft gum ball size mass, with overlying track gonzalez, no erythema, no fluctuance, no induration, no head, no streaking.). negative: Decreased range of motion, Tender midline Respiratory/Chest: positive: Lungs Clear, Normal Breath Sounds. negative: Respiratory Distress, Accessory Muscle Use Cardiovascular: positive: Regular Rhythm, Regular Rate Gastrointestinal/Abdominal: positive: Normal Bowel Sounds, Tender (non focal diffuse lower abdominal tenderness, no tenderness at McBurney's point, (-) rebound, (-)Rosving sign), Soft. negative: Guarding, Rebound Musculoskeletal: positive: Normal Inspection. negative: CVA Tenderness, Decreased Range of Motion Extremity: positive: Normal Capillary Refill, Normal Range of Motion, Pedal Edema (pitting LLE), Other (LLE with lower leg erythema with diffuse track gonzalez , warmth, (+)pitting edema, faint distal pulses. FROM and 5/5 strength, no calf tenderness, (-)Milton sign). negative: Tender Integumentary: positive: Normal Color, Dry, Other (Diffuse scattered track gonzalez ). negative: Jaundice, Rash Neurologic: positive: Fully Oriented, Alert, Normal Mood/Affect ED Treatment Course - LABORATORY CBC & Chemistry Diagram: 10/12/19 14:40 10/12/19 14:40 - ADDITIONAL ORDERS Additional order review: Laboratory Results 10/12/19 10/12/19 14:40 14:40 Sodium 140 Potassium 4.1 Chloride 104 Carbon Dioxide 26 Anion Gap 9 BUN 8.1 Creatinine 1.2 Est GFR (CKD-EPI)AfAm 89.62 Est GFR (CKD-EPI)NonAf 77.33 Random Glucose 89 Calcium 8.9 Phosphorus 3.6 Magnesium 2.2 Total Bilirubin 0.3 AST 13 L ALT 16 Alkaline Phosphatase 60 Total Protein 7.2 Albumin 3.3 L Lipase 63 L 10/12/19 14:40 RBC 3.66 L MCV 80.2 MCHC 31.5 L RDW 15.7 MPV 6.9 L Neutrophils % 80.7 Lymphocytes % 11.0 D Monocytes % 6.8 Eosinophils % 1.2 Basophils % 0.3 - RADIOLOGY Radiology Studies Ordered: Category Date Time Status ABDOMEN & PELVIS CT WITH CONTR [CT] Stat CT Scan 10/12/19 15:17 Ordered DUPLEX VASCUL US-2LEGS [US] Stat Ultrasound 10/12/19 14:35 Ordered SOFT TISSUE NECK AND HEAD US [US] Stat Ultrasound 10/12/19 14:47 Ordered Medical Decision Making - Medical Decision Making 10/12/19 16:02 34 yo M w/ IVDA, endocarditis, Hep C, septic emboli, DVT p/w L sided neck swelling and pain after shooting. R/O embolus. Unlikely abscess, no overlying erythema/warmth/fluctuance/induration. Also w/ LLE pitting edema and erythema w/ track gonzalez, likely cellulitis, will do a sono R/O DVT Also w/ 10 days of abdominal pain, nausea, constipation, diarrhea and bloody stools. Wll line and lab, do a CT abdomen/pelvis and reassess 10/12/19 16:02 Change of shift, care of patient signed over to NITHIN Young who will continue care and decide on dispo plan. Discharge - Discharge Information Problems reviewed: Yes Clinical Impression/Diagnosis: Cocaine dependence, Opiate dependence, Neck swelling - Follow up/Referral Referrals: Perry Nieto MD [Primary Care Provider] - - Patient Discharge Instructions - Post Discharge Activity
--- NOTE | 2019-10-12 16:29 | PDOC ---
*Physical Exam - Vital Signs Last Vital Signs Temp Pulse Resp BP Pulse Ox 98.3 F 82 18 103/64 97 10/12/19 13:27 10/12/19 13:27 10/12/19 13:27 10/12/19 13:27 10/12/19 13:27 - Physical Exam General Appearance: Yes: Nourished, Appropriately Dressed. No: Apparent Distress Extremity: positive: Tender, Calf Tenderness (b/l), Erythema Neurologic: positive: Fully Oriented, Alert, Normal Mood/Affect, Normal Response ED Treatment Course - LABORATORY CBC & Chemistry Diagram: 10/12/19 21:55 10/12/19 14:40 - ADDITIONAL ORDERS Additional order review: Laboratory Results 10/12/19 10/12/19 10/12/19 15:40 15:25 14:40 PT with INR 16.10 H INR 1.36 H Sodium Potassium Chloride Carbon Dioxide Anion Gap BUN Creatinine Est GFR (CKD-EPI)AfAm Est GFR (CKD-EPI)NonAf Random Glucose Calcium Phosphorus Magnesium Total Bilirubin AST ALT Alkaline Phosphatase Total Protein Albumin Lipase 63 L Urine Color Yellow Urine Appearance Clear Urine pH 6.5 Ur Specific [place] 1.020 Urine Protein Negative Urine Glucose (UA) Negative Urine Ketones Negative Urine Blood 3+ H Urine Nitrite Negative Urine Bilirubin Negative Urine Urobilinogen 1.0 Ur Leukocyte Esterase Negative Urine WBC (Auto) 1 Urine RBC (Auto) 342 Urine Casts (Auto) 0 U Epithel Cells (Auto) 0.7 Urine Bacteria (Auto) 0.3 10/12/19 14:40 PT with INR INR Sodium 140 Potassium 4.1 Chloride 104 Carbon Dioxide 26 Anion Gap 9 BUN 8.1 Creatinine 1.2 Est GFR (CKD-EPI)AfAm 89.62 Est GFR (CKD-EPI)NonAf 77.33 Random Glucose 89 Calcium 8.9 Phosphorus 3.6 Magnesium 2.2 Total Bilirubin 0.3 AST 13 L ALT 16 Alkaline Phosphatase 60 Total Protein 7.2 Albumin 3.3 L Lipase Urine Color Urine Appearance Urine pH Ur Specific [place] Urine Protein Urine Glucose (UA) Urine Ketones Urine Blood Urine Nitrite Urine Bilirubin Urine Urobilinogen Ur Leukocyte Esterase Urine WBC (Auto) Urine RBC (Auto) Urine Casts (Auto) U Epithel Cells (Auto) Urine Bacteria (Auto) 10/12/19 14:40 RBC 3.66 L MCV 80.2 MCHC 31.5 L RDW 15.7 MPV 6.9 L Neutrophils % 80.7 Lymphocytes % 11.0 D Monocytes % 6.8 Eosinophils % 1.2 Basophils % 0.3 Medical Decision Making - Medical Decision Making 10/12/19 23:40 Signout was given to me by NITHIN Babb at 1600. First IV line blew. 2nd IV line placement delayed as family and patient is requesting use of the ultrasound to place the line, which was in use in the ED. Explained this to patient. Second IV placed in the right brachial vein. Done with ultrasound, by Dr. León CT AP shows proctitis Patient reports vague abdominal symptoms starting 10 days ago after eating a salad. Possible proctitis due to E. coli? Patient denies sexual intercourse. DVT ultrasound shows bilateral DVTs in the common femoral veins. Patient stopped his anticoagulation in August. There is overlying cellulitis on the left lower extremity. Given IV drug user with cellulitis and bilateral DVTs and in addition proctatitis will admit to the hospital for IV antibiotics and anticoagulation Hospitalist group paged. 10/13/19 02:02 Sign out given to Dr. Meléndez, med/surg admit Discharge - Discharge Information Problems reviewed: Yes Clinical Impression/Diagnosis: Neck swelling, Proctitis Cocaine dependence Qualifiers: Substance use status: uncomplicated Qualified Code(s): F14.20 - Cocaine dependence, uncomplicated Opiate dependence Qualifiers: Substance use status: uncomplicated Qualified Code(s): F11.20 - Opioid dependence, uncomplicated DVT (deep venous thrombosis) Qualifiers: DVT location: lower extremity Affected thrombotic vein of extremity: femoral Chronicity: acute Laterality: bilateral Qualified Code(s): I82.413 - Acute embolism and thrombosis of femoral vein, bilateral Condition: Guarded Disposition: AGAINST MEDICAL ADVICE - Admission Yes - Follow up/Referral - Patient Discharge Instructions - Post Discharge Activity
[2019-10-12] MEDS ORDERED: diazePAM 5 MG TABLET PO ONE ×2 (16:55→20:59)
[2019-10-12] MEDS ORDERED: ONDANSETRON 4 MG/2 ML VIAL IVPUSH ONE (16:55)
[2019-10-12] MEDS ORDERED: ONDANSETRON 4 MG/2 ML VIAL ONE (17:28)
[2019-10-12] MEDS ORDERED: diazePAM 5 MG TABLET ONE ×2 (17:28→21:09)
[2019-10-12 22:03] LABS: BASO % 0.3 % (0-2.0); EOS % 1.4 % (0-4.5); HEMATOCRIT 29.9 % (35.4-49); HEMOGLOBIN 9.3 GM/dL (11.7-16.9); LYMPH % 9.6 % (8-40); MCHC 31.2 g/dl (32.0-35.9); MEAN CELL VOLUME 80.1 fl (80-96); MONO % 6.7 % (3.8-10.2); PLATELET COUNT 250 K/MM3 (134-434); RBC 3.74 M/mm3 (4.00-5.60); RDW 16.1 % (11.9-15.9); WHITE BLOOD COUNT 12.1 K/mm3 (4.0-10.0)
[2019-10-12] MEDS ORDERED: VANCOMYCIN 1,000 MG in DEXTROSE 5%-WATER - 250 ML IVPB ONE (23:33)
[2019-10-12] MEDS ORDERED: ENOXAPARIN NA (PORCINE) 80 MG/0.8 ML DISP.SYRIN SQ ONE ×2 (23:34→23:53)
[2019-10-12] MEDS ORDERED: SODIUM CHLORIDE 1,000 ML IV STA (23:34)
[2019-10-12] MEDS ORDERED: PIPERACILLIN/TAZOB 3.375 GM 3.375 GM in DEXTROSE 5%-WATER - 50 ML IVPB ONE (23:34)
[2019-10-12] MEDS ORDERED: VANCOMYCIN 1 GRAM (PRE-DOCKED) 1,000 MG/250 ML BAG IVPB ONE (23:52)
[2019-10-12] MEDS ORDERED: PIPERACILLIN/TAZOB 3.375 GM 3.375 GM/50 ML BAG IVPB ONE (23:53)
--- NOTE | 2019-10-13 01:59 | PN ---
Teaching Attending Note Name of Resident: hSelley Meléndez ATTENDING PHYSICIAN STATEMENT I saw and evaluated the patient. I reviewed the resident's note and discussed the case with the resident. I agree with the resident's findings and plan as documented. SUBJECTIVE: 34 yo M w/ a h/o Hep C, LE DVT, katia doyle tear, septic embolus, endocarditis , IVDA (heroin and cocaine), on methadone comes Complains of abdominal pain and left-sided neck pain x1 day. Patient is an active IV drug abuser and uses daily. He is extremely noncooperative and some history was obtained with the help of NITHIN Saini. OBJECTIVE: Last Vital Signs Temp Pulse Resp BP Pulse Ox 98.3 F 82 14 103/64 99 10/12/19 13:27 10/12/19 20:14 10/12/19 20:14 10/12/19 13:27 10/12/19 20:14 GENERAL: Well developed, well nourished. Awake and alert. Agitated, not cooperative HEENT: Normocephalic, atraumatic. PERRLA, EOMI. No conjunctival pallor. Sclera are non- icteric. Moist mucous membranes. Oropharynx is clear. NECK: Supple. Full ROM. No JVD. Carotid pulses 2+ and symmetric, without bruits. No thyromegaly. No lymphadenopathy. CARDIOVASCULAR: Regular rate and rhythm. No murmurs, rubs, or gallops. Distal pulses are 2+ and symmetric. PULMONARY: No evidence of respiratory distress. Lungs clear to auscultation bilaterally. No wheezing, rales or rhonchi. ABDOMINAL: Soft. Non-tender. Non-distended. No rebound or guarding. No organomegaly. Normoactive bowel sounds. MUSCULOSKELETAL Normal range of motion at all joints. No bony deformities or tenderness. No CVA tenderness. EXTREMITIES: No cyanosis. No clubbing. No edema. No calf tenderness. SKIN: Multiple track gonzalez noted on legs bilaterally and arms bilaterally, bilateral inguinal track gonzalez, left neck boil noted PSYCHIATRIC: Agitated, rude, not cooperative Abnormal Lab Results 10/12/19 10/12/19 10/12/19 14:40 14:40 14:40 WBC 10.4 H RBC 3.66 L Hgb 9.2 L Hct 29.3 L MCH 25.3 L MCHC 31.5 L RDW MPV 6.9 L Absolute Neuts (auto) 8.4 H PT with INR INR AST 13 L Albumin 3.3 L Lipase 63 L Urine Blood 10/12/19 10/12/19 10/12/19 15:25 15:40 21:55 WBC 12.1 H RBC 3.74 L Hgb 9.3 L Hct 29.9 L MCH 25.0 L MCHC 31.2 L RDW 16.1 H MPV 7.0 L Absolute Neuts (auto) 9.9 H PT with INR 16.10 H INR 1.36 H AST Albumin Lipase Urine Blood 3+ H Imaging studies reviewed CT of neck, abdomen and pelvismild asymmetric enlargement of left sternocleidal mastoid muscles compared to right side. No evidence of abscess or fluid collections. Mild fibrotic changes in the lung apices. Mild splenomegaly. Horseshoe kidney. Mucosal thickening from proximal descending colon to rectum suggestive of proctocolitis. Moderate stool in the remainder of the colon. Ultrasound of left neckleft internal jugular vein is patent without thrombosis. Ultrasound of lower extremities bilaterallyfindings consistent with deep venous thrombosis involving the common femoral and greater saphenous vein bilaterally. Bilateral leg edema ASSESSMENT AND PLAN: Deep venous thrombosis involving the common femoral and greater saphenous vein bilaterally Continue with Lovenox therapeutic dose Active IV drug abusing, left neck boilshould rule out bacteremia and endocarditis given active IV drug use, empiric treatment with broad-spectrum antibiotics pending blood cultures. Leukocytosis may be secondary to left neck boil versus bacteremia versus secondary to acute DVT. History of hep C. Blood cultures x2 Zosyn and vancomycin empirically ESR and CRP Urine toxicology screen Transthoracic echo Bilateral upper extremity Doppler ultrasound to rule out DVT Infectious disease consult HIV serology Hep B serology Hep C RNA Normocytic anemia Iron studies Ferritin vitamin B-12 Red blood smear
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
[2019-10-13 04:50] VITALS: BMI 21.4
[2019-10-13] MEDS ORDERED: PIPERACILLIN/TAZOB 3.375 GM 3.375 GM in DEXTROSE 5%-WATER - 50 ML IVPB SCH (08:00)
[2019-10-13] MEDS ORDERED: DEXTROSE 5%-WATER - 50 ML IVPB ONE (08:48)
[2019-10-13] MEDS ORDERED: PIPERACILLIN/TAZOBACTAM 3.375 GM VIAL IVPB ONE (08:48)
[2019-10-13] MEDS: ENOXAPARIN NA (PORCINE) 80 MG/0.8 ML DISP.SYRIN SQ SCH ×2 (09:01→21:55)
[2019-10-13] MEDS ORDERED: ENOXAPARIN NA (PORCINE) 80 MG/0.8 ML DISP.SYRIN SQ SCH (10:00)
[2019-10-13] MEDS ORDERED: ACETAMINOPHEN 1000 MG/100 ML VIAL (NON FORMULARY) IVPB PRN (10:13)
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
[2019-10-13] MEDS ORDERED: METHADONE HCL 10 MG TABLET (FOR DETOX USE ONLY) PO ONE (12:30)
[2019-10-13] MEDS ORDERED: oxyCODONE HCL 5 MG TABLET PO ONE (12:31)
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
[2019-10-13] MEDS ORDERED: METHADONE 40 MG, METHADONE 10 MG PO ONE (13:00)
[2019-10-13] MEDS ORDERED: METHADONE HCL 10 MG TABLET ONE (13:23)
[2019-10-13] MEDS ORDERED: METHADONE HCL 40 MG DISPERSABLE TABLET ONE (13:23)
--- NOTE | 2019-10-13 13:56 | PN ---
Progress Note (short form) - Note Progress Note: ID consult dictated imp/reccd 34 yo man active IVDU admitted with leg swelling no fevers found to have bilateral DVTs blood cultures have been ordered twice - he has refused would obtain blood cultures if possible and patient permits no signs cellulitis- would d/c antibiotics he should f/u with gi for his colitis and hepatitis C treatment substance use- per detox please call back if needed d/w hospitalist dictation number [phone] Problem List - Problems (1) DVT (deep venous thrombosis) Code(s): I82.409 - ACUTE EMBOLISM AND THOMBOS UNSP DEEP VN UNSP LOWER EXTREMITY Qualifiers: DVT location: lower extremity Affected thrombotic vein of extremity: femoral Chronicity: acute Laterality: bilateral Qualified Code(s): I82.413 - Acute embolism and thrombosis of femoral vein, bilateral (2) Proctitis Code(s): K62.89 - OTHER SPECIFIED DISEASES OF ANUS AND RECTUM (3) Hepatitis C virus infection Code(s): B19.20 - UNSPECIFIED VIRAL HEPATITIS C WITHOUT HEPATIC COMA (4) Opiate dependence Code(s): F11.20 - OPIOID DEPENDENCE, UNCOMPLICATED Qualifiers: Substance use status: uncomplicated Qualified Code(s): F11.20 - Opioid dependence, uncomplicated
[2019-10-13 13:59] VITALS: BP 111/71; PULSE 72; TEMP 98.9
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
--- NOTE | 2019-10-13 18:32 | CON.PSY ---
Psychiatry Consult Chief Complaint: 34 Year old male with a History of Substance abuse admitted with rectal bleed seen for Psych eval for Behavioral disturbances. Symptoms: reports: Inability to Control Temper - Previous Psychiatric Treatment Outpatient: None Inpatient: None - Previous Substance Abuse Treatment Outpatient: Less than 6 mos ago - Reason for Previous Treatment Reason for Previous Treatment: Heroin or Other Narcotics - Current Medications Current Medications: Active Medications Acetaminophen (Ofirmev Injection -) 1,000 mg IVPB Q6H PRN PRN Reason: PAIN LEVEL 6-10 Last Admin: 10/13/19 12:24 Dose: 1,000 mg Enoxaparin Sodium (Lovenox -) 70 mg SQ BID ELYSIA Last Admin: 10/13/19 09:01 Dose: 70 mg - Allergies Allergies: Allergies Allergy/AdvReac Type Severity Reaction Status Date / Time haloperidol [From Haldol] Allergy Low Blood Verified 10/12/19 13:29 Pressure tramadol Allergy Low Blood Verified 10/12/19 13:29 Pressure - Current Living Status Usual Living Arrangement: With Parent - Current Mental Status Evaluation Appearance: Well Groomed Attitude: Cooperative - Affect Affect: Constrictive Appropriateness: Appropriate to Content - Mood Mood: Anxious - Speech/Language Expressive: Coherent - Psychomotor Activity Psychomotor Activity: Normal - Thought Process Thought Process: Intact - Thought Content Hallucinations: Absent Delusions: Absent - Self Perception Self Perception: No Impairment - Cognition Attention: Alert Orientation: Time Memory, Immediate Recall: Intact Memory, Remote: Intact - Concentration Serial Sevens Intact: Yes Simple Calculations Intact: Yes - Abstraction Proverb Interpretation: Intact Judgement: Minimally Impaired - Insight Insight: Intact - Impulse Control Impulse Control: Moderately Impaired - Suicidal Ideation Suicidal Ideation: No - Homicidal Ideation Homicidal Ideation: No Assessment/Plan 1) Renew Methadone 100mg po od. 2) can signout AMA, patient is not suicidal at this time.
[2019-10-13] MEDS ORDERED: MELATONIN 5 MG TABLETS PO ONE (20:05)
[2019-10-14] MEDS ORDERED: VANCOMYCIN 1 GM in D5W (PRE-DOCKED) 1,000 MG/250 ML IVPB SCH (01:00)
[2019-10-14] MEDS ORDERED: PIPERACILLIN/TAZOB 3.375 GM 3.375 GM in DEXTROSE 5%-WATER - 50 ML IVPB SCH (02:00)
[2019-10-14] MEDS ORDERED: METHADONE 80 MG, METHADONE 20 MG PO SCH (07:15)
[2019-10-14] MEDS ORDERED: METHADONE HCL 10 MG TABLET ONE (08:44)
[2019-10-14] MEDS ORDERED: METHADONE HCL 40 MG DISPERSABLE TABLET ONE (08:44)
[2019-10-14] MEDS: ENOXAPARIN NA (PORCINE) 80 MG/0.8 ML DISP.SYRIN SQ SCH (09:58)
[2019-10-14] MEDS ORDERED: METHADONE HCL 10 MG TABLET (FOR DETOX USE ONLY) PO SCH (10:00)
--- NOTE | 2019-10-14 12:29 | CONSULT ---
- Consultation REQUESTING PROVIDER: CONSULT REQUEST: We have been asked to surgically evaluate this patient for B/L DVTs evaluate for IVC filter PCP:Vikash Roberts MD HISTORY OF PRESENT ILLNESS: 34yo M was consulted to Vascular surgery for Bilateral DVTs to evaluate for IVC filter placement. Pt has h/o of polysubstance abuse including IVDU. Pt is a difficult historian, he states that he had a history of DVT and was on anticoagulation, but is vague on whether he finished is course of anticoagulation and when he developed the DVT. PMHx: Polysubstance abuse, DVT Home Medications Medication Instructions Recorded Methadone [Dolophine -] 100 mg PO DAILY 04/22/19 Acetaminophen [Tylenol] 650 mg PO Q4H #30 tablet 09/01/19 Clindamycin [Cleocin -] 300 mg PO TID #21 capsule 09/01/19 Mupirocin Ointment [Bactroban 2% 1 applic TP TID #1 tube 09/01/19 Ointment -] Ibuprofen 600 mg PO TID #20 tablet 09/07/19 Sulfamethoxazole/Trimethoprim 1 tab PO BID #14 tablet 09/07/19 [Bactrim Ds -] Allergies Allergy/AdvReac Type Severity Reaction Status Date / Time haloperidol [From Haldol] Allergy Low Blood Verified 10/12/19 13:29 Pressure tramadol Allergy Low Blood Verified 10/12/19 13:29 Pressure PHYSICAL EXAM: GENERAL: Awake, alert, and in no acute distress. HEAD: Normal with no signs of trauma. EYES: PERRL, sclera anicteric, conjunctiva clear. NECK: Normal ROM LUNGS: Clear to auscultation bilat anteriorly. No wheezes, and no crackles. No accessory muscle use. HEART: Regular rate and rhythm. No murmurs UPPER EXTREMITIES: warm, well-perfused. No cyanosis. Cap refill <2 seconds. No peripheral edema. LOWER EXTREMITIES: 2+ pulses, warm, well-perfused. No calf tenderness. No peripheral edema. NEUROLOGICAL: Normal speech, gait not observed. PSYCH: Cooperative. Good eye contact. Appropriate mood and affect. SKIN: Warm, dry, normal turgor, no rashes or lesions noted. Vital Signs Temperature 98.9 F 10/13/19 11:00 Pulse Rate 72 10/13/19 11:00 Respiratory Rate 18 10/13/19 21:00 Blood Pressure 111/71 10/13/19 11:00 O2 Sat by Pulse Oximetry (%) 100 10/13/19 09:00 Lab Results WBC 12.1 K/mm3 (4.0-10.0) H 10/12/19 21:55 RBC 3.74 M/mm3 (4.00-5.60) L 10/12/19 21:55 Hgb 9.3 GM/dL (11.7-16.9) L 10/12/19 21:55 Hct 29.9 % (35.4-49) L 10/12/19 21:55 MCV 80.1 fl (80-96) 10/12/19 21:55 MCHC 31.2 g/dl (32.0-35.9) L 10/12/19 21:55 RDW 16.1 % (11.9-15.9) H 10/12/19 21:55 Plt Count 250 K/MM3 (134-434) 10/12/19 21:55 Sodium 140 mmol/L (136-145) 10/12/19 14:40 Potassium 4.1 mmol/L (3.5-5.1) 10/12/19 14:40 Chloride 104 mmol/L (98-107) 10/12/19 14:40 Carbon Dioxide 26 mmol/L (21-32) 10/12/19 14:40 Anion Gap 9 MMOL/L (8-16) 10/12/19 14:40 BUN 8.1 mg/dL (7-18) 10/12/19 14:40 Creatinine 1.2 mg/dL (0.55-1.3) 10/12/19 14:40 Random Glucose 89 mg/dL (74-106) 10/12/19 14:40 Calcium 8.9 mg/dL (8.5-10.1) 10/12/19 14:40 INR 1.36 (0.83-1.09) H 10/12/19 15:25 Problem List - Problems (1) DVT (deep venous thrombosis) Assessment/Plan: Plan -pt appears to have a history of DVT and non compliance, would consider IVC filter as pt is unlikely to continue anticoagulation and have good follow up. -pt should have hematology work up for recurrent DVTs -pt should follow up with Vascular clinic as outpatient. Pt discussed with Dr. Clark who agrees with plan Code(s): I82.409 - ACUTE EMBOLISM AND THOMBOS UNSP DEEP VN UNSP LOWER EXTREMITY Qualifiers: DVT location: lower extremity Affected thrombotic vein of extremity: femoral Chronicity: acute Laterality: bilateral Qualified Code(s): I82.413 - Acute embolism and thrombosis of femoral vein, bilateral
--- NOTE | 2019-10-14 14:49 | EKG ---
Test Reason : Blood Pressure : / mmHG Vent. Rate : 068 BPM Atrial Rate : 068 BPM P-R Int : 154 ms QRS Dur : 100 ms QT Int : 430 ms P-R-T Axes : 053 085 043 degrees QTc Int : 457 ms NORMAL SINUS RHYTHM NORMAL ECG WHEN COMPARED WITH ECG OF 21-APR-2019 13:38, NO SIGNIFICANT CHANGE WAS FOUND Confirmed by MARILYN BRAXTON MD ([id number]) on 10/14/2019 2:49:00 PM Referred By: Zahra SOLIMAN Confirmed By:MARILYN BRAXTON MD
--- NOTE | 2019-10-14 15:18 | CONS ---
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 During that admission, he left the hospital AMA and was subsequently apparently cared for elsewhere. He now comes to the emergency room apparently complaining of swelling of his legs. He has a prior history along with the endocarditis of a left femoral DVT, a right lower extremity superficial thrombosis, and is apparently noncompliant with his Coumadin. He apparently is still an active substance user at this time. He also has a history of hepatitis C. He currently is unwilling to give me any history. Tells me he has told everything to everybody and I can just read the chart. He apparently is still shooting heroin. He denies any fevers, and he injects in his arms, his femoral veins, and apparently in his neck. In the ER, he was noted to have a white count of 12,000. He had a duplex done that showed bilateral DVTs and a CAT scan that showed proctocolitis. He is noncompliant with his outpatient Coumadin. SOCIAL HISTORY: He is not sharing any of his social history at this time. ALLERGIES: He is allergic to HALDOL and TRAMADOL. MEDICATIONS: He is apparently on methadone as an outpatient. There are antibiotics listed, but he is not willing to tell me if he is taking them or not. PHYSICAL EXAMINATION: General: He is awake and alert. Vital Signs: His temperature is 98.9, pulse is 72, blood pressure 111/71. He has had no fever since admission. His respiratory rate is 19. He is saturating 100% on room air. HEENT: He is normocephalic. His eyes are anicteric. He has no conjunctival hemorrhages. Neck: He has some indurations on the side of his neck. There is no fluctuance or erythema. Lungs: Clear to auscultation. Heart: Regular rate and rhythm. Abdomen: Soft, nontender. Extremities: He has mild swelling of his legs. There is no edema. He had a duplex in the ER that showed bilateral venous thromboses. He had a CAT scan of his neck as well as his abdomen and pelvis. The neck showed asymmetric enlargement of the muscle on the right with no evidence of fluid collection or abscess with a patent airway. Pharyngeal spaces were clear. Submandibular and parotid glands were normal, and he had small lymph nodes. He had a CAT scan of his abdomen and pelvis done that showed moderate amount of fecal residue in the colon suggestive of constipation. Suggestion of thickening of the sigmoid wall. Cannot rule out proctocolitis. In summary, this is a 34-year-old man active injection user admitted to the hospital with bilateral DVTs. Blood cultures have been ordered twice. He has refused. Would obtain blood cultures if possible and patient permits. No signs of cellulitis so would stop his antibiotics. He was seen by GI who he refused rectal exam, and they recommended that he should have a colonoscopy as an outpatient if he stops bleeding or as an inpatient if bleeding continues. 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 Polysubstance use. He is on methadone maintenance. Case was discussed with the hospitalist. Please call back if needed. RANDI MORENO M.D. [id number]
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
== END 2019-10-14 10:49 | disposition left against medical advice (07) | DRG 383 ==
LOC: JER 13:20 → JERBED 10-13 02:03 → J6S 10-13 04:00
PROVIDERS: ADMIT Internal Medicine
DX: L03.116 Cellulitis of left lower limb (principal); D64.9 Anemia, unspecified; F14.20 Cocaine dependence, uncomplicated; F11.20 Opioid dependence, uncomplicated; K62.89 Other specified diseases of anus and rectum; B19.20 Unspecified viral hepatitis C without hepatic coma; I82.413 Acute embolism and thrombosis of femoral vein, bilateral; R45.6 Violent behavior; K51.30 Ulcerative (chronic) rectosigmoiditis without complications; Z86.711 Personal history of pulmonary embolism
CPT/HCPCS: 36415; 70491-TC; 74177-TC; 76536-TC; 80053; 81003; 83690; 83735; 84100; 85025; 85610; 87086; 93005; 93010; 93970-TC; 99285-25; J0131; J7030; Q9967

== ENCOUNTER 2019-12-14 12:31 | Emergency (ER) | payer OTHER ==
[2019-12-14 13:02] VITALS: BP 111/61; PULSE 60; TEMP 98.1; BMI 22.3
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
== END 2019-12-14 14:16 | disposition left against medical advice (07) ==
LOC: JER 12:31
DX: R10.30 Lower abdominal pain, unspecified (principal); Z88.8 Allergy status to other drugs, medicaments and biological substances; G40.909 Epilepsy, unspecified, not intractable, without status epilepticus; F11.20 Opioid dependence, uncomplicated
CPT/HCPCS: 99281-25

== ENCOUNTER 2020-07-01 16:19 | Inpatient (IN) | payer OTHER ==
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
[2020-07-01 18:35] VITALS: BMI 20.9
[2020-07-01] MEDS ORDERED: cloNIDine HCL 0.1 MG TABLET PO PRN (19:36)
[2020-07-01] MEDS ORDERED: MAGNESIUM HYDROX 2400MG/30ML ORAL SUSPENSION 30 ML CUP PO PRN (19:36)
[2020-07-01] MEDS ORDERED: BISMUTH SUBSALICYLATE 524 MG/30 ML UD PO PRN (19:36)
[2020-07-01] MEDS ORDERED: P-EPHED 60MG/TRIPROLIDI 2.5MG TABLET PO PRN (19:36)
[2020-07-01] MEDS ORDERED: MAG HYDROX/AL HYDROX/SIMETH 30 ML UNIT-DOSE CUP PO PRN (19:36)
[2020-07-01] MEDS ORDERED: guaiFENesin 200 MG/10 ML 10 ML UNIT-DOSE CUPS PO PRN (19:36)
[2020-07-01] MEDS ORDERED: NICOTINE POLACRILEX 2 MG GUM BUC PRN (19:36)
[2020-07-01] MEDS ORDERED: ACETAMINOPHEN 325 MG TABLET (FP) PO PRN ×2 (19:36)
[2020-07-01] MEDS ORDERED: METHOCARBAMOL 500 MG TABLET PO PRN (19:36)
[2020-07-01] MEDS ORDERED: METHADONE HCL 10 MG TABLET (FOR DETOX USE ONLY) PO ONE (19:36)
[2020-07-01] MEDS ORDERED: MAGNESIUM CITRATE 300 ML BOTTLE PO PRN (19:36)
[2020-07-01] MEDS ORDERED: NALOXONE HCL 0.4 MG/ML VIAL IM PRN (19:36)
[2020-07-01] MEDS ORDERED: DICYCLOMINE HCL 10 MG CAPSULE PO PRN (19:36)
[2020-07-01] MEDS ORDERED: ONDANSETRON *ODT* 4 MG TABLET SL PRN (19:36)
[2020-07-01] MEDS ORDERED: MENTHOL/PHENOL 1 EACH UD MM PRN (19:36)
[2020-07-01] MEDS: hydrOXYzine PAMOATE 25 MG CAPSULE (FP) PO PRN (20:23)
[2020-07-01] MEDS: IBUPROFEN 400 MG TABLET (FP) PO PRN (20:23)
[2020-07-01] MEDS ORDERED: MELATONIN 5 MG TABLETS PO SCH (22:00)
[2020-07-01] MEDS ORDERED: THIAMINE HCL 100 MG TABLET (FP) PO SCH (22:00)
[2020-07-02] MEDS: hydrOXYzine PAMOATE 25 MG CAPSULE (FP) PO PRN ×2 (01:00→10:22)
[2020-07-02] MEDS ORDERED: METHADONE HCL 10 MG TABLET (FOR DETOX USE ONLY) ONE (09:22)
[2020-07-02] MEDS ORDERED: METHADONE HCL 5 MG TABLET (FOR DETOX USE ONLY) ONE (09:23)
[2020-07-02] MEDS ORDERED: NICOTINE 7 MG/24 HOURS TOPICAL PATCH TD SCH (10:00)
[2020-07-02] MEDS ORDERED: PRENATAL VITAMINS W/ FOLIC ACID TABLET (FP) PO SCH (10:00)
[2020-07-02] MEDS ORDERED: METHADONE (DETOX) 20 MG, METHADONE (DETOX) 5 MG PO ONE (10:00)
[2020-07-02] MEDS ORDERED: diazePAM 5 MG TABLET PO PRN (10:09)
[2020-07-02] MEDS: IBUPROFEN 400 MG TABLET (FP) PO PRN (10:23)
[2020-07-02 10:26] VITALS: BP 150/98; PULSE 93; TEMP 97.5
--- NOTE | 2020-07-02 10:31 | CONSULT ---
[facility] Psychiatric Consult - Data Date of interview: 07/02/20 Admission source: [facility] Identifying data: Patient is a 35 year old single male, without children, unemployed, domiciled, and is supported by disability benefits. This is one of multiple admissions for patient. Patient admitted to for PCP, cocaine, and opiate dependence. Substance Abuse History: Smoking Cessation. Smoking history: Current every day smoker. Have you smoked in the past 12 months: No. Aproximately how many cigarettes per day: 1. Cigars Per Day: 0. Hx Chewing Tobacco Use: No. Initiated information on smoking cessation: Yes. 'Breaking Loose' booklet given: 07/01/20. - Substance & Tx. History. Hx Alcohol Use: No. Hx Substance Use: Yes. Substance Use Type: Cocaine, Heroin. Hx Substance Use Treatment: Yes ([facility]). - Substances abused. Heroin. Substance route: Injection (SNIFF, SMOKE). Frequency: Daily. Amount used: 10 BAGS. Age of first use: 12. Date of last use: 07/01/20. Cocaine. Substance route: Injection (SNIFF, SMOKE). Frequency: Daily. Amount used: 10 BAGS. Age of first use: 12 (SPEED BALL). Date of last use: 07/01/20 Medical History: Endocarditis, Pulmonary Embolus, Hepatitis C , Anemia Psychiatric History: Mr. Brown reports history of multiple psychiatric hospitalizations ([facility] + [facility] + [facility]) most recently six months ago at [facility] in [place] due to mood instability. Patient reports diagnosis of Bipolar disorder+ PTSD + Schizophrenia. Mr. Brown states that he currently see Dr. Marr at [facility] [place] and claims to be prescribed ambien +xanax +wellbutrin + zyprexa ( is not compliant with zyprexa). Patient denies history of suicide attempt. At present patient report stable mood. Physical/Sexual Abuse/Trauma History: Not discussed. Mental Status Exam - Mental Status Exam Alert and Oriented to: Time, Place, Person Cognitive Function: Good Patient Appearance: Well Groomed Mood: Euthymic Affect: Mood Congruent Patient Behavior: Restless, Talkative, Cooperative Speech Pattern: Appropriate Voice Loudness: Normal Thought Process: Goal Oriented Hallucinations: Denies Suicidal Ideation: Denies Homicidal Ideation: Denies Insight/Judgement: Poor Sleep: Poorly Appetite: Fair Muscle strength/Tone: Normal Gait/Station: Normal Psychiatric Findings - Problem List (Traphill 1, 2,3) (1) Bipolar disorder Status: Chronic (2) Cocaine dependence, uncomplicated Status: Acute (3) Opioid dependence with withdrawal Status: Acute (4) PCP dependence Status: Acute (5) Substance induced mood disorder Status: Acute - Initial Treatment Plan Initial Treatment Plan: Psychoeducation provided. Detoxification in progress. Christopher contacted at [phone] and able to speak to the pharmacy staff. As per the pharmacist patient most recently filled the following prescription on April 24 for the following medication: Wellbutrin 150mg Xl + Zyprexa 15mg HS + Ambien 10mg + Xanax 0.5mg. Patient in agreement to accept Wellbutrin 150mg XL + Zyprexa 5mg BID ( patient requesting a split dose of 10mg) + Belsomra 10mg HS PRN. Benefits and side effects discussed. Verbal consent given.
[2020-07-02 10:57] LABS: HEMATOCRIT 29.8 % (35.4-49); HEMOGLOBIN 9.4 GM/dL (11.7-16.9); MCH 24.2 pg (25.7-33.7); MCHC 31.6 g/dl (32.0-35.9); MEAN CELL VOLUME 76.7 fl (80-96); MEAN PLT VOLUME 7.3 fl (7.5-11.1); PLATELET COUNT 292 K/MM3 (134-434); RBC 3.89 M/mm3 (4.00-5.60); WHITE BLOOD COUNT 6.6 K/mm3 (4.0-10.0)
[2020-07-02 11:09] LABS: ALBUMIN 3.2 g/dl (3.4-5.0); BILIRUBIN,TOTAL 0.2 mg/dL (0.2-1); CALCIUM 8.2 mg/dL (8.5-10.1); CREATININE 1.1 mg/dL (0.55-1.3); POTASSIUM 4.4 mmol/L (3.5-5.1); TOT PROT 6.9 g/dl (6.4-8.2)
[2020-07-02] MEDS ORDERED: OLANZapine 5 MG TABLET PO SCH (11:45)
--- NOTE | 2020-07-02 12:01 | PN ---
S COWS - Scale Resting Pulse: 1= [place] 81-100 Sweatin= No chills or Flushing Restless Observation: 1= Difficult to Sit Still Pupil Size: 1= Pupils >than Normal Bone or Joint Aches: 2= Severe Diffuse Aches Runny Nose/ Eye Tearin= Nasal Congestion GI Upset > 30mins: 1= Stomach Cramp Tremor Observation of Outstretched Hands: 2= Slight Tremor Visible Yawning Observation: 1= 1-2x During Session Anxiety or Irritability: 2=Irritable/Anxious Goose Flesh Skin: 0=Smooth Skin COWS Score: 12 S Progress Note (SOAP) Subjective: alert,irritable,anxious,interrupted sleep,pain in the body and back,aching pain Objective: 07/02/20 12:00 Vital Signs Temperature 97.5 F L 07/02/20 08:54 Pulse Rate 93 H 07/02/20 08:54 Respiratory Rate 16 07/02/20 08:54 Blood Pressure 150/98 07/02/20 08:54 O2 Sat by Pulse Oximetry (%) 98 07/02/20 08:54 Laboratory Last Values WBC 6.6 K/mm3 (4.0-10.0) 07/02/20 08:10 RBC 3.89 M/mm3 (4.00-5.60) L 07/02/20 08:10 Hgb 9.4 GM/dL (11.7-16.9) L 07/02/20 08:10 Hct 29.8 % (35.4-49) L 07/02/20 08:10 MCV 76.7 fl (80-96) L 07/02/20 08:10 MCH 24.2 pg (25.7-33.7) L 07/02/20 08:10 MCHC 31.6 g/dl (32.0-35.9) L 07/02/20 08:10 RDW 18.0 % (11.9-15.9) H 07/02/20 08:10 Plt Count 292 K/MM3 (134-434) 07/02/20 08:10 MPV 7.3 fl (7.5-11.1) L 07/02/20 08:10 Sodium 140 mmol/L (136-145) 07/02/20 08:10 Potassium 4.4 mmol/L (3.5-5.1) 07/02/20 08:10 Chloride 108 mmol/L (98-107) H 07/02/20 08:10 Carbon Dioxide 27 mmol/L (21-32) 07/02/20 08:10 Anion Gap 5 MMOL/L (8-16) L 07/02/20 08:10 BUN 11.0 mg/dL (7-18) 07/02/20 08:10 Creatinine 1.1 mg/dL (0.55-1.3) 07/02/20 08:10 Est GFR (CKD-EPI)AfAm 98.87 07/02/20 08:10 Est GFR (CKD-EPI)NonAf 85.31 07/02/20 08:10 Random Glucose 76 mg/dL (74-106) 07/02/20 08:10 Calcium 8.2 mg/dL (8.5-10.1) L 07/02/20 08:10 Total Bilirubin 0.2 mg/dL (0.2-1) 07/02/20 08:10 AST 16 U/L (15-37) 07/02/20 08:10 ALT 21 U/L (13-61) 07/02/20 08:10 Alkaline Phosphatase 70 U/L (45-117) 07/02/20 08:10 Total Protein 6.9 g/dl (6.4-8.2) 07/02/20 08:10 Albumin 3.2 g/dl (3.4-5.0) L 07/02/20 08:10 Syphilis Serology Non-reactive (NONREACTIVE) 07/02/20 08:10 Assessment: 07/02/20 12:01 withdrawal symptom Plan: continue detox methadone regimen
--- NOTE | 2020-07-02 12:06 | PN ---
[facility] Progress Note Note: patient did not want to completed treatment,seen by counselor,all attempts to convince patient to stay with no avail, high risk of relapsing explained,understood,sign release ama,the risk of leaving the facility including seizure,permanent damage including , patient left against medical advise,advise to call 911 if not feeling well
--- NOTE | 2020-07-02 12:12 | DS ---
[facility] Detox Discharge Summary Admission Date: 07/01/20 Discharge Date: 07/02/20 - History Present History: Cannabis Dependence, Cocaine Dependence, Opioid Dependence, Pcp Dependence Additional Comments: alert,oriented x 3 ambulation on the unit lung clear on auscultation bilaterally abdomen soft,no distension,no pain patient did not want to complete treatment madi see the previous note signed release against medical advise advise to call 911 if not feeling well Pertinent Past History: ivdu hepatitis c bipolar disorder - Physical Exam Results Vital Signs: Vital Signs Temperature 97.5 F L 07/02/20 08:54 Pulse Rate 93 H 07/02/20 08:54 Respiratory Rate 16 07/02/20 08:54 Blood Pressure 150/98 07/02/20 08:54 O2 Sat by Pulse Oximetry (%) 98 07/02/20 08:54 Pertinent Admission Physical Exam Findings: withdrawal signs and symptom Laboratory Last Values WBC 6.6 K/mm3 (4.0-10.0) 07/02/20 08:10 RBC 3.89 M/mm3 (4.00-5.60) L 07/02/20 08:10 Hgb 9.4 GM/dL (11.7-16.9) L 07/02/20 08:10 Hct 29.8 % (35.4-49) L 07/02/20 08:10 MCV 76.7 fl (80-96) L 07/02/20 08:10 MCH 24.2 pg (25.7-33.7) L 07/02/20 08:10 MCHC 31.6 g/dl (32.0-35.9) L 07/02/20 08:10 RDW 18.0 % (11.9-15.9) H 07/02/20 08:10 Plt Count 292 K/MM3 (134-434) 07/02/20 08:10 MPV 7.3 fl (7.5-11.1) L 07/02/20 08:10 Sodium 140 mmol/L (136-145) 07/02/20 08:10 Potassium 4.4 mmol/L (3.5-5.1) 07/02/20 08:10 Chloride 108 mmol/L (98-107) H 07/02/20 08:10 Carbon Dioxide 27 mmol/L (21-32) 07/02/20 08:10 Anion Gap 5 MMOL/L (8-16) L 07/02/20 08:10 BUN 11.0 mg/dL (7-18) 07/02/20 08:10 Creatinine 1.1 mg/dL (0.55-1.3) 07/02/20 08:10 Est GFR (CKD-EPI)AfAm 98.87 07/02/20 08:10 Est GFR (CKD-EPI)NonAf 85.31 07/02/20 08:10 Random Glucose 76 mg/dL (74-106) 07/02/20 08:10 Calcium 8.2 mg/dL (8.5-10.1) L 07/02/20 08:10 Total Bilirubin 0.2 mg/dL (0.2-1) 07/02/20 08:10 AST 16 U/L (15-37) 07/02/20 08:10 ALT 21 U/L (13-61) 07/02/20 08:10 Alkaline Phosphatase 70 U/L (45-117) 07/02/20 08:10 Total Protein 6.9 g/dl (6.4-8.2) 07/02/20 08:10 Albumin 3.2 g/dl (3.4-5.0) L 07/02/20 08:10 Syphilis Serology Non-reactive (NONREACTIVE) 07/02/20 08:10 Vital Signs Temperature 97.5 F L 07/02/20 08:54 Pulse Rate 93 H 07/02/20 08:54 Respiratory Rate 16 07/02/20 08:54 Blood Pressure 150/98 07/02/20 08:54 O2 Sat by Pulse Oximetry (%) 98 07/02/20 08:54 - Medication Discharge Medications: Ambulatory Orders Alprazolam [Xanax] 1 tablet PO DAILY 07/01/20 Bupropion HCl [Wellbutrin Xl] 1 tablet PO DAILY 07/01/20 - AMA Did Patient Leave Against Medical Advice: Yes
--- NOTE | 2020-07-02 15:30 | EKG ---
Test Reason : Blood Pressure : / mmHG Vent. Rate : 100 BPM Atrial Rate : 100 BPM P-R Int : 138 ms QRS Dur : 088 ms QT Int : 372 ms P-R-T Axes : 113 080 148 degrees QTc Int : 479 ms NORMAL SINUS RHYTHM POSSIBLE INFERIOR INFARCT , AGE UNDETERMINED ABNORMAL ECG WHEN COMPARED WITH ECG OF 13-OCT-2019 13:17, T WAVE INVERSION NOW EVIDENT IN LATERAL LEADS Confirmed by BI MELENDEZ, NAHED ([id number]) on 07/02/2020 3:29:51 PM Referred By: Confirmed By:NAHED PAT MD
[2020-07-03] MEDS ORDERED: METHADONE HCL 10 MG TABLET (FOR DETOX USE ONLY) PO ONE (10:00)
[2020-07-04] MEDS ORDERED: METHADONE (DETOX) 10 MG, METHADONE (DETOX) 5 MG PO ONE (10:00)
[2020-07-05] MEDS ORDERED: METHADONE HCL 10 MG TABLET (FOR DETOX USE ONLY) PO ONE (10:00)
[2020-07-06] MEDS ORDERED: METHADONE HCL 5 MG TABLET (FOR DETOX USE ONLY) PO ONE (06:00)
== END 2020-07-02 11:42 | disposition left against medical advice (07) | DRG 770 ==
LOC: YASAS 16:19 → Y3N 18:47
PROVIDERS: ADMIT Allergy & Immunology; ATTEND Allergy & Immunology
PROC: HZ2ZZZZ Detoxification Services for Substance Abuse Treatment (ICD-10-PCS; principal; 2020-07-01)
DX: F11.23 Opioid dependence with withdrawal (principal); F14.20 Cocaine dependence, uncomplicated; F16.20 Hallucinogen dependence, uncomplicated; F12.20 Cannabis dependence, uncomplicated; F17.210 Nicotine dependence, cigarettes, uncomplicated; F19.24 Other psychoactive substance dependence with psychoactive substance-induced mood disorder; F31.9 Bipolar disorder, unspecified; F20.9 Schizophrenia, unspecified; F43.10 Post-traumatic stress disorder, unspecified; M25.541 Pain in joints of right hand; Z86.69 Personal history of other diseases of the nervous system and sense organs; D64.9 Anemia, unspecified; R60.0 Localized edema; R63.8 Other symptoms and signs concerning food and fluid intake; Z86.711 Personal history of pulmonary embolism; Z86.79 Personal history of other diseases of the circulatory system; B18.2 Chronic viral hepatitis C; Z88.8 Allergy status to other drugs, medicaments and biological substances
CPT/HCPCS: 36415; 80053; 85027; 86780; 93005; 93010; J0735; U0003

== ENCOUNTER 2020-07-28 10:39 | Emergency (ER) | payer OTHER ==
[2020-07-28 10:45] VITALS: BP 110/56; PULSE 55; TEMP 98.7; BMI 22.2
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
== END 2020-07-28 11:39 | disposition home or self-care (01) ==
LOC: JERFT 10:39
DX: H60.92 Unspecified otitis externa, left ear (principal)
CPT/HCPCS: 99282-25

== ENCOUNTER 2020-07-29 23:49 | Inpatient (IN) | payer OTHER ==
--- NOTE | 2020-07-30 00:09 | PDOC ---
History of Present Illness - General Stated Complaint: R/O DVT Time Seen by Provider: 07/30/20 00:08 History Source: Patient, Old Records Exam Limitations: No Limitations - History of Present Illness Initial Comments: 07/30/20 00:09 HISTORY OF PRESENT ILLNESS: 35-year-old male past medical history of hepatitis C status post Harvoni, anxiety, depression and bipolar disorder who presents to the emergency department from [facility] for evaluation of left ankle pain. Patient states he was playing basketball 1 week ago when he rolled his ankle and has been ambulatory since the initial injury. Providers at [facility] concerned for DVT as well. Patient is a daily intravenous heroin user with 8-10 bags daily. No recent travel or sick contacts. PAST MEDICAL HISTORY: See HPI SURGICAL HISTORY: Denies ALLERGIES: Tramadol, Haldol REVIEW OF SYSTEMS General/Constitutional: Denies fever or chills. Denies weakness, weight change. HEENT: Denies change in vision. Denies ear pain or discharge. Denies sore throat. Cardiovascular: Denies chest pain or shortness of breath. Respiratory: Denies cough, wheezing, or hemoptysis. Gastrointestinal: Denies nausea, vomiting, diarrhea or constipation. Denies re ctal bleeding. Genitourinary: Denies dysuria, frequency, or change in urination. Musculoskeletal: See HPI Skin and breasts: Denies rash or easy bruising. Neurologic: Denies headache, vertigo, loss of consciousness, or loss of sensation. Psychiatric: Denies depression or anxiety. Endocrine: Denies increased thirst. Denies abnormal weight change. Hematologic/Lymphatic: Denies anemia, easy bleeding, or history of blood clots. Allergic/Immunologic: Denies hives or skin allergy. Denies latex allergy. PHYSICAL EXAM General Appearance: Well-appearing, appropriately dressed. No apparent distress, no intoxication. Vascular Pulses: Dorsalis-Pedis (R): 2+, Dorsalis-Pedis (L): 2+ Musculoskeletal/Extremities: Left ankle swollen circumferentially. Full flexion and dorsiflexion of the ankle is noted. No calf tenderness, cords, erythema or edema is present. Negative Homans sign. Neurovascularly intact. Integumentary: Appropriate color, dry, warm. No cyanosis, erythema, jaundice or rash 07/30/20 00:10 Past History - Medical History Allergies/Adverse Reactions: Allergies Allergy/AdvReac Type Severity Reaction Status Date / Time haloperidol [From Haldol] Allergy Low Blood Verified 07/29/20 23:56 Pressure tramadol Allergy Low Blood Verified 07/29/20 23:56 Pressure Home Medications: Ambulatory Orders Alprazolam [Xanax] 1 tablet PO DAILY 07/01/20 Bupropion HCl [Wellbutrin Xl] 1 tablet PO DAILY 07/01/20 Anemia: No Asthma: No Cancer: No Cardiac Disorders: No CVA: No COPD: No CHF: No Dementia: No Diabetes: No GI Disorders: No Disorders: No HTN: No Hypercholesterolemia: No Kidney Stones: No Liver Disease: No Seizures: No Thyroid Disease: No - Surgical History Abdominal Surgery: No Appendectomy: No Cardiac Surgery: Yes (CHEST TUBES 12/01 [facility] 2000) Cholecystectomy: No Lung Surgery: No Neurologic Surgery: No Orthopedic Surgery: No - Reproductive History Testicular Surgery: No - Immunization History Immunization Up to Date: Yes - Psycho-Social/Smoking History Smoking History: Never smoked Have you smoked in the past 12 months: No Number of Cigarettes Smoked Daily: 5 Cigars Per Day: 0 Information on smoking cessation initiated: No 'Breaking Loose' booklet given: 07/29/20 - Substance Abuse Hx (Audit-C & DAST Scrn) How often the patient has a drink containing alcohol: Monthly or less Number of drinks the patient has on a typical day: 1 or 2 Score: In Men: 4 or > Positive; In Women: 3 or > Positive: 1 Screen Result (Pos requires Nsg. Audit-10AR): Negative In the last yr the pt used illegal drug/Rx for NonMed reason: Yes Score: Yes response is considered Positive: 1 Screen Result (Positive result requires Nsg. DAST-10): Positive *Physical Exam - Vital Signs Last Vital Signs Temp Pulse Resp BP Pulse Ox 98.6 F 68 18 122/74 100 07/29/20 23:54 07/29/20 23:54 07/29/20 23:54 07/29/20 23:54 07/29/20 23:54 ED Treatment Course - LABORATORY CBC & Chemistry Diagram: 07/30/20 02:00 07/30/20 02:00 - RADIOLOGY Radiology Studies Ordered: Category Date Time Status ANKLE & FOOT-LEFT* [RAD] Stat Radiology 07/30/20 00:07 Ordered Medical Decision Making - Medical Decision Making 07/30/20 00:12 A/P: 35-year-old male with left ankle pain status post inversion of his foot approximately 1 week ago X-ray of left foot and ankle Duplex Dopplers to rule out DVT Reassess Anticipate discharge back to [facility] for continued detoxification from heroin 07/30/20 01:08 Ultrasound is read by imaging on-call: Positive for deep vein thrombosis involving the left common femoral vein. There is also superficial venous thrombosis in the left greater saphenous vein. The remainder of the deep venous system of the left lower extremity is free of thrombus. Admit to hospital service for continued evaluation of provoked DVT and initiation of oral anticoagulation therapy. 07/30/20 01:23 Discharge - Discharge Information Problems reviewed: Yes Clinical Impression/Diagnosis: DVT (deep venous thrombosis) Disposition: ELOPED - Follow up/Referral - Patient Discharge Instructions - Post Discharge Activity
--- NOTE | 2020-07-30 00:14 | PDOC ---
*Physical Exam - Vital Signs Last Vital Signs Temp Pulse Resp BP Pulse Ox 98.6 F 68 18 122/74 100 07/29/20 23:54 07/29/20 23:54 07/29/20 23:54 07/29/20 23:54 07/29/20 23:54 Medical Decision Making - Medical Decision Making 07/30/20 00:14 Patient seen by the advanced practice provider under my supervision. Ancillary testing reviewed as necessary. I agree with plan as outlined by the advanced practice provider. Discharge - Discharge Information Problems reviewed: Yes Clinical Impression/Diagnosis: DVT (deep venous thrombosis) - Follow up/Referral Referrals: Perry Nieto MD [Primary Care Provider] - - Patient Discharge Instructions - Post Discharge Activity
[2020-07-30] MEDS ORDERED: ENOXAPARIN NA (PORCINE) 80 MG/0.8 ML DISP.SYRIN SQ ONE (01:05)
[2020-07-30] MEDS ORDERED: ENOXAPARIN NA (PORCINE) 60 MG/0.6 ML DISP.SYRIN SQ ONE (01:20)
[2020-07-30 02:17] LABS: BASO % 0.5 % (0-2.0); EOS % 1.8 % (0-4.5); HEMATOCRIT 29.4 % (35.4-49); HEMOGLOBIN 9.2 GM/dL (11.7-16.9); LYMPH % 14.4 % (8-40); MCH 23.9 pg (25.7-33.7); MCHC 31.3 g/dl (32.0-35.9); MEAN CELL VOLUME 76.6 fl (80-96); MEAN PLT VOLUME 7.9 fl (7.5-11.1); MONO % 11.4 % (3.8-10.2); NEUT % 71.9 % (42.8-82.8); PLATELET COUNT 163 K/MM3 (134-434); RBC 3.84 M/mm3 (4.00-5.60); RDW 17.2 % (11.9-15.9); WHITE BLOOD COUNT 7.2 K/mm3 (4.0-10.0)
[2020-07-30 02:28] LABS: INR 1.03 (0.83-1.09); PROTHROMBIN TIME (PATIENT) 12.1 SEC (9.7-13.0)
[2020-07-30 02:39] LABS: ALBUMIN 3.3 g/dl (3.4-5.0); BILIRUBIN,TOTAL 0.3 mg/dL (0.2-1); BLOOD UREA NITROGEN 13.5 mg/dL (7-18); CALCIUM 8.2 mg/dL (8.5-10.1); CREATININE 0.8 mg/dL (0.55-1.3); POTASSIUM 4.9 mmol/L (3.5-5.1); TOT PROT 7.1 g/dl (6.4-8.2)
[2020-07-30] MEDS ORDERED: hydrOXYzine HCL 100 MG/2 ML VIAL IM ONE (03:31)
[2020-07-30] MEDS ORDERED: hydrOXYzine PAMOATE 50 MG CAPSULE (FP) PO ONE (03:38)
[2020-07-30] MEDS ORDERED: hydrOXYzine PAMOATE 50 MG CAPSULE (FP) ONE (03:39)
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
--- NOTE | 2020-07-30 03:51 | HP ---
CHIEF COMPLAINT: Ankle pain PCP: Perry Ojeda HISTORY OF PRESENT ILLNESS: Tyrone Brown is a 35 year old man with a 20+ year history of heroin dependence, recurrent DVT (2018, 2019), endocarditis (2018), bipolar disorder, presenting with left ankle pain. Today presented to [facility] for detox from heroin, but was complaining of ankle pain. Exam at [facility] revealed swollen ankle, and he was sent to ED for further evaluation. At [facility] he tested positive for cocaine, fentanyl and opiates. He reports ear pain, and twisting his ankle while playing basketball 7 days ago. Patient uncooperative and refusing to answer further questions. ER course was notable for: (1) U/S demonstrating DVT in the L common femoral vein, and a smaller DVT in the L greater saphenous vein (2) Administration of Lovenox 70 mg sq Recent Travel: Unknown PAST MEDICAL HISTORY: Heroin dependence using 8-10 bags/day; iv Hepatitis C Bipolar B/l DVT'S (2018 and 2019) Endocarditis (2018) PAST SURGICAL HISTORY: Unknown Social History: Drugs: Heroin 8-10 bags/day; route: iv Allergies haloperidol [From Haldol] Allergy (Verified 07/29/20 23:56) Low Blood Pressure DYSTONIA tramadol Allergy (Verified 07/29/20 23:56) Low Blood Pressure seizure HOME MEDICATIONS: Home Medications Medication Instructions Recorded Alprazolam [Xanax] 1 tablet PO DAILY 07/01/20 Bupropion HCl [Wellbutrin Xl] 1 tablet PO DAILY 07/01/20 REVIEW OF SYSTEMS SEE HPI PHYSICAL EXAMINATION Vital Signs - 24 hr 07/29/20 07/30/20 23:54 01:40 Temperature 98.6 F Pulse Rate 68 Respiratory 18 Rate Blood Pressure 122/74 O2 Sat by Pulse 100 100 Oximetry (%) GENERAL: HEAD: Normal with no signs of trauma. EYES: Pupils equal, round and reactive to light, extraocular movements intact, sclera anicteric. EARS, NOSE, THROAT: L ear erythematous, nares patent, oropharynx clear without exudates. Moist mucous membranes. NECK: Normal range of motion LUNGS: Breath sounds equal, clear to auscultation bilaterally. No wheezes, and no crackles. No accessory muscle use. HEART: Regular rate and rhythm, normal S1 and S2 without murmur, rub or gallop. ABDOMEN: Soft, mildly tender, hyperactive bowel sounds. LOWER EXTREMITIES: Patient refusing exam. PSYCHIATRIC: Uncooperative. Yelling at staff. Laboratory Results - last 24 hr 07/30/20 07/30/20 07/30/20 02:00 02:00 02:00 WBC 7.2 RBC 3.84 L Hgb 9.2 L Hct 29.4 L MCV 76.6 L MCH 23.9 L MCHC 31.3 L RDW 17.2 H Plt Count 163 D MPV 7.9 Absolute Neuts (auto) 5.2 Neutrophils % 71.9 Lymphocytes % 14.4 D Monocytes % 11.4 H Eosinophils % 1.8 Basophils % 0.5 Nucleated RBC % 0 PT with INR 12.10 INR 1.03 Sodium 138 Potassium 4.9 Chloride 105 Carbon Dioxide 30 Anion Gap 3 L BUN 13.5 Creatinine 0.8 Est GFR (CKD-EPI)AfAm 132.27 Est GFR (CKD-EPI)NonAf 114.12 Random Glucose 89 Calcium 8.2 L Total Bilirubin 0.3 AST 28 ALT 16 Alkaline Phosphatase 53 Total Protein 7.1 Albumin 3.3 L ASSESSMENT/PLAN: Tyrone Brown is a 35 year old man with a 20+ year history of heroin dependence, recurrent DVT (2017, 2018), endocarditis (2018), bipolar disorder, presenting with left ankle pain and U/S revealing DVT's in the left common femoral vein and left greater saphenous vein. #DVT - Hx of prior DVT back in 2017 (L femoral vein) and 2019 - Consult radiology to determine if this is a new or chronic clot - Received Enoxaparin 70 mg sq in ED - Hold off on further anticoagulation given concern for iron def anemia and hx of gi bleed (Hb at presentation 9.2) - Heme/Onc consulted to determine if there is an underlying predisposition to clot formation #Iron deficiency anemia - History of rectal bleeding - Hb 9.2 at presentation -- baseline appears to be ~9 since August 2019; prior to that was at 12.7 - F/u iron studies and ferritin - F/u stool occult blood x3 - GI consult placed to evaluate pt for gi bleed #Heroin Dependence - Pt using 8-10 bags heroin/day; route: iv - COWS score 20 - Given Methadone 30 mg while in ED - Begin methadone taper - Consider discharge back to [facility] for detox #Ear Pain - Recently admitted at [facility] with ear infection; was given one dose of Augmentin and given script -- never filled - Continue Augmentin 875 bid DVT prophylaxis: No chemical AC -- concerns for GI bleed in light of anemia FEN - No standing fluids - Regular diet Disposition: Med/surg FULL CODE Family Medical History Family History: As Documented Visit type - Emergency Visit Emergency Visit: Yes ED Registration Date: 07/30/20 Care time: The patient presented to the Emergency Department on the above date and was hospitalized for further evaluation of their emergent condition. - New Patient This patient is new to me today: Yes Date on this admission: 07/30/20 - Critical Care Critical Care patient: No ATTENDING PHYSICIAN STATEMENT I saw and evaluated the patient. I reviewed the resident's note and discussed the case with the resident. I agree with the resident's findings and plan as documented. SUBJECTIVE: OBJECTIVE: ASSESSMENT AND PLAN:
[2020-07-30] MEDS ORDERED: KETOROLAC TROMETHAMINE 30 MG/1 ML VIAL IM ONE (04:20)
[2020-07-30] MEDS ORDERED: KETOROLAC TROMETHAMINE 30 MG/1 ML VIAL ONE (04:21)
[2020-07-30] MEDS ORDERED: KETOROLAC TROMETHAMINE 30 MG/1 ML VIAL IVPUSH ONE (04:21)
--- NOTE | 2020-07-30 04:25 | PDOC ---
*Physical Exam - Vital Signs Last Vital Signs Temp Pulse Resp BP Pulse Ox 98.6 F 68 18 122/74 100 07/29/20 23:54 07/29/20 23:54 07/29/20 23:54 07/29/20 23:54 07/30/20 01:40 - Physical Exam 07/30/20 04:24 Signout - Admitted to medicine ED Treatment Course - LABORATORY CBC & Chemistry Diagram: 07/30/20 02:00 07/30/20 02:00 - ADDITIONAL ORDERS Additional order review: Laboratory Results 07/30/20 07/30/20 02:00 02:00 PT with INR 12.10 INR 1.03 Sodium 138 Potassium 4.9 Chloride 105 Carbon Dioxide 30 Anion Gap 3 L BUN 13.5 Creatinine 0.8 Est GFR (CKD-EPI)AfAm 132.27 Est GFR (CKD-EPI)NonAf 114.12 Random Glucose 89 Calcium 8.2 L Total Bilirubin 0.3 AST 28 ALT 16 Alkaline Phosphatase 53 Total Protein 7.1 Albumin 3.3 L 07/30/20 02:00 RBC 3.84 L MCV 76.6 L MCHC 31.3 L RDW 17.2 H MPV 7.9 Neutrophils % 71.9 Lymphocytes % 14.4 D Monocytes % 11.4 H Eosinophils % 1.8 Basophils % 0.5 - Medications Given in the ED: ED Medications Discontinued Medications Generic Name Dose Route Start Last Admin Trade Name Freq PRN Reason Stop Dose Admin Enoxaparin Sodium 70 mg 07/30/20 01:05 07/30/20 01:36 Lovenox - SQ 07/30/20 01:06 70 mg ONCE ONE Administration Hydroxyzine HCl 50 mg 07/30/20 03:31 07/30/20 03:39 Vistaril Injection - IM 07/30/20 03:32 Not Given ONCE ONE Hydroxyzine Pamoate 50 mg 07/30/20 03:38 07/30/20 03:50 Vistaril - PO 07/30/20 03:39 Not Given ONCE ONE Discharge - Discharge Information Problems reviewed: Yes Clinical Impression/Diagnosis: DVT (deep venous thrombosis) Qualifiers: DVT location: lower extremity Affected thrombotic vein of extremity: other lower extremity vein Chronicity: unspecified Laterality: left Qualified Code(s): I82.492 - Acute embolism and thrombosis of other specified deep vein of left lower extremity - Admission Yes - Follow up/Referral Referrals: Perry Nieto MD [Primary Care Provider] - - Patient Discharge Instructions - Post Discharge Activity
[2020-07-30] MEDS ORDERED: METHADONE HCL 10 MG TABLET (FOR DETOX USE ONLY) PO ONE (05:04)
[2020-07-30] MEDS ORDERED: METHADONE HCL 10 MG TABLET PO ONE ×2 (05:04→14:45)
[2020-07-30] MEDS ORDERED: METHADONE HCL 10 MG TABLET ONE (05:10)
--- OUTSIDE RECORDS SUMMARY | 2020-07-30 07:40 | XMS ---
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 substance abuse, SUBSTANCE ABUSE, 10:45:00 AM [facility] uncomplicated UNCOMPLICATED EDT F91.9 Conduct disorder, CONDUCT DISORDER, Diagnosis 06/19/2020 [facility] unspecified UNSPECIFIED 10:45:[address] EDT 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 Hallucinogen HALLUCINOGEN Diagnosis 06/03/2020 [facility] [place] [facility] abuse, ABUSE, 11:47:00 AM [facility] uncomplicated UNCOMPLICATED EDT F31.9 Bipolar disorder, BIPOLAR DISORDER, Diagnosis 06/03/2020 [facility] unspecified UNSPECIFIED 11:47:[address] EDT F29 Unspecified UNSP PSYCHOSIS NOT Diagnosis 06/03/2020 [facility] psychosis not due DUE TO A SUBSTANCE 11:47:00 A Medical Center to a substance or OR KNOWN PHYSIOL EDT known COND physiological condition Z86.718 Personal history PERSONAL HISTORY Diagnosis 06/03/2020 [facility] of other venous OF OTHER VENOUS 11:47:00 AM [facility] Center thrombosis and THROMBOSIS AND EDT embolism EMBOLISM 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 [facility] (current) use of (CURRENT) USE OF 11:47:00 AM [facility] Center anticoagulants ANTICOAGULANTS EDT RT ARM LACERATION RT ARM LACERATION Diagnosis 05/26/2020 S - [facility] 10:22:00 PM [facility] Z53.29 Procedure and Procedure or Diagnosis 05/26/2020 S - [place] nt treatment not treatment not 10:22:00 PM [place] carried out carried out EDT Hospital because of because of patient's decision patient's decision for other reasons for other reasons Y92.89 Other specified Other specified Diagnosis 05/26/2020 S - [facility] places as the places as place of 10:22:[address] of occurrence of EDT Hospital occurrence of the external cause external cause S61.512A Laceration without Laceration without Diagnosis 0 S - [facility] foreign body of foreign body of 10:22:00 PM [place] non left wrist, left wrist, EDT Hospital initial encounter initial encounter X58.XXXA Exposure to other Exposure to other Diagnosis 05/26/2020 S - [facility] specified factors, specified factors, 10:22:00 PM [place] initial encounter initial encounter T [facility] Y93.89 Activity, other Other activity Diagnosis 05/26/2020 S - [facility] specified 10:22:00 PM [facility] PSYCH EVAL, PSYCH EVAL, Diagnosis 05/15/2020 [facility] SUICIDAL SUICIDAL 01:04:00 PM [facility] Y99.8 Other external Other external Diagnosis 05/15/2020 [facility] cause status cause of injury or 01:04:00 PM [facility] non poisoning EDT Hospital F11.10 Opioid abuse, Uncomplicated Diagnosis 05/15/2020 S - [facility] uncomplicated opioid abuse 01:04:00 PM [facility] Z03.818 Encounter for Encounter for Diagnosis 05/15/2020 [facility] - [facility] observation for observation for 01:04:00 PM [place] non suspected exposure suspected exposure EDT Hospital to other to other biological agents biological agent, ruled out ruled out S00.11XA Contusion of right Contusion of right Diagnosis 0 [facility] [place] eyelid and eyelid and 01:04:00 PM [place] periocular area, periocular area, EDT Ho spital initial encounter initial encounter S09.93XA Unspecified injury Facial injury Diagnosis 05/14/2020 [facility] [place] of face, initial 10:42:00 PM [place] encounter EDT Hospital W19.XXXA Unspecified fall, Fall Diagnosis 05/14/2020 [facility] - [facility]unt initial encounter 10:42:00 PM [facility] W18.39XA Other fall on same Other fall on same Diagnosis 0 [facility] [place] level, initial level, initial 10:42:00 PM [facility] n encounter encounter EDT Hospital FELL FELL Diagnosis 05/14/2020 [facility] [place] 10:42:00 PM [facility] F15.950 Other stimulant OTH STIM USE, UNSP Diagnosis 05/13/2020 S aint Serafin use, unspecified W STIM-INDUCE 08:54:00 AM [facility] with PSYCH DISORDER 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 F17.210 Nicotine NICOTINE Diagnosis 05/13/2020 [facility] dependence, DEPENDENCE, 08:54:[address] cigarettes, CIGARETTES, EDT uncomplicated UNCOMPLICATED Z78.1 Physical restraint PHYSICAL RESTRAINT Diagnosis 0 [facility] status STATUS 08:54:00 AM Medical Cent[facility] r EDT F14.20 Cocaine COCAINE Diagnosis 03/24/2020 [facility] dependence, DEPENDENCE, 03:00:[address] uncomplicated UNCOMPLICATED EDT F11.20 Opioid dependence, OPIOID DEPENDENCE, Diagnosis 0 [facility] uncomplicated UNCOMPLICATED 03:00:00 PM Medical Center EDT D64.9 Anemia, ANEMIA, Diagnosis 03/24/2020 [facility] unspecified UNSPECIFIED 03:00:[address] EDT F41.9 Anxiety disorder, ANXIETY DISORDER, Diagnosis 03/24/2020 [facility] unspecified UNSPECIFIED 03:00:[address] EDT L03.114 Cellulitis of left CELLULITIS OF LEFT Diagnosis 0 [facility] upper limb UPPER LIMB 07:50:00 PM Medical Cent[facility] r EDT COLON/GASTRO COLON/GASTRO Diagnosis 12/26/2019 [facility] - New 11:00:00 AM [facility] R10.9 Unspecified Unspecified Diagnosis 11/28/2019 [facility] abdominal pain abdominal pain 02:55:00 PM - [facility] PSYCH EVAL PSYCH EVAL Diagnosis 09/19/2019 [facility] - [facility] 04:19:00 PM [facility] F11.20 Opioid dependence, Encounter for Diagnosis 09/19/2019 [facility] - [facility] uncomplicated methadone 04:19:00 PM [facility] therapy GUM INFECTION GUM INFECTION Diagnosis 07/16/2019 [facility] - Mo unt 10:22:00 PM [facility] POSSIBLE GUM POSSIBLE GUM Diagnosis 07/16/2019 [facility] - Moun t INFECTION INFECTION 09:50:00 PM [facility] TOOTHACHE TOOTHACHE Diagnosis 04/26/2019 [facility] - [facility] 03:17:00 PM [facility] K08.89 Other specified Toothache Diagnosis 04/26/2019 [facility] - [facility] nt disorders of teeth 03:17:00 PM [facility] structures B35.4 Tinea corporis Tinea corporis Diagnosis 12/22/2018 [facility] - [facility] 09:31:00 AM [facility] RASH ON THE RASH ON THE Diagnosis 12/22/2018 [facility] ABDOMINAL AREA ABDOMINAL AREA 09:31:00 AM [facility] L20.9 Atopic dermatitis, Atopic dermatitis Diagnosis 12/22/2018 [facility] unspecified 09:31:00 AM [facility] Surgeries/Procedures Procedure Description Date Indications Data Source(s) Electrocardiographic 07/06/2020 [facility] procedure (procedure) 05:45:35 PM System EDT - 07/06/2020 05:45:[address] Maxillofacial without 05/15/2020 [facility] Cont[address] CT Maxillofacial 05:50:00 PM Sy stem without Contrast EDT - 05/15/2020 05:50:00 PM EDT Computerized axial 05/15/2020 [facility] [employer] tomography of brain 05:50:00 PM System (procedure) EDT - 05/15/2020 05:50:[address] Maxillofacial without 05/14/2020 [facility] Contrast 11:48:09 PM System EDT - 05/15/2020 03:40:07 AM EDT Electrocardiographic 11/10/2018 [facility] procedure (procedure) 10:57:08 AM System EST - 11/10/2018 10:50:00 AM EST XR Chest PA and Left 11/10/2018 [facility] Lateral Rad Image 10:57:00 AM System EST - 11/10/2018 10:57:00 AM EST Computed tomography of 08/15/2018 [facility] abdomen (procedure) 03:15:00 PM System EDT - 08/15/2018 03:15:00 PM EDT Venipuncture 01/04/2018 [facility] 11:13:39 AM System EST - 01/04/2018 01:00:38 PM EST No Known procedures No Known eCW2 (Hu dson procedures [facility]) No Known procedures No Known eCW2 ([facility] dson procedures [facility]) No Known procedures No Known eCW2 ( dson procedures [facility]) Results ID Date Data Source [id number] 07/10/2020 10:38:51 PM EDT [facility] System Name Value Range Interpretation Description Data Sup porting Code Source(s) Document(s ) Leukocytes 9.3 Normal (applies WBC Count [facility] [#/volume] in {10^3_uL to non-numeric Health Unspecified } results) System specimen by Automated count Erythrocytes 3.79 Below low normal RBC Count [facility] [#/volume] in {10^6_uL Health Blood by } System Automated count Hemoglobin 9.1 Below low normal Hemoglobin [facility] [Mass/volume] in {gm/dL} Health Blood System Hematocrit 29.7 % Below low normal Hematocrit [facility] [Volume Health Fraction] of System Blood Erythrocyte mean 78.4 fl Below low normal MCV [facility] corpuscular Health volume [Entitic System volume] by Automated count Erythrocyte mean 24.0 pg Below low normal MCH [facility] corpuscular Health hemoglobin System [Entitic mass] by Automated count Erythrocyte mean 30.6 Below low normal MCHC [facility] corpuscular {gm/dL} Health hemoglobin System concentration [Mass/volume] by Automated count Erythrocyte 17.2 % Above high RDW-CV [facility] distribution normal Health width [Entitic System volume] by Automated count Platelets 306 Normal (applies Platelet Count [facility] [#/volume] in {10^3_uL to non-numeric Health Plasma by } results) System Automated count Platelet mean 8.8 fl Normal (applies MPV [facility] volume [Entitic to non-numeric Health volume] in Blood results) System by Automated count Monocytes 0.7 Normal (applies Monocyte # [facility] [#/volume] in {10^3_uL to non-numeric Health Blood by Manual } results) System count Eosinophils 0.15 Normal (applies Eosinophil # [facility] [#/volume] in {10^3_uL to non-numeric Health Blood } results) System Neutrophils 6.2 Normal (applies Neutrophil # [facility] [#/volume] in {10^3_uL to non-numeric Health Body fluid } results) System Basophils 0.05 Normal (applies Basophil # [facility] [#/volume] in {10^3_uL to non-numeric Health Blood by } results) System Automated count Lymphocyte 2.0 Normal (applies Lymphocyte # [facility] percent {10^3_uL to non-numeric Health differential } results) System count (procedure) Neutrophils/100 67.4 % Normal (applies Neutrophil % [facility] ever leukocytes in to non-numeric Health Blood by results) System Automated count Monocytes/100 7.9 % Normal (applies Monocyte % [facility] leukocytes in to non-numeric Health Blood results) System Eosinophils/100 1.6 % Normal (applies Eosinophil % [place] ever leukocytes in to non-numeric Health Unspecified results) System specimen Basophils/100 0.5 % Normal (applies Basophil % [facility] leukocytes in to non-numeric Health Unspecified results) System specimen by Manual count Lymphocytes 22.0 % Normal (applies Lymphocyte % [facility] [#/volume] in to non-numeric Health Blood by results) System Automated count ImmatureGranuloc 0.6 % Normal (applies Immature [facility] ytes% to non-numeric Granulocytes % Health results) System Nucleated 0.0 Normal (applies NRBC % [facility] erythrocytes {/100_WB to non-numeric Health [#/volume] in C} results) System Body fluid ImmatureGranuloc 0.06 Normal (applies Immature [facility] ytes# {10^3_uL to non-numeric Granulocytes # Health } results) System NRBC# 0.00 Below low normal NRBC # [facility] {10^3_uL Health } System ID Date Data Source [id number] 07/10/2020 10:38:51 PM EDT [facility] System Name Value Range Interpretation Description Data Sup porting Code Source(s) Document(s ) AlcoholE NON DETECTED Normal (applies to Alcohol Ethyl, [facility] thyl,Blo None non-numeric Blood Health System od Detected results) ID Date Data Source [id number] 07/10/2020 10:38:51 PM EDT [facility] System Name Value Range Interpretation Description Data Sup porting Code Source(s) Document(s ) Sodium 139 Normal (applies Sodium, Serum [facility] [Moles/volume] in mmol/L to non-numeric Health Serum or Plasma results) System Potassium 4.6 Normal (applies Potassium, [facility] [Mass/volume] in mmol/L to non-numeric Serum Health Serum or Plasma results) System Chloride 106 Normal (applies Chloride, [facility] [Moles/volume] in mmol/L to non-numeric Serum Health Serum or Plasma results) System Carbon dioxide, 25.0 Normal (applies CO2, Serum [facility] total mmol/L to non-numeric Health [Moles/volume] in results) System Serum or Plasma TotalProtein 7.8 Normal (applies Total Protein [facility] mg/dl to non-numeric Health results) System Glucose 63 Below low normal Glucose, [facility] [Mass/volume] in mg/dL Serum Health Serum or Plasma System Urea nitrogen 9 mg/dl Normal (applies Blood Urea [facility] [Mass/volume] in to non-numeric Nitrogen, Health Serum or Plasma results) Serum System Creatinine 1.30 Normal (applies Creatinine, [facility] [Mass/volume] in mg/dl to non-numeric Serum Health Serum or Plasma results) System Alkaline 72 Normal (applies Alkaline [facility] phosphatase {IU/L} to non-numeric Phosphatase, Health isoenzymes results) Serum System [Enzymatic activity/volume] in Serum or Plasma by Heat stability Bilirubin direct 0.5 Normal (applies Bilirubin, [facility] and total panel mg/dl to non-numeric Serum Total Health [Mass/volume] - results) System Serum or Plasma DirectBilirubin 0.3 Normal (applies Direct [facility] mg/dl to non-numeric Bilirubin Health results) System Aspartate 27 Normal (applies Aspartate [facility] aminotransferase {IU/L} to non-numeric Transaminase, Heal th [Enzymatic results) Serum System activity/volume] in Serum or Plasma by With P-5'-P Albumin 4.4 Normal (applies Albumin, [facility] [Mass/volume] in {gm/dl} to non-numeric Serum Health Serum or Plasma results) System I.Phosphorus 3.5 Normal (applies I. Phosphorus [facility] mg/dl to non-numeric Health results) System Alanine 20 Normal (applies Alanine [facility] aminotransferase {IU/L} to non-numeric Aminotransfer Heal th [Enzymatic results) ase, Serum System activity/volume] in Serum or Plasma Calcium 9.3 Normal (applies Calcium, [facility] [Mass/volume] in mg/dl to non-numeric Total Serum Health Serum or Plasma results) System A/GRatio 1.29 Normal (applies A/G Ratio [facility] to non-numeric Health results) System Urate 4.3 Normal (applies Uric Acid, [facility] [Mass/volume] in mg/dl to non-numeric Serum Health Serum or Plasma results) System Anion gap in Serum 8.00 Normal (applies Anion Gap [place] ever or Plasma mmol/L to non-numeric Health results) System Glomerular 62.00 Normal (applies GFR [facility] filtration to non-numeric Health rate/1.73 sq results) System M.predicted [Volume Rate/Area] in Serum or Plasma by Creatinine-based formula (CKD-EPI) eGFR will provide clinicians with a more accurate indicator of renal function then the serum creatinine. The eGFR is automa tically calculated from an empiric formula (endorsed by the National [employer] ion) which incorporates age, sex, and race.Clinicians may notice surprisingly low GFR's with serum creatinine valueswithin normal range- particularly in elderly wo men (with low muscle mass).In the hospital setting, the eGFR should add an element of safety in drug dosing, in assessing the risk of IV contrast administration, and in assessing vascular risk.The NKF staging system is as follows:Normal: eGFR >90 with no kidney markersStage 1: eGFR >90 with kidney markers*Stage 2: eGFR 60- 89Stage 3: eGFR 30-59Stage 4: eGFR 15-29Stage 5: eGFR <15 (usually requir ing dialysis)*Markers include: Proteinuria, Hematuria, abnormal imaging-studies, or other blood or urine test abnormalities ID Date Data Source [id number] 07/10/2020 10:38:51 PM EDT [facility] System Name Value Range Interpretation Description Data Sup porting Code Source(s) Document(s ) Acetylsalicylate < 5.0 Normal (applies Salicylate [facility] [Mass/volume] in to non-numeric Level, Serum Healt h Serum or Plasma results) System ID Date Data Source [id number] 07/10/2020 10:38:51 PM EDT [facility] System Name Value Range Interpretation Description Data Sup porting Code Source(s) Document(s ) Acetaminophen 0 ug/ml Below low normal Acetaminophen [facility] ever [Mass/volume] in Level, Serum Health Serum or Plasma System ID Date Data Source [id number] 07/10/2020 10:38:51 PM EDT [facility] System Name Value Range Interpretation Description Data Sup porting Code Source(s) Document(s ) Leukocytes 5.2 Normal (applies WBC Count [facility] [#/volume] in {10^3_uL to non-numeric Health Syst em Unspecified } results) specimen by Automated count ok Erythrocytes 3.97 {10^6_uL} Below low RBC Count [facility] [#/volume] in Blood normal Health Sys tem by Automated count Hemoglobin 9.4 {gm/dL} Below low Hemoglobin [facility] [Mass/volume] in normal Health System Blood Hematocrit [Volume 31.4 % Below low Hematocrit [facility] Fraction] of Blood normal Health Syst em Erythrocyte mean 79.1 fl Below low MCV [facility] corpuscular volume normal Health Syst em [Entitic volume] by Automated count Erythrocyte mean 23.7 pg Below low MCH [facility] corpuscular normal Health System hemoglobin [Entitic mass] by Automated count Erythrocyte mean 29.9 {gm/dL} Below low MCHC [facility] corpuscular normal Health System hemoglobin concentration [Mass/volume] by Automated count Erythrocyte 17.0 % Above high RDW-CV [facility] distribution width normal Health Syst em [Entitic volume] by Automated count Platelets [#/volume] 296 {10^3_uL} Normal Platelet Count [facility] in Plasma by (applies to Health System Automated count non-numeric results) Platelet mean volume 8.6 fl Normal MPV [facility] [Entitic volume] in (applies to Health S ystem Blood by Automated non-numeric count results) Monocytes [#/volume] 0.5 {10^3_uL} Normal Monocyte # [facility] in Blood by Manual (applies to Health Sy stem count non-numeric results) Eosinophils 0.17 {10^3_uL} Normal Eosinophil # [facility] [#/volume] in Blood (applies to [facility] yste non-numeric results) Neutrophils 3.7 {10^3_uL} Normal Neutrophil # [facility] [#/volume] in Body (applies to Health Sy stem fluid non-numeric results) Basophils [#/volume] 0.03 {10^3_uL} Normal Basophil # [facility] in Blood by (applies to Health System Automated count non-numeric results) Lymphocyte percent 0.9 {10^3_uL} Below low Lymphocyte # [facility] differential count normal Health Syst em (procedure) Neutrophils/100 70.8 % Normal Neutrophil % [facility] leukocytes in Blood (applies to [facility] by Automated count non-numeric results) Monocytes/100 8.6 % Normal Monocyte % [facility] leukocytes in Blood (applies to [facility] yste non-numeric results) Eosinophils/100 3.2 % Normal Eosinophil % [facility] leukocytes in (applies to Health System Unspecified specimen non-numeric results) Basophils/100 0.6 % Normal Basophil % [facility] leukocytes in (applies to Health System Unspecified specimen non-numeric by Manual count results) Lymphocytes 16.4 % Below low Lymphocyte % [facility] [#/volume] in Blood normal [facility] tem by Automated count ImmatureGranulocytes 0.4 % Normal Immature [facility] % (applies to Granulocytes % Health System non-numeric results) ImmatureGranulocytes 0.02 {10^3_uL} Normal Immature [facility] # (applies to Granulocytes # Health System non-numeric results) Nucleated 0.0 {/100_WBC} Normal NRBC % [facility] erythrocytes (applies to Health System [#/volume] in Body non-numeric fluid results) NRBC# 0.00 {10^3_uL} Below low NRBC # [facility] normal Health System ID Date Data Source [id number] 07/10/2020 10:38:51 PM EDT [facility] System Name Value Range Interpretation Description Data Sup porting Code Source(s) Document(s ) AlcoholE Not Detected Normal (applies to Alcohol Ethyl, [facility] thyl,Blo None non-numeric Blood Health System od Detected results) ID Date Data Source [id number] 07/10/2020 10:38:51 PM EDT [facility] Name Value Range Interpretation Description Data Sup porting Code Source(s) Document(s ) Sodium 143 Normal (applies Sodium, Serum [facility] [Moles/volume] mmol/L to non-numeric Health in Serum or results) System Plasma Potassium 4.3 Normal (applies Potassium, [facility] [Mass/volume] mmol/L to non-numeric Serum Health in Serum or results) System Plasma Chloride 106 Normal (applies Chloride, [facility] [Moles/volume] mmol/L to non-numeric Serum Health in Serum or results) System Plasma Carbon dioxide, 27.0 Normal (applies CO2, Serum [facility] total mmol/L to non-numeric Health [Moles/volume] results) System in Serum or Plasma TotalProtein 7.2 Normal (applies Total Protein [facility] mg/dl to non-numeric Health results) System Glucose 74 mg/dL Below low normal Glucose, Serum [facility] [Mass/volume] Health in Serum or System Plasma ok Urea nitrogen 9 mg/dl Normal (applies Blood Urea [facility] [Mass/volume] in Serum to non-numeric Nitrogen, Se [facility] System or Plasma results) Creatinine 1.10 mg/dl Normal (applies Creatinine, [facility] [Mass/volume] in Serum to non-numeric Serum He alth System or Plasma results) Alkaline phosphatase 69 {IU/L} Normal (applies Alkaline [facility] isoenzymes [Enzymatic to non-numeric Phosphatase, Health System activity/volume] in results) Serum Serum or Plasma by Heat stability Bilirubin.total 0.2 mg/dl Normal (applies Bilirubin, Serum [facility] [Mass/volume] in Serum to non-numeric Total He alth System or Plasma results) DirectBilirubin 0.1 mg/dl Normal (applies Direct Bilirubin [facility] to non-numeric Health System results) Aspartate 20 {IU/L} Normal (applies Aspartate [facility] aminotransferase to non-numeric Transaminase, [facility] System [Enzymatic results) Serum activity/volume] in Serum or Plasma by With P-5'-P Albumin [Mass/volume] 4.0 {gm/dl} Normal (applies Albumin, S stu [facility] in Serum or Plasma to non-numeric Health System results) I.Phosphorus 3.5 mg/dl Normal (applies I. Phosphorus [facility] to non-numeric Health System results) Alanine 18 {IU/L} Normal (applies Alanine [facility] aminotransferase to non-numeric Aminotransferase H ealth System [Enzymatic results) , Serum activity/volume] in Serum or Plasma Calcium [Mass/volume] 8.8 mg/dl Normal (applies Calcium, Tot al [facility] in Serum or Plasma to non-numeric Serum Health System results) A/GRatio 1.25 Normal (applies A/G Ratio [facility] to non-numeric Health System results) Urate [Mass/volume] in 3.6 mg/dl Normal (applies Uric Acid, Serum [facility] Serum or Plasma to non-numeric Health Sy stem results) Anion gap in Serum or 10.00 Normal (applies Anion Gap [facility] Plasma mmol/L to non-numeric Health System results) Glomerular filtration 75.00 Normal (applies GFR [facility] rate/1.73 sq to non-numeric Health Syste m M.predicted [Volume results) Rate/Area] in Serum or Plasma by Creatinine-based formula (CKD-EPI) eGFR will provide clinicians with a more accurate indicator of renal function then the serum creatinine. The eGFR is automa tically calculated from an empiric formula (endorsed by the National Kidney Foundat ion) which incorporates age, sex, and race.Clinicians may notice surprisingly low GFR's with serum creatinine valueswithin normal range- particularly in elderly wo men (with low muscle mass).In the hospital setting, the eGFR should add an element of safety in drug dosing, in assessing the risk of IV contrast administration, and in assessing vascular risk.The NKF staging system is as follows:Normal: eGFR >90 with no kidney markersStage 1: eGFR >90 with kidney markers*Stage 2: eGFR 60- 89Stage 3: eGFR 30-59Stage 4: eGFR 15-29Stage 5: eGFR <15 (usually requir ing dialysis)*Markers include: Proteinuria, Hematuria, abnormal imaging-studies, or other blood or urine test abnormalities ID Date Data Source [id number] 07/10/2020 10:38:51 PM EDT [facility] System Name Value Range Interpretation Description Data Sup porting Code Source(s) Document(s ) Amphetamine Negative Normal (applies Amphetamine [facility] [Mass/volume] to non-numeric Level, Urine Health in Urine results) System Cut-off = 1000 ng/mL Barbiturates Negative Normal (applies to Barbiturate [facility] [Mass/volume] in non-numeric Screen, Urine Health System Urine by Screen results) method Cut-off = 200 ng/mL Benzodiazepines Negative Normal (applies Benzodiazepines, [facility] [Mass/volume] in to non-numeric Urine Health S yste Urine results) Cut-off = 200 ng/mL Cocaine Positive Abnormal (applies Cocaine [facility] metabolites.other to non-numeric Metabolite [facility] [Mass/volume] in Urine results) Screen, Urine Cut-off = 300 ng/mL Methadone Negative Normal (applies to Methadone Level, [facility] [Mass/volume] in non-numeric Urine System Urine results) Cut-off = 300 ng/mL [id number],Urine Positive Abnormal (applies to Opiate 300, [facility] non-[facility] results) Urine System Cut-off = 300 ng/mL Phencyclidine Positive Abnormal (applies Phencyclidine, Uri ne [facility] [Mass/volume] in to non-[facility] S te Urine results) Cut-off = 25 ng/mL Cannabinoid(THC) Negative Normal (applies to Cannabinoid (THC) [facility] non-numeric System results) Cutt-off = 50These results are for medic al treatment only. The positive findings are unconfirmed. Request confirmatory/quanti tative test if needed. ID Date Data Source [id number] 07/10/2020 10:38:51 PM EDT [facility] Name Value Range Interpretation Description Data Sup porting Code Source(s) Document(s ) Color YELLOW Normal (applies Color [facility] to non-numeric Health results) System Appearance of CLEAR Normal (applies Urine [facility] Urine to non-numeric Appearance Health results) System Specific gravity 1.015 Normal (applies Urine Specific [facility] of Urine to non-numeric [facility] results) System pH.. 8.0 Normal (applies pH.. [facility] {pH_units to non-numeric Health } results) System Glucose,UA NEGATIVE Normal (applies Glucose, UA [facility] to non-numeric Health results) System Protein NEGATIVE Normal (applies Protein [facility] [Mass/volume] in to non-numeric Health Serum or Plasma results) System BilirubinUrine NEGATIVE Normal (applies Bilirubin [facility] to non-numeric Urine Health results) System Urobilinogen 0.2 mg/dL Normal (applies Urobilinogen [facility] [Mass/volume] in to non-numeric UA Health Urine results) System Ketones NEGATIVE Normal (applies Ketones [facility]A [facility] [Mass/volume] in to non-numeric Health Urine results) System Nitrate+Nitrite NEGATIVE Normal (applies Nitrite [facility] [Mass/volume] in to non-numeric Health Unspecified results) System specimen Leukocyte esterase NEGATIVE Normal (applies Leukocyte Kareem ever [Units/volume] in to non-numeric Esterase Health Urine results) Concentration System Leukocytes 0 {/HPF} Normal (applies White Blood [facility] [#/volume] in to non-numeric Cells Health Unspecified results) System specimen by Automated count RedBloodCells 0 {/HPF} Normal (applies Red Blood [facility] to non-numeric Cells Health results) System AmorphousCrystals 2+ Normal (applies Amorphous [facility] to non-numeric Crystals Health results) System UrineBlood NEGATIVE Normal (applies Urine Blood [facility] to non-numeric Health results) System ID Date Data Source [id number] 07/10/2020 10:38:51 PM EDT [facility] Name Value Range Interpretation Description Data Sup porting Code Source(s) Document(s ) Amphetamine Negative Normal (applies Amphetamine [facility] [Mass/volume] to non-numeric Level, Urine Health in Urine results) System Cut-off = 1000 ng/mL Barbiturates Negative Normal (applies to Barbiturate [facility] [Mass/volume] in non-numeric Screen, Urine Health System Urine by Screen results) method Cut-off = 200 ng/mL Benzodiazepines Negative Normal (applies Benzodiazepines, [facility] [Mass/volume] in to non-numeric Urine Health S ystem Urine results) Cut-off = 200 ng/mL Cocaine Positive Abnormal (applies Cocaine [facility] metabolites.other to non-numeric Metabolite Health System [Mass/volume] in Urine results) Screen, Urine Cut-off = 300 ng/mL Methadone Negative Normal (applies to Methadone Level, [facility] [Mass/volume] in non-numeric Urine System Urine results) Cut-off = 300 ng/mL [id number],Urine Positive Abnormal (applies to Opiate 300, [facility] non-numeric results) Urine System Cut-off = 300 ng/mL Phencyclidine Positive Abnormal (applies Phencyclidine, Uri ne [facility] [Mass/volume] in to non-[facility] Health S ystem Urine results) Cut-off = 25 ng/mL Cannabinoid(THC) Negative Normal (applies to Cannabinoid (THC) [facility] Health non-numeric System results) Cutt-off = 50These results are for medic al treatment only. The positive findings are unconfirmed. Request confirmatory/quanti tative test if needed. ID Date Data Source [id number] 01/04/2018 11:13:00 AM EST [facility] [place] [facility] Name Value Range Interpretation Description Data Sup porting Code Source(s) Document(s ) NIL 0.05 {IU/mL} Normal (applies NIL [facility] to non-numeric Health System results) Quantif Negative Normal (applies Quantiferon-TB [facility] skye-TB Negative test to non-numeric [facility] Syst em Gold. result. M. results) tuberculosis complex infection unlikely. TBAG-NI 0.01 {IU/mL} Normal (applies TB AG-NIL [facility] L to non-numeric Health System results) Mitogen 8.48 The Nil Normal (applies Mitogen-NIL [facility] -NIL tube value is to non-numeric Health Syst em used to results) determine if the patient has a preexisting immune response which could cause a false- positive reading on the test. In order for a test to be valid, the Nil tube must have a value of <=8.0 IU/mL. The mitogen control tube is used to assure the patient has a healthy immune status and also serves as a control for correct blood handling and incubation. It is used to detect false-negative readings. The mitogen tube must have a gamma interferon value >=0.5 IU/mL higher than the value of the Nil tube. The TB Antigen tube is coated with the M. tuberculosis specific antigens. For a test to be considered positive, the TB antigen tube value minus the Nil tube value must be >=0.35 IU/mL. For additional information, please refer to http://educatio n.CareXtend.com/faq/QFT (This link is being provided for informational/e ducational purposes only.) ID Date Data Source [id number] 01/04/2018 11:13:00 AM EST [facility] Name Value Range Interpretation Description Data Sup porting Code Source(s) Document(s ) Color YELLOW Normal (applies Color [facility] to non-numeric Health results) System Appearance of CLEAR Normal (applies Urine [facility] Urine to non-numeric Appearance Health results) System Specific gravity 1.010 Normal (applies Urine Specific [facility] of Urine to non-numeric [facility] results) System pH.. 6.5 Normal (applies pH.. [facility] {pH_units to non-numeric Health } results) System Glucose,UA NEGATIVE Normal (applies Glucose, UA [facility] to non-numeric Health results) System Protein NEGATIVE Normal (applies Protein [facility] [Mass/volume] in to non-numeric Health Serum or Plasma results) System Urobilinogen 0.2 mg/dL Normal (applies Urobilinogen [facility] [Mass/volume] in to non-numeric UA Health Urine results) System BilirubinUrine NEGATIVE Normal (applies Bilirubin [facility] to non-numeric Urine Health results) System Ketones NEGATIVE Normal (applies Ketones [facility]A [facility] [Mass/volume] in to non-numeric Health Urine results) System Nitrate+Nitrite NEGATIVE Normal (applies Nitrite [facility] [Mass/volume] in to non-numeric Health Unspecified results) System specimen Leukocyte esterase NEGATIVE Normal (applies Leukocyte Kareem ever [Units/volume] in to non-numeric Esterase Health Urine results) Concentration System Leukocytes 3 {/HPF} Normal (applies White Blood [facility] [#/volume] in to non-numeric Cells Health Unspecified results) System specimen by Automated count RedBloodCells 15 {/HPF} Normal (applies Red Blood [facility] to non-numeric Cells Health results) System UrineBlood MODERATE Abnormal Urine Blood [facility] (applies to Health non-numeric System results) Bacteria 3+ Abnormal Bacteria [facility] [Presence] in (applies to Health Unspecified non-numeric System specimen results) Epithelial cells 1 {/HPF} Normal (applies Epithelial [facility] [Presence] in to non-numeric Cells Health Unspecified results) System specimen by Wet preparation AmorphousCrystals 2+ Normal (applies Amorphous [facility] to non-numeric Crystals Health results) System ID Date Data Source [id number] 01/04/2018 11:13:00 AM EST [facility] Name Value Range Interpretation Description Data Sup porting Code Source(s) Document(s ) Erythrocytes 3.89 Below low normal RBC Count [facility] [#/volume] in {10^6_uL Health Blood by } System Automated count Leukocytes 5.1 Normal (applies WBC Count [facility] [#/volume] in {10^3_uL to non-numeric Health Unspecified } results) System specimen by Automated count Hematocrit 32.3 % Below low normal Hematocrit [facility] [Volume Health Fraction] of System Blood Hemoglobin 10.0 Below low normal Hemoglobin [facility] [Mass/volume] in {gm/dL} Health Blood System Erythrocyte mean 25.7 pg Below low normal MCH [facility] corpuscular Health hemoglobin System [Entitic mass] by Automated count Erythrocyte mean 83.0 fl Normal (applies MCV [facility] corpuscular to non-numeric Health volume [Entitic results) System volume] by Automated count Erythrocyte mean 31.0 Below low normal MCHC [facility] corpuscular {gm/dL} Health hemoglobin System concentration [Mass/volume] by Automated count Platelets 185 Normal (applies Platelet Count [facility] [#/volume] in {10^3_uL to non-numeric Health Plasma by } results) System Automated count Erythrocyte 17.1 % Above high RDW-CV [facility] distribution normal Health width [Entitic System volume] by Automated count Monocytes 0.7 Normal (applies Monocyte # [facility] [#/volume] in {10^3_uL to non-numeric Health Blood by Manual } results) System count Platelet mean 9.7 fl Normal (applies MPV [facility] volume [Entitic to non-numeric Health volume] in Blood results) System by Automated count Eosinophils 0.32 Above high Eosinophil # [facility] [#/volume] in {10^3_uL normal Health Blood } System Neutrophils 3.1 Normal (applies Neutrophil # [facility] [#/volume] in {10^3_uL to non-numeric Health Body fluid } results) System Basophils 0.03 Normal (applies Basophil # [facility] [#/volume] in {10^3_uL to non-numeric Health Blood by } results) System Automated count Lymphocyte 1.0 Below low normal Lymphocyte # [facility] percent {10^3_uL Health differential } System count (procedure) Neutrophils/100 60.4 % Normal (applies Neutrophil % Kareem ever leukocytes in to non-numeric Health Blood by results) System Automated count Monocytes/100 13.5 % Above high Monocyte % [facility] leukocytes in normal Health Blood System Basophils/100 0.6 % Normal (applies Basophil % [facility] leukocytes in to non-numeric Health Unspecified results) System specimen by Manual count Eosinophils/100 6.3 % Above high Eosinophil % [facility] leukocytes in normal Health Unspecified System specimen ImmatureGranuloc 0.6 % Normal (applies Immature [facility] ytes% to non-numeric Granulocytes % Health results) System Lymphocytes 18.6 % Below low normal Lymphocyte % [facility] [#/volume] in Health Blood by System Automated count NRBC# 0.00 Below low normal NRBC # [facility] {10^3_uL Health } System Nucleated 0.0 Normal (applies NRBC % [facility] erythrocytes {/100_WB to non-numeric Health [#/volume] in C} results) System Body fluid ImmatureGranuloc 0.03 Normal (applies Immature [facility] ytes# {10^3_uL to non-numeric Granulocytes # Health } results) System ID Date Data Source [id number] 01/04/2018 11:13:00 AM EST [facility] Name Value Range Interpretation Description Data Sup porting Code Source(s) Document(s ) Sodium 138 Normal (applies Sodium, Serum [facility] [Moles/volume] in mmol/L to non-numeric Health Serum or Plasma results) System Potassium 4.3 Normal (applies Potassium, [facility] [Mass/volume] in mmol/L to non-numeric Serum Health Serum or Plasma results) System Chloride 100 Normal (applies Chloride, [facility] [Moles/volume] in mmol/L to non-numeric Serum Health Serum or Plasma results) System Carbon dioxide, 28.0 Normal (applies CO2, Serum [facility] total mmol/L to non-numeric Health [Moles/volume] in results) System Serum or Plasma TotalProtein 7.4 Normal (applies Total Protein [facility] mg/dl to non-numeric Health results) System Urea nitrogen 18 Normal (applies Blood Urea [facility] [Mass/volume] in mg/dl to non-numeric Nitrogen, Health Serum or Plasma results) Serum System Glucose 104 Normal (applies Glucose, [facility] [Mass/volume] in mg/dL to non-numeric Serum Health Serum or Plasma results) System Alkaline 77 Normal (applies Alkaline [facility] phosphatase {IU/L} to non-numeric Phosphatase, Health isoenzymes results) Serum System [Enzymatic activity/volume] in Serum or Plasma by Heat stability Creatinine 0.90 Normal (applies Creatinine, [facility] [Mass/volume] in mg/dl to non-numeric Serum Health Serum or Plasma results) System Bilirubin.total 0.6 Normal (applies Bilirubin, [facility] [Mass/volume] in mg/dl to non-numeric Serum Total Health Serum or Plasma results) System DirectBilirubin 0.3 Normal (applies Direct [facility] mg/dl to non-numeric Bilirubin Health results) System Albumin 3.9 Normal (applies Albumin, [facility] [Mass/volume] in {gm/dl} to non-numeric Serum Health Serum or Plasma results) System Aspartate 122 Above high Aspartate [facility] aminotransferase {IU/L} normal Transaminase, Health [Enzymatic Serum System activity/volume] in Serum or Plasma by With P-5'-P I.Phosphorus 5.4 Above high I. Phosphorus [facility] mg/dl normal Health System Alanine 192 Above high Alanine [facility] aminotransferase {IU/L} normal Aminotransfer Health [Enzymatic ase, Serum System activity/volume] in Serum or Plasma Calcium 9.7 Normal (applies Calcium, [facility] [Mass/volume] in mg/dl to non-numeric Total Serum Health Serum or Plasma results) System A/GRatio 1.11 Normal (applies A/G Ratio [facility] to non-numeric Health results) System Urate 4.6 Normal (applies Uric Acid, [facility] [Mass/volume] in mg/dl to non-numeric Serum Health Serum or Plasma results) System Anion gap in Serum 10.00 Normal (applies Anion Gap Kareem ever or Plasma mmol/L to non-numeric Health results) System Glomerular > 90 Normal (applies GFR [facility] filtration to non-numeric Health rate/1.73 sq results) System M.predicted [Volume Rate/Area] in Serum or Plasma by Creatinine-based formula (CKD-EPI) eGFR will provide clinicians with a more accurate indicator of renal function then the serum creatinine. The eGFR is automa tically calculated from an empiric formula (endorsed by the National Kidney Foundat ion) which incorporates age, sex, and race.Clinicians may notice surprisingly low GFR's with serum creatinine valueswithin normal range- particularly in elderly wo men (with low muscle mass).In the hospital setting, the eGFR should add an element of safety in drug dosing, in assessing the risk of IV contrast administration, and in assessing vascular risk.The NKF staging system is as follows:Normal: eGFR >90 with no kidney markersStage 1: eGFR >90 with kidney markers*Stage 2: eGFR 60- 89Stage 3: eGFR 30-59Stage 4: eGFR 15-29Stage 5: eGFR <15 (usually requir ing dialysis)*Markers include: Proteinuria, Hematuria, abnormal imaging-studies, or other blood or urine test abnormalities ID Date Data Source [id number] 01/04/2018 11:13:00 AM EST [facility] Name Value Range Interpretation Description Data Sup porting Code Source(s) Document(s ) Triglyceride 113 Normal (applies Triglycerides, [facility] [Mass/volume] mg/dl to non-numeric Serum Health in Serum or results) System Plasma Optimal = < 100 mg/dLBoderline High = 15 0 - 199 mg/dLHigh = 200 - 499 mg/dLVery High = > 500 mg/dL Cholesterol 139 mg/dl Normal (applies Cholesterol, Serum [facility] [Mass/volume] in to non-numeric Health S Rolithtem Serum or Plasma results) <200 mg/dL = [id number] - 239 md/dL = Borderline>240 mg/dL = High Risk Cholesterol in LDL 75.4 mg/dL Normal (applies Low Density [facility] [Mass/volume] in to non-numeric Lipoprotein, Healt h System Serum or Plasma results) Calculated OPTIMAL: LESS THAN 100 mg/dLNEAR OPTIMAL : 100 - 129 mg/dLBODERLINE HIGH: 130 - 150 mg/dL Cholesterol in HDL 41.0 mg/dL Normal (applies HDL Cholestero l, [facility] [Mass/volume] in to non-numeric Serum Health S ystem Serum or Plasma results) Cholesterol in VLDL 22.6 Normal (applies VLDL, Serum [facility] [Mass/volume] in to non-numeric Health S ystem Serum or Plasma results) CHDRisk 3.39 Normal (applies CHD Risk [facility] to non-numeric Health System results) ID Date Data Source [id number] 01/04/2018 11:13:00 AM EST [facility] Name Value Range Interpretation Description Data Source(s ) Supporting Code Document(s ) Reagin Ab Non-react Normal (applies to RPR. [facility] [Presence] vesna non-numeric Health System in Serum by results) RPR ID Date Data Source [id number] 04/11/2018 10:52:00 AM EDT [facility] System Name Value Range Interpretation Description Data Sup porting Code Source(s) Document(s ) Color YELLOW Normal (applies Color [facility] to non-numeric Health results) System Appearance of CLEAR Normal (applies Urine [facility] Urine to non-numeric Appearance Health results) System Specific gravity 1.015 Normal (applies Urine Specific [facility] of Urine to non-numeric [facility] results) System pH.. 6.0 Normal (applies pH.. [facility] {pH_units} to non-numeric Health results) System Glucose,UA NEGATIVE Normal (applies Glucose, UA [facility] to non-numeric Health results) System Protein NEGATIVE Normal (applies Protein [facility] [Mass/volume] in to non-numeric Health Serum or Plasma results) System BilirubinUrine NEGATIVE Normal (applies Bilirubin [facility] to non-numeric Urine Health results) System Urobilinogen 1.0 mg/dL Normal (applies Urobilinogen [facility] [Mass/volume] in to non-numeric UA Health Urine results) System Ketones NEGATIVE Normal (applies Ketones [facility]A [facility] [Mass/volume] in to non-numeric Health Urine results) System Nitrate+Nitrite NEGATIVE Normal (applies Nitrite [facility] [Mass/volume] in to non-numeric Health Unspecified results) System specimen Leukocyte NEGATIVE Normal (applies Leukocyte [facility] esterase to non-numeric Esterase Health [Units/volume] results) Concentration System in Urine Leukocytes 1 {/HPF} Normal (applies White Blood [facility] [#/volume] in to non-numeric Cells Health Unspecified results) System specimen by Automated count RedBloodCells 0 {/HPF} Normal (applies Red Blood [facility] to non-numeric Cells Health results) System UrineBlood NEGATIVE Normal (applies Urine Blood [facility] to non-numeric Health results) System ID Date Data Source [id number] 04/13/2018 06:16:00 PM EDT [facility] System Name Value Range Interpretation Code Description Data Heather rce(s) Supporting Document(s ) Hepatitis < 5 Below low normal Hepatitis B [facility] BSurfaceA [facility] ntibody. Antibody. Patient does not have immunity to hepati tis B virus.Test Performed at:[facility] [employer], [place], [place] [address]SifxzrvjPilo Tyler M.D. ID Date Data Source [id number] 04/13/2018 06:16:00 PM EDT [facility] Name Value Range Interpretation Description Data Sup porting Code Source(s) Document(s ) HepatitisCViralRNA 81 Above high Hepatitis C [facility] {IU/mL} normal Viral RNA Health System Previously released as 74 on 04/15/2018, 06:15 PM by P - Reference Range: Not Detected HepatitisCViralRNAQuantitative 1.91 Above Hepatitis C [facility] {Log_IU/mL} high Viral RNA Health normal Quantitative System Previously released as 1.87-(1) on 2017, 06:15 PM by P - (1) - The analytical performance characteristics of thisassay have been determined by [employer].The modifications have not b een cleared or approved bythe FDA. This assay has been validated pursuant to theCLIA r egulations and is used for clinical purposes.This test was performed using [facility] SUSANNA(R)AmpliPrep/SUSANNA(R)TaqMan(R)HCV Test, v2.0.For more information on this test, go to:http://education.[employer].ClickMagic /faq/JQJ60j8(This link is being provided for informational/educational purposes only. )Test Performed at:[facility] [employer], [place] [address] Pilo Tyler M.D.Reference Range: Not DetectedPlease note: Patients with circu lating anti-HCVantibodies that have detectable HCV RNA as determinedby [facility], should be considered to have an active HCVinfection. Please correlate these fin dings with thepatient's clinical history and any other diagnosticsfindings, including any evidence of liver dysfunction.Please consider the current Treatment Guideline s forthe management of these patients (J Hepatol, 1126-8915,Jul 2011).The analyti robina performance characteristics of thisassay have been determined by [employer].The modifications have not been cleared or approved bythe FDA. This assay has been validated pursuant to theIA regulations and is used for clinical purposes.This test was performed using the SUSANNA(R)AmpliPrep/SUSANNA(R)TaqMan(R)HCV T est, v2.0.For more information on this test, go to:http://education.GardenStory/faq/YPB21d1(This link is being provided for informational/educational purposes o nly.)Test Performed at:[employer], [place], [place] [address]RcjgncxqPilo Tyler M.D. ID Date Data Source [id number] 04/13/2018 06:16:00 PM EDT [facility] Name Value Range Interpretation Description Data Sup porting Code Source(s) Document(s ) HepatitisCRati 29.40 {Ratio} Above high Hepatitis C [facility] o normal Ratio Health System HepatitisCVira ReactiveReferen Abnormal Hepatitis C [facility] lAntibody ce Range: Non (applies to Viral Health ReactiveFollowi non-numeric Antibody System ng CDC results) recommendations (MMWR No. 62, 2013), thispatient's HCV Antibody Reactive sample will be tested forthe presence of HCV RNA by a Nucleic Acid AmplificationTe st (NAAT) to determine if the patient has an active HCVinfection.Te st Performed at:[employer], [place], [place] [address]HjzmqiqjEmma Tyler M.D. Result Reporting|Telep jr|Ed physician| 04/17/2018 at 12:08 PMCalled to:Tech Name:Readback by: 04/17/2018 / 12:08 PM ID Date Data Source [id number] 04/13/2018 06:16:00 PM EDT [facility] Name Value Range Interpretation Description Data Sup porting Code Source(s) Document(s ) Leukocytes 5.3 Normal (applies WBC Count [facility] [#/volume] in {10^3_uL to non-numeric Health Unspecified } results) System specimen by Automated count Erythrocytes 4.05 Below low normal RBC Count [facility] [#/volume] in {10^6_uL Health Blood by } System Automated count Hemoglobin 11.3 Below low normal Hemoglobin [facility] [Mass/volume] in {gm/dL} Health Blood System Hematocrit 35.7 % Below low normal Hematocrit [facility] [Volume Health Fraction] of System Blood Erythrocyte mean 88.1 fl Normal (applies MCV [facility] corpuscular to non-numeric Health volume [Entitic results) System volume] by Automated count Erythrocyte mean 31.7 Below low normal [facility] corpuscular {gm/dL} Health hemoglobin System concentration [Mass/volume] by Automated count Erythrocyte mean 27.9 pg Normal (applies MCH [facility] corpuscular to non-numeric Health hemoglobin results) System [Entitic mass] by Automated count Erythrocyte 14.6 % Above high RDW-CV [facility] distribution normal Health width [Entitic System volume] by Automated count Platelets 144 Normal (applies Platelet Count [facility] [#/volume] in {10^3_uL to non-numeric Health Plasma by } results) System Automated count Platelet mean 9.8 fl Normal (applies MPV [facility] volume [Entitic to non-numeric Health volume] in Blood results) System by Automated count Monocytes 0.7 Normal (applies Monocyte # [facility] [#/volume] in {10^3_uL to non-numeric Health Blood by Manual } results) System count Neutrophils 2.8 Normal (applies Neutrophil # [facility] [#/volume] in {10^3_uL to non-numeric Health Body fluid } results) System Eosinophils 0.17 Normal (applies Eosinophil # [facility] [#/volume] in {10^3_uL to non-numeric Health Blood } results) System Basophils 0.03 Normal (applies Basophil # [facility] [#/volume] in {10^3_uL to non-numeric Health Blood by } results) System Automated count Lymphocyte 1.5 Normal (applies Lymphocyte # [facility] percent {10^3_uL to non-numeric Health differential } results) System count (procedure) Neutrophils/100 53.7 % Below low normal Neutrophil % [facility] leukocytes in Health Blood by System Automated count Monocytes/100 12.3 % Above high Monocyte % [facility] leukocytes in normal Health Blood System Basophils/100 0.6 % Normal (applies Basophil % [facility] leukocytes in to non-numeric Health Unspecified results) System specimen by Manual count Eosinophils/100 3.2 % Normal (applies Eosinophil % [facility] leukocytes in to non-numeric Health Unspecified results) System specimen ImmatureGranuloc 1.1 % Above high Immature [facility] ytes% normal Granulocytes % Health System Lymphocytes 29.1 % Normal (applies Lymphocyte % [facility] [#/volume] in to non-numeric Health Blood by results) System Automated count Nucleated 0.0 Normal (applies NRBC % [facility] erythrocytes {/100_WB to non-numeric Health [#/volume] in C} results) System Body fluid ImmatureGranuloc 0.06 Normal (applies Immature [facility] ytes# {10^3_uL to non-numeric Granulocytes # Health } results) System NRBC# 0.00 Below low normal NRBC # [facility] {10^3_uL Health } System ID Date Data Source [id number] 04/13/2018 06:16:00 PM EDT [facility] System Name Value Range Interpretation Description Data Sup porting Code Source(s) Document(s ) Human NONREACTIVE Normal (applies HIV test, [facility] immunodeficien Normal Range: to non-numeric Routine Health cy virus Non results) (antigen and System antibody titer ReactiveNegativ antibody measurement e for HIV-1 testing) (procedure) antigen and HIV-1/HIV-2 antibodies. No laboratory evidence of HIV infection.Test was performed at [address] ID Date Data Source [id number] 04/13/2018 06:16:00 PM EDT [facility]th System Name Value Range Interpretation Description Data Sup porting Code Source(s) Document(s ) HepatitisBSurf Non Normal (applies Hepatitis B [facility] aceAntigen. ReactiveReferen to non-numeric [facility] ce Range: Non results) Antigen. System ReactiveTest Performed at:[facility] [employer], [place], [place] Matheus Tyler M.D. HepatitisBSurf DNRTest Normal (applies Hepatitis B [facility] aceAntigenNeut Performed to non-numeric [facility] at:[facility] results) Antigen Neut System [facility], [place], [place] Matheus Tyler M.D. ID Date Data Source [id number] 04/13/2018 06:16:00 PM EDT [facility] System Name Value Range Interpretation Description Data Sup porting Code Source(s) Document(s ) Sodium 144 Normal (applies Sodium, Serum [facility] [Moles/volume] in mmol/L to non-numeric Health Serum or Plasma results) System Potassium 4.4 Normal (applies Potassium, [facility] [Mass/volume] in mmol/L to non-numeric Serum Health Serum or Plasma results) System Chloride 106 Normal (applies Chloride, [facility] [Moles/volume] in mmol/L to non-numeric Serum Health Serum or Plasma results) System Carbon dioxide, 26.0 Normal (applies CO2, Serum [facility] total mmol/L to non-numeric Health [Moles/volume] in results) System Serum or Plasma TotalProtein 7.6 Normal (applies Total Protein [facility] mg/dl to non-numeric Health results) System Glucose 138 Above high Glucose, [facility] [Mass/volume] in mg/dL normal Serum Health Serum or Plasma System Alkaline 60 Normal (applies Alkaline [facility] phosphatase {IU/L} to non-numeric Phosphatase, [facility] isoenzymes results) Serum System [Enzymatic activity/volume] in Serum or Plasma by Heat stability Creatinine 1.10 Normal (applies Creatinine, [facility] [Mass/volume] in mg/dl to non-numeric Serum Health Serum or Plasma results) System Urea nitrogen 13 Normal (applies Blood Urea [facility] [Mass/volume] in mg/dl to non-numeric Nitrogen, Health Serum or Plasma results) Serum System DirectBilirubin 0.2 Normal (applies Direct [facility] mg/dl to non-numeric Bilirubin Health results) System Bilirubin.total 0.3 Normal (applies Bilirubin, [facility] [Mass/volume] in mg/dl to non-numeric Serum Total Health Serum or Plasma results) System Albumin 4.1 Normal (applies Albumin, [facility] [Mass/volume] in {gm/dl} to non-numeric Serum Health Serum or Plasma results) System Aspartate 11 Normal (applies Aspartate [facility] aminotransferase {IU/L} to non-numeric Transaminase, Heal th [Enzymatic results) Serum System activity/volume] in Serum or Plasma by With P-5'-P I.Phosphorus 2.6 Normal (applies I. Phosphorus [facility] mg/dl to non-numeric Health results) System Alanine 9 Normal (applies Alanine [facility] aminotransferase {IU/L} to non-numeric Aminotransfer Heal th [Enzymatic results) ase, Serum System activity/volume] in Serum or Plasma Calcium 9.3 Normal (applies Calcium, [facility] [Mass/volume] in mg/dl to non-numeric Total Serum Health Serum or Plasma results) System A/GRatio 1.17 Normal (applies A/G Ratio [facility] to non-numeric Health results) System Anion gap in Serum 12.00 Normal (applies Anion Gap [facility] or Plasma mmol/L to non-numeric Health results) System Urate 6.3 Normal (applies Uric Acid, [facility] [Mass/volume] in mg/dl to non-numeric Serum Health Serum or Plasma results) System Glomerular 76.00 Normal (applies GFR [facility] filtration to non-numeric Health rate/1.73 sq results) System M.predicted [Volume Rate/Area] in Serum or Plasma by Creatinine-based formula (CKD-EPI) eGFR will provide clinicians with a more accurate indicator of renal function then the serum creatinine. The eGFR is automa tically calculated from an empiric formula (endorsed by the [employer] ion) which incorporates age, sex, and race.Clinicians may notice surprisingly low GFR's with serum creatinine valueswithin normal range- particularly in elderly wo men (with low muscle mass).In the hospital setting, the eGFR should add an element of safety in drug dosing, in assessing the risk of IV contrast administration, and in assessing vascular risk.The NKF staging system is as follows:Normal: eGFR >90 with no kidney markersStage 1: eGFR >90 with kidney markers*Stage 2: eGFR 60- 89Stage 3: eGFR 30-59Stage 4: eGFR 15-29Stage 5: eGFR <15 (usually requir ing dialysis)*Markers include: Proteinuria, Hematuria, abnormal imaging-studies, or other blood or urine test abnormalities ID Date Data Source [id number] 04/13/2018 06:16:00 PM EDT [facility] System Name Value Range Interpretation Description Data Sup porting Code Source(s) Document(s ) AlcoholE NON DETECTED Normal (applies to Alcohol Ethyl, [facility] thyl,Blo None non-numeric Blood Health System od Detected results) ID Date Data Source [id number] 04/13/2018 06:16:00 PM EDT [facility] System Name Value Range Interpretation Description Data Sup porting Code Source(s) Document(s ) Acetaminophen < 4 Below low normal Acetaminophen [facility] [Mass/volume] in Level, Serum Health Serum or Plasma System ID Date Data Source [id number] 04/13/2018 06:16:00 PM EDT [facility] System Name Value Range Interpretation Description Data Sup porting Code Source(s) Document(s ) Hepati Non Normal (applies Hepatitis B [facility] tisBCo ReactiveReference to non-numeric [facility] reAnti Range: Non results) Antibody, System body,T ReactiveTest Total otal Performed at:[facility], [place], [place] [address]Pilo Tyler M.D. NONREACTIVE = Anti-HBc antibodies were not detected in the sample; it is possible that the patient is not infected with HBV.EQUIVOCAL = Antibodies to anti-HBc may or may not be present; another specimen should be obtained from the patient for further testing.REACTIVE = Presumptive evidence of HBV; anti-HBc antibodies were detected in the sample which suggests either on-going or previous HBV infection. ID Date Data Source [id number] 04/13/2018 06:16:00 PM EDT [facility] System Name Value Range Interpretation Description Data Sup porting Code Source(s) Document(s ) Acetylsalicylate < 4.0 Normal (applies Salicylate [facility] [Mass/volume] in to non-numeric Level, Serum Healt h Serum or Plasma results) System ID Date Data Source [id number] 04/13/2018 06:16:00 PM EDT [facility] System Name Value Range Interpretation Description Data Source(s ) Supporting Code Document(s ) Lipase 26 U/L Normal (applies to Lipase, Serum [facility] [Enzymatic non-numeric Health System activity/vo results) lume] in Serum or Plasma ID Date Data Source [id number] 04/13/2018 06:16:00 PM EDT [facility] Name Value Range Interpretation Description Data Sup porting Code Source(s) Document(s ) Amphetamine Negative Normal (applies Amphetamine [facility] [Mass/volume] to non-numeric Level, Urine Health in Urine results) System Cut-off = 1000 ng/mL Barbiturates Negative Normal (applies to Barbiturate [facility] [Mass/volume] in non-numeric Screen, Urine Health System Urine by Screen results) method Cut-off = 200 ng/mL Benzodiazepines Negative Normal (applies Benzodiazepines, [facility] [Mass/volume] in to non-numeric Urine Health S te Urine results) Cut-off = 200 ng/mL Cocaine Positive Abnormal (applies Cocaine [facility] metabolites.other to non-numeric Metabolite Health System [Mass/volume] in Urine results) Screen, Urine Cut-off = 300 ng/mL Methadone Positive Abnormal (applies Methadone Level, [facility] Health [Mass/volume] in to non-numeric Urine System Urine results) Cut-off = 300 ng/mL [id number],Urine Positive Abnormal (applies to Opiate 300, [facility] non-numeric results) Urine System Cut-off = 300 ng/mL Phencyclidine Negative Normal (applies Phencyclidine, Urine [facility] [Mass/volume] in to non-numeric Health S te Urine results) Cut-off = 25 ng/mL Cannabinoid(THC) Negative Normal (applies to Cannabinoid (THC) [facility] Health non-numeric System results) Cutt-off = 50These results are for medic al treatment only. The positive findings are unconfirmed. Request confirmatory/quanti tative test if needed. ID Date Data Source [id number] 04/13/2018 07:42:00 PM EDT [facility] Name Value Range Interpretation Description Data Sup porting Code Source(s) Document(s ) Appearance of CLOUDY Normal (applies Urine [facility] Urine to non-numeric Appearance Health results) System Color YELLOW Normal (applies Color [facility] to non-numeric Health results) System Specific gravity 1.025 Normal (applies Urine Specific [facility] of Urine to non-numeric [facility] results) System Glucose,UA NEGATIVE Normal (applies Glucose, UA [facility] to non-numeric Health results) System pH.. 7.5 Normal (applies pH.. [facility] {pH_units to non-numeric Health } results) System Protein 100 mg/dl Normal (applies Protein [facility] [Mass/volume] in to non-numeric Health Serum or Plasma results) System BilirubinUrine NEGATIVE Normal (applies Bilirubin [facility] to non-numeric Urine Health results) System Urobilinogen 2.0 mg/dL Normal (applies Urobilinogen [facility] [Mass/volume] in to non-numeric UA Health Urine results) System Ketones TRACE Abnormal Ketones UA [facility] [Mass/volume] in (applies to Health Urine non-numeric System results) Nitrate+Nitrite NEGATIVE Normal (applies Nitrite [facility] [Mass/volume] in to non-numeric Health Unspecified results) System specimen Leukocyte esterase NEGATIVE Normal (applies Leukocyte [facility] [Units/volume] in to non-numeric Esterase Health Urine results) Concentration System Leukocytes 4 {/HPF} Normal (applies White Blood [facility] [#/volume] in to non-numeric Cells Health Unspecified results) System specimen by Automated count RedBloodCells 2 {/HPF} Normal (applies Red Blood [facility] to non-numeric Cells Health results) System Mucus 1+ Normal (applies Mucus [facility] to non-numeric Health results) System UrineBlood NEGATIVE Normal (applies Urine Blood [facility] to non-numeric Health results) System AmorphousCrystals 3+ Normal (applies Amorphous [facility] to non-numeric Crystals Health results) System ID Date Data Source [id number] 08/15/2018 12:54:00 PM EDT [facility] Name Value Range Interpretation Description Data Sup porting Code Source(s) Document(s ) Color YELLOW Normal (applies Color [facility] to non-numeric Health results) System Appearance of CLEAR Normal (applies Urine [facility] Urine to non-numeric Appearance Health results) System Specific gravity > 1.030 Normal (applies Urine Specific [facility] of Urine to non-numeric [facility] results) System pH.. 6.0 Normal (applies pH.. [facility] {pH_units} to non-numeric Health results) System Glucose,UA NEGATIVE Normal (applies Glucose, UA [facility] to non-numeric Health results) System Protein TRACE Normal (applies Protein [facility] [Mass/volume] in to non-numeric Health Serum or Plasma results) System BilirubinUrine NEGATIVE Normal (applies Bilirubin [facility] to non-numeric Urine Health results) System Urobilinogen 0.2 mg/dL Normal (applies Urobilinogen [facility] [Mass/volume] in to non-numeric UA Health Urine results) System Ketones TRACE Abnormal Ketones UA [facility] [Mass/volume] in (applies to Health Urine non-numeric System results) Nitrate+Nitrite NEGATIVE Normal (applies Nitrite [facility] [Mass/volume] in to non-numeric Health Unspecified results) System specimen Leukocyte NEGATIVE Normal (applies Leukocyte [facility] esterase to non-numeric Esterase Health [Units/volume] results) Concentration System in Urine Leukocytes 3 {/HPF} Normal (applies White Blood [facility] [#/volume] in to non-numeric Cells Health Unspecified results) System specimen by Automated count RedBloodCells 12 {/HPF} Normal (applies Red Blood [facility] to non-numeric Cells Health results) System UrineBlood SMALL Abnormal Urine Blood [facility] (applies to Health non-numeric System results) ID Date Data Source [id number] 08/15/2018 02:06:00 PM EDT [facility] Name Value Range Interpretation Description Data Sup porting Code Source(s) Document(s ) Leukocytes 6.0 Normal (applies WBC Count [facility] [#/volume] in {10^3_uL to non-numeric Health Unspecified } results) System specimen by Automated count Erythrocytes 4.22 Below low normal RBC Count [facility] [#/volume] in {10^6_uL Health Blood by } System Automated count Hemoglobin 11.9 Below low normal Hemoglobin [facility] [Mass/volume] in {gm/dL} Health Blood System Erythrocyte mean 89.3 fl Normal (applies MCV [facility] corpuscular to non-numeric Health volume [Entitic results) System volume] by Automated count Hematocrit 37.7 % Below low normal Hematocrit [facility] [Volume Health Fraction] of System Blood Erythrocyte mean 28.2 pg Normal (applies MCH [facility] corpuscular to non-numeric Health hemoglobin results) System [Entitic mass] by Automated count Erythrocyte 16.6 % Above high RDW-CV [facility] distribution normal Health width [Entitic System volume] by Automated count Erythrocyte mean 31.6 Below low normal [facility] corpuscular {gm/dL} Health hemoglobin System concentration [Mass/volume] by Automated count Platelets 125 Below low normal Platelet Count [facility] [#/volume] in {10^3_uL Health Plasma by } System Automated count Platelet mean 9.1 fl Normal (applies MPV [facility] volume [Entitic to non-numeric Health volume] in Blood results) System by Automated count Monocytes 0.4 Normal (applies Monocyte # [facility] [#/volume] in {10^3_uL to non-numeric Health Blood by Manual } results) System count Neutrophils 4.0 Normal (applies Neutrophil # [facility] [#/volume] in {10^3_uL to non-numeric Health Body fluid } results) System Eosinophils 0.19 Normal (applies Eosinophil # [facility] [#/volume] in {10^3_uL to non-numeric Health Blood } results) System Basophils 0.03 Normal (applies Basophil # [facility] [#/volume] in {10^3_uL to non-numeric Health Blood by } results) System Automated count Lymphocyte 1.3 Normal (applies Lymphocyte # [facility] percent {10^3_uL to non-numeric Health differential } results) System count (procedure) Neutrophils/100 66.9 % Normal (applies Neutrophil % [facility] leukocytes in to non-numeric Health Blood by results) System Automated count Monocytes/100 7.1 % Normal (applies Monocyte % [facility] leukocytes in to non-numeric Health Blood results) System Basophils/100 0.5 % Normal (applies Basophil % [facility] leukocytes in to non-numeric Health Unspecified results) System specimen by Manual count Eosinophils/100 3.1 % Normal (applies Eosinophil % [facility] leukocytes in to non-numeric Health Unspecified results) System specimen Lymphocytes 21.9 % Normal (applies Lymphocyte % [facility] [#/volume] in to non-numeric Health Blood by results) System Automated count ImmatureGranuloc 0.5 % Normal (applies Immature [facility] ytes% to non-numeric Granulocytes % Health results) System Nucleated 0.0 Normal (applies NRBC % [facility] erythrocytes {/100_WB to non-numeric Health [#/volume] in C} results) System Body fluid ImmatureGranuloc 0.03 Normal (applies Immature [facility] ytes# {10^3_uL to non-numeric Granulocytes # Health } results) System NRBC# 0.00 Below low normal NRBC # [facility] {10^3_uL Health } System ID Date Data Source [id number] 08/15/2018 02:06:00 PM EDT [facility] Name Value Range Interpretation Description Data Sup porting Code Source(s) Document(s ) Sodium 140 Normal (applies Sodium, Serum [facility] [Moles/volume mmol/L to non-numeric Health Syst em ] in Serum or results) Plasma Potassium 5.3 Above high normal Potassium, [facility] [Mass/volume] mmol/L Serum Health System in Serum or Plasma Chloride 104 Normal (applies Chloride, [facility] [Moles/volume mmol/L to non-numeric Serum Health Syst em ] in Serum or results) Plasma Glucose 109 Normal (applies Glucose, Serum [facility] [Mass/volume] mg/dL to non-numeric Health Syst em in Serum or results) Plasma Carbon 26.0 Normal (applies CO2, Serum [facility] dioxide, mmol/L to non-numeric Health System total results) [Moles/volume ] in Serum or Plasma Urea nitrogen 13 mg/dl Normal (applies Blood Urea [facility] [Mass/volume] to non-numeric Nitrogen, Health Syst em in Serum or results) Serum Plasma Creatinine 1.10 Normal (applies Creatinine, [facility] [Mass/volume] mg/dl to non-numeric Serum Health Syst em in Serum or results) Plasma Anion gap in 10.00 Normal (applies Anion Gap [facility] Serum or mmol/L to non-numeric Health System Plasma results) Calcium 10.0 Normal (applies Calcium, Total [facility] [Mass/volume] mg/dl to non-numeric Serum Health Syst em in Serum or results) Plasma ID Date Data Source [id number] 09/27/2018 02:44:00 AM EST [facility] Name Value Range Interpretation Description Data Sup porting Code Source(s) Document(s ) Leukocytes 11.1 Above high normal WBC Count [facility] [#/volume] in {10^3_uL Health Unspecified } System specimen by Automated count Erythrocytes 3.94 Below low normal RBC Count [facility] [#/volume] in {10^6_uL Health Blood by } System Automated count Hematocrit 35.0 % Below low normal Hematocrit [facility] [Volume Health Fraction] of System Blood Hemoglobin 11.6 Below low normal Hemoglobin [facility] [Mass/volume] in {gm/dL} Health Blood System Erythrocyte mean 88.8 fl Normal (applies MCV [facility] corpuscular to non-numeric Health volume [Entitic results) System volume] by Automated count Erythrocyte mean 29.4 pg Normal (applies MCH [facility] corpuscular to non-numeric Health hemoglobin results) System [Entitic mass] by Automated count Erythrocyte mean 33.1 Normal (applies [facility] corpuscular {gm/dL} to non-numeric Health hemoglobin results) System concentration [Mass/volume] by Automated count Erythrocyte 12.8 % Normal (applies RDW-CV [facility] distribution to non-numeric Health width [Entitic results) System volume] by Automated count Platelet mean 9.2 fl Normal (applies MPV [facility] volume [Entitic to non-numeric Health volume] in Blood results) System by Automated count Platelets 143 Normal (applies Platelet [facility] [#/volume] in {10^3_uL to non-numeric Count Health Plasma by } results) System Automated count ID Date Data Source [id number] 09/27/2018 02:44:00 AM EST [facility] Name Value Range Interpretation Description Data Sup porting Code Source(s) Document(s ) Sodium 137 Normal (applies Sodium, Serum [facility] [Moles/volume] in mmol/L to non-numeric Health Serum or Plasma results) System Chloride 102 Normal (applies Chloride, [facility] [Moles/volume] in mmol/L to non-numeric Serum Health Serum or Plasma results) System Potassium 3.7 Normal (applies Potassium, [facility] [Mass/volume] in mmol/L to non-numeric Serum Health Serum or Plasma results) System Carbon dioxide, 25.0 Normal (applies CO2, Serum [facility] total mmol/L to non-numeric Health [Moles/volume] in results) System Serum or Plasma TotalProtein 7.5 Normal (applies Total Protein [facility] mg/dl to non-numeric Health results) System Glucose 89 Normal (applies Glucose, [facility] [Mass/volume] in mg/dL to non-numeric Serum Health Serum or Plasma results) System Urea nitrogen 17 Normal (applies Blood Urea [facility] [Mass/volume] in mg/dl to non-numeric Nitrogen, Health Serum or Plasma results) Serum System Alkaline 58 Normal (applies Alkaline [facility] phosphatase {IU/L} to non-numeric Phosphatase, Health isoenzymes results) Serum System [Enzymatic activity/volume] in Serum or Plasma by Heat stability Creatinine 1.00 Normal (applies Creatinine, [facility] [Mass/volume] in mg/dl to non-numeric Serum Health Serum or Plasma results) System Bilirubin.total 0.3 Normal (applies Bilirubin, [facility] [Mass/volume] in mg/dl to non-numeric Serum Total Health Serum or Plasma results) System Aspartate 49 Above high Aspartate [facility] aminotransferase {IU/L} normal Transaminase, Health [Enzymatic Serum System activity/volume] in Serum or Plasma by With P-5'-P DirectBilirubin 0.1 Normal (applies Direct [facility] mg/dl to non-numeric Bilirubin Health results) System Albumin 4.2 Normal (applies Albumin, [facility] [Mass/volume] in {gm/dl} to non-numeric Serum Health Serum or Plasma results) System I.Phosphorus 1.7 Below low normal I. Phosphorus [facility] mg/dl [facility] Alanine 56 Normal (applies Alanine [facility] aminotransferase {IU/L} to non-numeric Aminotransfer Heal th [Enzymatic results) ase, Serum System activity/volume] in Serum or Plasma Calcium 9.3 Normal (applies Calcium, [facility] [Mass/volume] in mg/dl to non-numeric Total Serum Health Serum or Plasma results) System A/GRatio 1.27 Normal (applies A/G Ratio [facility] to non-numeric Health results) System Anion gap in Serum 10.00 Normal (applies Anion Gap [facility] ever or Plasma mmol/L to non-numeric Health results) System Urate 4.9 Normal (applies Uric Acid, [facility] [Mass/volume] in mg/dl to non-numeric Serum Health Serum or Plasma results) System Glomerular 85.00 Normal (applies GFR [facility] filtration to non-numeric Health rate/1.73 sq results) System M.predicted [Volume Rate/Area] in Serum or Plasma by Creatinine-based formula (CKD-EPI) eGFR will provide clinicians with a more accurate indicator of renal function then the serum creatinine. The eGFR is automa tically calculated from an empiric formula (endorsed by the National Kid[employer] ion) which incorporates age, sex, and race.Clinicians may notice surprisingly low GFR's with serum creatinine valueswithin normal range- particularly in elderly wo men (with low muscle mass).In the hospital setting, the eGFR should add an element of safety in drug dosing, in assessing the risk of IV contrast administration, and in assessing vascular risk.The NKF staging system is as follows:Normal: eGFR >90 with no kidney markersStage 1: eGFR >90 with kidney markers*Stage 2: eGFR 60- 89Stage 3: eGFR 30-59Stage 4: eGFR 15-29Stage 5: eGFR <15 (usually requir ing dialysis)*Markers include: Proteinuria, Hematuria, abnormal imaging-studies, or other blood or urine test abnormalities ID Date Data Source [id number] 09/27/2018 02:44:00 AM EST [facility] Name Value Range Interpretation Code Description Data Heather rce(s) Supporting Document(s ) AlcoholEt < 9.9 Normal (applies to Alcohol Ethyl, [facility] hyl,Blood non-numeric Blood Health System results) None Detected ID Date Data Source [id number] 09/27/2018 02:44:00 AM EST [facility] Name Value Range Interpretation Description Data Sup porting Code Source(s) Document(s ) Acetaminophen < 4 Below low normal Acetaminophen [facility] [Mass/volume] in Level, Serum Health Serum or Plasma System ID Date Data Source [id number] 09/27/2018 02:44:00 AM EST [facility] Name Value Range Interpretation Description Data Sup porting Code Source(s) Document(s ) Acetylsalicylate < 4.0 Normal (applies Salicylate [facility] [Mass/volume] in to non-numeric Level, Serum Healt h Serum or Plasma results) System ID Date Data Source [id number] 11/10/2018 10:57:00 AM EST [facility] Name Value Range Interpretation Description Data Sup porting Code Source(s) Document(s ) Leukocytes 5.3 Normal (applies WBC Count [facility] [#/volume] in {10^3_uL to non-numeric Health Unspecified } results) System specimen by Automated count Erythrocytes 3.56 Below low normal RBC Count [facility] [#/volume] in {10^6_uL Health Blood by } System Automated count Hematocrit 31.8 % Below low normal Hematocrit [facility] [Volume Health Fraction] of System Blood Hemoglobin 10.0 Below low normal Hemoglobin [facility] [Mass/volume] in {gm/dL} Health Blood System Erythrocyte mean 89.3 fl Normal (applies MCV [facility] corpuscular to non-numeric Health volume [Entitic results) System volume] by Automated count Erythrocyte mean 28.1 pg Normal (applies MCH [facility] corpuscular to non-numeric Health hemoglobin results) System [Entitic mass] by Automated count Erythrocyte 13.9 % Normal (applies RDW-CV [facility] distribution to non-numeric Health width [Entitic results) System volume] by Automated count Erythrocyte mean 31.4 Below low normal MCHC [facility] corpuscular {gm/dL} Health hemoglobin System concentration [Mass/volume] by Automated count Platelets 173 Normal (applies Platelet Count [facility] [#/volume] in {10^3_uL to non-numeric Health Plasma by } results) System Automated count Platelet mean 9.1 fl Normal (applies MPV [facility] volume [Entitic to non-numeric Health volume] in Blood results) System by Automated count Eosinophils 0.30 Normal (applies Eosinophil # [facility] [#/volume] in {10^3_uL to non-numeric Health Blood } results) System Monocytes 0.6 Normal (applies Monocyte # [facility] [#/volume] in {10^3_uL to non-numeric Health Blood by Manual } results) System count Neutrophils 3.7 Normal (applies Neutrophil # [facility] [#/volume] in {10^3_uL to non-numeric Health Body fluid } results) System Lymphocyte 0.8 Below low normal Lymphocyte # [facility] percent {10^3_uL Health differential } System count (procedure) Basophils 0.02 Normal (applies Basophil # [facility] [#/volume] in {10^3_uL to non-numeric Health Blood by } results) System Automated count Neutrophils/100 68.5 % Normal (applies Neutrophil % [facility] ever leukocytes in to non-numeric Health Blood by results) System Automated count Monocytes/100 10.5 % Above high Monocyte % [facility] leukocytes in normal Health Blood System Basophils/100 0.4 % Normal (applies Basophil % [facility] leukocytes in to non-numeric Health Unspecified results) System specimen by Manual count Eosinophils/100 5.6 % Above high Eosinophil % [facility] leukocytes in normal Health Unspecified System specimen Lymphocytes 14.4 % Below low normal Lymphocyte % [facility] [#/volume] in Health Blood by System Automated count ImmatureGranuloc 0.6 % Normal (applies Immature [facility] ytes% to non-numeric Granulocytes % Health results) System Nucleated 0.0 Normal (applies NRBC % [facility] erythrocytes {/100_WB to non-numeric Health [#/volume] in C} results) System Body fluid ImmatureGranuloc 0.03 Normal (applies Immature [facility] ytes# {10^3_uL to non-numeric Granulocytes # Health } results) System NRBC# 0.00 Below low normal NRBC # [facility] {10^3_uL Health } System ID Date Data Source [id number] 11/10/2018 10:57:00 AM EST [facility] Name Value Range Interpretation Description Data Sup porting Code Source(s) Document(s ) Sodium 138 Normal (applies Sodium, Serum [facility] [Moles/volume] in mmol/L to non-numeric Health Serum or Plasma results) System Potassium 4.5 Normal (applies Potassium, [facility] [Mass/volume] in mmol/L to non-numeric Serum Health Serum or Plasma results) System Chloride 99 Normal (applies Chloride, [facility] [Moles/volume] in mmol/L to non-numeric Serum Health Serum or Plasma results) System Carbon dioxide, 29.0 Normal (applies CO2, Serum [facility] total mmol/L to non-numeric Health [Moles/volume] in results) System Serum or Plasma TotalProtein 7.7 Normal (applies Total Protein [facility] mg/dl to non-numeric Health results) System Glucose 97 Normal (applies Glucose, [facility] [Mass/volume] in mg/dL to non-numeric Serum Health Serum or Plasma results) System Creatinine 1.00 Normal (applies Creatinine, [facility] [Mass/volume] in mg/dl to non-numeric Serum Health Serum or Plasma results) System Urea nitrogen 16 Normal (applies Blood Urea [facility] [Mass/volume] in mg/dl to non-numeric Nitrogen, Health Serum or Plasma results) Serum System Alkaline 57 Normal (applies Alkaline [facility] phosphatase {IU/L} to non-numeric Phosphatase, Health isoenzymes results) Serum System [Enzymatic activity/volume] in Serum or Plasma by Heat stability Bilirubin.total 0.6 Normal (applies Bilirubin, [facility] [Mass/volume] in mg/dl to non-numeric Serum Total Health Serum or Plasma results) System DirectBilirubin 0.3 Normal (applies Direct [facility] mg/dl to non-numeric Bilirubin Health results) System Aspartate 17 Normal (applies Aspartate [facility] aminotransferase {IU/L} to non-numeric Transaminase, Heal th [Enzymatic results) Serum System activity/volume] in Serum or Plasma by With P-5'-P Albumin 4.5 Normal (applies Albumin, [facility] [Mass/volume] in {gm/dl} to non-numeric Serum Health Serum or Plasma results) System I.Phosphorus 3.2 Normal (applies I. Phosphorus [facility] mg/dl to non-numeric Health results) System Alanine 23 Normal (applies Alanine [facility] aminotransferase {IU/L} to non-numeric Aminotransfer Heal th [Enzymatic results) ase, Serum System activity/volume] in Serum or Plasma Calcium 10.0 Normal (applies Calcium, [facility] [Mass/volume] in mg/dl to non-numeric Total Serum Health Serum or Plasma results) System A/GRatio 1.41 Normal (applies A/G Ratio [facility] to non-numeric Health results) System Urate 3.2 Below low normal Uric Acid, [facility] [Mass/volume] in mg/dl Serum Health Serum or Plasma System Anion gap in Serum 10.00 Normal (applies Anion Gap [facility] ever or Plasma mmol/L to non-numeric Health results) System Glomerular 85.00 Normal (applies GFR [facility] filtration to non-numeric Health rate/1.73 sq results) System M.predicted [Volume Rate/Area] in Serum or Plasma by Creatinine-based formula (CKD-EPI) eGFR will provide clinicians with a more accurate indicator of renal function then the serum creatinine. The eGFR is automa tically calculated from an empiric formula (endorsed by the [employer] ion) which incorporates age, sex, and race.Clinicians may notice surprisingly low GFR's with serum creatinine valueswithin normal range- particularly in elderly wo men (with low muscle mass).In the hospital setting, the eGFR should add an element of safety in drug dosing, in assessing the risk of IV contrast administration, and in assessing vascular risk.The NKF staging system is as follows:Normal: eGFR >90 with no kidney markersStage 1: eGFR >90 with kidney markers*Stage 2: eGFR 60- 89Stage 3: eGFR 30-59Stage 4: eGFR 15-29Stage 5: eGFR <15 (usually requir ing dialysis)*Markers include: Proteinuria, Hematuria, abnormal imaging-studies, or other blood or urine test abnormalities ID Date Data Source [id number] 11/10/2018 10:57:00 AM EST [facility] System Name Value Range Interpretation Description Data Source(s ) Supporting Code Document(s ) Troponin 0.01 Normal (applies to Troponin I [facility] IQuantit ng/mL non-numeric Quantitative - Health System ative-MV results) MV Only Only ID Date Data Source [id number] 11/10/2018 10:57:00 AM EST [facility] System Name Value Range Interpretation Description Data Sup porting Code Source(s) Document(s ) Amphetamine Negative Normal (applies Amphetamine [facility] [Mass/volume] to non-numeric Level, Urine Health in Urine results) System Cut-off = 1000 ng/mL Barbiturates Negative Normal (applies to Barbiturate [facility] [Mass/volume] in non-numeric Screen, Urine Health System Urine by Screen results) method Cut-off = 200 ng/mL Benzodiazepines Negative Normal (applies Benzodiazepines, [facility] [Mass/volume] in to non-numeric Urine Health S ystem Urine results) Cut-off = 200 ng/mL Cocaine Positive Abnormal (applies Cocaine [facility] metabolites.other to non-numeric Metabolite [facility] System [Mass/volume] in Urine results) Screen, Urine Cut-off = 300 ng/mL Methadone Positive Abnormal (applies Methadone Level, [facility] [Mass/volume] in to non-numeric Urine System Urine results) Cut-off = 300 ng/mL [id number],Urine Positive Abnormal (applies to Opiate 300, [facility] non-numeric results) Urine System Cut-off = 300 ng/mL Phencyclidine Negative Normal (applies Phencyclidine, Urine [facility] [Mass/volume] in to non-numeric Health S ystem Urine results) Cut-off = 25 ng/mL Cannabinoid(THC) Negative Normal (applies [facility] ([facility]C) [facility] non-numeric System results) Cutt-off = 50These results are for medic al treatment only. The positive findings are unconfirmed. Request confirmatory/quanti tative test if needed. ID Date Data Source [id number] 07/10/2020 10:38:51 PM EDT [facility] Name Value Range Interpretation Description Data Sup porting Code Source(s) Document(s ) Acetylsalicylate < 5.0 Normal (applies Salicylate [facility] [Mass/volume] in to non-numeric Level, Serum Healt h Serum or Plasma results) System ID Date Data Source [id number] 07/10/2020 10:38:51 PM EDT [facility] Name Value Range Interpretation Description Data Sup porting Code Source(s) Document(s ) Acetaminophen 0 ug/ml Below low normal Acetaminophen [facility] ever [Mass/volume] in Level, Serum Health Serum or Plasma System ID Date Data Source [id number] 07/10/2020 10:38:51 PM EDT [facility] Name Value Range Interpretation Description Data Sup porting Code Source(s) Document(s ) Leukocytes 5.9 Normal (applies WBC Count [facility] [#/volume] in {10^3_uL to non-numeric Health Unspecified } results) System specimen by Automated count Erythrocytes 3.36 Below low normal RBC Count [facility] [#/volume] in {10^6_uL Health Blood by } System Automated count Hemoglobin 8.1 Below low normal Hemoglobin [facility] [Mass/volume] in {gm/dL} Health Blood System Hematocrit 27.7 % Below low normal Hematocrit [facility] [Volume Health Fraction] of System Blood Erythrocyte mean 82.4 fl Below low normal MCV [facility] corpuscular Health volume [Entitic System volume] by Automated count Erythrocyte mean 24.1 pg Below low normal MCH [facility] corpuscular Health hemoglobin System [Entitic mass] by Automated count Erythrocyte mean 29.2 Below low normal MCHC [facility] corpuscular {gm/dL} Health hemoglobin System concentration [Mass/volume] by Automated count Erythrocyte 15.9 % Above high RDW-CV [facility] distribution normal Health width [Entitic System volume] by Automated count Platelets 205 Normal (applies Platelet Count [facility] [#/volume] in {10^3_uL to non-numeric Health Plasma by } results) System Automated count Platelet mean 9.7 fl Normal (applies MPV [facility] volume [Entitic to non-numeric Health volume] in Blood results) System by Automated count Monocytes 0.5 Normal (applies Monocyte # [facility] [#/volume] in {10^3_uL to non-numeric Health Blood by Manual } results) System count Eosinophils 0.06 Normal (applies Eosinophil # [facility] [#/volume] in {10^3_uL to non-numeric Health Blood } results) System Neutrophils 4.2 Normal (applies Neutrophil # [facility] [#/volume] in {10^3_uL to non-numeric Health Body fluid } results) System Lymphocyte 1.0 Normal (applies Lymphocyte # [facility] percent {10^3_uL to non-numeric Health differential } results) System count (procedure) Basophils 0.03 Normal (applies Basophil # [facility] [#/volume] in {10^3_uL to non-numeric Health Blood by } results) System Automated count Neutrophils/100 72.0 % Normal (applies Neutrophil % [facility] ever leukocytes in to non-numeric Health Blood by results) System Automated count Monocytes/100 8.5 % Normal (applies Monocyte % [facility] leukocytes in to non-numeric Health Blood results) System Eosinophils/100 1.0 % Normal (applies Eosinophil % [facility] ever leukocytes in to non-numeric Health Unspecified results) System specimen Basophils/100 0.5 % Normal (applies Basophil % [facility] leukocytes in to non-numeric Health Unspecified results) System specimen by Manual count Lymphocytes 17.7 % Below low normal Lymphocyte % [facility] [#/volume] in Health Blood by System Automated count ImmatureGranuloc 0.3 % Normal (applies Immature [facility] ytes% to non-numeric Granulocytes % Health results) System Nucleated 0.0 Normal (applies NRBC % [facility] erythrocytes {/100_WB to non-numeric Health [#/volume] in C} results) System Body fluid ImmatureGranuloc 0.02 Normal (applies Immature [facility] ytes# {10^3_uL to non-numeric Granulocytes # Health } results) System NRBC# 0.00 Below low normal NRBC # [facility] {10^3_uL Health } System ID Date Data Source [id number] 07/10/2020 10:38:51 PM EDT [facility] System Name Value Range Interpretation Description Data Sup porting Code Source(s) Document(s ) Sodium 140 Normal (applies Sodium, Serum [facility] [Moles/volume] in mmol/L to non-numeric Health Serum or Plasma results) System Potassium 3.9 Normal (applies Potassium, [facility] [Mass/volume] in mmol/L to non-numeric Serum Health Serum or Plasma results) System Chloride 110 Above high Chloride, [facility] [Moles/volume] in mmol/L normal Serum Health Serum or Plasma System TotalProtein 6.7 Normal (applies Total Protein [facility] mg/dl to non-numeric Health results) System Carbon dioxide, 22.0 Normal (applies CO2, Serum [facility] total mmol/L to non-numeric Health [Moles/volume] in results) System Serum or Plasma Glucose 74 Below low normal Glucose, [facility] [Mass/volume] in mg/dL Serum Health Serum or Plasma System Urea nitrogen 19 Normal (applies Blood Urea [facility] [Mass/volume] in mg/dl to non-numeric Nitrogen, Health Serum or Plasma results) Serum System Creatinine 1.10 Normal (applies Creatinine, [facility] [Mass/volume] in mg/dl to non-numeric Serum Health Serum or Plasma results) System Alkaline 51 Normal (applies Alkaline [facility] phosphatase {IU/L} to non-numeric Phosphatase, Health isoenzymes results) Serum System [Enzymatic activity/volume] in Serum or Plasma by Heat stability Bilirubin.total 0.3 Normal (applies Bilirubin, [facility] [Mass/volume] in mg/dl to non-numeric Serum Total Health Serum or Plasma results) System DirectBilirubin 0.2 Normal (applies Direct [facility] mg/dl to non-numeric Bilirubin Health results) System Aspartate 55 Above high Aspartate [facility] aminotransferase {IU/L} normal Transaminase, Health [Enzymatic Serum System activity/volume] in Serum or Plasma by With P-5'-P Albumin 3.7 Below low normal Albumin, [facility] [Mass/volume] in {gm/dl} Serum Health Serum or Plasma System I.Phosphorus 3.4 Normal (applies I. Phosphorus [facility] mg/dl to non-numeric Health results) System Alanine 28 Normal (applies Alanine [facility] aminotransferase {IU/L} to non-numeric Aminotransfer Heal th [Enzymatic results) ase, Serum System activity/volume] in Serum or Plasma Calcium 8.1 Below low normal Calcium, [facility] [Mass/volume] in mg/dl Total Serum Health Serum or Plasma System A/GRatio 1.23 Normal (applies A/G Ratio [facility] to non-numeric Health results) System Urate 5.0 Normal (applies Uric Acid, [facility] [Mass/volume] in mg/dl to non-numeric Serum Health Serum or Plasma results) System Anion gap in Serum 8.00 Normal (applies Anion Gap [facility] ever or Plasma mmol/L to non-numeric Health results) System Glomerular 75.00 Normal (applies GFR [facility] filtration to non-numeric Health rate/1.73 sq results) System M.predicted [Volume Rate/Area] in Serum or Plasma by Creatinine-based formula (CKD-EPI) eGFR will provide clinicians with a more accurate indicator of renal function then the serum creatinine. The eGFR is automa tically calculated from an empiric formula (endorsed by the National Kidney [employer] ion) which incorporates age, sex, and race.Clinicians may notice surprisingly low GFR's with serum creatinine valueswithin normal range- particularly in elderly wo men (with low muscle mass).In the hospital setting, the eGFR should add an element of safety in drug dosing, in assessing the risk of IV contrast administration, and in assessing vascular risk.The NKF staging system is as follows:Normal: eGFR >90 with no kidney markersStage 1: eGFR >90 with kidney markers*Stage 2: eGFR 60- 89Stage 3: eGFR 30-59Stage 4: eGFR 15-29Stage 5: eGFR <15 (usually requir ing dialysis)*Markers include: Proteinuria, Hematuria, abnormal imaging-studies, or other blood or urine test abnormalities ID Date Data Source [id number] 07/10/2020 10:38:51 PM EDT [facility] Name Value Range Interpretation Description Data Sup porting Code Source(s) Document(s ) AlcoholE Not detected Normal (applies to Alcohol Ethyl, [facility] thyl,Blo None non-numeric Blood Health System od Detected results) ID Date Data Source [id number] 07/10/2020 10:38:51 PM EDT [facility] Name Value Range Interpretation Description Data Sup porting Code Source(s) Document(s ) [id number] NEGATIVE Testing Normal (applies COVID-19.. [facility] was performed to non-numeric Health Syst em using [place] ID results) NOW COVID-19, an isothermal nucleic acid amplification technology for the qualitative detection of nucleic acid from the SARS-CoV-2 viral RNA in respiratory specimens. The ID NOW COVID-19 test has been approved by the Food and Drug Administration (FDA) under an Emergency Use Authorization for use by authorized laboratories. Reference Range: NEGATIVE . ID Date Data Source [id number] 07/10/2020 10:38:51 PM EDT [facility] Name Value Range Interpretation Description Data Sup porting Code Source(s) Document(s ) Amphetamine Negative Normal (applies Amphetamine [facility] [Mass/volume] to non-numeric Level, Urine Health in Urine results) System Cut-off = 1000 ng/mL Barbiturates Negative Normal (applies to Barbiturate [facility] [Mass/volume] in non-numeric Screen, Urine Health System Urine by Screen results) method Cut-off = 200 ng/mL Benzodiazepines Negative Normal (applies Benzodiazepines, [facility] [Mass/volume] in to non-numeric Urine Health S yste Urine results) Cut-off = 200 ng/mL Cocaine Positive Abnormal (applies Cocaine [facility] metabolites.other to non-numeric Metabolite Health System [Mass/volume] in Urine results) Screen, Urine Cut-off = 300 ng/mL Methadone Negative Normal (applies to Methadone Level, [facility] Health [Mass/volume] in non-numeric Urine System Urine results) Cut-off = 300 ng/mL [id number],Urine Positive Abnormal (applies to Opiate 300, [facility] non-numeric results) Urine System Cut-off = 300 ng/mL Phencyclidine Positive Abnormal (applies Phencyclidine, [facility] [Mass/volume] in to non-numeric Health S yste Urine results) Cut-off = 25 ng/mL Cannabinoid(THC) Negative Normal (applies to Cannabinoid (THC) [facility] non-numeric System results) Cutt-off = 50These results are for medic al treatment only. The positive findings are unconfirmed. Request confirmatory/quanti tative test if needed. ID Date Data Source [id number] 07/10/2020 10:38:51 PM EDT [facility] Name Value Range Interpretation Description Data Sup porting Code Source(s) Document(s ) Acetylsalicylate < 5.0 Normal (applies Salicylate [facility] [Mass/volume] in to non-numeric Level, Serum Healt h Serum or Plasma results) System ID Date Data Source [id number] 07/10/2020 10:38:51 PM EDT [facility] Name Value Range Interpretation Description Data Sup porting Code Source(s) Document(s ) Acetaminophen 0 ug/ml Below low normal Acetaminophen [facility] ever [Mass/volume] in Level, Serum Health Serum or Plasma System ID Date Data Source [id number] 07/01/2020 10:00:00 PM EDT [facility] Name Value Range Interpretation Description Data Sup porting Code Source(s) Document(s ) SARS [facility] coronavirus 2 RNA This lab was ordered by [facility] ct Bill Inter and reported by [facility]. ID Date Data Source [id number] 06/19/2020 12:40:00 PM EDT [facility] -0400 Name Value Range Interpretation Description Data Sup porting Code Source(s) Document(s ) Cannabinoids <content [facility] [Presence] in styleCode="Fidencio Serafin Urine by Screen d">Cannabinoid Medical method >50 ng/mL s Center </content>NEGA TIVE NG/ML (Reference Range: not available)<br/ > ID Date Data Source [id number] 06/03/2020 02:52:00 PM EDT [facility] -0400 Name Value Range Interpretation Description Data Sup porting Code Source(s) Document(s ) Cannabinoids <content [facility] [Presence] in styleCode="Fidencio Serafin Urine by Screen d">Cannabinoid Medical method >50 ng/mL s Center </content>PRES UMPTIVE POSITIVE NG/ML (Reference Range: not available)<br/ > ID Date Data Source [id number] 06/03/2020 02:52:00 PM EDT [facility] 0 Name Value Range Interpretation Description Data Sup porting Code Source(s) Document(s ) Color of Urine YELLOW <content Saint styleCode="Fidencio Serafin d">Color, Medical Urine Center </content>YELL OW <content styleCode="Radha lics"> (YELLOW )</content> Glucose NEGATIVE <content Saint [Mass/volume] styleCode="Fidencio Serafin in Urine by d">Urine Medical Test strip Glucose Center </content>NEGA TIVE MG/DL<content styleCode="Radha lics"> (NEGATIVE MG/DL)</conten t> UNK NEGATIVE <content Saint styleCode="Fidencio Serafin d">Urine Medical Bilirubin Center </content>NEGA TIVE <content styleCode="Radha lics"> (NEGATIVE )</content> UNK CLEAR <content Saint styleCode="Fidencio Serafin d">Urine Medical Clarity Center </content>MILVIA R <content styleCode="Radha lics"> (CLEAR )</content> Hemoglobin NEGATIVE <content Saint [Presence] in styleCode="Fidencio Serafin Urine by Test d">Urine Blood Medical strip </content>NEGA Center TIVE <content styleCode="Radha lics"> (NEGATIVE )</content> Ketones NEGATIVE <content Saint [Mass/volume] styleCode="Fidencio Serafin in Urine by d">Urine Medical Test strip Ketone Center </content>NEGA TIVE MG/DL<content styleCode="Radha lics"> (NEGATIVE MG/DL)</conten t> pH of Urine by 4.5-8.0 <content Saint Test strip styleCode="Fidencio Serafin d">Urine pH Medical </content>7.5 Center <content styleCode="Radha lics"> (4.5-8.0 )</content> Specific 1.015-1.02 <content Saint gravity of 5 styleCode="Fidencio Serafin Urine by Test d">Urine Medical strip Specific Center [place] </content>1.02 0 <content styleCode="Radha lics"> (1.015-1.025 )</content> Urobilinogen 0.2-1.0 <content Saint [Units/volume] styleCode="Fidencio Serafin in Urine by d">Urine Medical Test strip Urobilinogen Center </content>1.0 MG/DL<content styleCode="Radha lics"> (0.2-1.0 MG/DL)</conten t> Protein NEGATIVE <content Saint [Mass/volume] styleCode="Fidencio Serafin in Urine by d">Urine Medical Test strip Protein Center </content>NEGA TIVE MG/DL<content styleCode="Radha lics"> (NEGATIVE MG/DL)</conten t> Nitrite NEGATIVE <content Saint [Presence] in styleCode="Fidencio Betancourt Urine by Test d">Urine Medical strip Nitrite Center </content>NEGA TIVE <content styleCode="Radha lics"> (NEGATIVE )</content> Leukocyte NEGATIVE <content [facility] esterase styleCode="Fidencio Serafin [Presence] in d">Urine Medical Urine by Test Leukocyte Center strip </content>NEGA TIVE <content styleCode="Radha lics"> (NEGATIVE )</content> ID Date Data Source HematologyRou.[id number] 06/03/2020 01:00:00 PM EDT [facility] 0400 Name Value Range Interpretation Description Data Sup porting Code Source(s) Document(s ) Erythrocytes 4.4-5.9 Below low normal <content Saint [#/volume] in styleCode="Bold Serafin Blood by ">Red Blood Medical Automated count Cell Count Center </content>3.61 MCUMM L<content styleCode="Ital ics"> (4.4-5.9 MCUMM)</content > Leukocytes 4.4-11.0 <content Saint [#/volume] in styleCode="Bold Serafin Blood by ">White Blood Medical Automated count Cell Count Center </content>5.42 KCUMM<content styleCode="Ital ics"> (4.4-11.0 KCUMM)</content > Hematocrit 41.0-53. Below low normal <content Saint [Volume 0 styleCode="Bold Serafin Fraction] of ">Hematocrit Medical Blood by </content>29.1 Center Automated count % L<content styleCode="Ital ics"> (41.0-53.0 %)</content> Hemoglobin 13.5-17. Below low normal <content Saint [Mass/volume] in 5 styleCode="Bold Serafin Blood ">Hemoglobin Medical </content>8.9 Center G/DL L<content styleCode="Ital ics"> (13.5-17.5 G/DL)</content> Erythrocyte mean 26.0-34. Below low normal <content [facility] corpuscular 0 styleCode="Bold Serafin hemoglobin ">Mean Medical [Entitic mass] Corposcular Center by Automated Hemoglobin count </content>24.7 PG L<content styleCode="Ital ics"> (26.0-34.0 PG)</content> Erythrocyte mean 32.0-37. Below low normal <content [facility] corpuscular 0 styleCode="Bold Serafin hemoglobin ">Mean Corpus. Medical concentration Hgb Center [Mass/volume] by Concentration Automated count (MCHC) </content>30.6 G/DL L<content styleCode="Ital ics"> (32.0-37.0 G/DL)</content> Erythrocyte mean 80.0-100 <content [facility] corpuscular .0 styleCode="Bold Serafin volume [Entitic ">Mean Medical volume] by Corpuscular Center Automated count Volume </content>80.6 FL<content styleCode="Ital ics"> (80.0-100.0 FL)</content> Erythrocyte 11.5-14. Above high <content Saint distribution 5 normal styleCode="Bold Serafin width [Ratio] by ">Red Cell Medical Automated count Distribution Center Width </content>17.1 % H<content styleCode="Ital ics"> (11.5-14.5 %)</content> Platelet mean 8.0-11.0 <content Saint volume [Entitic styleCode="Bold Serafin volume] in Blood ">Mean Platelet Medical by Automated Volume Center count </content>8.9 FL<content styleCode="Ital ics"> (8.0-11.0 FL)</content> UNK 0.0 <content Saint styleCode="Bold Serafin ">Nucleated Red Medical Blood Cell Center Count </content>0.00 KCUMM<content styleCode="Ital ics"> (0.0 KCUMM)</content > UNK 0 <content Saint styleCode="Bold Serafin ">Nucleated Red Medical Blood Cell Center </content>0.0 /100<content styleCode="Ital ics"> (0 /100)</content> Platelets 130-400 <content Saint [#/volume] in styleCode="Bold Serafin Blood by ">Platelet Medical Automated count Count Center </content>197 KCUMM<content styleCode="Ital ics"> (130-400 KCUMM)</content > ID Date Data Source [facility].[id number] 06/03/2020 01:00:00 PM EDT [facility] Name Value Range Interpretation Description Data Sup porting Code Source(s) Document(s ) Sodium 137-145 <content Saint [Moles/volume] styleCode="Fidencio Serafin in Serum or d">Sodium Medical Plasma </content>140 Center MEQ/L<content styleCode="Radha lics"> (137-145 MEQ/L)</conten t> Chloride 98-107 Above high normal <content Saint [Moles/volume] styleCode="Fidencio Serafin in Serum or d">Chloride Medical Plasma </content>110 Center MEQ/L H<content styleCode="Radha lics"> (98-107 MEQ/L)</conten t> Carbon 22-30 <content Saint dioxide, total styleCode="Fidencio Serafin [Moles/volume] d">Carbon Medical in Serum or Dioxide Center Plasma </content>25 MEQ/L<content styleCode="Radha lics"> (22-30 MEQ/L)</conten t> Potassium 3.5-5.3 <content [facility] [Moles/volume] styleCode="Fidencio Serafin in Serum or d">Potassium Medical Plasma </content>4.6 Center MEQ/L<content styleCode="Radha lics"> (3.5-5.3 MEQ/L)</conten t> Calcium 8.4-10.2 <content Saint [Mass/volume] styleCode="Fidencio Serafin in Serum or d">Calcium Medical Plasma </content>9.3 Center MG/DL<content styleCode="Radha lics"> (8.4-10.2 MG/DL)</conten t> Creatinine 0.5-1.3 <content Saint [Mass/volume] styleCode="Fidencio Serafin in Serum or d">Creatinine Medical Plasma </content>1.0 Center MG/DL<content styleCode="Radha lics"> (0.5-1.3 MG/DL)</conten t> UNK 9-20 Above high normal <content Saint styleCode="Fidencio Serafin d">BUN Medical </content>22 Center MG/DL H<content styleCode="Radha lics"> (9-20 MG/DL)</conten t> Glucose 74-106 <content Saint [Mass/volume] styleCode="Fidencio Serafin in Serum or d">Glucose Medical Plasma </content>100 Center MG/DL<content styleCode="Radha lics"> (74-106 MG/DL)</conten t> UNK > 60 <content Saint styleCode="Fidencio Serafin d">EGFR Medical </content>89 Center GFR<content styleCode="Radha lics"> (> 60 GFR)</content> ID Date Data Source [facility].[id number] 06/03/2020 01:00:00 PM [facility] Name Value Range Interpretation Description Data Sup porting Code Source(s) Document(s ) Troponin < 0.034 <content Saint I.cardiac styleCode="Bold Serafin [Mass/volume ">Troponin I Medical ] in Serum </content>< Center or Plasma 0.012 NG/ML<content styleCode="Ital ics"> (< 0.034 NG/ML)</content > ID Date Data Source CHMROUTINECCDA.[id number] 06/03/2020 01:00:00 PM EDT [facility] Name Value Range Interpretation Description Data Sup porting Code Source(s) Document(s ) Natriuretic < 125 Above high normal <content Saint peptide.B styleCode="Fidencio Serafin prohormone d">NT Pro BNP Medical N-Terminal </content>525 Center [Mass/volume] PG/ML in Serum or H<content Plasma styleCode="Radha lics"> (< 125 PG/ML)</conten t> ID Date Data Source Coagulation 06/03/2020 01:00:00 PM [facility] Rout.[id number] EDT Name Value Range Interpretation Description Data Sup porting Code Source(s) Document(s ) UNK 9.0-13.0 <content Saint styleCode="Bold" Serafin >Protime Medical </content>11.8 Center SEC<content styleCode="Itali cs"> (9.0-13.0 SEC)</content> INR in 0.80-1.2 <content Saint Platelet poor 0 styleCode="Bold" Serafin plasma by >INR Medical Coagulation </content>1.06 Center assay #<content styleCode="Itali cs"> (0.80-1.20 #)</content> aPTT in 25.1-36. <content Saint Platelet poor 5 styleCode="Bold" Serafin plasma by >Partial Medical Coagulation Thromboplastin Center assay Time </content>28.4 SEC<content styleCode="Itali cs"> (25.1-36.5 SEC)</content> ID Date Data Source GFR(Creatinine).[id number] 06/03/2020 01:00:00 PM EDT [facility] 0-0400 Name Value Range Interpretation Code Description Data Heather rce(s) Supporting Document(s ) UNK > 60 <content [facility] styleCode="Bold"> Medical Cent er EGFR </content>89 GFR<content styleCode="Italic s"> (> 60 GFR)</content> ID Date Data Source [id number] 05/15/2020 06:15:00 PM EDT [facility] Name Value Range Interpretation Code Description Data Heather rce(s) Supporting Document(s ) COVID-19.. [facility] This lab was ordered by [facility] and reported by [facility]. ID Date Data Source [id number] 05/15/2020 05:50:00 PM EDT [facility] CT head without IV contrastCLINICAL INFO RMATION: Male, 35 years old. Trauma. Contusion. Headache. Initial encounter. Aggressive behaviors.TECHNIQUE: Contiguous axial 5 mm sections were obtainedthrough the head.Individualized dose optimization techniques were used for thisCT.RADIATIO NDOSE: Automatic exposure control or low dose techniquewith adjustment of the dose bas ed on patient size wasutilized. The total DLP for this examination is estimated at 991 mGy-cm.FINDINGS: No prior studies weresubmitted for directcomparison.The v entricles and sulci are appropriate for patient''s statedage.There is no evidenc e of abnormal parenchymal attenuationseen. There is no evidence of acute intracrani alhemorrhage,mass-effect, midline shift or extra-axial fluid collection. There is n o evidence of acuteterritorial infarct.The visualized orbits appear grossly unremar kable. Thevisualized paranasal sinusesand mastoid air cells appear clear. The visu alized calvarium appears intact. There is high leftfrontal scalpsoft tissue swelli ng noted, as well as rightfrontal scalp/preseptal/premaxillary soft tissue swelling.IMPRESSION:Unremarkable noncontrast CT scan of the brain.High left frontalsc alp soft tissue swelling, as well as rightfrontal scalp/preseptal/premaxillar y soft tissueswelling.Electronically Signed:Benji Light, at 18:23 EDTTel , Servicesupport , [phone] Name Value Range Interpretation Code Description Data Heather rce(s) Supporting Document(s ) ID Date Data Source [id number] 05/15/2020 05:50:00 PM EDT [facility] CT facial bones without IV contrastCLINI ROBINA INFORMATION: Male, 35 years old. Trauma. Contusion. Facial pain. Initia l encounter.TECHNIQUE: Contiguous axial 2.5 mm sections were reconstructedthrough th efacial bones using a single helical acquisitionobtained at 1 mm thickness. This data set wasalsoreconstructed in the sagittal and coronal planes.Individualiz ed dose optimization techniques wereused for thisCT.RADIATION DOSE: Automatic exposur e control or low dose techniquewith adjustment ofthe dose based on patient s ize was utilized. The total DLP for this examination is estimated at 770mGy-cm.FI NDINGS: No prior similar studies were submitted for directcomparison.There is noevidence of acute facial bone fracture noted. Thereis right frontal scalp/preseptal/premaxillary/premandibularsofttissue swelling noted.The visualized paranasal sinuses demonstrate mild scatteredethmoid aircell mucosal thickening, with mild bi lateralmaxillary sinus mucosal thickening. The remainingvisualizedparanasal sinuses and mastoid air cells are clear. No abnormalparanasal sinus fluid collection isfound. No osseous erosionor expansion is present.The nasal bones are intact witho ut fracture. The nasalseptumappears intact. There is rightward nasal septal deviatio nnoted.There is right preseptal softtissue swelling noted. The globesare intact. Intraconal and extraconal fat is preserved. Theextraocularmuscles remain symmetric. The superior opthalmicveins are also symmetric. The orbital rims remainintac t.The deep facial spaces are intact. No radiopaque foreign bodyis seen. The bony opharynx issymmetric. The central skull baseis intact. The visualized intracran ial contentsappearunremarkable.IMPRESSION:No evidence of acute facial bone fracture.R ightfrontal scalp/preseptal/premaxillary/perimandibu lar softtissue swelling.Mild presumed inflammatory sinusdisease as described a leticia,with rightward nasal septal deviation.Electronically Signed:Johnathan morgan, at 18:30 EDTTel , Service support [phone] Name Value Range Interpretation Code Description Data Heather rce(s) Supporting Document(s ) ID Date Data Source HematologyRou.[id number] 05/13/2020 01:34:00 PM EDT [facility] 0400 Name Value Range Interpretation Description Data Sup porting Code Source(s) Document(s ) Leukocytes 4.4-11.0 <content Saint [#/volume] in styleCode="Bold Serafin Blood by ">White Blood Medical Automated count Cell Count Center </content>7.15 KCUMM<content styleCode="Ital ics"> (4.4-11.0 KCUMM)</content > Hematocrit 41.0-53. Below low normal <content [facility] [Volume 0 styleCode="Bold Serafin Fraction] of ">Hematocrit Medical Blood by </content>28.8 Center Automated count % L<content styleCode="Ital ics"> (41.0-53.0 %)</content> Hemoglobin 13.5-17. Below low normal <content Saint [Mass/volume] in 5 styleCode="Bold Serafin Blood ">Hemoglobin Medical </content>8.8 Center G/DL L<content styleCode="Ital ics"> (13.5-17.5 G/DL)</content> Erythrocytes 4.4-5.9 Below low normal <content Saint [#/volume] in styleCode="Bold Serafin Blood by ">Red Blood Medical Automated count Cell Count Center </content>3.68 MCUMM L<content styleCode="Ital ics"> (4.4-5.9 MCUMM)</content > Erythrocyte 11.5-14. Above high <content Saint distribution 5 normal styleCode="Bold Serafin width [Ratio] by ">Red Cell Medical Automated count Distribution Center Width </content>15.4 % H<content styleCode="Ital ics"> (11.5-14.5 %)</content> Erythrocyte mean 26.0-34. Below low normal <content [facility] corpuscular 0 styleCode="Bold Serafin hemoglobin ">Mean Medical [Entitic mass] Corposcular Center by Automated Hemoglobin count </content>23.9 PG L<content styleCode="Ital ics"> (26.0-34.0 PG)</content> Erythrocyte mean 80.0-100 <content [facility] corpuscular .0 styleCode="Bold Serafin volume [Entitic ">Mean Medical volume] by Corpuscular Center Automated count Volume </content>78.3 FL<content styleCode="Ital ics"> (80.0-100.0 FL)</content> Erythrocyte mean 32.0-37. Below low normal <content [facility] corpuscular 0 styleCode="Bold Serafin hemoglobin ">Mean Corpus. Medical concentration Hgb Center [Mass/volume] by Concentration Automated count (MCHC) </content>30.6 G/DL L<content styleCode="Ital ics"> (32.0-37.0 G/DL)</content> Platelets 130-400 <content Saint [#/volume] in styleCode="Bold Serafin Blood by ">Platelet Medical Automated count Count Center </content>197 KCUMM<content styleCode="Ital ics"> (130-400 KCUMM)</content > UNK 0 <content Saint styleCode="Bold Serafin ">Nucleated Red Medical Blood Cell Center </content>0.0 /100<content styleCode="Ital ics"> (0 /100)</content> Platelet mean 8.0-11.0 <content Saint volume [Entitic styleCode="Bold Serafin volume] in Blood ">Mean Platelet Medical by Automated Volume Center count </content>9.3 FL<content styleCode="Ital ics"> (8.0-11.0 FL)</content> UNK 0.0 <content Saint styleCode="Bold Serafin ">Nucleated Red Medical Blood Cell Center Count </content>0.00 KCUMM<content styleCode="Ital ics"> (0.0 KCUMM)</content > ID Date Data Source [facility].[id number] 05/13/2020 01:15:00 PM EDT [facility] Name Value Range Interpretation Description Data Sup porting Code Source(s) Document(s ) Sodium 137-145 <content Saint [Moles/volume] in styleCode="Bold"> [facility] Serum or Plasma Sodium Medical </content>139 Center MEQ/L<content styleCode="Italic s"> (137-145 MEQ/L)</content> Chloride 98-107 Above high <content Saint [Moles/volume] in normal styleCode="Bold"> [facility] Serum or Plasma Chloride Medical </content>108 Center MEQ/L H<content styleCode="Italic s"> (98-107 MEQ/L)</content> Carbon dioxide, 22-30 <content Saint total styleCode="Bold"> Serafin [Moles/volume] in Carbon Dioxide Medical Serum or Plasma </content>23 Center MEQ/L<content styleCode="Italic s"> (22-30 MEQ/L)</content> Potassium 3.5-5.3 <content Saint [Moles/volume] in styleCode="Bold"> [facility] Serum or Plasma Potassium Medical </content>4.2 Center MEQ/L<content styleCode="Italic s"> (3.5-5.3 MEQ/L)</content> UNK 9-20 Above high <content Saint normal styleCode="Bold"> Serafin BUN </content>22 Medical MG/DL H<content Center styleCode="Italic s"> (9-20 MG/DL)</content> Calcium 8.4-10. <content Saint [Mass/volume] in 2 styleCode="Bold"> [place] [facility] Serum or Plasma Calcium Medical </content>9.3 Center MG/DL<content styleCode="Italic s"> (8.4-10.2 MG/DL)</content> Creatinine 0.5-1.3 <content Saint [Mass/volume] in styleCode="Bold"> [place] hs Serum or Plasma Creatinine Medical </content>0.9 Center MG/DL<content styleCode="Italic s"> (0.5-1.3 MG/DL)</content> Glucose 74-106 Above high <content Saint [Mass/volume] in normal styleCode="Bold"> [place] hs Serum or Plasma Glucose Medical </content>114 Center MG/DL H<content styleCode="Italic s"> (74-106 MG/DL)</content> Alkaline 38-126 <content Saint phosphatase styleCode="Bold"> Serafin [Enzymatic Alkaline Medical activity/volume] Phosphatase (ALP) Cente r in Serum or Plasma </content>66 IU/L<content styleCode="Italic s"> (38-126 IU/L)</content> Aspartate 17-59 <content Saint aminotransferase styleCode="Bold"> [place] hs [Enzymatic Aspartate Medical activity/volume] Aminotransferase Center in Serum or Plasma (AST) </content>43 IU/L<content styleCode="Italic s"> (17-59 IU/L)</content> UNK > 60 <content Saint styleCode="Bold"> Serafin EGFR Medical </content>101 Center GFR<content styleCode="Italic s"> (> 60 GFR)</content> Alanine 7-50 <content Saint aminotransferase styleCode="Bold"> [place] hs [Enzymatic Alanine Medical activity/volume] Aminotransferase Center in Serum or Plasma (ALT) </content>19 IU/L<content styleCode="Italic s"> (7-50 IU/L)</content> Bilirubin.total 0.2-1.3 <content Saint [Mass/volume] in styleCode="Bold"> [place] hs Serum or Plasma Bilirubin Total Medical </content>0.4 Center MG/DL<content styleCode="Italic s"> (0.2-1.3 MG/DL)</content> Albumin 3.5-5.0 <content Saint [Mass/volume] in styleCode="Bold"> [place] hs Serum or Plasma Albumin Medical </content>4.2 Center G/DL<content styleCode="Italic s"> (3.5-5.0 G/DL)</content> ID Date Data Source GFR(Creatinine).[id number] 05/13/2020 01:15:00 PM EDT [facility] 0-0400 Name Value Range Interpretation Code Description Data Heather rce(s) Supporting Document(s ) UNK > 60 <content [facility] styleCode="Bold"> Medical Cent er EGFR </content>101 GFR<content styleCode="Italic s"> (> 60 GFR)</content> ID Date Data Source Liver 05/13/2020 01:15:00 PM EDT [facility] Profile.[id number] Name Value Range Interpretation Description Data Sup porting Code Source(s) Document(s ) Alanine 7-50 <content [facility] aminotransferase styleCode="Bold"> [place] hs [Enzymatic Alanine Medical activity/volume] Aminotransferase Center in Serum or Plasma (ALT) </content>19 IU/L<content styleCode="Italic s"> (7-50 IU/L)</content> Aspartate 17-59 <content [facility] aminotransferase styleCode="Bold"> [place] hs [Enzymatic Aspartate Medical activity/volume] Aminotransferase Center in Serum or Plasma (AST) </content>43 IU/L<content styleCode="Italic s"> (17-59 IU/L)</content> Bilirubin.total 0.2-1.3 <content Saint [Mass/volume] in styleCode="Bold"> [place] hs Serum or Plasma Bilirubin Total Medical </content>0.4 Center MG/DL<content styleCode="Italic s"> (0.2-1.3 MG/DL)</content> Alkaline 38-126 <content Saint phosphatase styleCode="Bold"> Serafin [Enzymatic Alkaline Medical activity/volume] Phosphatase (ALP) Cente r in Serum or Plasma </content>66 IU/L<content styleCode="Italic s"> (38-126 IU/L)</content> UNK 0.0-0.3 <content Saint styleCode="Bold"> Serafin Bilirubin, Direct Medical </content>< 0.2 Center MG/DL<content styleCode="Italic s"> (0.0-0.3 MG/DL)</content> Albumin 3.5-5.0 <content Saint [Mass/volume] in styleCode="Bold"> [place] hs Serum or Plasma Albumin Medical </content>4.2 Center G/DL<content styleCode="Italic s"> (3.5-5.0 G/DL)</content> ID Date Data Source Urinalysis.[id number] 05/13/2020 12:54:00 PM EDT [facility] 0 Name Value Range Interpretation Description Data Sup porting Code Source(s) Document(s ) UNK CLEAR <content Saint styleCode="Fidencio Serafin d">Urine Medical Clarity Center </content>MILVIA R <content styleCode="Radha lics"> (CLEAR )</content> Color of Urine YELLOW <content Saint styleCode="Fidencio Serafin d">Color, Medical Urine Center </content>YELL OW <content styleCode="Radha lics"> (YELLOW )</content> Glucose NEGATIVE <content Saint [Mass/volume] styleCode="Fidencio Serafin in Urine by d">Urine Medical Test strip Glucose Center </content>NEGA TIVE MG/DL<content styleCode="Radha lics"> (NEGATIVE MG/DL)</conten t> Ketones NEGATIVE <content Saint [Mass/volume] styleCode="Fidencio Serafin in Urine by d">Urine Medical Test strip Ketone Center </content>NEGA TIVE MG/DL<content styleCode="Radha lics"> (NEGATIVE MG/DL)</conten t> UNK NEGATIVE <content Saint styleCode="Fidencio Serafin d">Urine Medical Bilirubin Center </content>NEGA TIVE <content styleCode="Radha lics"> (NEGATIVE )</content> Specific 1.015-1.02 Below low normal <content Saint gravity of 5 styleCode="Fidencio Serafin Urine by Test d">Urine Medical strip Specific Center [place] </content>1.01 0 L<content styleCode="Radha lics"> (1.015-1.025 )</content> pH of Urine by 4.5-8.0 <content Saint Test strip styleCode="Fidencio Serafin d">Urine pH Medical </content>7.5 Center <content styleCode="Radha lics"> (4.5-8.0 )</content> Hemoglobin NEGATIVE <content Saint [Presence] in styleCode="Fidencio Serafin Urine by Test d">Urine Blood Medical strip </content>NEGA Center TIVE <content styleCode="Radha lics"> (NEGATIVE )</content> Protein NEGATIVE <content Saint [Mass/volume] styleCode="Fidencio Serafin in Urine by d">Urine Medical Test strip Protein Center </content>NEGA TIVE MG/DL<content styleCode="Radha lics"> (NEGATIVE MG/DL)</conten t> Leukocyte NEGATIVE <content Saint esterase styleCode="Fidencio Serafin [Presence] in d">Urine Medical Urine by Test Leukocyte Center strip </content>NEGA TIVE <content styleCode="Radha lics"> (NEGATIVE )</content> Nitrite NEGATIVE <content Saint [Presence] in styleCode="Fidencio Serafin Urine by Test d">Urine Medical strip Nitrite Center </content>NEGA TIVE <content styleCode="Radha lics"> (NEGATIVE )</content> Urobilinogen 0.2-1.0 <content Saint [Units/volume] styleCode="Fidencio Serafin in Urine by d">Urine Medical Test strip Urobilinogen Center </content>0.2 MG/DL<content styleCode="Radha lics"> (0.2-1.0 MG/DL)</conten t> ID Date Data Source CHMROUTINECCDA.[id number] 05/13/2020 11:18:00 AM EDT [facility] -0400 Name Value Range Interpretation Description Data Sup porting Code Source(s) Document(s ) Cannabinoids <content [facility] [Presence] in styleCode="Fidencio Betancoutr Urine by Screen d">Cannabinoid Medical method >50 ng/mL s Center </content>NEGA TIVE NG/ML (Reference Range: not available)<br/ > ID Date Data Source [id number] 03/22/2020 10:30:00 PM EDT [facility] Name Value Range Interpretation Code Description Data Heather rce(s) Supporting Document(s ) COV2 [facility] This lab was ordered by [facility] and reported by [facility]. ID Date Data Source [facility].[id number] 03/22/2020 08:40:00 PM EDT [facility] Name Value Range Interpretation Description Data Sup porting Code Source(s) Document(s ) Potassium 3.5-5.3 <content [facility] [Moles/volume] styleCode="Fidencio Serafin in Serum or d">Potassium Medical Plasma </content>4.7 Center MEQ/L<content styleCode="Radha lics"> (3.5-5.3 MEQ/L)</conten t> Chloride 98-107 <content [facility] [Moles/volume] styleCode="Fidencio Serafin in Serum or d">Chloride Medical Plasma </content>104 Center MEQ/L<content styleCode="Radha lics"> (98-107 MEQ/L)</conten t> Sodium 137-145 <content [facility] [Moles/volume] styleCode="Fidencio Serafin in Serum or d">Sodium Medical Plasma </content>140 Center MEQ/L<content styleCode="Radha lics"> (137-145 MEQ/L)</conten t> Glucose 74-106 <content Saint [Mass/volume] styleCode="Fidencio Lopezs in Serum or d">Glucose Medical Plasma </content>87 Center MG/DL<content styleCode="Radha lics"> (74-106 MG/DL)</conten t> Creatinine 0.5-1.3 <content [facility] [Mass/volume] styleCode="Fidencio Lopezs in Serum or d">Creatinine Medical Plasma </content>0.9 Center MG/DL<content styleCode="Radha lics"> (0.5-1.3 MG/DL)</conten t> Calcium 8.4-10.2 <content [facility] [Mass/volume] styleCode="Fidencio Lopezs in Serum or d">Calcium Medical Plasma </content>9.3 Center MG/DL<content styleCode="Radha lics"> (8.4-10.2 MG/DL)</conten t> Carbon 22-30 <content [facility] dioxide, total styleCode="Fidencio Lopezs [Moles/volume] d">Carbon Medical in Serum or Dioxide Center Plasma </content>28 MEQ/L<content styleCode="Radha lics"> (22-30 MEQ/L)</conten t> UNK 9-20 <content Saint styleCode="Fidencio Lopezs d">BUN Medical </content>10 Center MG/DL<content styleCode="Radha lics"> (9-20 MG/DL)</conten t> UNK > 60 <content Saint styleCode="Fidencio Lopezs d">EGFR Medical </content>101 Center GFR<content styleCode="Radha lics"> (> 60 GFR)</content> ID Date Data Source GFR(Creatinine).[id number] 03/22/2020 08:40:00 PM EDT [facility] 0-0400 Name Value Range Interpretation Code Description Data Heather rce(s) Supporting Document(s ) UNK > 60 <content [facility] styleCode="Bold"> Medical Cent er EGFR </content>101 GFR<content styleCode="Italic s"> (> 60 GFR)</content> ID Date Data Source HematologyRou.[id number] 03/22/2020 08:40:00 PM EDT [facility] 0400 Name Value Range Interpretation Description Data Sup porting Code Source(s) Document(s ) Leukocytes 4.4-11.0 <content Saint [#/volume] in styleCode="Bold Serafin Blood by ">White Blood Medical Automated count Cell Count Center </content>5.54 KCUMM<content styleCode="Ital ics"> (4.4-11.0 KCUMM)</content > Erythrocytes 4.4-5.9 Below low normal <content Saint [#/volume] in styleCode="Bold Serafin Blood by ">Red Blood Medical Automated count Cell Count Center </content>3.43 MCUMM L<content styleCode="Ital ics"> (4.4-5.9 MCUMM)</content > Hemoglobin 13.5-17. Below low normal <content Saint [Mass/volume] in 5 styleCode="Bold Serafin Blood ">Hemoglobin Medical </content>8.7 Center G/DL L<content styleCode="Ital ics"> (13.5-17.5 G/DL)</content> Hematocrit 41.0-53. Below low normal <content Saint [Volume 0 styleCode="Bold Serafin Fraction] of ">Hematocrit Medical Blood by </content>28.3 Center Automated count % L<content styleCode="Ital ics"> (41.0-53.0 %)</content> Erythrocyte mean 80.0-100 <content Saint corpuscular .0 styleCode="Bold Serafin volume [Entitic ">Mean Medical volume] by Corpuscular Center Automated count Volume </content>82.5 FL<content styleCode="Ital ics"> (80.0-100.0 FL)</content> Erythrocyte 11.5-14. Above high <content [facility] distribution 5 normal styleCode="Bold Serafin width [Ratio] by ">Red Cell Medical Automated count Distribution Center Width </content>15.9 % H<content styleCode="Ital ics"> (11.5-14.5 %)</content> Platelets 130-400 <content Saint [#/volume] in styleCode="Bold Serafin Blood by ">Platelet Medical Automated count Count Center </content>221 KCUMM<content styleCode="Ital ics"> (130-400 KCUMM)</content > Erythrocyte mean 26.0-34. Below low normal <content [facility] corpuscular 0 styleCode="Bold Serafin hemoglobin ">Mean Medical [Entitic mass] Corposcular Center by Automated Hemoglobin count </content>25.4 PG L<content styleCode="Ital ics"> (26.0-34.0 PG)</content> Erythrocyte mean 32.0-37. Below low normal <content Saint corpuscular 0 styleCode="Bold Serafin hemoglobin ">Mean Corpus. Medical concentration Hgb Center [Mass/volume] by Concentration Automated count (MCHC) </content>30.7 G/DL L<content styleCode="Ital ics"> (32.0-37.0 G/DL)</content> Lymphocytes 24.0-44. Below low normal <content Saint [#/volume] in 0 styleCode="Bold Serafin Blood by ">Lymphocyte Medical Automated count </content>15.9 Center % L<content styleCode="Ital ics"> (24.0-44.0 %)</content> Neutrophils 36-66 Above high <content Saint [#/volume] in normal styleCode="Bold Serafin Blood by ">Neutrophil Medical Automated count </content>73.9 Center % H<content styleCode="Ital ics"> (36-66 %)</content> Platelet mean 8.0-11.0 <content Saint volume [Entitic styleCode="Bold Esrafin volume] in Blood ">Mean Platelet Medical by Automated Volume Center count </content>9.6 FL<content styleCode="Ital ics"> (8.0-11.0 FL)</content> UNK 1.6-7.3 <content Saint styleCode="Bold Serafin ">Neutrophil Medical Count Center </content>4.09 KCUMM<content styleCode="Ital ics"> (1.6-7.3 KCUMM)</content > UNK 1.0-4.8 Below low normal <content Saint styleCode="Bold Serafin ">Lymphocyte Medical Count Center </content>0.88 KCUMM L<content styleCode="Ital ics"> (1.0-4.8 KCUMM)</content > Basophils 0.0-1.0 <content Saint [#/volume] in styleCode="Bold Serafin Blood by ">Basophil Medical Automated count </content>0.9 Center %<content styleCode="Ital ics"> (0.0-1.0 %)</content> Eosinophils 0-5.0 <content Saint [#/volume] in styleCode="Bold Serafin Blood by ">Eosinophil Medical Automated count </content>2.5 Center %<content styleCode="Ital ics"> (0-5.0 %)</content> UNK 0.0-0.6 <content Saint styleCode="Bold Serafin ">Eosinophil Medical Count Center </content>0.14 KCUMM<content styleCode="Ital ics"> (0.0-0.6 KCUMM)</content > Monocytes 3.0-10.0 <content Saint [#/volume] in styleCode="Bold Serafin Blood by ">Monocyte Medical Automated count </content>6.3 Center %<content styleCode="Ital ics"> (3.0-10.0 %)</content> UNK 0.2-0.9 <content Saint styleCode="Bold Serafin ">Monocyte Medical Count Center </content>0.35 KCUMM<content styleCode="Ital ics"> (0.2-0.9 KCUMM)</content > UNK 0.0 <content Saint styleCode="Bold Serafin ">Nucleated Red Medical Blood Cell Center Count </content>0.00 KCUMM<content styleCode="Ital ics"> (0.0 KCUMM)</content > UNK 0.0-0.3 <content Saint styleCode="Bold Serafin ">Basophil Medical Count Center </content>0.05 KCUMM<content styleCode="Ital ics"> (0.0-0.3 KCUMM)</content > UNK 0-0.1 <content Saint styleCode="Bold Serafin ">Immature Medical Granulocyte Center Count </content>0.03 KCUMM<content styleCode="Ital ics"> (0-0.1 KCUMM)</content > UNK 0 <content Saint styleCode="Bold Serafin ">Nucleated Red Medical Blood Cell Center </content>0.0 /100<content styleCode="Ital ics"> (0 /100)</content> UNK < 1 <content Saint styleCode="Bold Serafin ">Immature Medical Granulocyte Center Ratio </content>0.5 %<content styleCode="Ital ics"> (< 1 %)</content> ID Date Data Source CHMROUTINECCDA.[id number] 03/22/2020 08:12:00 PM EDT [facility] Name Value Range Interpretation Description Data Sup porting Code Source(s) Document(s ) Cannabinoids <content [facility] [Presence] in styleCode="[facility] Urine by Screen d">Cannabinoid Medical method >50 ng/mL s Center </content>NEGA TIVE NG/ML (Reference Range: not available)<br/ > ID Date Data Source [id number] 03/07/2020 12:00:00 AM EDT [facility] Name Value Range Interpretation Code Description Data Heather rce(s) Supporting Document(s ) 2019-nCoV [place]SDOH RNA XXX YAMINI+probe- Imp This lab was ordered by [facility] and reported by [facility]. ID Date Data Source [id number] 11/28/2019 06:32:[address] [facility] Patient Name: ZACK MOHAMUDMRN: [id number] Computed TomographyACCESSION EXAM DATE/TIME PROCEDURE ORDERING PROVIDER [id number] 11/28/2019 18:[address] Abdomen Pelvis Maxi Mcnamara (Verified) Oral Only DReason For Exam(CT Abdo men Pelvis Oral Only) Abdominal Pain GeneralizedReportPROCEDURE: Computed To mography Abdomen and Pelvis Without ContrastCLINICAL HISTORY: Generalized A bdominal Pain, Complains of Pain in Groin BilaterallySCRIPT INFORMATION: Generaliz ed abdominal pain, Complains of pain in groin bilaterallyCOMPARISON: None.TECHNIQUE:C omputed Tomography of the abdomen and pelvis was performed without intravenous admini stration of contrast. Enteric was administered for this exam. Two dimensio nal reformatted imaging was obtained in sagittal and coronal planes.FINDINGS:ABDULLAHI G BASES:The visualized portions of the lung bases, heart and pericardium are grossly unremarkable.LIVER:The liver is normal in size and contour.BILIARY SYSTEM:There is no biliary ductal dilatation. The gallbladder is unremarkable.SPLEEN/PANCR EAS:The spleen is grossly unremarkable.The pancreas is grossly unremarkable.ADRENAL S/KIDNEYS:The adrenals are unremarkable.There is a horseshoe kidney noted. There is no evidence of hydronephrosis.VASCULATURE:The abdominal aorta is normal in course and caliber.BOWEL:There is no evidence for small bowel obstruction.There is no evidence f or free intraperitoneal air.Moderate to severe increased feces noted throughout the large bowel. The appendix is not identified.LYMPH NODES/FLUID:There is no suspicious lymphadenopathy.There is no significant abdominal ascites.BODY WALL: No body wall mass or hernia is identified.BLADDER/GENITALS:The urinary bladder is grossly unremarkable.No pelvic mass or abnormal fluid collection.BONES: The bones are grossly unremarkable.IMPRESSION:Severe constipat ion. No evidence of bowel obstruction or abnormal fluid collection. Incidental no te made of horseshoe kidney which is a normal variant.Thank you for allowing us to par ticipate in the evaluation of this patient. Final Dictated: Rafael MELENDEZ, Carlos 11/28/19 18:21Signed: Rafael MELENDEZ, Carlos 11/28/19 18:32 Transcribed by: ES Name Value Range Interpretation Code Description Data Heather rce(s) Supporting Document(s ) ID Date Data Source [id number] 11/28/2019 05:21:[address] [facility] Name Value Range Interpretation Description Data Sup porting Code Source(s) Document(s ) Lactic 2.0 0.9-2.0 NO [place] Acid Lvl mmol/L [facility] ID Date Data Source [id number] 11/28/2019 05:21:[address] [facility] Name Value Range Interpretation Code Description Data Heather rce(s) Supporting Document(s ) Lipase Lvl 30 IU/L 10-59 NO [facility] ID Date Data Source [id number] 11/28/2019 05:21:[address] [facility] Added by Discern Rule GLB_ADD_GFR_CMP Name Value Range Interpretation Code Description Data Heather rce(s) Supporting Document(s ) eGFR-AA >90 >=60 [facility] mL/min/1.[address] The CKD-EPI equation for non- Giul[place] rican individuals is used to calculate the estimated glomerular filtration rate (GF R). To estimate the GFR for Americans, multiply the provided GFR res ult by 1.16. The CKD-EPI equation is validated in individuals 18 years of age or older. It is less accurate in patients with extremes of muscle mass, restrictio n of dietary protein, ingestion of creatine, extra-renal metabolism of creatinine, or treatment with medications that affect renal tubular creatinine secretion.GFR Categor ies in Chronic Kidney Disease (CKD)GFR Category: GFR (mL/min/1.73 m2): Inte rpretation: G1 90 or greater Normal or high*G2 60-89 Mild decrease* G3a 45-59 Mild to moderate [id number] 30-44 Moderate to s evere decreaseG4 15-29 Severe decreaseG5 14 or less Kidney fa ilure eGFR-YAMINI 82 mL/min/1.73m2 >=[address] [facility] The CKD-EPI equation for non- Giul[place] r[place] individuals is used to calculate the estimated glomerular filtration rate (GF R). To estimate the GFR for Americans, multiply the provided GFR res ult by 1.16. The CKD-EPI equation is validated in individuals 18 years of age or older. It is less accurate in patients with extremes of muscle mass, restrictio n of dietary protein, ingestion of creatine, extra-renal metabolism of creatinine, or treatment with medications that affect renal tubular creatinine secretion.GFR Categor ies in Chronic Kidney Disease (CKD)GFR Category: GFR (mL/min/1.73 m2): Inte rpretation: G1 90 or greater Normal or high*G2 60-89 Mild decrease* G3a 45-59 Mild to moderate [id number] 30-44 Moderate to s evere decreaseG4 15-29 Severe decreaseG5 14 or less Kidney fa ilure ID Date Data Source [id number] 11/28/2019 05:21:[address] [facility] Name Value Range Interpretation Description Data Sup porting Code Source(s) Document(s ) Glucose Lvl 69 mg/dL 65-99 NO [facility] BUN 18.0 7.0-21.0 NO [place] mg/dL [facility] Creatinine 1.03 0.70-1.2 NO [place] mg/dL 0 [facility] BUN/Creat 17.5 7.0-29.0 NO [place] Ratio ratio [facility] Sodium Lvl 139 136-146 NO [place]ance mmol/L [facility] Potassium Lvl 4.9 3.5-5.1 NO [place] mmol/L [facility] Chloride 102 98-109 NO [place] mmol/L [facility] CO2 29 17-33 NO [place] mmol/L [facility] AGAP 8 5-15 NO [facility] Calcium Lvl 9.2 8.3-10.2 NO [place] mg/dL [facility] Total Protein 7.9 6.0-8.3 NO [place] gm/dL [facility] Albumin Lvl 4.2 3.7-5.3 NO [place] gm/dL [facility] Glob 3.7 2.0-4.5 NO [place] gm/dL [facility] A/G Ratio 1.1 1.0-2.2 NO [place] ratio [facility] Bili Total 0.7 0.4-1.1 NO [place] mg/dL [facility] Alk Phos 43 IU/L 30-125 NO [facility] AST 27 IU/L 10-35 NO [facility] ALT 24 IU/L 8-40 NO [facility] ID Date Data Source [id number] 11/28/2019 05:21:[address] [facility] Name Value Range Interpretation Description Data Sup porting Code Source(s) Document(s ) Amylase Lvl 76 IU/L 26-121 NO [facility] ID Date Data Source [id number] 11/28/2019 05:18:[address] [facility] Name Value Range Interpretation Code Description Data Heather rce(s) Supporting Document(s ) INR 1.0 ratio 0.9-1.2 [facility] Indications INRProphylaxis of venous thromo-embolism: Non-hip surgery..... ..........................1.5 - 2.5 Hip surgery................................. ..2.0 - 3.0Deep Vein Thrombosis or Pulmonary Embolism........2.0 - 3.0Prevention of s ystemic embolism in valvular heart disease, tissue prosthetic heart valvesor acute GA.......................................2.0 - 3.5Prevention of embolism in mechanical heartvalves or recurrent systemic embolism.............3.0 - 4.5 PT 12.1 second(s) 9.5-12.5 [facility] ID Date Data Source [id number] 11/28/2019 05:04:[address] [facility] Name Value Range Interpretation Description Data Sup porting Code Source(s) Document(s ) Neut Auto 64.0 % 40.0-70.0 [facility] Lymph Auto 24.1 % 22.0-44.0 [facility] [place] Auto 7.4 % 4.0-11.0 [facility] Eos Auto 3.7 % 0.0-8.0 [facility] Baso Auto 0.8 % 0.0-3.0 NO [facility] Neut 3.3 1.8-7.7 NO [place] Absolute x10(3)/[facility] Lymph 1.3 1.0-4.8 NO [place] Absolute x10(3)/[facility] Concordia 0.4 0.2-1.2 NO [place] Absolute x10(3)/[facility] Eos Absolute 0.2 0.0-0.9 NO [place] x10(3)/[facility] Baso 0.0 0.0-0.3 NO [place] Absolute x10(3)/[facility] ID Date Data Source [id number] 11/28/2019 05:04:[address] [facility] Name Value Range Interpretation Description Data Sup porting Code Source(s) Document(s ) WBC 5.2 4.5-11.0 NO [place] x10(3)/[facility] RBC 4.31 4.50-5.90 LO [place] x10(6)/[facility] Hgb 10.8 13.5-17.5 LO [place] gm/dL [facility] Hct 33.9 % 41.0-53.0 [facility] MCV 79 fL 80-100 [facility] MCH 24.9 pg 26.0-34.0 [facility] MCHC 31.7 31.0-37.0 NO [place] gm/dL [facility] RDW 16.8 % 11.5-14.5 [facility] Platelet 204 150-350 NO [place] x10(3)/[facility] MPV 7.3 fL 7.4-10.4 [facility] ID Date Data Source COMPREHENSIVE METABOLIC ([id number] 07/27/2018 12:00:00 AM eC W2 ([facility]) Name Value Range Interpretation Description Data Sup porting Code Source(s) Document(s ) Protein 8.3 5.9-8.4 Total Protein eCW2 [Mass/volume] in ([facility] or [facility]) Albumin 4.9 3.5-5.2 Albumin eCW2 [Mass/volume] in ([facility] or [facility]) Globulin 3.4 1.7-3.7 Globulin eCW2 [Mass/volume] in ([facility]) Sodium 138 135-147 Sodium eCW2 [Moles/volume] in ([facility] or [facility]) Albumin/Globulin 1.4 1.1-2.9 A/G Ratio eCW2 [Mass Ratio] in ([facility] or [facility]) Potassium 4.6 3.5-5.5 Potassium eCW2 [Moles/volume] in ([facility] or [facility]) Urea nitrogen 17 6-20 BUN eCW2 [Mass/volume] in ([facility] or [facility]) Creatinine 1.20 0.67-1. Creatinine eCW2 [Mass/volume] in 31 ([facility] or [facility]) Carbon dioxide, 27 22-29 CO2 eCW2 total ([place] [Moles/volume] in Victor Serum or [facility]) Chloride 100 96-108 Chloride eCW2 [Moles/volume] in ([facility] or [facility]) Glomerular 78 >or=60 e-GFR eCW2 filtration ([place] rate/1.73 sq [place] M.predicted [[facility] Health Rate/Area] in Serum Care) or Plasma by Creatinine-based formula (MDRD) Calcium 10.5 8.6-10. Calcium eCW2 [Mass/volume] in 4 ([facility] or [facility]) Bilirubin.total 0.5 <1.2 Bilirubin, eCW2 [Mass/volume] in Total ([facility] or [facility]) Glomerular 90 >or=60 e-GFR, eCW2 filtration ([place] rate/1.73 sq M [place] predicted among Health blacks [Volume Care) Rate/Area] in Serum or Plasma by Creatinine-based formula (MDRD) Mycoplasma 14.2 10.0-28 BUN/Creat eCW2 pneumoniae DNA .0 Ratio ([place] [Units/volume] in [place] Blood by [facility] target Care) amplification method Aspartate 25 <40 AST eCW2 aminotransferase ([place] [Enzymatic [place] activity/volume] in Health Serum or Plasma Care) Alkaline 59 40-156 Alk Phos eCW2 phosphatase ([place] [Enzymatic [place] activity/volume] in Health Serum or Plasma Care) Glucose 85 70-99 Glucose eCW2 [Mass/volume] in ([place] Serum or Plasma [facility] Care) Alanine 40 <41 ALT eCW2 aminotransferase ([place] [Enzymatic [place] activity/volume] in Health Serum or Plasma Care) ID Date Data Source CBC W/DIFF, PLATELET CT. 07/27/2018 12:00:00 AM EDT eCW2 ([facility] (0053-9).2 Care) Name Value Range Interpretation Code Description Data Supporting Source(s) Document(s ) 4.03 3.94-5.76 RBC eCW2 ([facility]) 5.05 3.66-10.60 WBC eCW2 ([facility]) 11.4 12.0-16.9 HGB eCW2 ([facility]) 34.5 31.7-35.3 MCHC eCW2 ([facility]) 19.3 12.2-15.3 RDW eCW2 ([facility]) 33.0 34.6-49.6 HCT eCW2 ([facility]) 81.9 78.0-98.0 MCV eCW2 ([facility]) 28.3 25.8-33.1 MCH eCW2 ([facility]) 3.32 1.30-7.00 POLYS, ABS. COUNT eCW2 ([facility]) 25.3 14.0-51.8 LYMPHS eCW2 ([facility]) 1.28 0.80-3.00 LYMPHS, ABS. eCW2 ([facility]) 65.8 34.9-75.3 POLYS eCW2 ([facility]) 5.1 3.5-13.2 MONOS eCW2 ([facility]) 0.15 0.00-0.40 EOS, ABS. COUNT eCW2 ([facility]) 0.6 0.0-1.0 BASOS eCW2 ([facility]) 0.26 0.00-1.00 MONOS, ABS. COUNT eCW2 ([facility]) 3.0 0.0-6.2 EOS eCW2 ([facility]) 0.2 0.0-1.0 IMMATURE eCW2 ([facility]) 153 140-425 PLATELET COUNT eCW2 ([facility]) 0.03 0.00-0.70 BASOS, ABS. COUNT eCW2 ([facility]) 8.8 8.6-12.1 MPV eCW2 ([facility]) ID Date Data Source HEMOGLOBIN A1c (glycohgb) 07/27/2018 12:00:00 AM EDT eCW2 ([facility] (0102-4) BIOREFERENCE.1 Care) Name Value Range Interpretation Description Data Sup porting Code Source(s) Document(s ) Hemoglobin 4.7 <5.7 Hemoglobin A1c eCW2 ([place] A1c/Hemoglobin [facility] .total in Care) Blood ID Date Data Source LIPID PANEL ([facility] 07/27/2018 12:00:00 AM EDT eCW2 ([facility]).0 Care) Name Value Range Interpretation Description Data Sup porting Code Source(s) Document(s ) Deprecated 181 <200 Cholesterol eCW2 ([facility] [Mass/volume] Care) in Serum or Plasma Deprecated 41 >40 HDL CHOL., eCW2 ([facility] [Mass/volume] Care) in Serum or Plasma Deprecated 4.4 <7.4 Chol/HDL Ratio eCW2 ([facility] [Mass/volume] Care) in Serum or Plasma Deprecated 2.95 <3.56 LDL/HDL Ratio eCW2 ([facility] [Mass/volume] Care) in Serum or Plasma Deprecated 96 <150 Triglycerides eCW2 ([facility] [Mass/volume] Care) in Serum or Plasma Deprecated 23 >14 HDL as % of eCW2 ([facility] [Mass/volume] Care) in Serum or Plasma Deprecated 121 <100 LDL Cholesterol eCW2 ([facility] [Mass/volume] Care) in Serum or Plasma Deprecated 19 7-32 VLDL, CALCULATED eCW2 ([facility] [Mass/volume] Care) in Serum or Plasma Deprecated 140 <130 Non-HDL eCW2 ([facility] [Mass/volume] Care) in Serum or Plasma Procedure Social History Code Duration Value Status Description Data Source(s ) Smoking 06/23/2020 Daily Smoker completed Daily Smoker [facility] 07:44:00 PM EDT Medical C enter Smoking 06/23/2020 Daily Smoker completed Daily Smoker [facility] 07:43:00 PM EDT Medical C enter Smoking 06/23/2020 Daily Smoker completed Daily Smoker [facility] 07:15:00 PM EDT Medical C enter Smoking 06/19/2020 Daily Smoker completed Daily Smoker [facility] 03:49:00 PM EDT Medical C enter Smoking 06/19/2020 Daily Smoker completed Daily Smoker [facility] 03:38:00 PM EDT Medical C enter Smoking 06/19/2020 Daily Smoker completed Daily Smoker [facility] 03:35:00 PM EDT Medical C enter Smoking 06/19/2020 Daily Smoker completed Daily Smoker [facility] 11:04:00 AM EDT Medical C enter Smoking 06/19/2020 Daily Smoker completed Daily Smoker [facility] 11:00:00 AM EDT Medical C enter Smoking 06/19/2020 Daily Smoker completed Daily Smoker [facility] 10:54:00 AM EDT Medical C enter Smoking 06/03/2020 Daily Smoker completed Daily Smoker [facility] 07:21:00 PM EDT Medical C enter Smoking 06/03/2020 Daily Smoker completed Daily Smoker [facility] 02:11:00 PM EDT Medical C enter Smoking 06/03/2020 Daily Smoker completed Daily Smoker [facility] 01:00:00 PM EDT Medical C enter Smoking 06/03/2020 Daily Smoker completed Daily Smoker [facility] 12:10:00 PM EDT Medical C enter Smoking 05/13/2020 Daily Smoker completed Daily Smoker [facility] 09:46:00 PM EDT Medical C enter Smoking 05/13/2020 Daily Smoker completed Daily Smoker [facility] 12:15:00 PM EDT Medical C enter Smoking 05/13/2020 Daily Smoker completed Daily Smoker [facility] 09:09:00 AM EDT Medical C enter Smoking 05/13/2020 Daily Smoker completed Daily Smoker [facility] 09:09:00 AM EDT Medical C enter Smoking 03/23/2020 Denies Ever completed Denies Ever Smoked [facility] 12:58:00 AM EDT Smoked Medical C enter Smoking 03/23/2020 Denies Ever completed Denies Ever Smoked [facility] 12:07:00 AM EDT Smoked Medical C enter Smoking 11/28/2019 Smokes tobacco completed Smokes tobacco [facility] - 06:11:11 PM EST daily (finding) daily (finding) [facility] Smoking Former Smoker completed Former Smoker eCW2 ([facility]) Smoking Unknown if ever completed Unknown if ever eCW2 (Andrea smoked smoked [facility]) Smoking Unknown if ever completed Unknown if ever eCW2 (Mendez smoked smoked [facility]) Vital Signs ID Date Data Source UNK Name Value Range Interpretation Code Description Data Source(s) Body height 180.[address] [facility] [employer] - [employer] | Anywhere System Body temperature 99 [degF] 0 - 200 Normal (applies to 99 [degF] [facility] non-numeric Health System results) Body temperature 37.2 Asmita 0 - 99.9 Normal (applies to 37.[address] [facility] non-numeric Health System results) Diastolic blood 98 mm[Hg] 0 - 999 Above high normal 98 mm[Hg] [facility] Systolic blood 157 mm[Hg] 0 - 999 Above high normal 157 mm[Hg] [facility] Oxygen saturation 100 % 0 - 999 Normal (applies to 100 % [facility] in Arterial blood [facility] Health System by Pulse oximetry results) Respiratory rate 17 0 - 999 Normal (applies to 17 [facility] non-numeric Health System results) Heart rate 100 0 - 999 Above high normal 100 [facility] System Body surface area 1.8 m2 1.8 m2 [facility] ore Derived from Vendae m formula Body mass index 20.9 kg/m2 20.9 kg/m2 [facility] (BMI) [Ratio] Health Syst Body weight 68.03 kg 68.03 kg [facility] System Body surface area 1.8 m2 1.8 m2 [facility] ore Derived from Vend[employer] m formula Body mass index 20.2 kg/m2 20.2 kg/m2 [facility] (BMI) [Ratio] Health Syst Body weight 65.77 kg 65.77 kg [facility] System Body height 180.34 cm 180.34 cm [facility] System Body temperature 98.4 0 - 200 Normal (applies to 98.4 [degF] [facility] [degF] non-numeric Health System results) Body temperature 36.8 Asmita 0 - 99.9 Normal (applies to 36.[address] [facility] non-numeric Health System results) Diastolic blood 86 mm[Hg] 0 - 999 Above high normal 86 mm[Hg] [facility] Systolic blood 150 mm[Hg] 0 - 999 Above high normal 150 mm[Hg] [facility] Oxygen saturation 99 % 0 - 999 Normal (applies to 99 % [facility] in Arterial blood non-numeric Health System by Pulse oximetry results) Respiratory rate 18 0 - 999 Above high normal 18 M [facility] System Heart rate 125 0 - 999 Above upper panic 125 [facility] limits [facility] System Body temperature 36.6 Asmita 0 - 99.9 Normal (applies to 36.[address] [facility] non-numeric Health System results) Body temperature 98 [degF] 0 - 200 Normal (applies to 98 [degF] [facility] results) Diastolic blood 80 mm[Hg] 0 - 999 Normal (applies to 80 mm[Hg] [facility] pressure non-numeric Health System results) Systolic blood 130 mm[Hg] 0 - 999 Normal (applies to 130 mm[Hg] In [facility] pressure non-numeric [facility] System results) Oxygen saturation 100 % 0 - 999 Normal (applies to 100 % [facility] in Arterial blood non-numeric Health System by Pulse oximetry results) Respiratory rate 18 0 - 999 Above high normal 18 M [facility] System Heart rate 98 0 - 999 Normal (applies to 98 [facility] non-numeric [facility] results) Body surface area 1.8 m2 1.8 m2 [facility] Derived from [employer] Anywhere Syste m formula Body mass index 20.2 kg/m2 20.2 kg/m2 [facility] e (BMI) [Ratio] Health Syst Body weight 65.77 kg 65.77 kg [facility] System Body height 180.34 cm 180.34 cm [facility] Body temperature 97.2 0 - 200 Normal (applies to 97.2 [degF] [facility] [degF] non-numeric Health System results) Body temperature 36.2 Asmita 0 - 99.9 Below low normal 36.2 Asmita [facility] Diastolic blood 80 mm[Hg] 0 - 999 Normal (applies to 80 mm[Hg] [facility] pressure non-numeric [facility] System results) Systolic blood 132 mm[Hg] 0 - 999 Normal (applies to 132 mm[Hg] In [facility] pressure non-numeric Health System results) Oxygen saturation 100 % 0 - 999 Normal (applies to 100 % [facility] in Arterial blood non-numeric Health System by Pulse oximetry results) Respiratory rate 16 0 - 999 Normal ([facility] results[facility] Heart rate 99 0 - 999 Normal (applies to 99 [facility] non-numeric [facility] results) Body surface area 1.8 m2 1.8 m2 [facility] Derived from [employer] | Anywhere Syste m formula Body mass index 20.2 kg/m2 20.2 kg/m2 [facility] e (BMI) [Ratio] Health Syst Body weight 65.[address] [facility] [employer] Anywhere System Body height 180.34 cm 180.34 cm [facility] System Body temperature 98.9 0 - 200 Normal (applies to 98.9 [degF] [facility] [degF] non-numeric Health System results) Body temperature 37.1 Asmita 0 - 99.9 Normal (applies to 37.[address] [facility] non-numeric Health System results) Diastolic blood 86 mm[Hg] 0 - 999 Above high normal 86 mm[Hg] [facility] Systolic blood 126 mm[Hg] 0 - 999 Normal (applies to 126 mm[Hg] [facility] pressure non-numeric Health System results) Oxygen saturation 99 % 0 - 999 Normal (applies to 99 % [facility] in Arterial blood [facility] Health System by Pulse oximetry results) Respiratory rate 17 0 - 999 Normal ([facility] to [facility] results) Heart rate 93 0 - 999 Normal (applies to 93 [facility] non-numeric [facility] results) Body temperature 37.520028 37.017759 Asmita [facility] Respiratory rate 19 /min 19 /min [facility] Oxygen saturation 99 % 99 % [facility] in Arterial blood [facility] by Pulse oximetry Heart rate 94 /min 94 /min [facility] Diastolic blood 109 mm[Hg] 109 mm[Hg] [facility] Systolic blood 150 mm[Hg] 150 mm[Hg] [facility] Body surface area 1.8 m2 1.8 m2 [facility] Derived from Health Syste m formula Body mass index 20.9 kg/m2 20.9 kg/m2 [facility] e (BMI) [Ratio] Health Syst em Body weight 68.[address] [facility] [employer] | Anywhere [facility] Body height 180.34 cm 180.34 cm [facility] Body temperature 98.3 0 - 200 Normal (applies to 98.3 [degF] [facility] [degF] non-numeric Health System results) Body temperature 36.8 Asmita 0 - 99.9 Normal (applies to 36.[address] [facility] non-numeric Health System results) Diastolic blood 84 mm[Hg] 0 - 999 Normal (applies to 84 mm[Hg] [facility] pressure non-numeric [facility] System results) Systolic blood 127 mm[Hg] 0 - 999 Normal (applies to 127 mm[Hg] In [facility] pressure non-numeric Health System results) Heart rate 85 0 - 999 Normal (applies to 85 [facility] iore non-numeric Health System results) Systolic blood 135 mm[Hg] 135 mm[Hg] [facility] [place] Diastolic blood 88 mm[Hg] 88 mm[Hg] [facility] Heart rate 78 /min 78 /min [facility] Oxygen saturation 99 % 99 % [facility] in Arterial blood [facility] Center by Pulse oximetry Respiratory rate 18 /min 18 /min [facility] Body temperature 37.560365 37.586657 Asmita [facility] Systolic blood 145 mm[Hg] 145 mm[Hg] [facility] Diastolic blood 89 mm[Hg] 89 mm[Hg] [facility] Heart rate 94 /min 94 /min [facility] Oxygen saturation 98 % 98 % [facility] in Arterial blood [facility] by Pulse oximetry Respiratory rate 18 /min 18 /min [facility] Body temperature 36.491577 36.590180 Asmita [facility] Systolic blood 143 mm[Hg] 143 mm[Hg] [facility] [place] Diastolic blood 74 mm[Hg] 74 mm[Hg] [facility] Heart rate 78 /min 78 /min [facility] Oxygen saturation 97 % 97 % [facility] in Arterial blood Medical Center by Pulse oximetry Respiratory rate 17 /min 17 /min [facility] Body temperature 36.856965 36.298067 [facility] Systolic blood 153 mm[Hg] 153 mm[Hg] [facility] Diastolic blood 73 mm[Hg] 73 mm[Hg] [facility] Heart rate 72 /min 72 /min [facility] Oxygen saturation 100 % 100 % [facility] in Arterial blood Medical Center by Pulse oximetry Respiratory rate 18 /min 18 /min [facility] Body temperature 36.797630 36.643213 [facility] Systolic blood 104 mm[Hg] 104 mm[Hg] [facility] Diastolic blood 62 mm[Hg] 62 mm[Hg] [facility] Heart rate 53 /min 53 /min [facility] Oxygen saturation 100 % 100 % [facility] in Arterial blood [facility] by Pulse oximetry Respiratory rate 18 /min 18 /min [facility] Body temperature 36.065281 36.868858 [facility] Systolic blood 112 mm[Hg] 112 mm[Hg] [facility] Diastolic blood 60 mm[Hg] 60 mm[Hg] [facility] Heart rate 62 /min 62 /min [facility] Oxygen saturation 100 % 100 % [facility] in Arterial blood [facility] Center by Pulse oximetry Respiratory rate 18 /min 18 /min [facility] Body temperature 36.149137 36.644989 [facility] Body mass index 20.9 kg/m2 20.9 kg/m2 [facility] (BMI) [Ratio] Medical [facility] Systolic blood 118 mm[Hg] 118 mm[Hg] [facility] Diastolic blood 68 mm[Hg] 68 mm[Hg] [facility] Body height 179.986080 179.876312 cm [facility] Heart rate 84 /min 84 /min [facility] Oxygen saturation 99 % 99 % [facility] in Arterial blood [facility] Center by Pulse oximetry Respiratory rate 18 /min 18 /min [facility] Body temperature 37.866842 37.884514 Asmita [facility] Body weight 68.144051 68.941399 kg [facility] Measured kg [facility] Body surface area 1.8 m2 1.8 m2 [facility] ore Derived from Health Syste m formula Body mass index 20.9 kg/m2 20.9 kg/m2 [facility] (BMI) [Ratio] Health Syst em Body weight 68.03 kg 68.03 kg [facility] System Body height 180.34 cm 180.34 cm [facility] System Body temperature 98 [degF] 0 - 200 Normal (applies to 98 [degF] [facility] non-numeric Health System results) Body temperature 36.6 Asmita 0 - 99.9 Normal (applies to 36.[address] [facility] non-numeric Health System results) Diastolic blood 64 mm[Hg] 0 - 999 Below low normal 64 mm[Hg] [facility] pressure Health System Systolic blood 124 mm[Hg] 0 - 999 Normal (applies to 124 mm[Hg] [facility] pressure non-numeric Health System results) Oxygen saturation 97 % 0 - 999 Normal (applies to 97 % [facility] in Arterial blood non-numeric Health System by Pulse oximetry results) Respiratory rate 17 0 - 999 Normal (applies to 17 [facility] non-numeric Health System results) Heart rate 64 0 - 999 Normal (applies to 64 [facility] non-numeric [facility] results) Body temperature 97.8 0 - 200 Normal (applies to 97.8 [degF] [facility] [degF] non-numeric Health System results) Body temperature 36.5 Asmita 0 - 99.9 Normal (applies to 36.5 Asmita [facility] non-numeric Health System results) Diastolic blood 78 mm[Hg] 0 - 999 Normal (applies to 78 mm[Hg] [facility] pressure non-numeric Health System results) Systolic blood 126 mm[Hg] 0 - 999 Normal (applies to 126 mm[Hg] [facility] pressure non-numeric Health System results) Oxygen saturation 99 % 0 - 999 Normal (applies to 99 % [facility] in Arterial blood non-numeric Health System by Pulse oximetry results) Respiratory rate 18 0 - 999 Above high normal 18 [facility] Heart rate 76 0 - 999 Normal (applies to 76 [facility] non-numeric [facility] results) Body surface area 1.7 m2 1.7 m2 [facility] Derived from Health Syste m formula Body mass index 20.6 kg/m2 20.6 kg/m2 [facility] ([facility] [Ratio] Health Syst em Body weight 63.5 kg 63.5 kg [facility] System Body height 175.26 cm 175.26 cm [facility] System Body surface area 1.8 m2 1.8 m2 [facility] Derived from Health Syste m formula Body mass index 20.2 kg/m2 20.2 kg/m2 [facility] (BMI) [Ratio] Health Syst em Body weight 65.77 kg 65.77 kg [facility] System Body height 180.34 cm 180.34 cm [facility] System Body temperature 98.3 0 - 200 Normal (applies to 98.3 [degF] [facility] [degF] non-numeric Health System results) Body temperature 36.8 Asmita 0 - 99.9 Normal (applies to 36.[address] [facility] non-numeric Health System results) Diastolic blood 80 mm[Hg] 0 - 999 Normal (applies to 80 mm[Hg] [facility] pressure non-numeric Health System results) Systolic blood 144 mm[Hg] 0 - 999 Above high normal 144 mm[Hg] [facility] Oxygen saturation 98 % 0 - 999 Normal (applies to 98 % [facility] in Arterial blood [facility] Health System by Pulse oximetry results) Respiratory rate 17 0 - 999 Normal (applies to 17 [facility] non-numeric Health System results) Heart rate 93 0 - 999 Normal (applies to 93 [facility] non-numeric [facility] results) Systolic blood 134 mm[Hg] 134 mm[Hg] [facility] Diastolic blood 80 mm[Hg] 80 mm[Hg] [facility] Heart rate 90 /min 90 /min [facility] Oxygen saturation 98 % 98 % [facility] in Arterial blood Medical Center by Pulse oximetry Respiratory rate 16 /min 16 /min [facility] Body temperature 36.607143 36.616703 Asmita [facility] Systolic blood 144 mm[Hg] 144 mm[Hg] [facility] Diastolic blood 86 mm[Hg] 86 mm[Hg] [facility] Heart rate 88 /min 88 /min [facility] Oxygen saturation 98 % 98 % [facility] in Arterial blood [facility] Center by Pulse oximetry Respiratory rate 20 /min 20 /min [facility] Body temperature 37.984410 37.596313 [facility] Systolic blood 133 mm[Hg] 133 mm[Hg] [facility] Diastolic blood 79 mm[Hg] 79 mm[Hg] [facility] Heart rate 99 /min 99 /min [facility] Oxygen saturation 97 % 97 % [facility] in Arterial blood [facility] Center by Pulse oximetry Respiratory rate 20 /min 20 /min [facility] Body temperature 37.906933 37.003010 [facility] Systolic blood 126 mm[Hg] 126 mm[Hg] [facility] Diastolic blood 60 mm[Hg] 60 mm[Hg] [facility] Heart rate 109 /min 109 /min [facility] Oxygen saturation 99 % 99 % [facility] in Arterial blood [facility] by Pulse oximetry Respiratory rate 19 /min 19 /min [facility] Body temperature 36.174299 36.050368 [facility] Systolic blood 140 mm[Hg] 140 mm[Hg] [facility] Diastolic blood 88 mm[Hg] 88 mm[Hg] [facility] Heart rate 68 /min 68 /min [facility] Oxygen saturation 98 % 98 % [facility] in Arterial blood [facility] Center by Pulse oximetry Respiratory rate 18 /min 18 /min [facility] Body temperature 36.670280 36.742439 [facility] Body mass index 23.4 kg/m2 23.4 kg/m2 [facility] (BMI) [Ratio] [facility] Body height 167.340220 167.859762 cm [facility] Body weight 65.905454 65.178747 kg [facility] Measured kg Medical Center Systolic blood 130 mm[Hg] 130 mm[Hg] [facility] Diastolic blood 70 mm[Hg] 70 mm[Hg] [facility] Heart rate 76 /min 76 /min [facility] Respiratory rate 18 /min 18 /min [facility] Body temperature 36.956808 36.154192 Asmita [facility] Body mass index 20.94 20.94 kg/m2 [facility] (BMI) [Ratio] kg/m2 Medical [facility] ter Systolic blood 141 mm[Hg] 141 mm[Hg] [facility] Diastolic blood 91 mm[Hg] 91 mm[Hg] [facility] Body height 180.562532 180.554683 cm [facility] Heart rate 78 /min 78 /min [facility] Respiratory rate 20 /min 20 /min [facility] Body temperature 36.703239 36.414691 Asmita [facility] Body weight 68.327687 68.156566 kg [facility] [place] [facility] Measured kg [facility] Center Systolic blood 132 mm[Hg] 132 mm[Hg] [facility] Diastolic blood 78 mm[Hg] 78 mm[Hg] [facility] Heart rate 79 /min 79 /min [facility] Oxygen saturation 98 % 98 % [facility] in Arterial blood [facility] by Pulse oximetry Respiratory rate 18 /min 18 /min [facility] Body temperature 37.880295 37.128537 Asmita [facility] Body mass index 20.3 kg/m2 20.3 kg/m2 [facility] (BMI) [Ratio] Medical [facility] ter Systolic blood 127 mm[Hg] 127 mm[Hg] [facility] Diastolic blood 65 mm[Hg] 65 mm[Hg] [facility] Body height 179.644127 179.482520 cm [facility] Heart rate 90 /min 90 /min [facility] Oxygen saturation 99 % 99 % [facility] in Arterial blood [facility] by Pulse oximetry Respiratory rate 20 /min 20 /min [facility] Body temperature 37.751090 37.106797 [facility] Body weight 66.701487 66.202616 kg [facility] Measured kg [facility] Oxygen therapy Germán Conner alth [Minimum Data - [place] Set] [facility] Oxygen saturation 100 % 94-100 % Normal (applies to 100 % [facility] in Blood non-numeric - Lorie Postductal by results) [facility] nter Pulse oximetry Diastolic blood 68 mm[Hg] 60-90 mmHg Normal (applies to 68 mm[Hg] N [facility] pressure non-numeric - [place] results) [facility] Systolic blood 108 mm[Hg] 90-130 Normal (applies to 108 mm[Hg] [facility] pressure mmHg non-numeric - [place] results) [facility] Respiratory rate 17 br/min 14-20 Normal (applies to 17 br/min [facility] br/min non-numeric - [place] results) [facility] Heart rate 52 bpm 60-100 bpm Below low normal 52 bpm [facility] Body mass index 20.99 20.99 kg/m2 [facility] (BMI) [Ratio] kg/m2 [facility] Body weight 68 kg 68 kg [facility] Body height 180 cm 180 cm [facility] Body mass index 20.99 20.99 kg/m2 [facility] (BMI) [Ratio] kg/m2 [facility] Oxygen saturation 98 % 94-100 % Normal (applies to 98 % [facility] in Blood non-numeric - [place] Postductal by results) [facility] nter Pulse oximetry Oxygen therapy [facility] [Minimum Data - [place] Set] [facility] Diastolic blood 75 mm[Hg] 60-90 mmHg Normal (applies to 75 mm[Hg] N [facility] pressure non-numeric - [place] results) [facility] Systolic blood 111 mm[Hg] 90-130 Normal (applies to 111 mm[Hg] [facility] pressure mmHg non-numeric - [place]orie results) [facility] Respiratory rate 15 br/min 14-20 Normal (applies to 15 br/min [facility] br/min non-numeric - [place] results) [facility] Heart rate 60 bpm 60-100 bpm Normal (applies to 60 bpm [facility] non-numeric - Lorie results) [facility] Oral temperature 98.0 96.4-99.1 Normal (applies to 98.0 [degF] [facility] [degF] DegF non-numeric - [place] results) [facility] Body surface area 2 m2 2 m2 [facility] Derived from Health Syste m formula Body mass index 26.4 kg/m2 26.4 kg/m2 [facility] (BMI) [Ratio] Health Syst em Body weight 86.[address] [facility] Body height 180.34 cm 180.34 cm [facility] Body temperature 97.9 0 - 200 Normal (applies to 97.9 [degF] [facility] [degF] non-numeric Health System results) Body temperature 36.6 Asmita 0 - 99.9 Normal (applies to 36.6 Asmita [facility] non-numeric Health System results) Diastolic blood 90 mm[Hg] 0 - 999 Above high normal 90 mm[Hg] [facility] pressure [facility] Systolic blood 121 mm[Hg] 0 - 999 Normal (applies to 121 mm[Hg] [facility] pressure non-numeric Health System results) Oxygen saturation 100 % 0 - 999 Normal (applies to 100 % [facility] in Arterial blood non-numeric Health System by Pulse oximetry results) Respiratory rate 17 0 - 999 Normal (applies to 17 [facility] non-numeric [facility] System results) Heart rate 85 0 - 999 Normal (applies to 85 [facility] non-numeric [facility] results) Body surface area 1.9 m2 1.9 m2 [facility] Derived from [employer] m formula Body mass index 22.3 kg/m2 22.3 kg/m2 [facility] (BMI) [Ratio] Health Syst Body weight 72.[address] [facility] Measured Health System Body height 180.34 cm 180.34 cm [facility] System Body temperature 36.5 Asmita 0 - 99.9 Normal (applies to 36.5 Asmita [facility] non-numeric Health System results) Body temperature 97.7 0 - 200 Normal (applies to 97.7 [degF] [facility] [degF] non-numeric Health System results) Diastolic blood 67 mm[Hg] 0 - 999 Normal (applies to 67 mm[Hg] [facility] pressure non-numeric [facility] System results) Systolic blood 107 mm[Hg] 0 - 999 Below low normal 107 mm[Hg] [facility] efior pressure Health System Deprecated Oxygen 99 % 0 - 999 Normal (applies to 99 % [facility] in non-numeric Health Sys tem Capillary blood results) by Oximetry Respiratory rate 17 0 - 999 Normal (applies to 17 [facility] non-numeric Health System results) Heart rate 78 0 - 999 Normal (applies to 78 [facility] non-numeric [facility] results) Body surface area 1.8 m2 1.8 m2 [facility] Derived from [employer] m formula Body mass index 20.9 kg/m2 20.9 kg/m2 [facility] (BMI) [Ratio] Health Syst Body weight 68.[address] [facility] Measured Health System Body height 180.34 cm 180.34 cm [facility] System Body temperature 98.2 0 - 200 Normal (applies to 98.2 [degF] [facility] [degF] non-numeric Health System results) Body temperature 36.7 Asmita 0 - 99.9 Normal (applies to 36.[address] [facility] non-numeric Health System results) Diastolic blood 65 mm[Hg] 0 - 999 Below low normal 65 mm[Hg] [facility] pressure Health System Systolic blood 113 mm[Hg] 0 - 999 Normal (applies to 113 mm[Hg] [facility] pressure non-numeric [facility] results) Deprecated Oxygen 98 % 0 - 999 Normal (applies to 98 % [facility] saturation in non-numeric [facility] Sys tem Capillary blood results) by Oximetry Respiratory rate 16 0 - 999 Normal ([facility]lies to 16 [facility] results) Heart rate 68 0 - 999 Normal (applies to 68 [facility] non-numeric [facility] results) Body surface area 1.9 m2 1.9 m2 [facility] Derived from [employer] Anywhere Syste m formula Body mass index 22.3 kg/m2 22.3 kg/m2 [facility] (BMI) [Ratio] Health Syst Body weight 72.[address] [facility] Measured Health System Body height 180.[address] [facility] [employer] System Diastolic blood 57 mm[Hg] 0 - 999 Below low normal 57 mm[Hg] [facility] pressure [facility] System Systolic blood 118 mm[Hg] 0 - 999 Normal (applies to 118 mm[Hg] [facility] pressure non-numeric [facility] System results) Deprecated Oxygen 100 % 0 - 999 Normal (applies to 100 % [facility] saturation in non-numeric Health Sys tem Capillary blood results) by Oximetry Respiratory rate 22 0 - 999 Above high normal 22 M [facility] System Heart rate 49 0 - 999 Below low normal 49 [facility] System Body temperature 97.3 0 - 200 Normal (applies to 97.3 [degF] [facility] [degF] non-numeric Health System results) Body temperature 36.2 Asmita 0 - 99.9 Below low normal 36.2 [facility]mita [facility] Diastolic blood 79 mm[Hg] 0 - 999 Normal (applies to 79 mm[Hg] [facility] pressure non-numeric [facility] System results) Systolic blood 118 mm[Hg] 0 - 999 Normal (applies to 118 mm[Hg] [facility] pressure non-numeric Health System results) Deprecated Oxygen 100 % 0 - 999 Normal (applies to 100 % [facility] saturation in non-numeric Health Sys tem Capillary blood results) by Oximetry Respiratory rate 17 0 - 999 Normal (applies to 17 [facility] non-numeric Health System results) Heart rate 82 0 - 999 Normal (applies to 82 [facility] iore non-numeric Health System results) Body surface area 1.7 m2 1.7 m2 [facility] Derived from Health Syste m formula Body mass index 24.2 kg/m2 24.2 kg/m2 [facility] e (BMI) [Ratio] Health Syst em Body weight 68.[address] [facility] Measured Health System Body height 167.64 cm 167.64 cm [facility] Diastolic blood 52 mm[Hg] 52 mm[Hg] eCW2 ([facility]) Systolic blood 101 mm[Hg] 101 mm[Hg] eCW2 ([facility]) Body temperature 98.1 98.1 [degF] eCW2 (H son [degF] [facility]) Heart rate 20 /min 20 /min eCW2 ([facility]) Body mass index 21.25 21.25 kg/m2 eCW2 ( dson (BMI) [Ratio] kg/m2 [facility]) Body weight 146 146 [lb_av] eCW2 ([place] Measured [lb_av] [facility]) Body height 69.5 69.5 [in_us] eCW2 ([facility] n [in_us] [facility]) Diastolic blood 84 mm[Hg] 84 mm[Hg] eCW2 ([facility]) Systolic blood 129 mm[Hg] 129 mm[Hg] eCW2 ([facility] on pressure [facility]) Body temperature 98.1 98.1 [degF] eCW2 (H udson [degF] [facility]) Heart rate 20 /min 20 /min eCW2 ([facility]) Body mass index 21.25 21.25 kg/m2 eCW2 (Hu dson (BMI) [Ratio] kg/m2 [facility]) Body weight 146 146 [lb_av] eCW2 ([place] Measured [lb_av] [facility]) Body height 69.5 69.5 [in_us] eCW2 ([facility] n [in_us] [facility]) Patient Treatment Plan of Care Planned Activity Planned Date Details Description Data Source (s) No data available for this N [facility] - section [facility] GoLYTELY oral powder for 11/28/2019 [facility] - reconstitution 07:17:00 PM EST [facility] Acetaminophen 500 MG Oral 04/26/2019 [facility] Tablet 05:10:28 PM EDT System Ibuprofen 800 MG Oral 04/26/2019 [facility] Health Tablet [Ibu] 04:42:42 PM EDT System Amoxicillin 500 MG Oral 04/26/2019 [facility] Tablet 04:42:18 PM EDT System Betamethasone 0.5 MG/ML / 12/22/2018 [facility] Clotrimazole 10 MG/ML 10:13:49 AM EST Sys tem Topical Cream Acetaminophen 500 MG Oral 11/10/2018 [facility] Tablet 02:43:38 PM EST System Naproxen 500 MG [facility] Tablet 04:38:22 PM EDT System Ascorbic Acid 250 MG Oral 08/13/2018 eC W2 ([place] Tablet 12:00:00 AM EDT Health Care) ferrous sulfate 325 MG 08/13/2018 eCW2 ([place] Oral Tablet 12:00:00 AM EDT Health Care) rivaroxaban 15 MG Oral 07/27/2018 eCW2 ([place] Tablet [Xarelto] 12:00:00 AM EDT Health C are) Amoxicillin 875 MG / 07/26/2018 [facility] Clavulanate 125 MG Oral 07:24:54 PM EDT S ystem Tablet apixaban 5 MG Oral Tablet 07/26/2018 [facility] [Eliquis] 06:34:25 PM EDT System doxycycline hyclate 100 MG 07/26/2018 [facility] Oral Capsule 06:32:54 PM EDT System [facility]adone [facility] X[facility]ax [facility] Ambien [facility] Methad[facility] Methadone [facility] Suboxone [facility] Wellbutrin [facility] Morphine [facility] Ativan [facility] Alprazolam 0.5 MG Oral [facility] Tablet Center apixaban 5 MG Oral Tablet [facility] [Eliqu] [place] [address] [facility] Hydrochloride 150 MG Center Extended Release Oral Tablet Docusate Sodium 100 MG [facility] Oral Capsule [DOK] Center methaDONE 110 Tablet, [facility] Ordered By: [facility] Leslie, XUANirections: 1 tablet oral daily olanzapine 15 MG Oral [facility] Tablet [place] Zolpidem tartrate 10 MG [facility] Oral Tablet Center Doxycycline Monohydrate eCW2 ([facility] 100 MG Oral Capsule [facility]) Amoxicillin 875 MG / eCW2 ([facility] Clavulanate 125 MG Oral [facility]) Tablet apixaban 5 MG Oral Tablet eC W2 ([facility] [Eliqu] [facility]) Doxycycline Monohydrate eCW2 ([facility] 100 MG Oral Capsule [facility]) Amoxicillin 875 MG / eCW2 ([facility] Clavulanate 125 MG Oral [facility] Care) Tablet
--- NOTE | 2020-07-30 09:55 | EKG ---
Test Reason : Blood Pressure : / mmHG Vent. Rate : 049 BPM Atrial Rate : 049 BPM P-R Int : 156 ms QRS Dur : 100 ms QT Int : 464 ms P-R-T Axes : 046 068 042 degrees QTc Int : 419 ms SINUS BRADYCARDIA WITH SINUS ARRHYTHMIA OTHERWISE NORMAL ECG WHEN COMPARED WITH ECG OF 01-JUL-2020 17:55, VENT. RATE HAS DECREASED BY 51 BPM T WAVE INVERSION NO LONGER EVIDENT IN LATERAL LEADS QT HAS SHORTENED Confirmed by BI MELENDEZ, NAHED ([id number]) on 07/30/2020 9:55:29 AM Referred By: Confirmed By:NAHED PAT MD
--- NOTE | 2020-07-30 10:13 | CON.GI ---
Consult Consult Specialty:: GI Referred by:: Hospitalist Service Reason for Consultation:: Anemia - History of Present Illness Chief Complaint: patient did not want to answer questions regarding why he was here. just [place] "he did not know". History of Present Illness: 35M admitted for evaluation of left ankle pain. Being treated for left leg DVT. Called for evaluation of anemia. Had had an anemia from 09/17. Had an EGD [address] Hoang that revealed a katia doyle tear and was otherwise unremarkable. Patient offers no further information. He states that he does not know why he is here. Urinet tox positive for cocaine, opiates and fentanyl. - History Source History Provided By: Patient, Medical Record Limitations to Obtaining History: Poor Historian - Past Medical History Cardio/Vascular: Yes: Other (endocarditis) Pulmonary: Yes: Pulmonary Embolus Gastrointestinal: Yes: Other (hep C) Hepatobiliary: Yes: Hepatitis C Infectious Disease: No: HIV Psych: Yes: Addictions - Alcohol/Substance Use Hx Alcohol Use: No History of Substance Use: reports: Heroin - Smoking History Smoking history: Never smoked Have you smoked in the past 12 months: No Aproximately how many cigarettes per day: 5 - Social History Usual Living Arrangement: With Parent Home Medications - Allergies Allergies/Adverse Reactions: Allergies Allergy/AdvReac Type Severity Reaction Status Date / Time haloperidol [From Haldol] Allergy Low Blood Verified 07/29/20 23:56 Pressure tramadol Allergy Low Blood Verified 07/29/20 23:56 Pressure - Home Medications Home Medications: Ambulatory Orders Alprazolam [Xanax] 1 tablet PO DAILY 07/01/20 Bupropion HCl [Wellbutrin Xl] 1 tablet PO DAILY 07/01/20 Family Medical History Family History: Unable to Obtain Review of Systems Unable to obtain ROS, reason: Patient refused to answer Physical Exam-GI Vital Signs: Vital Signs Temperature 97.7 F 07/30/20 09:45 Pulse Rate 66 07/30/20 09:45 Respiratory Rate 18 07/30/20 09:45 Blood Pressure 140/96 07/30/20 09:45 O2 Sat by Pulse Oximetry (%) 99 07/30/20 09:45 PATIENT REFUSED PHYSICAL EXAM Labs: CBC, BMP 07/30/20 02:00 07/30/20 02:00 INR, PTT INR 1.03 (0.83-1.09) 07/30/20 02:00 Problem List - Problems (1) Anemia Assessment/Plan: No overt bleeding: Discussed upper endoscopy and colonoscopy with Mr. Brown to evaluate for GI causes of anemia such as polyps, bleeding blood vessels, PUD, cancers of the GI tract. This would be undertaken once urine tox cleared of cocaine and with anticoagulation held as this is a non-emergent evaluation. Discussed potential risks of the procedures like but not limited to bleeding, perforation requiring surgery to repair, infection, sedation medication effects all of which could be potentially life threatening. He stated that he would have to think about this. Recall GI if patient amenable to endoscopic evaluation Code(s): D64.9 - ANEMIA, UNSPECIFIED Qualifiers: Anemia type: iron deficiency
[2020-07-30] MEDS ORDERED: ENOXAPARIN NA (PORCINE) 40 MG/0.4 ML DISP.SYRIN SQ ONE (10:36)
--- NOTE | 2020-07-30 12:48 | PN ---
Physical Exam: SUBJECTIVE: Patient seen and examined at bedside, reports that he does not know why he is here and wants to go back to [facility]. Complains of Left ear pain x 3 days, denies any active drainage. Denies any fever, chills, nausea, vomiting, diarrhea. When asked about the Hx of DVT, he reports that he does not know and asks for pain medications. OBJECTIVE: Vital Signs Period Temp Pulse Resp BP Sys/Manning Pulse Ox Last 24 Hr 97.7 F-98.6 F 66-68 18-18 122-140/74-96 99-100 GENERAL: agitated and uncooperative with the interview/examinations, refused the physical examination HEENT: No active drainage form the left ear, moderate TTP of the pinna, refused otoscopic examination, Please refer to Dr. Lock' note for Otoscopic examination. Laboratory Results - last 24 hr 07/30/20 07/30/20 07/30/20 02:00 02:00 02:00 WBC 7.2 RBC 3.84 L Hgb 9.2 L Hct 29.4 L MCV 76.6 L MCH 23.9 L MCHC 31.3 L RDW 17.2 H Plt Count 163 D MPV 7.9 Absolute Neuts (auto) 5.2 Neutrophils % 71.9 Lymphocytes % 14.4 D Monocytes % 11.4 H Eosinophils % 1.8 Basophils % 0.5 Nucleated RBC % 0 PT with INR 12.10 INR 1.03 Sodium 138 Potassium 4.9 Chloride 105 Carbon Dioxide 30 Anion Gap 3 L BUN 13.5 Creatinine 0.8 Est GFR (CKD-EPI)AfAm 132.27 Est GFR (CKD-EPI)NonAf 114.12 Random Glucose 89 Calcium 8.2 L Iron 25 L TIBC 462 H Iron Saturation 5 L Unsaturated IBC 437 H Ferritin 21.5 Total Bilirubin 0.3 AST 28 ALT 16 Alkaline Phosphatase 53 Total Protein 7.1 Albumin 3.3 L Active Medications Generic Name Dose Route Start Last Admin Trade Name Freq PRN Reason Stop Dose Admin Amoxicillin/Clavulanate Potassium 1 tab 07/30/20 08:00 Augmentin - 875mg Tablet PO 07/31/20 07:59 BID@0800,1730 [facility] Enoxaparin Sodium 70 mg 07/30/20 13:00 Lovenox - SQ Q12H [facility] ASSESSMENT/PLAN: 35 Y M with a PMH of Left femoral DVT and RLE superficial thromboses(was on Coumadin but non compliant) Hep C (s/p Harvoni therapy), Tobacco use, Rectal bleeding, Proctocolitis, IVDA (heroin, speedballs), Endocarditis (2018; strep and anarobes), Septic lung emboli, Katia doyle tear, who presented to the ER from [facility] for evaluation of left ankle pain, US revealed a Nonocclusive thrombus within the left common femoral vein, admitted for LLE DVT. #LLE DVT - likely chronic - US LLE: Non occlusive thrombus within the left common femoral vein and Greater saphenous vein - Prior U/S 2019: deep venous thromboses involving the common femoral and greater saphenous vein, bilaterally - Prior u/s 2018: deep venous thromboses in the left common femoral vein and greater saphenous vein as well as superficial venous thromboses in the right greater saphenous vein - Received Enoxaparin 70 mg sq in ED, will continue to treat with Lovenox 70mg Q12 SQ - Heme/Onc, Dr. sánchez, consulted, pending recs #Anemia - Likely 2/2 to dietary Iron deficiency vs an active GI bleed - Iron studies consistent with Iron deficiency anemia - History of rectal bleeding, Katia Doyle tear - Hb 9.2 today, at baseline around 9 since 2018 - Pending stool occult blood test, patient refusing rectal exam - GI, Dr. Crawford, is following Discussed upper endoscopy and colonoscopy with the patient( he will think about it) - Previous EGD in 2018 after Hematemesis(2/2 katia doyle tear) with Dr. Peterson, Normal biopsies, without any signs of celiac disease. #Heroin Dependence - IVDU Heroin use: 8-10 bags heroin/day - Recieved Methadone 30 mg while in ED - Started methadone taper - Will discharge back to [facility] once medically stable #Left Ear pain - Patient refused otoscopic examination, Otitis media vs externa - Recently treated at [facility] with one dose of Augmentin, did not fill the discharge prescription - 07/28: In [facility] ER, he was treated with Ciprodex for otitis externa - Will continue Augmentin 875mg BID and Ofloxacin DVT prophylaxis: - Lovenox 70mg Q12 SQ FEN - No standing fluids - Will continue to monitor electrolytes - Regular diet Dispo - will continue to monitor in [place] Visit type - Emergency Visit Emergency Visit: Yes ED Registration Date: 07/30/20 Care time: The patient presented to the Emergency Department on the above date and was hospitalized for further evaluation of their emergent condition. - New Patient This patient is new to me today: No - Critical Care Critical Care patient: No - Discharge Referral Referred to [facility] Med P.C.: No ATTENDING PHYSICIAN STATEMENT I saw and evaluated the patient. I reviewed the resident's note and discussed the case with the resident. I agree with the resident's findings and plan as documented. SUBJECTIVE: OBJECTIVE: ASSESSMENT AND PLAN:
[2020-07-30] MEDS ORDERED: ENOXAPARIN NA (PORCINE) 80 MG/0.8 ML DISP.SYRIN SQ SCH (13:00)
[2020-07-30] MEDS ORDERED: ACETAMINOPHEN 1000 MG/100 ML VIAL (NON FORMULARY) IVPB PRN (13:15)
[2020-07-30] MEDS ORDERED: OFLOXACIN 0.3% OTIC SOLUTION 5 ML BOTTLE AU SCH (13:30)
[2020-07-30 14:06] VITALS: BP 120/63; PULSE 77; TEMP 98.1
[2020-07-30] MEDS ORDERED: cloNIDine HCL 0.1 MG TABLET PO PRN (14:08)
--- NOTE | 2020-07-30 14:14 | PN ---
Teaching Attending Note Name of Resident: Jaron Mcneill ATTENDING PHYSICIAN STATEMENT I saw and evaluated the patient. I reviewed the resident's note and discussed the case with the resident. I agree with the resident's findings and plan as documented. SUBJECTIVE: Patient does not know why he is here. He complains of left ear pain and is asking for Methadone. He was diagnosed with otitis externa and prescribed Ciprodex by ED on 07/28. He was admitted to [facility] on 07/29 for heroin detox but was found to have a red, swollen, warm left leg and so he was sent to the ED. OBJECTIVE: Vital Signs Period Temp Pulse Resp BP Sys/Manning Pulse Ox Last 24 Hr 97.7 F-98.6 F 66-68 18-18 122-140/74-96 99-100 HEENT: Left external ear normal, canal edematous without discharge, TM not visualized HEART: S1S2, RRR LUNGS: Clear ABDOMEN: Soft, non-tender, non-distended, normal BS EXTREMITIES: No edema Laboratory Results - last 24 hr 07/30/20 07/30/20 07/30/20 02:00 02:00 02:00 WBC 7.2 RBC 3.84 L Hgb 9.2 L Hct 29.4 L MCV 76.6 L MCH 23.9 L MCHC 31.3 L RDW 17.2 H Plt Count 163 D MPV 7.9 Absolute Neuts (auto) 5.2 Neutrophils % 71.9 Lymphocytes % 14.4 D Monocytes % 11.4 H Eosinophils % 1.8 Basophils % 0.5 Nucleated RBC % 0 PT with INR 12.10 INR 1.03 Sodium 138 Potassium 4.9 Chloride 105 Carbon Dioxide 30 Anion Gap 3 L BUN 13.5 Creatinine 0.8 Est GFR (CKD-EPI)AfAm 132.27 Est GFR (CKD-EPI)NonAf 114.12 Random Glucose 89 Calcium 8.2 L Iron 25 L TIBC 462 H Iron Saturation 5 L Unsaturated IBC 437 H Ferritin 21.5 Total Bilirubin 0.3 AST 28 ALT 16 Alkaline Phosphatase 53 Total Protein 7.1 Albumin 3.3 L Current Medications Generic Name Dose Route Start Last Admin Trade Name Freq PRN Reason Stop Dose Admin Acetaminophen 1,000 mg 07/30/20 13:15 07/30/20 13:28 Ofirmev Injection - IVPB 07/31/20 13:14 1,000 mg Q6H PRN Administration PAIN LEVEL 4 - 6 Amoxicillin/Clavulanate Potassium 1 tab 07/30/20 08:00 Augmentin - 875mg Tablet PO 07/31/20 07:59 BID@0800,1730 EL[facility] Enoxaparin Sodium 70 mg 07/30/20 13:00 07/30/20 13:28 Lovenox - SQ 70 mg Q12H [facility] Administration Ofloxacin 10 drop 07/30/20 13:30 Floxin Otic (Ear) Solution - AU 08/06/20 13:29 DAILY [facility] ASSESSMENT AND PLAN: This is a 35 year old man with a history of heroin dependence, recurrent DVTs, endocarditis, hepatitis C, bipolar disorder who was sent to the ED from [facility] because of left ankle pain. 1. DVT of left common femoral vein - Start Lovenox - Was non-compliant with Coumadin in past 2. Iron deficiency anemia - No evidence of active bleeding - Hgb stable 9.2-9.4 over the past year - Patient refusing rectal exam and wants to think about EGD/colonoscopy - Will start Lovenox for DVT and monitor for signs of bleeding 3. Opioid dependence - Methadone given in ED - will start Methadone detox - Plan for return to [facility] 4. Left otitis externa - On Augmentin - Floxin ear drops added 5. Bipolar disorder 6. History of hepatitis C - Treated with Mane
[2020-07-30] MEDS: AMOX TR/POT CLAV 875MG/125MG TABLETS (FP) PO SCH ×2 (14:16→16:49)
--- NOTE | 2020-07-30 15:13 | CON.HO ---
Consult Consult Specialty:: Hematology Reason for Consultation:: DVT - History of Present Illness Chief Complaint: left ankle pain/ear pain History of Present Illness: 35y Polysubstance abuse, Left lower extremity DVT in 2018 and 2019, bipolar disorder presents from outpatient detox for left ankle swelling. Was evaluated in the ER, and US doppler with concern for non occlusive common femoral DVT. Unclear if this is chronic or acute (although non occlusive) . Heme consulted for utility in hypercoagulability workup. Patient is currently on lovenox and also was found to be iron deficient. GI evaluation pending. - History Source History Provided By: Patient - Past Medical History Cardio/Vascular: Yes: Other (endocarditis) Pulmonary: Yes: Pulmonary Embolus Gastrointestinal: Yes: Other (hep C) Hepatobiliary: Yes: Hepatitis C Infectious Disease: No: HIV Psych: Yes: Addictions - Alcohol/Substance Use Hx Alcohol Use: No History of Substance Use: reports: Heroin - Smoking History Smoking history: Never smoked Have you smoked in the past 12 months: No Aproximately how many cigarettes per day: 5 - Social History Usual Living Arrangement: With Parent Home Medications - Allergies Allergies/Adverse Reactions: Allergies Allergy/AdvReac Type Severity Reaction Status Date / Time haloperidol [From Haldol] Allergy Low Blood Verified 07/29/20 23:56 Pressure tramadol Allergy Low Blood Verified 07/29/20 23:56 Pressure - Home Medications Home Medications: Ambulatory Orders Alprazolam [Xanax] 1 tablet PO DAILY 07/01/20 Bupropion HCl [Wellbutrin Xl] 1 tablet PO DAILY 07/01/20 Family Medical History Family History: Unable to Obtain Physical Exam Vital Signs: Vital Signs Temperature 98.1 F 07/30/20 13:00 Pulse Rate 77 07/30/20 13:00 Respiratory Rate 20 07/30/20 13:00 Blood Pressure 120/63 07/30/20 13:00 O2 Sat by Pulse Oximetry (%) 99 07/30/20 09:45 Constitutional: Yes: Anxious Eyes: Yes: Conjunctiva Clear HENT: Yes: Atraumatic, Normocephalic Neck: Yes: Supple Cardiovascular: Yes: Regular Rate and Rhythm Respiratory: Yes: CTA Bilaterally Gastrointestinal: Yes: Normal Bowel Sounds Musculoskeletal: Yes: WNL Edema: Yes (around left ankle ) Labs: CBC, BMP 07/30/20 02:00 07/30/20 02:00 Assessment/Plan 35y M with polysubstance abuse comes in with left ankle pain found to have left common femoral vein non occlusive DVT non occlusive -DVT in similar area from 2017/2018 -Agree with lovenox for now until chronicity of VTE can be established. If there is concern for acute GI bleeding than the risks and benefits of anticogualtion should be discussed with patient -Unclear if prior DVTs were provoked vs unprovoked; inflammation can be a provoking source of DVTs which can be seen in IVDA -would not recommend hypercoagulability workup at this time as it would not record changer. If this is an acute DVT, he should be on indefinite anticoagulation -can follow with vascular surgery as outpatient to help manage chronic edema caused by DVT
--- NOTE | 2020-07-30 17:53 | PN ---
Progress Note (short form) - Note Progress Note: PATIENT ELOPED: Nursing informed the Medical Team at 17:10 that the patient left his room with the intention of going outside of the hospital. Nursing attempted to stop the patient, who had pulled out his IV line (total 1 line, which was accounted for, no other lines), however was unable to. Security was called and also unable to stop the patient from leaving. MD did not assess the patient as they had already eloped.
[2020-07-30 20:59] VITALS: BMI 21.4
[2020-07-31] MEDS ORDERED: METHADONE 20 MG, METHADONE 5 MG PO ONE (10:00)
[2020-08-01] MEDS ORDERED: METHADONE HCL 10 MG TABLET PO ONE (10:00)
[2020-08-02] MEDS ORDERED: METHADONE 10 MG, METHADONE 5 MG PO ONE (10:00)
[2020-08-03] MEDS ORDERED: METHADONE HCL 10 MG TABLET PO ONE (10:00)
[2020-08-04] MEDS ORDERED: METHADONE HCL 5 MG TABLET PO ONE (06:00)
== END 2020-07-30 17:15 | disposition left against medical advice (07) | DRG 197 ==
LOC: JER 23:49 → JERBED 07-30 04:25 → J4S 07-30 09:55
PROVIDERS: ADMIT Internal Medicine; ATTEND Internal Medicine
PROC: HZ2ZZZZ Detoxification Services for Substance Abuse Treatment (ICD-10-PCS; principal; 2020-07-30)
DX: I82.412 Acute embolism and thrombosis of left femoral vein (principal); H60.92 Unspecified otitis externa, left ear; Z68.21 Body mass index [BMI] 21.0-21.9, adult; F31.9 Bipolar disorder, unspecified; D50.9 Iron deficiency anemia, unspecified; F11.20 Opioid dependence, uncomplicated; F17.210 Nicotine dependence, cigarettes, uncomplicated; E88.09 Other disorders of plasma-protein metabolism, not elsewhere classified; E46 Unspecified protein-calorie malnutrition; F41.8 Other specified anxiety disorders
CPT/HCPCS: 36415; 71046-TC-FY; 73610-TC-LT-FY; 73630-TC-LT; 80053; 82728; 83540; 83550; 85025; 85610; 93005; 93010; 93971-TC; 99285-25; J0131